=== PATIENT | female | born 1955 | race Caucasian/White ===

== ENCOUNTER 2022-12-23 16:40 | Outpatient (OUT) | payer MEDICARE, OTHER, SELFPAY ==
--- NOTE | 2022-12-23 16:48 | MM_ITS ---
Patient: MITALI CRONIN Exam Date: 12/23/2022 : 1955 Gender:F Ordering : DR ASHLY CHAMORRO M.D. Admission #: [id number] Family : Order #: [id number] CLICK HERE TO VIEW EXAM RADIOLOGY REPORT PROCEDURE: MM TOMOSYNTHESIS SCREENING BI COMPARISON: MG MAMM SCREEN AMOL W CAD, 01/04/2020. MG MAMM SCREEN 3D AMOL CAD, 04/17/2021. INDICATIONS: SCREENING Calculator Name NCI Breast Cancer Risk Assessment Tool 5 Year Breast Cancer Risk 1.50% Lifetime Breast Cancer Risk 4.50% Personal Breast Cancer No Personal Ovarian Cancer No Treatments None Family Cancers None LOCATION: [facility] BREAST COMPOSITION: Heterogeneously dense,which may obscure small masses. FINDINGS: DIAGNOSTIC CATEGORY 2--BENIGN FINDING. NO CHANGE FROM COMPARISON. Scattered benign-appearing nodules are present. Scattered benign-appearing calcifications are present. RIGHT BREAST: No significant suspicious finding. LEFT BREAST: No significant suspicious finding. RECOMMENDATIONS: ROUTINE MAMMOGRAM AND CLINICAL EVALUATION IN 12 MONTHS. PLEASE NOTE: A NORMAL MAMMOGRAM DOES NOT EXCLUDE THE POSSIBILITY OF BREAST CANCER. A CLINICALLY SUSPICIOUS PALPABLE LUMP SHOULD BE BIOPSIED. Dictated by: Daniel Corbett MD on 12/24/2022 at 10:12 Approved by: Daniel Corbett MD on 12/24/2022 at 10:15
== END 2022-12-23 16:41 | disposition home or self-care (01) ==
LOC: MAMMO 16:40
PROVIDERS: PCP Family Medicine; Visit Provider Family Medicine
DX: Z12.31 Encounter for screening mammogram for malignant neoplasm of breast (principal)
CPT/HCPCS: 77063; 77067

== ENCOUNTER 2023-01-23 19:05 | Emergency (ER) | payer MEDICARE, OTHER, SELFPAY ==
[2023-01-23 19:10] VITALS: BP 145/68; PULSE 77; RESP 16; TEMP 36.5; O2SAT 97; BMI 31.9
--- NOTE | 2023-01-23 19:42 | ED.SKABFB1 ---
HPI - Skin/Abscess/Foreign Bdy General Chief complaint: Skin/Abscess/Foreign Body Stated complaint: RASH Time Seen by Provider: 01/23/23 19:42 Related Data Allergies Allergy/AdvReac Type Severity Reaction Status Date / Time hydromorphone [From Dilaudid] Allergy Verified 01/23/23 19:14 morphine Allergy Verified 01/23/23 19:14 sumatriptan [From Imitrex] Allergy Verified 01/23/23 19:14 PFSH PFSH Social History Smoking status: Never smoker Exam Constitutional Vital Signs, click to edit/add: Last Vital Signs Temp 97.7 F 01/23/23 19:10 Pulse 77 01/23/23 19:10 Resp 16 01/23/23 19:10 BP 145/68 H 01/23/23 19:10 Pulse Ox 97 01/23/23 19:10 Course Vital Signs Vital signs: Vital Signs Temperature 97.7 F 01/23/23 19:10 Pulse Rate 77 01/23/23 19:10 Respiratory Rate 16 01/23/23 19:10 Blood Pressure 145/68 H 01/23/23 19:10 Pulse Oximetry 97 01/23/23 19:10 Temperature 97.7 F 01/23/23 19:10 Pulse Rate 77 01/23/23 19:10 Respiratory Rate 16 01/23/23 19:10 Blood Pressure 145/68 H 01/23/23 19:10 Pulse Oximetry 97 01/23/23 19:10 Discharge Plan Discharge Chief Complaint: Skin/Abscess/Foreign Body Referrals: ASHLY CHAMORRO [Primary Care Provider] - 1 week
== END 2023-01-23 20:34 | disposition left against medical advice (07) ==
PROVIDERS: Emergency Provider Emergency Medicine; PCP Family Medicine
DX: Z53.21 Procedure and treatment not carried out due to patient leaving prior to being seen by health care provider (principal)

== ENCOUNTER 2023-01-24 08:24 | Emergency (ER) | payer MEDICARE, OTHER, SELFPAY ==
[2023-01-24 08:29] VITALS: BP 171/84; PULSE 65; RESP 14; TEMP 36.6; O2SAT 96; BMI 31.5
--- NOTE | 2023-01-24 09:03 | ED.GENADUL1 ---
HPI - General Adult General Chief complaint: Allergic Reaction Stated complaint: HIVES Time Seen by Provider: 01/24/23 08:36 Source: patient Mode of arrival: walk-in Limitations: no limitations History of Present Illness HPI narrative: patient developed a blotchy red rash to her torso and extremities yesterday - she thinks it might have been some kind of exposure at the [place]. She took benadryl last night and it improved. She woke this morning and had new areas of rash - she once again took benadryl and it improved. She now presents, asking me what she might have been exposed to and why the rash comes and goes. No throat swelling or difficulty breathing. Related Data Home Medications Medication Instructions Recorded Confirmed hydrochlorothiazide 25 mg tablet mg 01/24/23 levothyroxine 75 mcg tablet 75 mcg PO DAILY 01/24/23 01/24/23 meloxicam 15 mg tablet 15 mg PO DAILY 01/24/23 01/24/23 metoprolol tartrate 50 mg tablet 50 mg PO DAILY 01/24/23 01/24/23 Previous Rx's Medication Instructions Recorded prednisone 20 mg tablet 40 mg PO DAILY #10 tabs 01/24/23 Allergies Allergy/AdvReac Type Severity Reaction Status Date / Time hydromorphone [From Dilaudid] Allergy Verified 01/23/23 19:14 morphine Allergy Verified 01/23/23 19:14 sumatriptan [From Imitrex] Allergy Verified 01/23/23 19:14 [facility] Medical History (Updated 01/24/23 @ 09:07 by Panfilo Guerin) Social History Smoking status: Never smoker Exam Narrative Exam Narrative: Nurses notes and vital signs reviewed and patient is not hypoxic. afebrile General: Well-appearing and in no apparent distress. Skin: Warm, dry, no pallor noted. No rash present now. Head: Normocephalic, atraumatic. Eye: Pupils are equal, round and EOMI. No scleral icterus. Ears, Nose, Mouth, and Throat: no facial rash or swelling Cardiovascular: Regular Rate and Rhythm without murmur, gallop or rub. Respiratory: No accessory muscle use or respiratory distress. Lungs are clear to auscultation, no wheezing, rales or rhonchi Musculoskeletal: normal ROM GI: Abdomen is soft, non-distended. Normal bowel sounds. No tenderness to palpation. No rebound, guarding, or rigidity noted. Neurological: A&O x4. No cranial nerve dysfunction observed. No truncal ataxia. Moves all extremities. Sensation intact. Psychiatric: Cooperative and interactive. Normal mood and affect. Constitutional Vital Signs, click to edit/add: Last Vital Signs Temp 97.9 F 01/24/23 08:29 Pulse 65 01/24/23 08:29 Resp 14 01/24/23 08:29 BP 171/84 H 01/24/23 08:29 Pulse Ox 96 01/24/23 08:29 O2 Del Method Room Air 01/24/23 08:29 Course Vital Signs Vital signs: Vital Signs Temperature 97.9 F 01/24/23 08:29 Pulse Rate 65 01/24/23 08:29 Respiratory Rate 14 01/24/23 08:29 Blood Pressure 171/84 H 01/24/23 08:29 Pulse Oximetry 96 01/24/23 08:29 Oxygen Delivery Method Room Air 01/24/23 08:29 Temperature 97.9 F 01/24/23 08:29 Pulse Rate 65 01/24/23 08:29 Respiratory Rate 14 01/24/23 08:29 Blood Pressure 171/84 H 01/24/23 08:29 Pulse Oximetry 96 01/24/23 08:29 Oxygen Delivery Method Room Air 01/24/23 08:29 Medical Decision Making MDM Narrative Medical decision making narrative: no rash present now - it responded to benadryl. Encouraged the patient to continue to take benadryl as needed. She used some toical steroid as well. I prescribed oral prednisone to be taken ONLY if the rash becomes widespread and does not respond to benadryl. Discharge Plan Discharge Chief Complaint: Allergic Reaction Clinical Impression: Urticaria Patient Disposition: Home, Self-Care Time of Disposition Decision: 09:07 Prescriptions / Home Meds: New prednisone 20 mg tablet 40 mg PO DAILY Qty: 10 0RF No Action hydrochlorothiazide 25 mg tablet levothyroxine 75 mcg tablet 75 mcg PO DAILY metoprolol tartrate 50 mg tablet 50 mg PO DAILY meloxicam 15 mg tablet 15 mg PO DAILY Instructions: Urticaria (ED) Stand Alone Forms: Portal Instructions Referrals: ASHLY CHAMORRO [Primary Care Provider] - 1 week
== END 2023-01-24 09:18 | disposition home or self-care (01) ==
PROVIDERS: Emergency Provider Emergency Medicine; PCP Family Medicine
DX: L50.9 Urticaria, unspecified (principal); Z79.899 Other long term (current) drug therapy; Z79.890 Hormone replacement therapy
CPT/HCPCS: 99283

== ENCOUNTER 2024-01-28 14:58 | Outpatient (OUT) | payer MEDICARE, OTHER, SELFPAY ==
--- NOTE | 2024-01-28 15:06 | MM_ITS ---
Patient Name: MITALI CRONIN MR#: [id number] : 1955 Exam Date: 01/28/2024 Ordering Doctor: DR ASHLY CHAMORRO M.D. RADIOLOGY REPORT PROCEDURE: MM TOMOSYNTHESIS SCREENING BI COMPARISON: MM TOMOSYNTHESIS SCREENING BI, 12/23/2022. MG MAMM SCREEN 3D AMOL CAD, 04/17/2021. MG MAMM SCREEN AMOL W CAD, 01/04/2020. MG MAMM AMOL SCRN W CAD DIG, 02/14/2016. INDICATIONS: Screening Calculator Name NCI Breast Cancer Risk Assessment Tool 5 Year Breast Cancer Risk 1.50% Lifetime Breast Cancer Risk 4.30% Personal Breast Cancer No Personal Ovarian Cancer No Treatments None Family Cancers None LOCATION: [facility] BREAST COMPOSITION: The breasts are heterogeneously dense,which may obscure small masses. FINDINGS: DIAGNOSTIC CATEGORY 2--BENIGN FINDING: RIGHT BREAST: No significant suspicious finding. Scattered benign-appearing calcifications are present. Chronically dilated subareolar ducts. No significant change has occurred. LEFT BREAST: No significant suspicious finding. Scattered benign-appearing nodules are present. Chronically dilated subareolar ducts. No significant change has occurred. RECOMMENDATIONS: ROUTINE MAMMOGRAM AND CLINICAL EVALUATION IN 12 MONTHS. PLEASE NOTE: A NORMAL MAMMOGRAM DOES NOT EXCLUDE THE POSSIBILITY OF BREAST CANCER. A CLINICALLY SUSPICIOUS PALPABLE LUMP SHOULD BE BIOPSIED. Dictated by: Miguel Glover M.D. on 01/28/2024 at 16:19 Approved by: Miguel Glover M.D. on 01/28/2024 at 16:22
== END 2024-01-28 14:59 | disposition home or self-care (01) ==
LOC: MAMMO 15:00
PROVIDERS: PCP Family Medicine; Visit Provider Family Medicine
DX: Z12.31 Encounter for screening mammogram for malignant neoplasm of breast (principal)
CPT/HCPCS: 77063; 77067

== ENCOUNTER 2024-01-31 08:52 | Emergency (ER) | payer MEDICARE, OTHER, SELFPAY ==
[2024-01-31 08:55] VITALS: BP 154/83; PULSE 66; TEMP 36.7; O2SAT 94; BMI 29.5
--- OUTSIDE RECORDS SUMMARY | 2024-01-31 08:59 | XMS_ITS | CCD ---
Author Organization [facility] Informat ion [facility] Care Team Providers Care 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 Name Role Phone Antoine Waggoner Primary Care Provider ANTOINE WAGGONER Primary Care Unavailabl e KURT, GREGORY H. Referring Unavailable KURT, GREGORY H. Attending Unavailable KURT, GREGORY H. Referring Unavailable ANTOINE WAGGONER Primary Care Unavailabl e KURT, GREGORY H. Admitting Unavailable KURT, GREGORY H. Attending Unavailable KURT, GREGORY H. Referring Unavailable ANTOINE WAGGONER [facility] Care Unavailabl e KURT, GREGORY H. Referring Unavailable ANTOINE WAGGONER Primary Care Unavailabl e Antoine Waggoner Primary Care Provider Margarita Pond Unavailable PAY, DR NUGENT Admitting Unavailable ASHTYN, DR LIMON Primary Care Unavailable PAY, DR NUGENT Attending Unavailable PAY, DR NUGENT Consulting Unavailable KEESHA MÉNDEZ Admitting Unavailable ZIEBER, DR KADE Phillips Consulting Unavailable ASHTYN, DR LIMON Primary Care Unavailable KEESHA MÉNDEZ Attending Unavailable KEESHA MÉNDEZ Consulting Unavailable HEMMER, DR EMELIA East Admitting Unavailable HEMMER, DR EMELIA East Attending Unavailable HEMMER, DR EMELIA East Consulting Unavailable ASHTYN, DR LIMON Primary Care Unavailable CRANDALL, DR AMANDA Thayer Consulting Unavailable KARLEY, DR AMANDA Thayer Admitting Unavailable ASHTYN, DR LIMON Primary Care Unavailable CRANDALL, DR AMANDA Thayer Attending Unavailable HAY, DR PARK Consulting Unavailable SARAH HAIDER Consulting Unavailable GLENN Garcia Attending Provider Saima Garcia Unavailable NO FAMILY, PHYSICIAN Primary Care Unavailable Saima Garcia Admitting Unavailable Saima Garcia Attending Unavailable Nadia Durham Unavailable Ciera Chamorro MD Unavailable Ciera Chamorro MD Primary Care Provider JUSTINE TREJO Attending Unavailable YOEL TRIPP Attending Unavailable JUSTINE TREJO Attending Unavailable YOEL TRIPP Attending Unavailable YOEL TRIPP Attending Unavailable YOEL TRIPP Attending Unavailable CIERA CHAMORRO Attending Unavailable YOEL TRIPP Attending Unavailable EMELIA VARGAS Attending Unavailable YOEL TRIPP Attending Unavailable CIERA CHAMORRO Attending Unavailable JESSICA MONTERO Attending Unavailable CIERA CHAMORRO Referring Unavailable MARLEY SIMS Attending Unavailable MARLEY SIMS Referring Unavailable MARLEY SIMS Referring Unavailable Allergies Allergy Classification Reported Allergen(s) Allergy Type Date of Onset Reaction(s) Facility (4 sources) Adhesive Tape Propensity to adverse reactions to drug 11-18-19 Rash [place], [place] (4 sources) HYDROmorphone Drug Allergy 11-18-19 20 Shortness Of Breath [place], [place] (4 sources) Lisinopril Drug Allergy 11-18-19 20 [place], [place] (10 sources) Morphine Drug Allergy 10-17-19 20 Shortness Of Breath [place] (10 sources) SUMAtriptan Drug Allergy 11-18-19 Unknown [place] (4 sources) Plasminogen Propensity to adverse reactions to drug 11-18-19 [place] (4 sources) Adhesive agent; Translations: [Adhesive] Drug allergy rash [facility] (6 sources) HYDROmorphone Drug Allergy 11-10-19 23 cant breathe [facility] (1 source) HYDROmorphone Drug Allergy [facility] (1 source) Morphine Drug Allergy [facility] (1 source) Plasmin Drug Allergy [facility] (3 sources) Lisinopril Propensity to adverse reactions 11-18-19 [facility] Healthcare Work Phone: (3 sources) Plasminogen Propensity to adverse reactions 11-18-19 [facility] Healthcare (3 sources) Wound Dressing Adhesive Drug Intolerance 11-18-19 Rash [facility] Healthcare Medications Current Medications Medication Drug Class(es) Dates Sig (Normalized) Sig (Original) acetaminophen 325 mg / oxyCODONE hydrochloride 5 mg oral tablet (2 sources) Opioid Agonist Start: 11-29-19 End: 12-06-19 take 1 tablet by mouth every six hours as needed for pain, then take 1 tablet by mouth as needed for pain oxyCODONE-acetaminophe n (PERCOCET) 5-325 MG per tablet Indications: Postoperative pain Take 1 tablet by mouth every 6 hours as needed for Pain for up to 7 days. Intended supply: 7 days. Take lowest dose possible to manage pain 28 tablet 0 11/29/2019 12/06/2019 Active amoxicillin 875 mg / clavulanate 125 mg oral tablet (2 sources) Penicillin-class Antibacterial Start: 07-07-19 End: 07-17-19 take 1 tablet by mouth in the morning amoxicillin-clavulanat e (Augmentin) 875-125 MG tablet Indications: Acute non-recurrent maxillary sinusitis Take 1 tablet (875 mg) by mouth in the morning and 1 tablet (875 mg) before bedtime. Do all this for 10 days. 20 tablet 0 07/07/2023 07/17/2023 Active atorvastatin 10 mg oral tablet (4 sources) HMG-CoA Reductase Inhibitor Start: 07-15-19 take 1 tablet by mouth once daily in the evening atorvastatin (LIPITOR) 10 MG tablet Take 10 mg by mouth every evening 0 07/15/2019 Active calcium chloride 0.0014 meq/ml / potassium chloride 0.004 meq/ml / sodium chloride 0.103 meq/ml / sodium lactate 0.028 meq/ml injectable solution (2 sources) Start: 11-29-19 lactated ringers infusion cephalexin 500 mg oral capsule (2 sources) Cephalosporin Antibacterial Start: 11-29-19 End: 12-06-19 take 1 capsule by mouth three times daily cephALEXin (KEFLEX) 500 MG capsule Take 1 capsule by mouth 3 times daily for 7 days 21 capsule 0 11/29/2019 12/06/2019 Active doxycycline hyclate 100 mg oral capsule (1 source) Tetracycline-clas s Drug Start: 07-04-19 take 1 capsule by mouth every twelve hours Doxycycline Hyclate 100 MG 1 capsule Orally Twice a day for 5 days Jun, Active fluconazole 150 mg oral tablet (1 source) Azole Antifungal Start: 07-04-19 Diflucan 150 MG Take 1 tablet on day 1, if still symptomatic on day 4 take 1 tab, if still symptomatic on day 7 take Orally Once a day for 7 days Jun, Active hydroCHLOROthiazide 25 mg oral tablet (10 sources) Thiazide Diuretic Start: 08-10-19 take 1 tablet by mouth once daily hydroCHLOROthiazide (HYDRODIURIL) 25 MG tablet Take 1 tablet by mouth daily 0 08/10/2019 Active levothyroxine sodium 0.075 mg oral tablet (10 sources) l-Thyroxine Start: 08-28-19 take 1 tablet by mouth once daily levothyroxine (Synthroid, Levoxyl) 75 MCG tablet Indications: Hypothyroidism, unspecified (CMS/HCC) TAKE 1 TABLET BY MOUTH ONCE DAILY 100 tablet 4 11/17/2022 Active take 1 tablet by rene th once daily in the morning Synthroid 75 MCG 1 tablet on an empty stomach in the morning Orally Once a day for 30 day(s) Active meloxicam 15 mg oral tablet (3 sources) Nonsteroidal Anti-inflammatory Drug Start: 07-09-2023 take 1 tablet by mouth in the morning meloxicam (Mobic) 15 MG tablet Indications: Primary osteoarthritis involving multiple joints TAKE 1 TABLET BY MOUTH IN THE MORNING 100 tablet 1 07/09/2023 Active take 1 tablet by rene th every twenty-four hours Meloxicam 15 MG 1 tablet Orally Once a day Active methylPREDNISolone (7 sources) Corticosteroid Start: 07-09-2023 End: 07-16-2023 methylPREDNISolone (Medrol Dospak) 4 MG tablets Indications: Acute non-recurrent pansinusitis Follow schedule on package instructions 21 tablet 0 07/09/2023 07/16/2023 Active Start: 05-17-2022 Medrol 4 MG as directed Orally as directed for 6 days May, Not-Taking Start: 09-11-2013 Depo-Medrol 80 mg Sep, 80 mg metoprolol tartrate 50 mg oral tablet (10 sources) beta-Adrenergic Estiven Start: 12-06-2013 End: 11-10-2023 take 1 tablet by mouth in the morning metoprolol tartrate (Lopressor) 50 MG tablet Indications: Essential (primary) hypertension (CMS/HCC) Take 1 tablet (50 mg) by mouth in the morning. 30 tablet 11 11/10/2022 11/10/2023 Active take 1 tablet by rene th every twenty-four hours Metoprolol Tartrate 50 MG 1 tablet Orall y once a day for 30 days Active rosuvastatin calcium 10 mg oral tablet (6 sources) HMG-CoA Reductase Inhibitor Start: 12-11-2022 take 1 tablet by mouth once daily rosuvastatin (Crestor) 10 MG tablet Indications: Pure hypercholesterolemia, unspecified (CMS/HCC) TAKE 1 TABLET BY MOUTH DAILY 100 tablet 3 12/11/2022 Active Crestor Active 3 ml sodium chloride 9 mg/ml injection (2 sources) Start: 11-29-2019 sodium chloride flush 0.9 % injection 10 mL sulfamethoxazole 800 mg / trimethoprim 160 mg oral tablet (1 source) Dihydrofolate Reductase Inhibitor Antibacterial, Sulfonamide Antimicrobial Start: 11-21-2022 take 1 tablet by mouth every twelve hours Sulfamethoxazole-T rimethoprim 800-160 MG 1 tablet Orally Twice a day for 5 days Nov, Active triamcinolone acetonide 5 mg/ml topical cream (7 sources) Corticosteroid Start: 10-10-2019 triamcinolone (ARISTOCORT) 0.5 % cream as needed 0 10/10/2019 Active Start: 12-12-2014 triamcinolone (KENALOG) 0.1 % cream as needed 0 12/12/2014 Active Completed/Discontinued Medications Medication Drug Class(es) Dates Sig (Normalized) Sig (Original) fluticasone propionate 0.05 mg/actuat metered dose nasal spray (2 sources) Corticosteroid Start: 05-17-2022 take 2 spray(s) nasal route once daily Fluticasone Propionate 50 MCG/ACT 2 sprays Nasally Once a day for 14 day(s) May, Not-Taking 10 ml lidocaine hydrochloride 10 mg/ml injection (1 source) Antiarrhythmic, Amide Local Anesthetic Start: 11-29-2019 End: 11-29-2019 lidocaine PF 1 % injection 1 mL Problems Active Problems Problem Classification Problem Date Documented Date Episodic/Chronic Acute and chronic tonsillitis (3 sources) Cyst of tonsil; Translations: [Other chronic diseases of tonsils and adenoids] Onset: 11-23-2022 11-23-2022 Chronic Cardiac dysrhythmias (8 sources) Unspecified atrial fibrillation; Translations: [Atrial fibrillation with rapid ventricular response] Onset: 12-17-2021 Chronic Cataract (3 sources) Cataract; Translations: [Unspecified cataract] Onset: 11-23-2022 11-23-2022 Chronic Disorders of lipid metabolism (11 sources) Hyperlipidemia; Translations: [Pure hypercholesterolemia , unspecified] Onset: 06-13-2019 Resolved: 11-24-2022 11-18-2019 Chronic Essential hypertension (8 sources) Hypertensive disorder; Translations: [Essential (primary) hypertension] Onset: 05-20-2013 11-18-2019 Chronic Genitourinary symptoms and ill-defined conditions (1 source) Dysuria; Translations: [Dysuria] Onset: 11-21-2022 Episodic Nutritional deficiencies (3 sources) Vitamin D deficiency; Translations: [Vitamin D deficiency, unspecified] Onset: 11-23-2022 11-23-2022 Chronic Osteoarthritis (9 sources) Arthritis of finger of left hand; Translations: [Primary osteoarthritis, left hand] Onset: 11-23-2022 11-23-2022 Chronic Other connective tissue disease (1 source) Presence of artificial knee joint, bilateral; Translations: [PRESENCE ARTIFICIAL KNEE JNT BILAT] Onset: 12-17-2021 Chronic Other connective tissue disease (3 sources) History of total knee arthroplasty; Translations: [Presence of left artificial knee joint] Onset: 11-23-2022 11-23-2022 Chronic Other connective tissue disease (1 source) Pain in left foot Episodic Other diseases of bladder and urethra (3 sources) Overactive bladder; Translations: [Overactive bladder] Onset: 11-24-2022 11-24-2022 Chronic Other nervous system disorders (3 sources) Lesion of ulnar nerve; Translations: [Lesion of ulnar nerve, unspecified upper limb] Onset: 11-23-2022 11-23-2022 Chronic Other nervous system disorders (3 sources) Chronic pain; Translations: [Other chronic pain] Onset: 11-23-2022 11-23-2022 Chronic Other nervous system disorders (1 source) Postoperative pain ; Translations: [Postoperative pain] Episodic Other nutritional; endocrine; and metabolic disorders (1 source) Hypomagnesemia; Translations: [HYPOMAGNESEMIA] Onset: 12-16-2021 Chronic Other nutritional; endocrine; and metabolic disorders (1 source) Other disorders of glycoprotein metabolism; 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] Onset: 12-16-2021 Chronic Other nutritional; endocrine; and metabolic disorders (1 source) Hypocalcemia; Translations: [HYPOCALCEMIA] Onset: 12-16-2021 Chronic Other nutritional; endocrine; and metabolic disorders (3 sources) Hypocalcemia; Translations: [Hypocalcemia] Onset: 11-23-2022 11-23-2022 Chronic Other nutritional; endocrine; and metabolic disorders (3 sources) Hypomagnesemia; Translations: [Hypomagnesemia] Onset: 11-23-2022 11-23-2022 Chronic Other nutritional; endocrine; and metabolic disorders (3 sources) Body mass index 30+ - obesity; Translations: [Obesity, unspecified] Onset: 11-23-2022 11-23-2022 Chronic Other upper respiratory infections (3 sources) Chronic sinusitis; Translations: [Chronic sinusitis, unspecified] Onset: 11-23-2022 11-23-2022 Chronic Other upper respiratory infections (4 sources) Acute sinusitis, unspecified; Translations: [Acute pansinusitis] Episodic Residual codes; unclassified (1 source) Pain; Translations: [Pain] Episodic Thyroid disorders (8 sources) Hypothyroidism; Translations: [Hypothyroidism, unspecified] Onset: 05-20-2013 11-18-2019 Chronic Unclassified (5 sources) History of lumbar fusion; Translations: [History of lumbar fusion] Onset: 11-18-2019 11-18-2019 Unclassified (1 source) CONTACT W/AND (SUSP) EXPOS COVID-19; Translations: [CONTACT W/AND (SUSP) EXPOS COVID-19] Onset: 12-16-2021 Past or Other Problems Problem Classification Problem Date Documented Da te Episodic/Chronic Allergic reactions (1 source) Unspecified contact dermatitis, unspecified cause; Translations: [UNS CONTACT DERMATITIS UNS CAUSE] Onset: 12-17-2021 Episodic Deficiency and other anemia (1 source) Anemia, unspecified; Translations: [ANEMIA UNSPECIFIED] Onset: 12-16-2021 Episodic Deficiency and other anemia (3 sources) Anemia; Translations: [Anemia, unspecified] Onset: 11-23-2022 11-23-2022 Episodic Fluid and electrolyte disorders (5 sources) Hypokalemia; Translations: [Dehydration] Onset: 12-16-2021 11-23-2022 Episodic Intestinal infection (1 source) Campylobacter enteritis; Translations: [CAMPYLOBACTER ENTERITIS] Onset: 12-16-2021 Episodic Mood disorders (3 sources) Mood disorders Onset: 11-24-2022 11-24-2022 Other aftercare (1 source) watermaster (current) use of aspirin; Translations: [FDC CURRENT USE OF ASPIRIN] Onset: 12-17-2021 Episodic Other aftercare (1 source) Other halfway (current) drug therapy; Translations: [OTH SKIFF OPERATOR CURRENT DRUG THERAPY] Onset: 12-17-2021 Episodic Other bone disease and musculoskeletal deformities (3 sources) Exostosis; Translations: [Other specified disorders of bone, ankle and foot] Onset: 11-09-2022 11-09-2022 Episodic Other circulatory disease (1 source) Hypotension, unspecified; Translations: [HYPOTENSION UNSPECIFIED] Onset: 12-16-2021 Episodic Other connective tissue disease (3 sources) Bursitis of foot region; Translations: [Other enthesopathy of unspecified foot and ankle] Onset: 11-09-2022 11-09-2022 Episodic Other connective tissue disease (3 sources) Pain of toe of right foot; Translations: [Pain in right toe(s)] Onset: 11-09-2022 11-09-2022 Episodic Other connective tissue disease (3 sources) Plantar fasciitis of right foot; Translations: [Plantar fascial fibromatosis] Onset: 11-09-2022 11-09-2022 Episodic Other connective tissue disease (3 sources) History of lumbar fusion; Translations: [Arthrodesis status] Onset: 11-18-2019 11-23-2022 Episodic Other inflammatory condition of skin (1 source) Pruritus, unspecified; Translations: [PRURITUS UNSPECIFIED] Onset: 12-17-2021 Episodic Other non-traumatic joint disorders (4 sources) Shoulder pain; Translations: [Right shoulder pain] Onset: 11-18-2019 11-18-2019 Episodic Other non-traumatic joint disorders (3 sources) Sesamoiditis; Translations: [Other specified joint disorders, unspecified joint] Onset: 11-09-2022 11-09-2022 Episodic Other non-traumatic joint disorders (3 sources) Pain in right knee; Translations: [Pain in joint, lower leg] Onset: 11-23-2022 11-23-2022 Episodic Other non-traumatic joint disorders (3 sources) Pain in right shoulder; Translations: [Pain in joint, shoulder region] Onset: 11-18-2019 11-23-2022 Episodic Other skin disorders (3 sources) Rash and other nonspecific skin eruption; Translations: [RASH OTH NONSPECIFIC SKIN ERUPTION] Onset: 12-16-2021 Episodic Other skin disorders (3 sources) Callosity; Translations: [Corns and callosities] Onset: 11-09-2022 11-09-2022 Episodic Other skin disorders (3 sources) Ingrowing toenail; Translations: [Ingrowing nail] Onset: 11-09-2022 11-09-2022 Episodic Residual codes; unclassified (1 source) Acquired absence of both cervix and uterus; Translations: [ACQUIRED ABSENCE BOTH CERVIX AND UTERUS] Onset: 12-17-2021 Episodic Residual codes; unclassified (1 source) Acquired absence of ovaries, bilateral; Translations: [ACQUIRED ABSENCE OVARIES BILATERAL] Onset: 12-17-2021 Episodic Residual codes; unclassified (3 sources) History of operative procedure on lumbosacral spinal structure; Translations: [Other specified postprocedural states] Onset: 03-31-2023 03-31-2023 Episodic Septicemia (except in labor) (1 source) Other specified sepsis; Translations: [OTHER SPECIFIED SEPSIS] Onset: 12-16-2021 Episodic Sprains and strains (3 sources) Sprain of spinal ligament; Translations: [Sprain of ligaments of lumbar spine, initial encounter] Onset: 03-31-2023 03-31-2023 Episodic Results Test Name Value Interpretation Reference Range Facility XR LUMBAR SPINE 2-3 VIEWSon 03-31-2023 XR LUMBAR SPINE 2-3 VIEWS EXAM: XR LUMBAR SPINE 2-3 VIEWS [id number] CLINICAL INDICATION: low back pain has history of back surgery COMPARISON: None. FINDINGS: There has been prior L3-S1 posterior lumbar interbody fusion, with disc spacer devices, bilateral pedicle screws at each level, and vertical bars with a cross-link. No radiographic evidence of hardware loosening or infection. There is also an abandoned presumed stimulator lead posterior to L3. No acute fracture, dislocation or subluxation is seen. There is moderate to severe disc narrowing at all visualized levels above the fusion, worst at L1-2 and L2-3. The visualized sacroiliac joints and gregorio are unremarkable in appearance. The bones are demineralized. Aortic atherosclerosis is seen. IMPRESSION: 1. L3-S1 PLIF without radiographic complication. 2. Severe degenerative disc disease at L1-2 and L2-3, and moderate in the visualized lower thoracic spine. ELECTRONICALLY SIGNED BY: Randolph Nair MD Normal Not Available Urine Cultureon 11-21-2022 Bacteria identified Cx Nom (U) <9,000 colonies/ml mixed bacterial skin contaminants 1 Day PERFORMED BY: [place] [id number] PATHOLOGIST AGRONOMY RESEARCH MANAGER DARYL SEVILLA M.D. Normal [facility] Comment on above: Performed By: #### C UU #### [address] CBC AUTO DIFFon 12-09-2021 BASO # 0.0 103/ul Normal 0.0-0.1 [facility] Comment on above: Performed By: #### V ITAD #### [facility] [address] [place] [address] Dr. Jonelle Trujillo Basophils/100 WBC (Bld) 0.5 % Normal 0.2-2.0 [facility] Comment on above: Performed By: #### V ITAD #### [facility] [address] [place] [address] Dr. Jonelle Trujillo EO # 0.1 103/ul Normal 0.0-0.7 [facility] Comment on above: Performed By: #### V ITAD #### [facility] [address] [place] [address] Dr. Jonelle Trujillo Eosinophils/100 WBC (Bld) 2.5 % Normal 0.9-7.0 [facility] Comment on above: Performed By: #### V ITAD #### [facility] [address] [place] [address] Dr. Jonelle Trujillo Erythrocyte distribution width (RBC) [Ratio] 13.4 % Normal 11.0-15.0 [facility] Comment on above: Performed By: #### V ITAD #### [facility] [address] [place] [address] Dr. Jonelle Trujillo Hematocrit (Bld) [Volume fraction] 33.4 % Critically low 36.0-48.0 [facility] Comment on above: Performed By: #### V ITAD #### [facility] [address] [place] [address] Dr. Jonelle Trujillo Hemoglobin (Bld) [Mass/Vol] 10.7 g/dL Critically low 12.0-16.0 [facility] Comment on above: Performed By: #### V ITAD #### [facility] [address] [place] [address] Dr. Jonelle Trujillo IG # 0.01 10e3/ul Normal 0.00-0.03 [facility] Comment on above: Performed By: #### V ITAD #### [facility] [address] [place] [address] Dr. Jonelle Trujillo IG % 0.2 % Normal 0.0-0.5 [facility] Comment on above: Performed By: #### V ITAD #### [facility] [address] [place] [address] Dr. Jonelle Trujillo LYMPH # 1.6 103/ul Normal 1.2-3.8 [facility] Comment on above: Performed By: #### V ITAD #### [facility] [address] [place] [address] Dr. Jonelle Trujillo Lymphocytes/100 WBC (Bld) 37.7 % Normal 20.5-60.0 [facility] Comment on above: Performed By: #### V ITAD #### [facility] [address] [place] [address] Dr. Jonelle Trujillo MANUAL DIFF REQ NO Normal [facility] Comment on above: Performed By: #### V ITAD #### [facility] [address] [place] [address] Dr. Jonelle Trujillo MCH (RBC) [Entitic mass] 28.4 pg Normal 26.7-34.0 [facility] Comment on above: Performed By: #### V ITAD #### [facility] [address] [place] [address] Dr. Jonelle Trujillo MCHC (RBC) [Mass/Vol] 32.0 g/dL Normal 29.9-35.2 [facility] Comment on above: Performed By: #### V ITAD #### [facility] [address] [place] [address] Dr. Jonelle Trujillo MCV (RBC) [Entitic vol] 88.6 fL Normal 81.0-99.0 [facility] Comment on above: Performed By: #### V ITAD #### [facility] [address] [place] [address] Dr. Jonelle Trujillo MONO # 0.5 103/ul Normal 0.3-0.8 [facility] Comment on above: Performed By: #### V ITAD #### [facility] [address] [place] [address] Dr. Jonelle Trujillo Monocytes/100 WBC (Bld) 12.3 % Critically high 1.7-12.0 [facility] Comment on above: Performed By: #### V ITAD #### [facility] [address] [place] [address] Dr. Jonelle Trujillo NEUT # 2.0 103/ul Normal 1.4-6.5 [facility] Comment on above: Performed By: #### V ITAD #### [facility] [address] [place] [address] Dr. Jonelle Trujillo Neutrophils/100 WBC (Bld) 46.8 % Normal 43.0-75.0 [facility] Comment on above: Performed By: #### V ITAD #### [facility] [address] [place] [address] Dr. Jonelle Trujillo Platelet mean volume (Bld) [Entitic vol] 10.5 fL Normal 9.5-13.5 [facility] Comment on above: Performed By: #### V ITAD #### [facility] [address] [place] [address] Dr. Jonelle Trujillo PLT 163 103/ul Normal 150-450 [facility] Comment on above: Performed By: #### V ITAD #### [facility] [address] [address] [address] Jonelle Trujillo RBC 3.77 106/ul Critically low 4.20-5.40 [facility] Comment on above: Performed By: #### V ITAD #### [facility] [address] [address] [address] Jonelle Trujillo WBC 4.3 103/ul Normal 4.0-11.0 [facility] Comment on above: Performed By: #### V ITAD #### [facility] [address] [address] [address] Jonelle Trujillo MAGNESIUMon 12-09-2021 Magnesium [Mass/Vol] 1.7 mg/dL Critically low 1.8-2.4 [facility] Comment on above: Performed By: #### C BC #### [facility] [address] [place] [address] Dr. Jonelle Trujillo PROF CHEM 8 (BAS METB)on Anion gap [Moles/Vol] 12.8 mmol/L Normal [facility] Comment on above: Performed By: #### B MP #### [facility] [address] [place] [address] Dr. Jonelle Trujillo Calcium [Mass/Vol] 8.8 mg/dL Normal 8.5-10.1 [facility] Comment on above: Performed By: #### B MP #### [facility] [address] [place] [address] Dr. Jonelle Trujillo Chloride [Moles/Vol] 107 mmol/L Normal 98-107 [facility] Comment on above: Performed By: #### B MP #### [facility] [address] [place] [address] Dr. Jonelle Trujillo CO2 [Moles/Vol] 24.5 mmol/L Normal 21.0-32.0 [facility] Comment on above: Performed By: #### B MP #### [facility] [address] [place] [address] Dr. Jonelle Trujillo Creatinine [Mass/Vol] 0.56 mg/dL Normal 0.55-1.02 [facility] Comment on above: Performed By: #### B MP #### [facility] [address] [address] [address] Jonelle Trujillo EGFR-AF LITHUANIAN >60 Normal >=60 [facility] Comment on above: Performed By: #### B MP #### [facility] [address] [address] [address] Jonelle Trujillo EGFR-NON AF LITHUANIAN >60 Normal >=60 [facility] Comment on above: Performed By: #### B MP #### [facility] [address] [address] [address] Jonelle Trujillo Glucose [Mass/Vol] 83 mg/dL Normal 74-106 [facility] Comment on above: Performed By: #### B MP #### [facility] [address] [address] [address] Jonelle Trujillo Potassium [Moles/Vol] 4.3 mmol/L Normal 3.5-5.1 [facility] Comment on above: Performed By: #### B MP #### [facility] [address] [address] [address] Jonelle Trujillo Sodium [Moles/Vol] 140 mmol/L Normal 136-145 [facility] Comment on above: Performed By: #### B MP #### [facility] [address] [address] [address] Jonelle Trujillo Urea nitrogen [Mass/Vol] 5.0 mg/dL Critically low 7.0-18.0 [facility] Comment on above: Performed By: #### B MP #### [facility] [address] [address] [address] Jonelle Trujillo Urea nitrogen/Creatinine [Mass ratio] 8.9 mg/mg Normal [facility] Comment on above: Performed By: #### B MP #### [facility] [address] [place] [address] Dr. Jonelle Trujillo CBC AUTO DIFFon 12-08-2021 BASO # 0.0 103/ul Normal 0.0-0.1 [facility] Comment on above: Performed By: #### C BC #### [facility] [address] [place] [address] Dr. Jonelle Trujillo Basophils/100 WBC (Bld) 0.4 % Normal 0.2-2.0 [facility] Comment on above: Performed By: #### C BC #### [facility] [address] [place] [address] Dr. Jonelle Trujillo EO # 0.1 103/ul Normal 0.0-0.7 [facility] Comment on above: Performed By: #### C BC #### [facility] [address] [place] [address] Dr. Jonelle Trujillo Eosinophils/100 WBC (Bld) 1.4 % Normal 0.9-7.0 [facility] Comment on above: Performed By: #### C BC #### [facility] [address] [place] [address] Dr. Jonelle Trujillo Erythrocyte distribution width (RBC) [Ratio] 13.9 % Normal 11.0-15.0 [facility] Comment on above: Performed By: #### C BC #### [facility] [address] [place] [address] Dr. Jonelle Trujillo Hematocrit (Bld) [Volume fraction] 32.4 % Critically low 36.0-48.0 [facility] Comment on above: Performed By: #### C BC #### [facility] [address] [place] [address] Dr. Jonelle Trujillo Hemoglobin (Bld) [Mass/Vol] 10.4 g/dL Critically low 12.0-16.0 [facility] Comment on above: Performed By: #### C BC #### [facility] [address] [place] [address] Dr. Jonelle Trujillo IG # 0.02 10e3/ul Normal 0.00-0.03 [facility] Comment on above: Performed By: #### C BC #### [facility] [address] [place] [address] Dr. Jonelle Trujillo IG % 0.4 % Normal 0.0-0.5 [facility] Comment on above: Performed By: #### C BC #### [facility] [address] [address] [address] Jonelle Trujillo LYMPH # 1.5 103/ul Normal 1.2-3.8 [facility] Comment on above: Performed By: #### C BC #### [facility] [address] [address] [address] Jonelle Trujillo Lymphocytes/100 WBC (Bld) 31.1 % Normal 20.5-60.0 [facility] Comment on above: Performed By: #### C BC #### [facility] [address] [place] [address] Dr. Jonelle Trujillo MANUAL DIFF REQ NO Normal [facility] Comment on above: Performed By: #### C BC #### [facility] [address] [place] [address] Dr. Jonelle Trujillo MCH (RBC) [Entitic mass] 28.6 pg Normal 26.7-34.0 [facility] Comment on above: Performed By: #### C BC #### [facility] [address] [place] [address] Dr. Jonelle Trujillo MCHC (RBC) [Mass/Vol] 32.1 g/dL Normal 29.9-35.2 [facility] Comment on above: Performed By: #### C BC #### [facility] [address] [place] [address] Dr. Jonelle Trujillo MCV (RBC) [Entitic vol] 89.0 fL Normal 81.0-99.0 [facility] Comment on above: Performed By: #### C BC #### [facility] [address] [place] [address] Dr. Jonelle Trujillo MONO # 0.7 103/ul Normal 0.3-0.8 [facility] Comment on above: Performed By: #### C BC #### [facility] [address] [place] [address] Dr. Jonelle Trujillo Monocytes/100 WBC (Bld) 13.3 % Critically high 1.7-12.0 [facility] Comment on above: Performed By: #### C BC #### [facility] [address] [address] [address] Jonelle Trujillo NEUT # 2.6 103/ul Normal 1.4-6.5 [facility] Comment on above: Performed By: #### C BC #### [facility] [address] [place] [address] Dr. Jonelle Trujillo Neutrophils/100 WBC (Bld) 53.4 % Normal 43.0-75.0 [facility] Comment on above: Performed By: #### C BC #### [facility] [address] [place] [address] Dr. Jonelle Trujillo Platelet mean volume (Bld) [Entitic vol] 10.0 fL Normal 9.5-13.5 [facility] Comment on above: Performed By: #### C BC #### [facility] [address] [place] [address] Dr. Jonelle Trujillo PLT 152 103/ul Normal 150-450 [facility] Comment on above: Performed By: #### C BC #### [facility] [address] [place] [address] Dr. Jonelle Trujillo RBC 3.64 106/ul Critically low 4.20-5.40 [facility] Comment on above: Performed By: #### C BC #### [facility] [address] [place] [address] Dr. Jonelle Trujillo WBC 4.9 103/ul Normal 4.0-11.0 [facility] Comment on above: Performed By: #### C BC #### [facility] [address] [place] [address] Dr. Jonelle Trujillo PROF CHEM 8 (BAS METB)on Anion gap [Moles/Vol] 11.8 mmol/L Normal [facility] Comment on above: Performed By: #### C BC #### [facility] [address] [place] [address] Dr. Jonelle Trujillo Calcium [Mass/Vol] 8.4 mg/dL Critically low 8.5-10.1 [facility] Comment on above: Performed By: #### C BC #### [facility] [address] [place] [address] Dr. Jonelle Trujillo Chloride [Moles/Vol] 108 mmol/L Critically high 98-107 [facility] Comment on above: Performed By: #### C BC #### [facility] [address] [address] [address] Jonelle Trujillo CO2 [Moles/Vol] 24.3 mmol/L Normal 21.0-32.0 [facility] Comment on above: Performed By: #### C BC #### [facility] [address] [address] [address] Jonelle Trujillo Creatinine [Mass/Vol] 0.63 mg/dL Normal 0.55-1.02 [facility] Comment on above: Performed By: #### C BC #### [facility] [address] [place] [address] Dr. Jonelle Trujillo EGFR-AF LITHUANIAN >60 Normal >=60 [facility] Comment on above: Performed By: #### C BC #### [facility] [address] [address] [address] Jonelle Trujillo EGFR-NON AF LITHUANIAN >60 Normal >=60 [facility] Comment on above: Performed By: #### C BC #### [facility] [address] [address] [address] Jonelle Trujillo Glucose [Mass/Vol] 88 mg/dL Normal 74-106 [facility] Comment on above: Performed By: #### C BC #### [facility] [address] [address] [address] Jonelle Trujillo Potassium [Moles/Vol] 4.1 mmol/L Normal 3.5-5.1 [facility] Comment on above: Performed By: #### C BC #### [facility] [address] [address] [address] Jonelle Trujillo Sodium [Moles/Vol] 140 mmol/L Normal 136-145 [facility] Comment on above: Performed By: #### C BC #### [facility] [address] [address] [address] Jonelle Trujillo Urea nitrogen [Mass/Vol] 7.0 mg/dL Normal 7.0-18.0 [facility] Comment on above: Performed By: #### C BC #### [facility] [address] [place] [address] Dr. Jonelle Trujillo Urea nitrogen/Creatinine [Mass ratio] 11.1 mg/mg Normal [facility] Comment on above: Performed By: #### C BC #### [facility] [address] [place] [address] Dr. Jonelle Trujillo CBC AUTO DIFFon 12-07-2021 BASO # 0.0 103/ul Normal 0.0-0.1 [facility] Comment on above: Performed By: #### C BC #### [facility] [address] [place] [address] Dr. Jonelle Trujillo Basophils/100 WBC (Bld) 0.4 % Normal 0.2-2.0 [facility] Comment on above: Performed By: #### C BC #### [facility] [address] [place] [address] Dr. Jonelle Trujillo EO # 0.0 103/ul Normal 0.0-0.7 [facility] Comment on above: Performed By: #### C BC #### [facility] [address] [place] [address] Dr. Jonelle Trujillo Eosinophils/100 WBC (Bld) 0.0 % Critically low 0.9-7.0 [facility] Comment on above: Performed By: #### C BC #### [facility] [address] [place] [address] Dr. Jonelle Trujillo Erythrocyte distribution width (RBC) [Ratio] 13.5 % Normal 11.0-15.0 [facility] Comment on above: Performed By: #### C BC #### [facility] [address] [place] [address] Dr. Jonelle Trujillo Hematocrit (Bld) [Volume fraction] 37.4 % Normal 36.0-48.0 [facility] Comment on above: Performed By: #### C BC #### [facility] [address] [place] [address] Dr. Jonelle Trujillo Hemoglobin (Bld) [Mass/Vol] 12.2 g/dL Normal 12.0-16.0 [facility] Comment on above: Performed By: #### C BC #### [facility] [address] [place] [address] Dr. Jonelle Trujillo IG # 0.01 10e3/ul Normal 0.00-0.03 [facility] Comment on above: Performed By: #### C BC #### [facility] [address] [place] [address] Dr. Jonelle Trujillo IG % 0.2 % Normal 0.0-0.5 [facility] Comment on above: Performed By: #### C BC #### [facility] [address] [place] [address] Dr. Jonelle Trujillo LYMPH # 0.9 103/ul Critically low 1.2-3.8 [place] Comment on above: Performed By: #### C BC #### [facility] [address] [place] [address] Dr. Jonelle Trujillo Lymphocytes/100 WBC (Bld) 16.4 % Critically low 20.5-60.0 [facility] Comment on above: Performed By: #### C BC #### [facility] [address] [place] [address] Dr. Jonelle Trujillo MANUAL DIFF REQ NO Normal [facility] Comment on above: Performed By: #### C BC #### [facility] [address] [place] [address] Dr. Jonelle Trujillo MCH (RBC) [Entitic mass] 28.6 pg Normal 26.7-34.0 [facility] Comment on above: Performed By: #### C BC #### [facility] [address] [place] [address] Dr. Jonelle Trujillo MCHC (RBC) [Mass/Vol] 32.6 g/dL Normal 29.9-35.2 [facility] Comment on above: Performed By: #### C BC #### [facility] [address] [place] [address] Dr. Jonelle Trujillo MCV (RBC) [Entitic vol] 87.8 fL Normal 81.0-99.0 [facility] Comment on above: Performed By: #### C BC #### [facility] [address] [address] [address] Jonelle Trujillo MONO # 0.5 103/ul Normal 0.3-0.8 [facility] Comment on above: Performed By: #### C BC #### [facility] [address] [address] [address] Jonelle Trujillo Monocytes/100 WBC (Bld) 9.7 % Normal 1.7-12.0 [facility] Comment on above: Performed By: #### C BC #### [facility] [address] [place] [address] Dr. Jonelle Trujillo NEUT # 4.0 103/ul Normal 1.4-6.5 [facility] Comment on above: Performed By: #### C BC #### [facility] [address] [place] [address] Dr. Jonelle Trujillo Neutrophils/100 WBC (Bld) 73.3 % Normal 43.0-75.0 [facility] Comment on above: Performed By: #### C BC #### [facility] [address] [place] [address] Dr. Jonelle Trujillo Platelet mean volume (Bld) [Entitic vol] 9.8 fL Normal 9.5-13.5 [facility] Comment on above: Performed By: #### C BC #### [facility] [address] [place] [address] Dr. Jonelle Trujillo PLT 144 103/ul Critically low 150-450 [place] Comment on above: Performed By: #### C BC #### [facility] [address] [place] [address] Dr. Jonelle Trujillo RBC 4.26 106/ul Normal 4.20-5.40 [facility] Comment on above: Performed By: #### C BC #### [facility] [address] [place] [address] Dr. Jonelle Trujillo WBC 5.5 103/ul Normal 4.0-11.0 [facility] Comment on above: Performed By: #### C BC #### [facility] [address] [place] [address] Dr. Jonelle Trujillo Covid-19 PCR (CVDTBH)on SARS-CoV-2 (COVID-19) RNA MARCIA+probe Ql (Unsp spec) Not detected Normal NOT DETECTED [facility] Comment on above: Result Comment: When diagnostic testing is negative, the possibility of a false negative should be considered in the context of a patient's recent exposures and the presence of clinical signs and symptoms consistent with SARS-CoV-2. This test is not yet approved or cleared by the [place] FDA. When there are no FDA-approved or cleared tests available, and other criteria are met, FDA can make tests available under an emergency access mechanism called an Emergency Use Authorization (EUA). The EUA for this test is supported by the Collaborative Physician of Health and Human Service's declaration that circumstances exist to justify the emergency use of in vitro diagnostics for the detection and/or diagnosis of the virus that causes COVID-19. This EUA will remain in effect for the duration of the COVID-19 declaration justifying emergency of IVDs, unless it is terminated or revoked by the FDA (after which the test may no longer be used). Performed By: #### C VDTBH #### [facility] [address] [place] [address] Dr. Jonelle Trujillo GI PANEL (PCR)on 12-07-2021 Adenovirus F 40/41 Not detected Normal NOT DETECTED [facility] Comment on above: Performed By: #### C BC #### [facility] [address] [place] [address] Dr. Jonelle Trujillo Astrovirus Not detected Normal NOT DETECTED [facility] Comment on above: Performed By: #### C BC #### [facility] [address] [place] [address] Dr. Jonelle Guevara. Diff toxin A/B Not detected Normal NOT DETECTED [facility] Comment on above: Performed By: #### C BC #### [facility] [address] [place] [address] Dr. Jonelle Trujillo Campylobacter Detected Critically abnormal NOT DETECTED [facility] Comment on above: Performed By: #### C BC #### [facility] [address] [place] [address] Dr. Jonelle Trujillo Cryptosporidium Not detected Normal NOT DETECTED [facility] Comment on above: Performed By: #### C BC #### [facility] [address] [place] [address] Dr. Jonelle Trujillo Cyclos. Cayetanensis Not detected Normal NOT DETECTED [facility] Comment on above: Performed By: #### C BC #### [facility] [address] [place] [address] Dr. Jonelle Trujillo E. Coli O157 Not Applicable Normal Not Applicable [facility] Comment on above: Performed By: #### C BC #### [facility] [address] [place] [address] Dr. Jonelle Trujillo E. histolytica Not detected Normal NOT DETECTED [facility] Comment on above: Performed By: #### C BC #### [facility] [address] [place] [address] Dr. Jonelle Trujillo EAEC Not detected Normal NOT DETECTED [facility] Comment on above: Performed By: #### C BC #### [facility] [address] [place] [address] Dr. Jonelle Trujillo EIEC Not detected Normal NOT DETECTED [facility] Comment on above: Performed By: #### C BC #### [facility] [address] [place] [address] Dr. Jonelle Trujillo EPEC Not detected Normal NOT DETECTED [facility] Comment on above: Performed By: #### C BC #### [facility] [address] [place] [address] Dr. Jonelle Trujillo ETEC Not detected Normal NOT DETECTED [facility] Comment on above: Performed By: #### C BC #### [facility] [address] [place] [address] Dr. Jonelle Trujillo G. Lamblia Not detected Normal NOT DETECTED [facility] Comment on above: Performed By: #### C BC #### [facility] [address] [place] [address] Dr. Jonelle Trujillo GIPANEL CONTROLS PASSED Normal [facility] Comment on above: Performed By: #### C BC #### [facility] [address] [address] [address] Jonelle LIRIANO CORNELIO HEADER GI PANEL BACTERIA Normal [facility] Comment on above: Performed By: #### C BC #### [facility] [address] [address] [address] Jonelle POWELL ECOLI GI PANEL DIARRHEAGENIC E.COLI / SHIGELLA Normal [facility] Comment on above: Performed By: #### C BC #### [facility] [address] [address] [address] Jonelle POWELL INFO SEE BELOW Normal [facility] Comment on above: Result Comment: EAEC - Enteroaggregative E. Coli EPEC- Enteropathogenic E. Coli ETEC- Enterotoxigenic E. Coli lt/st STEC- Shigella-like toxin-producing E. Coli stx1/stx2 EIEC- Shigella/Enteroinvasive E. Coli Performed By: #### C BC #### [facility] [address] [address] [address] Jonelle POWELL PARASITES GI PANEL PARASITES Normal [facility] Comment on above: Performed By: #### C BC #### [facility] [address] [place] [address] Dr. Jonelle POWELL VIRUS GI PANEL VIRUSES Normal [facility] Comment on above: Performed By: #### C BC #### [facility] [address] [address] [address] Jonelle Turjillo Norovirus GI/GII Not detected Normal NOT DETECTED [facility] Comment on above: Performed By: #### C BC #### [facility] [address] [address] [address] Jonelle Trujillo P. Shigelloides Not detected Normal NOT DETECTED [facility] Comment on above: Performed By: #### C BC #### [facility] [address] [address] [address] Jonelle Trujillo Rotavirus A Not detected Normal NOT DETECTED [facility] Comment on above: Performed By: #### C BC #### [facility] [address] [place] [address] Dr. Jonelle Trujillo Salmonella Not detected Normal NOT DETECTED [facility] Comment on above: Performed By: #### C BC #### [facility] [address] [place] [address] Dr. Jonelle Trujillo Sapovirus Not detected Normal NOT DETECTED [facility] Comment on above: Performed By: #### C BC #### [facility] [address] [place] [address] Dr. Jonelle Trujillo STEC Not detected Normal NOT DETECTED [facility] Comment on above: Performed By: #### C BC #### [facility] [address] [place] [address] Dr. Jonelle Trujillo Vibrio Not detected Normal NOT DETECTED [facility] Comment on above: Performed By: #### C BC #### [facility] [address] [place] [address] Dr. Jonelle Trujillo Vibrio Cholera Not detected Normal NOT DETECTED [facility] Comment on above: Performed By: #### C BC #### [facility] [address] [place] [address] Dr. Jonelle Trujillo Y. Enterocolitica Not detected Normal NOT DETECTED [facility] Comment on above: Performed By: #### C BC #### [facility] [address] [place] [address] Dr. Jonelle Trujillo PROF 14(COMP METB)on 022 Albumin [Mass/Vol] 2.7 g/dL Critically low 3.4-5.[address] [facility] Comment on above: Performed By: #### C BC #### [facility] [address] [place] [address] Dr. Jonelle Trujillo Albumin/Globulin [Mass ratio] 0.8 {ratio} Normal [facility] Comment on above: Performed By: #### C BC #### [facility] [address] [place] [address] Dr. Jonelle Trujillo ALP [Catalytic activity/Vol] 57 U/L Normal 46-116 [facility] Comment on above: Performed By: #### C BC #### [facility] [address] [address] [address] Jonelle Trujillo ALT [Catalytic activity/Vol] 30 U/L Normal 14-59 [facility] Comment on above: Performed By: #### C BC #### [facility] [address] [address] [address] Jonelle Trujillo Anion gap [Moles/Vol] 11.5 mmol/L Normal [facility] Comment on above: Performed By: #### C BC #### [facility] [address] [address] [address] Jonelle Trujillo AST [Catalytic activity/Vol] 25 U/L Normal 15-37 [facility] Comment on above: Performed By: #### C BC #### [facility] [address] [place] [address] Dr. Jonelle Trujillo Bilirubin [Mass/Vol] 0.3 mg/dL Normal 0.2-1.0 [facility] Comment on above: Performed By: #### C BC #### [facility] [address] [place] [address] Dr. Jonelle Trujillo Calcium [Mass/Vol] 8.0 mg/dL Critically low 8.5-10.[address] [facility] Comment on above: Performed By: #### C BC #### [facility] [address] [place] [address] Dr. Jonelle Trujillo Chloride [Moles/Vol] 107 mmol/L Normal 98-107 [facility] Comment on above: Performed By: #### C BC #### [facility] [address] [place] [address] Dr. Jonelle Trujillo CO2 [Moles/Vol] 26.2 mmol/L Normal 21.0-32.0 [facility] Comment on above: Performed By: #### C BC #### [facility] [address] [place] [address] Dr. Jonelle Trujillo Creatinine [Mass/Vol] 0.67 mg/dL Normal 0.55-1.02 [facility] Comment on above: Performed By: #### C BC #### [facility] [address] [address] [address] Jonelle Trujillo EGFR-AF LITHUANIAN >60 Normal >=60 [facility] Comment on above: Performed By: #### C BC #### [facility] [address] [address] [address] Jonelle Trujillo EGFR-NON AF LITHUANIAN >60 Normal >=60 [facility] Comment on above: Performed By: #### C BC #### [facility] [address] [address] [address] Jonelle Trujillo Globulin (S) [Mass/Vol] 3.2 g/dL Normal [facility] Comment on above: Performed By: #### C BC #### [facility] [address] [address] [address] Jonelle Trujillo Glucose [Mass/Vol] 90 mg/dL Normal 74-106 [facility] Comment on above: Performed By: #### C BC #### [facility] [address] [place] [address] Dr. Jonelle Trujillo Potassium [Moles/Vol] 3.7 mmol/L Normal 3.5-5.1 [facility] Comment on above: Performed By: #### C BC #### [facility] [address] [place] [address] Dr. Jonelle Trujillo Protein [Mass/Vol] 5.9 g/dL Critically low 6.4-8.[address] [facility] Comment on above: Performed By: #### C BC #### [facility] [address] [address] [address] Jonelle Trujillo Sodium [Moles/Vol] 141 mmol/L Normal 136-145 [facility] Comment on above: Performed By: #### C BC #### [facility] [address] [place] [address] Dr. Jonelle Trujillo Urea nitrogen [Mass/Vol] 8.0 mg/dL Normal 7.0-18.0 [facility] Comment on above: Performed By: #### C BC #### [facility] [address] [address] [address] Jonelle Trujillo Urea nitrogen/Creatinine [Mass ratio] 11.9 mg/mg Normal [facility] Comment on above: Performed By: #### C BC #### [facility] [address] [place] [address] Dr. Jonelle Trujillo VITAMIN D 25 OHon 12-07-2021 VIT D 25-OH 27.8 ng/mL Normal [facility] Comment on above: Performed By: #### V ITAD #### [facility] [address] [place] [address] Dr. Jonelle Trujillo VIT D RANGES SEE BELOW Normal [facility] Comment on above: Result Comment: <20 ng/mL Vit D deficient 20 - <30 ng/mL Vit D insufficient 30 - 100 ng/mL Vit D sufficient >100 ng/mL Potential Toxicity Performed By: #### V ITAD #### [facility] [address] [place] [address] Dr. Jonelle Trujillo BNPon 12-06-2021 Natriuretic peptide B (Bld) [Mass/Vol] 336.0 pg/mL Normal <=900.0 [facility] Comment on above: Performed By: #### C MP, BNP, HSTROPN #### [facility] [address] [place] [address] Dr. Jonelle Trujillo CBC AUTO DIFFon 12-06-2021 BASO # 0.0 103/ul Normal 0.0-0.1 [facility] Comment on above: Performed By: #### V ITAD #### [facility] [address] [place] [address] Dr. Jonelle Trujillo Basophils/100 WBC (Bld) 0.2 % Normal 0.2-2.0 [facility] Comment on above: Performed By: #### V ITAD #### [facility] [address] [place] [address] Dr. Jonelle Trujillo EO # 0.0 103/ul Normal 0.0-0.7 [facility] Comment on above: Performed By: #### V ITAD #### [facility] [address] [place] [address] Dr. Jonelle Trujillo Eosinophils/100 WBC (Bld) 0.0 % Critically low 0.9-7.0 [facility] Comment on above: Performed By: #### V ITAD #### [facility] [address] [place] [address] Dr. Jonelle Trujillo Erythrocyte distribution width (RBC) [Ratio] 13.2 % Normal 11.0-15.0 [facility] Comment on above: Performed By: #### V ITAD #### [facility] [address] [place] [address] Dr. Jonelle Trujillo Hematocrit (Bld) [Volume fraction] 41.2 % Normal 36.0-48.0 [facility] Comment on above: Performed By: #### V ITAD #### [facility] [address] [place] [address] Dr. Jonelle Trujillo Hemoglobin (Bld) [Mass/Vol] 13.7 g/dL Normal 12.0-16.0 [facility] Comment on above: Performed By: #### V ITAD #### [facility] [address] [place] [address] Dr. Jonelle Trujillo IG # 0.02 10e3/ul Normal 0.00-0.03 [facility] Comment on above: Performed By: #### V ITAD #### [facility] [address] [place] [address] Dr. Jonelle Trujillo IG % 0.2 % Normal 0.0-0.5 [facility] Comment on above: Performed By: #### V ITAD #### [facility] [address] [place] [address] Dr. Jonelle Trujillo LYMPH # 0.9 103/ul Critically low 1.2-3.8 [place] Comment on above: Performed By: #### V ITAD #### [facility] [address] [place] [address] Dr. Jonelle Trujillo Lymphocytes/100 WBC (Bld) 9.6 % Critically low 20.5-60.0 [facility] Comment on above: Performed By: #### V ITAD #### [facility] [address] [place] [address] Dr. Jonelle Trujillo MANUAL DIFF REQ NO Normal [facility] Comment on above: Performed By: #### V ITAD #### [facility] [address] [place] [address] Dr. Jonelle Trujillo MCH (RBC) [Entitic mass] 28.5 pg Normal 26.7-34.0 [facility] Comment on above: Performed By: #### V ITAD #### [facility] [address] [place] [address] Dr. Jonelle Trujillo MCHC (RBC) [Mass/Vol] 33.3 g/dL Normal 29.9-35.2 [facility] Comment on above: Performed By: #### V ITAD #### [facility] [address] [place] [address] Dr. Jonelle Trujillo MCV (RBC) [Entitic vol] 85.7 fL Normal 81.0-99.0 [facility] Comment on above: Performed By: #### V ITAD #### [facility] [address] [place] [address] Dr. Jonelle Trujillo MONO # 0.8 103/ul Normal 0.3-0.8 [facility] Comment on above: Performed By: #### V ITAD #### [facility] [address] [place] [address] Dr. Jonelle Trujillo Monocytes/100 WBC (Bld) 9.0 % Normal 1.7-12.0 [facility] Comment on above: Performed By: #### V ITAD #### [facility] [address] [place] [address] Dr. Jonelle Trujillo NEUT # 7.3 103/ul Critically high 1.4-6.5 [facility] Comment on above: Performed By: #### V ITAD #### [facility] [address] [place] [address] Dr. Jonelle Trujillo Neutrophils/100 WBC (Bld) 81.0 % Critically high 43.0-75.0 [facility] Comment on above: Performed By: #### V ITAD #### [facility] [address] [place] [address] Dr. Jonelle Trujillo Platelet mean volume (Bld) [Entitic vol] 10.0 fL Normal 9.5-13.5 [facility] Comment on above: Performed By: #### V ITAD #### [facility] [address] [place] [address] Dr. Jonelle Trujillo PLT 163 103/ul Normal 150-450 [facility] Comment on above: Performed By: #### V ITAD #### [facility] [address] [place] [address] Dr. Jonelle Trujillo RBC 4.81 106/ul Normal 4.20-5.40 [facility] Comment on above: Performed By: #### V ITAD #### [facility] [address] [place] [address] Dr. Jonelle Trujillo WBC 9.0 103/ul Normal 4.0-11.0 [facility] Comment on above: Performed By: #### V ITAD #### [facility] [address] [place] [address] Dr. Jonelle Trujillo CULTURE BLOODon 12-06-2021 Microscopic examination of blood, culture Culture Observations: NO GROWTH AT 5 DAYS. Normal [facility] Comment on above: Performed By: #### C BC #### [facility] [address] [place] [address] Dr. Jonelle Trujillo Microscopic examination of blood, culture Culture Observations: NO GROWTH AT 5 DAYS. Normal [facility] Comment on above: Performed By: #### C BC #### [facility] [address] [place] [address] Dr. Jonelle Trujillo FREE T3on 12-06-2021 FREE T3 1.70 pg/mlL Critically low 2.18-3.98 [facility] Comment on above: Performed By: #### F T3 #### [facility] [address] [place] [address] Dr. Jonelle Trujillo FREE T4on 12-06-2021 Free T4 [Mass/Vol] 1.24 ng/dL Normal 0.76-1.46 [facility] Comment on above: Performed By: #### C BC #### [facility] [address] [place] [address] Dr. Jonelle Trujillo LACTATE/LACTIC ACIDon 2021 Lactate [Moles/Vol] 1.5 mmol/L Normal 0.4-1.9 [facility] Comment on above: Performed By: #### C BC #### [facility] [address] [place] [address] Dr. Jonelle Trujillo MAGNESIUMon 12-06-2021 Magnesium [Mass/Vol] 1.6 mg/dL Critically low 1.8-2.4 [facility] Comment on above: Performed By: #### M G #### [facility] [address] [place] [address] Dr. Jonelle Trujillo PROF 14(COMP METB)on 022 Albumin [Mass/Vol] 3.3 g/dL Critically low 3.4-5.0 [facility] Comment on above: Performed By: #### C MP, BNP, HSTROPN #### [facility] [address] [place] [address] Dr. Jonelle Trujillo Albumin/Globulin [Mass ratio] 0.8 {ratio} Normal [facility] Comment on above: Performed By: #### C MP, BNP, HSTROPN #### [facility] [address] [place] [address] Dr. Jonelle Trujillo ALP [Catalytic activity/Vol] 71 U/L Normal 46-116 [facility] Comment on above: Performed By: #### C MP, BNP, HSTROPN #### [facility] [address] [place] [address] Dr. Jonelle Trujillo ALT [Catalytic activity/Vol] 33 U/L Normal 14-59 [facility] Comment on above: Performed By: #### C MP, BNP, HSTROPN #### [facility] [address] [place] [address] Dr. Jonelle Trujillo Anion gap [Moles/Vol] 15.2 mmol/L Normal [facility] Comment on above: Performed By: #### C MP, BNP, HSTROPN #### [facility] [address] [place] [address] Dr. Jonelle Trujillo AST [Catalytic activity/Vol] 32 U/L Normal 15-37 [facility] Comment on above: Performed By: #### C MP, BNP, HSTROPN #### [facility] [address] [place] [address] Dr. Jonelle Trujillo Bilirubin [Mass/Vol] 0.4 mg/dL Normal 0.2-1.0 [facility] Comment on above: Performed By: #### C MP, BNP, HSTROPN #### [facility] [address] [place] [address] Dr. Jonelle Trujillo Calcium [Mass/Vol] 9.1 mg/dL Normal 8.5-10.1 [facility] Comment on above: Performed By: #### C MP, BNP, HSTROPN #### [facility] [address] [place] [address] Dr. Jonelle Trujillo Chloride [Moles/Vol] 97 mmol/L Critically low 98-107 [facility] Comment on above: Performed By: #### C MP, BNP, HSTROPN #### [facility] [address] [place] [address] Dr. Jonelle Trujillo CO2 [Moles/Vol] 26.5 mmol/L Normal 21.0-32.0 [facility] Comment on above: Performed By: #### C MP, BNP, HSTROPN #### [facility] [address] [place] [address] Dr. Jonelle Trujillo Creatinine [Mass/Vol] 0.85 mg/dL Normal 0.55-1.02 [facility] Comment on above: Performed By: #### C MP, BNP, HSTROPN #### [facility] [address] [place] [address] Dr. Jonelle Trujillo EGFR-AF LITHUANIAN >60 Normal >=60 [facility] Comment on above: Performed By: #### C MP, BNP, HSTROPN #### [facility] [address] [place] [address] Dr. Jonelle Trujillo EGFR-NON AF LITHUANIAN >60 Normal >=60 [facility] Comment on above: Performed By: #### C MP, BNP, HSTROPN #### [facility] [address] [place] [address] Dr. Jonelle Trujillo Globulin (S) [Mass/Vol] 3.9 g/dL Normal [facility] Comment on above: Performed By: #### C MP, BNP, HSTROPN #### [facility] [address] [place] [address] Dr. Jonelle Trujillo Glucose [Mass/Vol] 115 mg/dL Critically high 74-106 [facility] Comment on above: Performed By: #### C MP, BNP, HSTROPN #### [facility] [address] [place] [address] Dr. Jonelle Trujillo Potassium [Moles/Vol] 2.7 mmol/L Critically low 3.5-5.1 [facility] Comment on above: Performed By: #### C MP, BNP, HSTROPN #### [facility] [address] [place] [address] Dr. Jonelle Trujillo Protein [Mass/Vol] 7.2 g/dL Normal 6.4-8.2 [facility] Comment on above: Performed By: #### C MP, BNP, HSTROPN #### [facility] [address] [place] [address] Dr. Jonelle Trujillo Sodium [Moles/Vol] 135 mmol/L Critically low 136-145 [facility] Comment on above: Performed By: #### C MP, BNP, HSTROPN #### [facility] [address] [place] [address] Dr. Jonelle Trujillo Urea nitrogen [Mass/Vol] 10.0 mg/dL Normal 7.0-18.0 [facility] Comment on above: Performed By: #### C MP, BNP, HSTROPN #### [facility] [address] [place] [address] Dr. Jonelle Trujillo Urea nitrogen/Creatinine [Mass ratio] 11.8 mg/mg Normal [facility] Comment on above: Performed By: #### C MP, BNP, HSTROPN #### [facility] [address] [place] [address] Dr. Jonelle Trujillo TROPONIN, HIGH SENSITIVITYon 12-06-2021 HSTROP 13.1 pg/mL Normal 4.0-51.3 [facility] Comment on above: Result Comment: CUT- OFF POINTS HAVE BEEN ESTABLISHED BASED ON THE FOURTH UNIVERSAL DEFINITIONS OF MYOCARDIAL INFARCTION. THE UPPER REFERENCE LIMIT (URL) OF TROPONIN, DEFINED THE 99TH PERCENTILE OF cTnI DISTRIBUTION IN A REFERENCE POPULATION, HAS BEEN CONFIRMED THE DECISION THRESHOLD FOR MO DIAGNOSIS. Performed By: #### C MP, BNP, HSTROPN #### [facility] [address] [address] [address] Jonelle Trujillo TSHon 12-06-2021 TSH 0.788 uIU/mL Normal 0.358-3.740 [facility] Comment on above: Performed By: #### V ITAD #### [facility] [address] [address] [address] Jonelle Trujillo XR CHEST 1 Von 12-06-2021 XR CHEST 1 V EXAMINATION: XR CHES T 1 V HISTORY: Tachycardia COMPARISON: Chest x-rays in 04/04/2021. TECHNIQUE: Portable chest FINDINGS: The lung parenchyma is free of consolidation or infiltrate. No pneumothorax or pleural effusion. The cardiac, mediastinal and hilar contours are normal. The visualized osseous structures exhibit no gross abnormality. IMPRESSION: No acute cardiopulmonary abnormality. Electronically authenticated by: SARAH HAIDER Date: 2021-12-06 21:58 Normal [facility] COVID-19, NAAon 11-26-2019 COVID-19, MARCIA Not Detected Normal Not Detect [facility] Comment on above: Result Comment: This test was developed and its performance characteristics determined by [employer]. This test has not been FDA cleared or approved. This test has been authorized by FDA under an Emergency Use Authorization (EUA). This test is only authorized for the duration of time the declaration that circumstances exist justifying the authorization of the emergency use of in vitro diagnostic tests for detection of SARS-CoV-2 virus and/or diagnosis of COVID-19 infection under section 564(b)(1) of the Act, 21 U.S.C. 360bbb-3(b)(1), unless the authorization is terminated or revoked sooner. When diagnostic testing is negative, the possibility of a false negative result should be considered in the context of a patient's recent exposures and the presence of clinical signs and symptoms consistent with COVID-19. An individual without symptoms of COVID-19 and who is not shedding SARS-CoV-2 virus would expect to have a negative (not detected) result in this assay. Performed at: [facility] [address] [facility], [place] [id number] Cold Working Inspector: Cathryn Patel MD, Phone: [phone] Performed By: #### I RCOV #### [facility] [address] [place] [address] COVID-19, NAAon 11-23-2019 Source Swab OP swab Normal [facility] Comment on above: Performed By: #### I RCOV #### [facility] [address] [place] [address] EKG 12 Leadon 11-21-2019 Atrial Rate 64 BPM [facility] [place] P [place] 25 degrees [facility] [place] P-R Interval 162 ms [facility] [place] Q-T Interval 418 ms [facility] [place] QRS Duration 90 ms [facility] [place] QTc Calculation (Bazett) 431 ms [facility] [place] R [place] 12 degrees [facility] [place] T [place] 6 degrees [facility] [place] Ventricular Rate 64 BPM [facility] [place] Normal sinus rhythm Moderate voltage criteria for LVH, may be normal variant Borderline ECG No previous ECGs available Confirmed by Porfirio Silverman () on 11/21/2019 11:18:56 AM [facility] [place] Carl[place], Chpo Incoming Results From [place] - 11/21/2019 11:19 AM EDT Normal sinus rhythm Moderate voltage criteria for LVH, may be normal variant Borderline ECG No previous ECGs available Confirmed by Porfirio Silverman () on 11/21/2019 11:18:56 AM [facility] [place] Basic Metabolic Panelon 11-06 Anion gap [Moles/Vol] 14 mmol/L Normal 02-20 [facility] Comment on above: Performed By: #### B MP #### [facility] [address] [place] [address] Calcium [Mass/Vol] 9.9 mg/dL Normal 8.5-9.9 [facility] Comment on above: Performed By: #### B MP #### [facility] [address] [place] [address] Chloride [Moles/Vol] 102 mmol/L Normal 95-107 [facility] Comment on above: Performed By: #### B MP #### [facility] [address] [place] [address] CO2 [Moles/Vol] 26 mmol/L Normal 20-31 [facility] Comment on above: Performed By: #### B MP #### [facility] [address] [place] [address] Creatinine [Mass/Vol] 0.58 mg/dL Normal 0.50-0.90 [facility] Comment on above: Performed By: #### B MP #### [facility] [address] [place] [address] GFR/1.73 sq M predicted among blacks MDRD (S/P/Bld) [Vol rate/Area] mL/min/{1.73_m2} Normal >60 [facility] Comment on above: Result Comment: >60 mL/min/1.73m2 EGFR, calc. for ages 18 and older using the MDRD formula (not corrected for weight), is valid for stable renal function. Performed By: #### B MP #### [facility] [address] [place] [address] GFR/1.73 sq M.predicted MDRD (S/P/Bld) [Vol rate/Area] mL/min/{1.73_m2} Normal >60 [facility] Comment on above: Result Comment: >60 mL/min/1.73m2 EGFR, calc. for ages 18 and older using the MDRD formula (not corrected for weight), is valid for stable renal function. Performed By: #### B MP #### [facility] [address] [place] [address] Glucose [Mass/Vol] 75 mg/dL Normal 70-99 [facility] Comment on above: Performed By: #### B MP #### [facility] [address] [place] [address] Potassium [Moles/Vol] 3.8 mmol/L Normal 3.4-4.9 [facility] Comment on above: Performed By: #### B MP #### [facility] [address] [place] [address] Sodium [Moles/Vol] 142 mmol/L Normal 135-144 [facility] Comment on above: Performed By: #### B MP #### [facility] [address] [place] [address] Urea nitrogen [Mass/Vol] 16 mg/dL Normal 8-23 [facility] Comment on above: Performed By: #### B MP #### [facility] [address] [place] [address] Anion gap [Moles/Vol] 14 mmol/L [place] Calcium [Mass/Vol] 9.9 mg/dL 8.5 - 9.9 mg/dL [place] Chloride [Moles/Vol] 102 mmol/L [place] CO2 [Moles/Vol] 26 mmol/L [place] Creatinine [Mass/Vol] 0.58 mg/dL 0.5 - 0.9 mg/dL [place] GFR >60.0 >60 [place] Comment on above: >60 mL/min/1.73m2 EG FR, calc. for ages 18 and older using the MDRD formula (not corrected for weight), is valid for stable renal function. GFR Non- >60.0 >60 [place] Comment on above: >60 mL/min/1.73m2 EG FR, calc. for ages 18 and older using the MDRD formula (not corrected for weight), is valid for stable renal function. Glucose [Mass/Vol] 75 mg/dL 70 - 99 mg/dL [place] Potassium [Moles/Vol] 3.8 mmol/L [place] Sodium [Moles/Vol] 142 mmol/L [place] Urea nitrogen [Mass/Vol] 16 mg/dL 8 - 23 mg/dL [place] CBCon 11-18-2019 Erythrocyte distribution width (RBC) [Ratio] 14.1 % 11.5 - 14.5 % [place] Hematocrit (Bld) [Volume fraction] 41.9 % 37 - 47 % [place] Hemoglobin (Bld) [Mass/Vol] 13.5 g/dL 12 - 16 g/dL [place] Interpretation and review of laboratory results Abnormal [place] MCH (RBC) [Entitic mass] 28.6 pg 27 - 31.3 pg [place] MCHC (RBC) [Mass/Vol] 32.4 % Low 33 - 37 % [place] MCV (RBC) [Entitic vol] 88.3 fL 82 - 100 fL [place] Platelets (Bld) [#/Vol] 226 10*3/uL 130 - 400 K/uL [place] RBC (Bld) [#/Vol] 4.74 10*6/uL [place] WBC (Bld) [#/Vol] 6.6 10*3/uL 4.8 - 10.8 K/uL [place] CBC With Platelet No Differe ntialon 11-18-2019 Erythrocyte distribution width (RBC) [Ratio] 14.1 % Normal 11.5-14.5 [facility] Comment on above: Performed By: #### C BCND #### [facility] [address] [place] [address] Hematocrit (Bld) [Volume fraction] 41.9 % Normal 37.0-47.0 [facility] Comment on above: Performed By: #### C BCND #### [facility] [address] [place] [address] Hemoglobin (Bld) [Mass/Vol] 13.5 g/dL Normal 12.0-16.0 [facility] Comment on above: Performed By: #### C BCND #### [facility] [address] [place] [address] MCH (RBC) [Entitic mass] 28.6 pg Normal 27.0-31.3 [facility] Comment on above: Performed By: #### C BCND #### [facility] [address] [place] [address] MCHC (RBC) [Mass/Vol] 32.4 % Low 33.0-37.0 [facility] Comment on above: Performed By: #### C BCND #### [facility] [address] [place] [address] MCV (RBC) [Entitic vol] 88.3 fL Normal 82.0-100.0 [facility] Comment on above: Performed By: #### C BCND #### [facility] [address] [place] [address] Platelets (Bld) [#/Vol] 226 10*3/uL Normal 130-400 [facility] Comment on above: Performed By: #### C BCND #### [facility] [address] [place] [address] RBC (Bld) [#/Vol] 4.74 10*6/uL Normal 4.20-5.40 [facility] Comment on above: Performed By: #### C BCND #### [facility] [address] [place] [address] WBC (Bld) [#/Vol] 6.6 10*3/uL Normal 4.8-10.8 [facility] Comment on above: Performed By: #### C BCND #### [facility] [address] [place] [address] Vital Signs Date Time Vital Sign Value Performing Clinician Facility 07-09-2023 14:46-0500 Body mass index (BMI) [Ratio] 31.17 kg/m2 Justine Trejo SENIOR MANAGER [employer] Work Phone: [facility] 07-09-2023 14:46-0500 Body temperature 98.29 [degF] Justine Trejo SENIOR MANAGER [employer] Work Phone: [facility] 07-09-2023 14:46-0500 Body weight 78.56 kg Justine Trejo SENIOR MANAGER [employer] Work Phone: [facility] 07-09-2023 14:46-0500 Diastolic blood pressure 75 mm[Hg] Justine Trejo SENIOR MANAGER [employer] Work Phone: [facility] 07-09-2023 14:46-0500 Heart rate 80 /min Justine Trejo SENIOR MANAGER [employer] Work Phone: [facility] 07-09-2023 14:46-0500 Respiratory rate 16 /min Justine Trejo SENIOR MANAGER [employer] Work Phone: [facility] 07-09-2023 14:46-0500 SaO2% (BldA) [Mass fraction] 96 % Justine Trejo SENIOR MANAGER [employer] Work Phone: [facility] 07-09-2023 14:46-0500 Systolic blood pressure 139 mm[Hg] Justine Trejo SENIOR MANAGER [employer] Work Phone: [facility] 07-04-2023 13:25-0500 Body height 160.02 cm Nadia Durham Other [email or web address] Other 07-04-2023 13:25-0500 Body mass index (BMI) [Ratio] 31.05 kg/m2 Nadia Durham Other [email or web address] Other 07-04-2023 13:25-0500 Body temperature 98.1 [degF] Nadia Durham Other [email or web address] Other 07-04-2023 13:25-0500 Body weight 79.52 kg Nadia Durham Other [email or web address] Other 07-04-2023 13:25-0500 Respiratory rate 18 /min Nadia Durham Other [email or web address] Other 07-04-2023 13:25-0500 SaO2% (BldA) [Mass fraction] 97 % Nadia Durham Other [email or web address] Other 05-17-2022 11:45-0500 Body height 160.02 cm Margarita Pond Other [email or web address] Other 05-17-2022 11:45-0500 Body mass index (BMI) [Ratio] 31 kg/m2 Margarita Pond Other [email or web address] Other 05-17-2022 11:45-0500 Body temperature 98.2 [degF] Margarita Pond Other [email or web address] Other 05-17-2022 11:45-0500 Body weight 79.38 kg Margarita Pond Other [email or web address] Other 05-17-2022 11:45-0500 Respiratory rate 18 /min Margarita Pond Other [email or web address] Other 05-17-2022 11:45-0500 SaO2% (BldA) [Mass fraction] 98 % Margarita Girardmond Other [email or web address] Other 11-29-2019 13:20-0400 BP Diastolic 70 mm[Hg] Gregory [facility] [place] , [place] 11-29-2019 13:20-0400 BP Systolic 164 mm[Hg] Gregory [facility] [place] [facility] [place] 11-29-2019 13:20-0400 Pulse (Heart Rate) 64 /min Gregory [facility] [place] 11-29-2019 13:20-0400 Respiratory Rate 18 /min Gregory [facility] [place] 11-29-2019 13:05-0400 Pulse Oximetry 99 % Gregory [facility] [place] , [place] 11-29-2019 10:09-0400 BMI (Body Mass Index) 34.5 kg/m2 [facility] [place] [place] 11-29-2019 10:09-0400 Body Temperature 97.59 [degF] [facility] [place] 11-29-2019 10:09-0400 Body [facility] 82.83 [facility] [place] [facility] [place] 11-29-2019 10:09-0400 Height 154.9 cm [facility] [place] , [place] 11-18-2019 14:01-0400 BMI (Body Mass Index) 34.5 kg/m2 [address] [facility] [place], [place] 11-18-2019 14:01-0400 Body Temperature 97 [degF] [address] [facility] 11-18-2019 14:01-0400 Body weight 82.83 kg [facility] [place] , [place] 11-18-2019 14:01-0400 BP Diastolic 74 mm[Hg] [address] [facility] [place] , [place] 11-18-2019 14:01-0400 BP Systolic 151 mm[Hg] [address] [facility] [place] 11-18-2019 14:01-0400 Height 154.[address]- [place] , [place] 11-18-2019 14:01-0400 Pulse (Heart Rate) 55 /min [address] [facility] [place] 11-18-2019 14:01-0400 Pulse Oximetry 98 % [address] [facility] [place] 11-18-2019 14:01-0400 Respiratory Rate 16 /min [address] [place] Encounters Encounter Date Encounter Type Care Provider Facility Start: 01-13-2024 End: 01-13-2024 ambulatory JESSICA H TIMMIS Not Available Start: 01-12-2024 End: 01-12-2024 ambulatory JUSTINE TREJO Not Available Start: 12-31-2023 End: 12-31-2023 ambulatory CIERA CHAMORRO Not Available Start: 12-09-2023 End: 12-09-2023 ambulatory YOEL TRIPP Not Available Start: 11-17-2023 End: 11-17-2023 ambulatory EMELIA VARGAS Not Available Start: 11-04-2023 End: 11-04-2023 ambulatory YOEL S LIEBENTHAL Not Available Start: 10-13-2023 End: 10-13-2023 ambulatory CIERA CHAMORRO Not Available Start: 09-16-2023 End: 09-16-2023 ambulatory YOEL S LIEBENTHAL Not Available Start: 09-01-2023 End: 09-01-2023 ambulatory YOEL S LIEBENTHAL Not Available Start: 08-24-2023 End: 08-24-2023 ambulatory YOEL S LIEBENTHAL Not Available Start: 07-09-2023 End: 07-09-2023 ambulatory JUSTINE TREJO Not Available Start: 07-09-2023 End: 07-09-2023 Office outpatient visit 25 minutes Justine Trejo SENIOR MANAGER [employer] Work Phone: [facility] Comment on above: Acute non-recurrent pansinusitis (Primary Dx) Start: 07-04-2023 End: 07-04-2023 ambulatory Nadia Durham Other [email or web address] Other Start: 07-04-2023 Office outpatient vi sit 25 minutes Nadia Durham [facility] Start: 06-11-2023 End: 06-11-2023 ambulatory JUSTINE TREJO Not Available Start: 05-20-2023 End: 05-20-2023 ambulatory MARLEY SIMS Not Available Start: 04-22-2023 End: 04-22-2023 ambulatory YOEL S LEANNANTHAL Not Available Start: 01-02-2023 Chart abstracting Yoel Finn nthal DPM Work Phone: [facility] Start: 11-23-2022 End: 11-23-2022 ambulatory Saima Garcia Other [email or web address] Other Start: 11-23-2022 Telephone encounter Saima Garcia [facility] Start: 11-21-2022 End: 11-21-2022 ambulatory PHYSICIAN NO FAMILY Facility:[facility] Start: 11-21-2022 End: 11-21-2022 ambulatory GLENN Garcia Work Phone: [facility] Work Phone: Start: 11-21-2022 End: 11-21-2022 Departed Referred GLENN Garcia Work Phone: [facility] [place] Work Phone: Start: 06-20-2022 End: 06-21-2022 ambulatory KEESHA MÉNDEZ Facility:[facility] Start: 05-17-2022 End: 05-17-2022 ambulatory Margarita Pond Other [email or web address] Other Start: 05-17-2022 Office outpatient vi sit 15 minutes Margarita Pond [facility] Start: 02-14-2022 End: 02-15-[address] EMELIA VARGAS Facility:[facility] Start: 12-16-2021 End: 12-16-[address] JOVANNA SARAVIA Facility:[facility] Start: 12-07-2021 End: 12-09-2021 Evaluation and management of inpatient DR AMANDA CRANDALL Facility:[facility] Start: 11-29-2019 End: 11-29-2019 Patient encounter procedure [facility] Start: 11-29-2019 End: 11-29-2019 Subsequent hospital visit by physician Gregory Rosado Work Phone: [facility] Comment on above: Postoperative pain ( Primary Dx) Start: 11-29-2019 End: 12-02-2019 Patient encounter procedure [facility] Start: 11-29-2019 End: 12-01-2019 Subsequent hospital visit by physician Gregory Rosado Work Phone: [facility] Comment on above: Pain Start: 11-23-2019 End: 11-24-2019 Patient encounter procedure [facility] Start: 11-23-2019 End: 11-23-2019 Subsequent hospital visit by physician Antoine [facility] Start: 11-18-2019 End: 11-23-2019 Patient encounter procedure ANTOINE WAGGONER [facility] Start: 11-18-2019 End: 11-22-2019 Subsequent hospital visit by physician Dinesh Johnson Rm 1 [facility] Pre-Admission Testing Comment on above: History of lumbar fu ronni Procedures Date Procedure Procedure Detail Performing Clinician Start: 11-23-2022 H/O: hysterectomy History of hysterectomy Justine Trejo N P Work Phone: Start: 2022 Mammography Justine Trejo SENIOR MANAGER [employer] Work Phone: Start: 11-29-2019 DISCHARGE PATIENT ANTOINE POPJacuqeline Start: 11-29-2019 FLUORO FOR SURGICAL PROCEDURES ANTOINE MCCLENDONEREJacqueline Start: 11-29-2019 DIET NPO, NOW ANTOINE MCCLENDONERER Start: 11-29-2019 INITIATE OXYGEN THERAPY PROTOCOL ANTOINE HAKANERER Start: 11-29-2019 NOTIFY PHYSICIAN (SPECIFY) ANTOINE HAKANEREJacqueline Start: 11-29-2019 PULSE OXIMETRY SPOT CHECK ANTOINE MCCLENDONERER Start: 11-29-2019 VITAL SIGNS ANTOINE MCCLENDONERER Start: 11-18-2019 Blood count complete automated ANTOINE MCCLENDONSVETA Start: 11-18-2019 Basic metabolic panel calcium total ANTOINE MCCLENDONERER Start: 11-18-2019 Blood count complete automated Lucille Melissa Montesinos Start: 11-18-2019 Ecg routine ecg w/least 12 lds w/i&r ANTOINE POPJacqueline Start: 11-18-2019 Basic metabolic panel calcium total Lucille K Jaguar Start: 11-18-2019 Ecg routine ecg w/least 12 lds w/i&r Lucille Melissa Montesinos Plan of Treatment Date Care Activity Detail Author Start: 05-24-2025 End: 05-24-2025 Patient encounter procedure 05/24/2025 8:00 AM EST Office Visit [facility] [address] [place] [phone] Jr. Tres Archer, DO [address] [facility] [address] [place] [address] [facility] Start: 05-03-2024 Screening for malign ant neoplasm of colon [facility] Start: 03-31-2024 Pneumococcal Vaccine : 65+ Years (1 - PCV) Pneumococcal Vaccine: 65+ Years (1 - PCV) [facility] Comment on above: Postponed from 04/17 (Patient Refused) Start: 12-06-2023 Influenza vaccination Influenza Vacc ine (#1) [facility] Comment on above: Postponed from 02/06 (Patient Refused) Start: 11-25-2023 Medicare Annual Wellness (AWV) Medicare Annual Wellness (AWV) [facility] Start: 07-14-2023 End: 07-14-2023 Patient encounter procedure 07/14/2023 2:30 PM EST Office Visit [facility] [address] [place] [id number] Yoel Tripp, DPM [address] [place] [address] [facility] Start: 2023 Screening for malign ant neoplasm of breast Mammogram [facility] Start: 11-21-2022 Bacteria identified in Urine by Culture Urine Culture [facility] Start: 11-17-2020 Creatinine measurement Creatinine mo nitoring [place], [place] Start: 11-17-2020 Potassium monitoring Potassium monit oring [place], [place] Start: 02-07-2020 Influenza vaccination [place], [place] Start: 12-16-2019 End: 12-16-2019 Office Visit 12/16/2019 Office Visit Neurosurgery Gregory Rosado MD [address] [facility], [address] [place] [id number] [employer] Start: 11-29-2019 End: 11-29-2019 Hospital Encounter [facility] Comment on above: REMOVAL OF INTERNAL BONE GROWTH STIMULATOR, 30 MINS 1 C-ARM, MAC/LOCAL Start: 10-07-2019 Annual Wellness Visi t (AWV) Annual Wellness Visit (AWV) [place], [place] Start: 2018 Pneumococcal 65+ yea rs Vaccine (1 of 1 - PPSV23) Pneumococcal 65+ years Vaccine (1 of 1 - PPSV23) [place], [place] Start: 2008 Screening for osteoporosis DEXA (modify frequency per FRAX score) [place], [place] Start: 2003 Screening for malign ant neoplasm of breast Breast cancer screen [place], [place] Start: 2003 Screening for malign ant neoplasm of colon Colon cancer screen colonoscopy [place], [place] Start: 2003 Shingles Vaccine (1 of 2) Shingles Vaccine (1 of 2) [place], [place] Start: 1972 DTaP/Tdap/Td vaccine (1 - Tdap) DTaP/Tdap/Td vaccine (1 - Tdap) [place], [place] Start: 1963 Lipid panel Lipid screen [place], [place] Start: 1953 Hepatitis C screening Hepatitis C sc reen [place], [place] Start: 1953 Screening for malign ant neoplasm of colon [facility] Start: 1953 TSH Qn TSH testing [place], [place] End: 11-29-2019 Fluoro For Surgical Procedures Fluoro For Surgical Procedures Imaging Routine Pain 1 Occurrences starting 11/29/2019 until 11/29/2019 [place], [place] Comment on above: 1 Occurrences starti ng 11/29/2019 until 11/29/2019 Initiate Oxygen Ther apy Protocol Initiate Oxygen Therapy Protocol Respiratory Care Routine Daily until discontinued starting 11/29/2019 [place], [place] Comment on above: Daily until disconti nued starting 11/29/2019 End: 11-29-2019 Pulse Oximetry Spot Check Pulse Oximetry Spot Check Respiratory Care Routine One Time for 1 Occurrences starting 11/29/2019 until 11/29/2019 [place], [place] Comment on above: One Time for 1 Occur rences starting 11/29/2019 until 11/29/2019 Payers Date Payer Category Payer Self-pay [id number] 2021 Unknown [employer] [id number] 2021-Present [address] [place] [address] [id number] 2019 Medicare MEDICARE MEDICAR E PART A AND B xxxxxxxxxxx 2019-Present [phone] [place] [address] xxxxxxxxxxx [id number] 2018 Medicare MEDICARE MEDICAR E PART B [id number] 2018-[place] [address] Medicare [id number] 2014 Unknown [id number]. [id number] 1959 Medicare [id number] 1959 Unknown [id number] 1959 Unknown [id number] 1959 Unknown [id number] 1953 Unknown [id number] 2.16.840.1.948299.3.579.2.182 1953 Unknown [id number] 2.16.840.1.911852.3.579.2.182 1953 Unknown [id number] 2.16.840.1.942980.3.579.2.182 1953 Unknown [id number] 2.16.840.1.300419.3.579.2.182 1953 Unknown [id number] 2.16.840.1.167676.3.579.2.593 1953 Unknown [id number] 2.16.840.1.016476.3.579.2.593 1953 Unknown [id number] 2.16.840.1.999106.3.579.2.593 1953 Unknown [id number] 2.16.840.1.513120.3.579.2.593 1953 Unknown [id number] 2.16.840.1.282413.3.579.2.1259 1953 Unknown [id number] 2.16.840.1.647057.3.579.2.1258 1953 Unknown [id number] 2.16.840.1.262475.3.579.2.125 1953 Unknown [id number] 2.16.840.1.191958.3.579.2.1258 1953 Unknown [id number] 2.16.840.1.138391.3.579.2.1258 1953 Unknown [id number] 2.16.840.1.313389.3.579.2.1258 1953 Unknown [id number] 2.16.840.1.029989.3.579.2.1258 1953 Unknown [id number] 2.16.840.1.952491.3.579.2.1258 1953 Unknown [id number] 2.16.840.1.742704.3.579.2.1258 1953 Unknown [id number] 2.16.840.1.991587.3.579.2.1258 1953 Unknown [id number] 2.16.840.1.855401.3.579.2.1258 1953 Unknown [id number] 2.16.840.1.672544.3.579.2.1258 1953 Unknown [id number] 2.16.840.1.356239.3.579.2.125 1953 Unknown [id number] 2.16.840.1.600908.3.579.2.1258 1953 Unknown [id number] 2.16.840.1.485324.3.579.2.1258 1953 Unknown [id number] 2.16.840.1.735530.3.579.2.1259 Unknown [id number] 2.16.840.1.737624.3.579.2.531 Social History Date Type Detail Facility Start: 11-18-2019 End: 11-09-2022 Tobacco smoking status NHIS Never smoker [facility] NICOLA BAKER Start: 11-18-2019 End: 12-03-2022 Alcohol intake [facility] (finding) [facility] Start: 1955 [facility] Exposure to SARS-CoV-2 (event) Unable to assess [facility] NICOLA BAKER Start: 11-18-2019 End: 11-09-2022 Tobacco use and exposure [facility]IC[facility] Start: 11-24-2022 End: 07-09-2023 Sex Assigned At [facility] [employer] Other Start: 1955 Sex Assigned At Female [facility] Start: 11-24-2022 End: 07-09-2023 History of Social function [facility] Start: 08-20-2022 Gender identity Identifies as female gender (finding) [facility] History of Present illness Narrative 07-09-2023 Justine Trejo NP - 07/09/2023 2:30 PM EST Note Date & Type Note Facility 07-09-2023 History of Presen t illness Narrative Subjective Patient ID: Renetta Lopez is a 68 y.o. female who presents for possible allergic reaction to medication. Renetta is here today for urgent care follow up. She was diagnosed with a bacterial infection and they rx'd Doxycycline and it upset her stomach and gave her sore throat so she stopped taking it. She has sinus pressure that comes and goes. She is currently on Augmentin and it gave her a yeast infection the last time she was on it but does have left over diflucan if whatever is called in gives her a yeast infection again. Current Outpatient Medications on File Prior to Visit Medication Sig Dispense Refill amoxicillin-clavulanate (Augmentin) 875-125 MG tablet Take 1 tablet (875 mg) by mouth in the morning and 1 tablet (875 mg) before bedtime. Do all this for 10 days. 20 tablet 0 hydroCHLOROthiazide (HYDRODiuril) 25 MG tablet Take 1 tablet by mouth 1 (one) time each day at the same time. levothyroxine (Synthroid, Levoxyl) 75 MCG tablet TAKE 1 TABLET BY MOUTH ONCE DAILY 100 tablet 4 meloxicam (Mobic) 15 MG tablet TAKE 1 TABLET BY MOUTH IN THE MORNING 100 tablet 1 metoprolol tartrate (Lopressor) 50 MG tablet Take 1 tablet (50 mg) by mouth in the morning. 30 tablet 11 rosuvastatin (Crestor) 10 MG tablet TAKE 1 TABLET BY MOUTH DAILY 100 tablet 3 [DISCONTINUED] meloxicam (Mobic) 15 MG tablet Take 1 tablet (15 mg) by mouth in the morning. 100 tablet 1 No current facility-administered medications on file prior to visit. Allergies Allergen Reactions Hydromorphone Other Reaction(s): difficulty breathing Lisinopril cough Morphine Other Reaction(s): difficulty breathing Plasminogen Patient unaware of reaction Sumatriptan Other Reaction(s): Muscle Tightening Wound Dressing Adhesive Rash Social History Tobacco Use Smoking status: Never Smokeless tobacco: Never Substance Use Topics Alcohol use: Not Currently Drug use: Never Family History Problem Relation Name Age of Onset Dementia Mother Mental illness Mother Hypertension Father Stroke Father Past Medical History: Diagnosis Date Anemia Arthritis Combined hyperlipidemia (CMS/HCC) DDD (degenerative disc disease), lumbar Disease of thyroid gland (CMS/HCC) Fall 11/2018 at work, no fractures Hepatitis history of hepatitis as a child History of being hospitalized 12/06/2021 Campylobacter Sepsis, Electrolyte Abnormalities, Dehydration, Hypotension, Afib Hyperlipidemia (CMS/HCC) Hypertension (CMS/HCC) Hypoparathyroidism (CMS/HCC) spontaneous Pleurisy Spinal stenosis Spinal stenosis of lumbar region at multiple levels Tendonitis of shoulder Past Surgical History: Procedure Laterality Date APPENDECTOMY 2006 BUNIONECTOMY 2005 DILATION AND CURETTAGE OF UTERUS HYSTERECTOMY 2006 JOINT REPLACEMENT 05/14/2017 right knee KNEE ARTHROSCOPY W/ DEBRIDEMENT 2006 LUMBAR FUSION 2010 OTHER SURGICAL HISTORY battery removed from bone stim (back) TOTAL KNEE ARTHROPLASTY Left 2013 Dr Archer Visit Vitals Smoking Status Never Review of Systems Constitutional: Positive for fever. HENT: Positive for sinus pressure, sinus pain and sore throat. Respiratory: Negative. Cardiovascular: Negative. Gastrointestinal: Negative. Objective Physical Exam Vitals reviewed. Constitutional: Appearance: Normal appearance. HENT: Head: Normocephalic. Jaw: Tenderness present. Right Ear: Tympanic membrane normal. Left Ear: Tympanic membrane normal. Nose: Nose normal. Mouth/Throat: Mouth: Mucous membranes are moist. Pharynx: Posterior oropharyngeal erythema present. Cardiovascular: Rate and Rhythm: Normal rate and regular rhythm. Heart sounds: Normal heart sounds. Pulmonary: Breath sounds: Normal breath sounds. Skin: General: Skin is warm and dry. Neurological: General: No focal deficit present. Mental Status: She is alert and oriented to person, place, and time. Psychiatric: Mood and Affect: Mood normal. Behavior: Behavior normal. Assessment/Plan Diagnoses and all orders for this visit: Acute non-recurrent pansinusitis - methylPREDNISolone (Medrol Dospak) 4 MG tablets; Follow schedule on package instructions Start the above as directed. Reviewed potential s/e with patient. Encouraged probiotic while on antibiotic. Increase water intake, get plenty of rest. Can take OTC allergy medication for symptomatic relief. Tylenol/Motrin prn. Follow up if no improvement in one week. No follow-ups on file. documented in this encounter [facility] Evaluation note 07-04-2023 Note Date & Type Note Facility 07-04-2023 Evaluation note Encounter Date Diagnosis Assessment Notes Jun, Acute sinusitis (ICD-10 - J01.90) suspected incomplete treatment of her sinus infection. advised pt reinitiate therapy to completion. I will also send diflucan to treat possible yeast infection should it return. also recommended otc flonase. immediate eval if warning s/s of intractable fevers, respir distress or other emergent symptoms. otherwise f/u with PCP INB despite treatment. Jun, Left foot pain (ICD-10 - M79.672) low suspicion for bone injury, h/o on imaging at this time. advised RICE therapy. otc tylenol prn. f/u with podiatry for further eval and possible repeat injection. [email or web address] Other Clinical Note 06-20-2022 Note Date & Type Note Facility 06-20-2022 Note PROCEDURE: XR HAND R T MIN 3V HISTORY: Pain in right hand ; fifth digit pain after falling COMPARISON: XR hand right 07/19/2020 FINDINGS: BONES:No fracture or dislocation. Moderate degenerative changes of the distal interphalangeal joints of the second and third digits. SOFT TISSUES:No visible soft tissue swelling. EFFUSION:None visible. OTHER: Negative. IMPRESSION: 1. No acute bone abnormality. Electronically authenticated by: KADE GLEZ Date: 2022-06-20 12:56 [facility] Evaluation note 05-17-2022 Note Date & Type Note Facility 05-17-2022 Evaluation note Encounter Date Diagnosis Assessment Notes May, Acute sinusitis, recurrence not specified, unspecified location (ICD-10 - J01.90) Sinusitis home care material was printed Continue home medications as prescribed. Take the Medrol Dosepak as prescribed until gone. Use the Flonase nasal inhaler as prescribed until your symptoms improve. Consider running a coolmist humidifier to bedside. Follow-up with your family doctor if no improvement in 3 to 4 days [email or web address] Other Evaluation note Note Date & Type Note Facility Evaluation note No assessment information [facility] Work Phone: Evaluation note Note Date & Type Note Facility Evaluation note No Information [employer] Other Evaluation note Note Date & Type Note Facility Evaluation note Diagnosis Acute non-recurrent pansinusitis- Primary documented in this encounter [facility] History general Narrative - Reported Note Date & Type Note Facility History general Narrative - Reported Type Medical History Hypertension Medical History Hypothyroidism Medical History Spinal stenosis Surgical History bunionectomy Surgical History hysterectomy Surgical History knee arthroscopy left knee Surgical History spine surgery Surgical History knee replacement left knee Hospitalization History Campylobactor 11/2021 [email or web address] Other History of Present Illness * Lucille Montesinos APRN - CNP - 11/18/2019 2:00 PM EDT Covid swab [facility] be done 11/23/2019 & agrees to self quarantine until OR 11/29/2019. documented in this encounter* Ava Jackson RN - 11/29/2019 1:34 PM EDT Pt Awake and alert, no c/o pain eating and drinking miguel well, pts has been called to pick pt up * Kera Hernandez RN - 11/29/2019 12:59 PM EDT Awake and alert. Stable. Color good skin warm and dry. Incision looks good. Comfortable and sittingup without difficulty. * Kera Hernandez RN - 11/29/2019 11:03 AM EDT Kianna in pharmacy will profile Ancef for patient. Did fax order. * Kera Hernandez RN - 11/29/2019 10:25 AM EDT Patient thought it was just a local. She discussed with Dr. Rey and is fine to do MAC and local. * Kera Hernandez RN - 11/29/2019 10:00 AM EDT Patient arrived at 0945, registration was in after that. 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 Therefore on the day of surgery: 1) you should be accompanied by a responsible adult upon discharge and for 24 hours after surgery. Do not drive a motor vehicle, operate machinery, power tools or appliance, drink alcoholic beverages, or make critical decisions for 24 hours 2) Be aware of dizziness, which may cause a fall. Change positions slowly. 3) Eating: you may resume your regular diet but it is better to increase intake slowly with mild foods and working up to your regular diet. 4) Nausea/Vomiting: Nausea and vomiting may occur as you become more active or begin to increase food intake. If this should happen, decrease activity and return to liquids. 5) Pain: Your surgeon may have given you a prescription for pain medication. Take pain medication with food as prescribed. Pain medication may cause constipation, so drink plenty of fluids. You may need to use laxatives. 6) Ice: You may use a cool pack to operative site for 20 min 5-6 times a day as needed for comfort. 8) Dressing: Change dressing as frequently as needed to keep clean and dry. Remove all sticky tape in 5 days. May shower in three days. Do not put soap or soak on the incision until healed. 9) INCREASE ACTIVITY TOLERATED AND INSTRUCTED. GO BY HOW YOU FEEL. 10) See physical therapist when advised by your physician 11) Call your doctor at [phone] for an appointment (or follow up as scheduled). 12) If have an order for X-Rays have done within a week before your follow up appointment. ? Contact OFFICE IF o Increased redness, swelling, excess drainage, and/or pain to surgery site. As well as new onset fevers and or chills. These could signify an infection. o Calf or thigh tenderness to touch as well as increased swelling or redness. This could signify a clot formation. o Numbness or tingling to an area around the incision site or below the incision site (toes). Or ifthe operative extremity becomes cold, blue. o Any rash appears, increased or new onset nausea/vomiting occur. This may indicate a reaction to amedication. o Temp is 38.5 C (101F) 12) If you have any concerns or questions, please call OFFICE. The 24- hour phone is [phone] 13) If you are unable to contact your surgeon, in an emergency situation, go to the nearest hospital emergency room. 14) shower on Thursday 15) Drive whenever she stopped taking narcotics * Attachments The following attachments cannot be sent through Care Everywhere. * Coronavirus Disease (COVID-19): General Info (Peruvian) documented in this encounter Reason for Referral Status Reason Specialty Diagnoses / Procedures Referred By Contact Referred To Contact Authorized Radiology Diagnoses Pain Procedures Fluoro For Surgical Procedures Kurt, Gregory H., MD [address], [address] [place] [address] Summary Purpose Family History No Family History Records FoundNo Family History Records FoundNo Family History Records FoundNo Family History Records Found Additional Source Comments Reason for Visit (unrecogniz ed section and content) Status Reason Specialty Diagnoses / Procedures Referre d By Contact Referred To Contact Diagnoses History of back surgery Shoulder pain HISTORY OF BACK SURGERY, SHOULDER PAIN Procedures DE IMPLANT NEUROSTIM/LEACH RUNNER REMOVAL OF INTERNAL BONE GROWTH STIMULATOR, 30 MINS 1 C-ARM, MAC/LOCAL Gregory Rosado MD [address], [address] [place] [address] [facility] INFORMATION SOURCE (unrecogn ized section and content) DATE CREATED AUTHOR 05/19/2020 [facility] DATE CREATED AUTHOR AUTHOR'S ORGANIZ ATION 06/20/2022 [facility] DATE CREATED AUTHOR AUTHOR'S ORGANIZ ATION 12/23/2022 [facility] DATE CREATED AUTHOR AUTHOR'S ORGANIZ ATION 01/15/2024 [facility] EPIC Care Teams (unrecognized sec tion and content) Team Status: Inactive Member Role Status Dates Saima Garcia APRN Attending Provider Active 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 Relationship Specialty Start Date End Date Ciera Chamorro MD [address] [address] PCP - ACO Reach 10/30/22 Ciera Chamorro MD [address] [facility] [address] [place] [address] PCP - General Family Medicine 11/10/22 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 Relationship Specialty Start Date End Date Ciera Chamorro MD [address] [facility] [address] [place] [address] PCP - ACO Reach 10/30/22 Ciera Chamorro MD [address] [facility] [address] [place] [address] PCP - General Family Medicine 11/10/22 Goals (unrecognized section and content) Goals may be documented in a n alternate section FOR RECORDS PERTAINING TO PATIENTS WHO ARE OR HAVE BEEN ENROLLED IN A CHEMICAL DEPENDENCY/SUBSTANCEABUSE PROGRAM, SOME INFORMATION MAY BE OMITTED. This clinical summary was aggregated from multiple sources. Caution should be exercised in using it in the provision of clinical care. This summary normalizes information from multiple sources, and as a consequence, information in this document may materially change the coding, format and clinical context of patient data. In addition, data may be omitted in some cases. CLINICAL DECISIONS SHOULD BE BASED ON THE PRIMARY CLINICAL RECORDS. [employer] [facility]. provides no warranty or guarantee of the accuracy or completeness of information in this document.
[2024-01-31 09:03] VITALS: BP 145/89; PULSE 88; TEMP 36.7; O2SAT 99; BMI 23.8
[2024-01-31 09:05] VITALS: PULSE 88
--- NOTE | 2024-01-31 09:14 | CT_ITS ---
The [address] [address] Patient Name: MITALI CRONIN MRN: [id number] date: 1955 Sex: F Assigned Patient Location: Current Patient Location: Accession/Order Number: [id number] Exam Date: 01/31/2024 09:45 Report Date: 01/31/2024 10:10 At the request of: FLORES NOLAN Procedure: CT head/brain w con EXAMINATION: CT head/brain w con HISTORY: Symptoms suggesting trigeminal neuralgia COMPARISON: None. TECHNIQUE: CT head without contrast. Dose reduction techniques were achieved by using: automated exposure control and/or adjustment of mA and /or kV according to patient size and/or use of iterative reconstruction technique. FINDINGS: There is mild prominence of the ventricles and sulci. There is no evidence for acute intracranial hemorrhage. There is mild hypoattenuation in the supratentorial white matter, most compatible with chronic microvascular ischemia. There is no mass effect or midline shift. There are no abnormal extraaxial fluid collections. CT/CT head/brain w con IMPRESSION: 1. Negative for acute intracranial hemorrhage or acute intracranial process. 2. Mild chronic microvascular ischemia in the supratentorial white matter. Electronically authenticated by: TERRY KENT Date: 01/31/2024 10:10
--- NOTE | 2024-01-31 09:15 | ED_ITS ---
HPI HPI - General Adult General Chief complaint: Extremity Problem, Nontraumatic Stated complaint: HEAD PAIN Time Seen by Provider: 01/31/24 09:14 Source: patient Mode of arrival: walk-in Limitations: no limitations History of Present Illness HPI narrative: This patient is here with another episode of facial pain she has seen her primary care doctor and ENT physician for the same condition and they do not have a working diagnosis as she described the situation. She says for several months and randomly and occasionally when she touches the left side of her face near the lip near the nasal area she has an extremely sharp lancinating brief discomfort. She has no other associated symptoms such as diplopia dysarthria dysphagia headache sinus pressure dental pain fever toothache pain in her jaw hearing loss tinnitus are completely denied. Again these episodes are very very brief but extremely uncomfortable and sharp in nature. Does not have a history of diabetes. No history of trauma or injury. She has not had any skin lesions or cyst shingles type symptomatology. No difficulty child chewing swallowing or speaking. She has not had any type of imaging. Her overall health she describes as good with no recent weight loss or weight gains. She is not on any new medication. She says the episodes are very very sporadic and episodic with no triggering events that she can identify such as speaking chewing eating or swallowing. Related Data Home Medications ?Medication ?Instructions ?Recorded ?Confirmed hydrochlorothiazide 25 mg tablet mg 01/24/23 levothyroxine 75 mcg tablet 75 mcg PO DAILY 01/24/23 01/24/23 meloxicam 15 mg tablet 15 mg PO DAILY 01/24/23 01/24/23 metoprolol tartrate 50 mg tablet 50 mg PO DAILY 01/24/23 01/24/23 Previous Rx's ?Medication ?Instructions ?Recorded prednisone 20 mg tablet 40 mg (2 x 20 mg) PO DAILY #10 tabs 01/24/23 Allergies Allergy/AdvReac Type Severity Reaction Status Date / Time hydromorphone [From Dilaudid] Allergy Verified 01/23/23 19:14 morphine Allergy Verified 01/23/23 19:14 sumatriptan [From Imitrex] Allergy Verified 01/23/23 19:14 Opioid HPI Opioid Management Most Recent Opioid Data: No Data to Display [facility] Medical History (Updated 01/31/24 @ 10:33 by Desmond Wilkins MD) Arthritis ?M19.90 - Unspecified osteoarthritis, unspecified site (ICD-10) Hypertension ?I10 - Essential (primary) hypertension (ICD-10) Hypothyroidism ?E03.9 - Hypothyroidism, unspecified (ICD-10) Social History Smoking status: Never smoker Exam Narrative Exam Narrative: Patient is awake alert pleasant oriented x 3 normal cognition and mental status. She is asymptomatic at this time. HEENT examination shows no skin lesions or herpetic lesions about the ear nasal area or facial skin. She does not have any hypnesthesia's with palpation of the facial structures at this time. The oral cavity shows good dental repair with no tenderness to the dentition. There is no lesions in the mouth gums gingival area or oral cavity. Nasal inspection with the otoscope shows no lesions up inside the nasal canal or swelling or evidence of soft tissue infection. The ear examination shows normal external anatomical landmarks. The cone of light is normal. There is no pain with pushing on pinna or pulling on the tragus there is no tenderness over the mastoid area no tenderness over the temporal artery area. Cranial nerves II through XII are normal. There is no visual or auditory symptomatology. She has no other arthropathy or neuromuscular symptomatology at this time. Constitutional Vital Signs, click to edit/add: Last Vital Signs Temp 98.1 F 01/31/24 09:03 Pulse 88 01/31/24 09:05 Resp 18 01/31/24 09:03 BP 145/89 H 01/31/24 09:03 Pulse Ox 99 01/31/24 09:03 O2 Del Method Room Air 01/31/24 09:03 Course Vital Signs Vital signs: Vital Signs Temperature 98.1 F 01/31/24 08:55 Pulse Rate 66 01/31/24 08:55 Respiratory Rate 18 01/31/24 08:55 Blood Pressure 154/83 H 01/31/24 08:55 Pulse Oximetry 94 L 01/31/24 08:55 Temperature 98.1 F 01/31/24 09:03 Pulse Rate 88 01/31/24 09:05 Respiratory Rate 18 01/31/24 09:03 Blood Pressure 145/89 H 01/31/24 09:03 Pulse Oximetry 99 01/31/24 09:03 Oxygen Delivery Method Room Air 01/31/24 09:03 Medical Decision Making MDM Narrative Medical decision making narrative: This patient CT scan was done to rule out any obvious lesions in the cerebellar area or the cerebral pontine area. Knowing that an MRI would be a better diagnostic test but would need outpatient approval of this was discussed in detail with the patient. Her symptoms are most consistent with a neurological type pain syndrome. I have advised her to follow-up with our local neurology group here. I do not want to start her on any medications until this diagnosis can be worked up and confirmed by a specialist. She understands and agrees to do that. See no indication of multiple sclerosis at this time although that is in the differential diagnosis. Discharge Plan Discharge Stand Alone Forms: Work/School Release, Portal Instructions Chief Complaint: Extremity Problem, Nontraumatic Clinical Impression: Facial pain, atypical Patient Disposition: Home, Self-Care Time of Disposition Decision: 10:33 Prescriptions / Home Meds: No Action hydrochlorothiazide 25 mg tablet levothyroxine 75 mcg tablet 75 mcg PO DAILY metoprolol tartrate 50 mg tablet 50 mg PO DAILY meloxicam 15 mg tablet 15 mg PO DAILY prednisone 20 mg tablet 40 mg PO DAILY Qty: 10 0RF Print Language: Macedonian Additional Instructions: Follow-up with local neurologist. Keep a copy of the CT scan Referrals: ASHLY CHAMORRO [Primary Care Provider] - 1 week
== END 2024-01-31 10:38 | disposition home or self-care (01) ==
PROVIDERS: Emergency Provider Emergency Medicine Emergency Medical Services; PCP Family Medicine
DX: G50.1 Atypical facial pain (principal)
CPT/HCPCS: 70450; 70460; 99284

== ENCOUNTER 2024-04-11 15:06 | Outpatient (OUT) | payer MEDICARE, OTHER, SELFPAY ==
--- OUTSIDE RECORDS SUMMARY | 2024-04-11 15:21 | XMS_ITS | CCD ---
Author Organization [facility] Informat ion [facility] Care Team Providers Care Rigging Up Man Name Role Phone Antoine Waggoner Primary Care Provider [phone] ANTOINE WAGGONER Primary Care Unavailabl e KURT, PASTOR H. Referring Unavailable KURT, PASTOR H. Attending Unavailable KURT, PASTOR H. Referring Unavailable ANTOINE WAGGONER Primary Care Unavailabl e KURT, PASTOR H. Admitting Unavailable KURT, PASTOR H. Attending Unavailable KURT, PASTOR H. Referring Unavailable ANTOINE WAGGONER [facility] Care Unavailabl e KURT, PASTOR H. Referring Unavailable ANTOINE WAGGONER Primary Care [...] HAIDER Consulting Unavailable GLENN Garcia Attending Provider [phone] Saima Garcia Unavailable NO FAMILY, PHYSICIAN Primary Care Unavailable Saima Garcia Admitting Unavailable Saima Garcia Attending Unavailable Nadia Durham Unavailable Ashly Chamorro MD Unavailable Ashly Chamorro MD Primary Care Provider [phone] Aisha Kemp DO, Charles Lewis Primary Care Provi karla YANICK MELANI SUAZO Attending Unava RANDOLPH Csatañeda JR Primary Care Unavail able DALY GRANT Attending Unavailable LIEBEREYES, YOEL Posada Attending Unavailable DALY GRANT Attending Unavailable LIEBEREYES, YOEL Posada Attending Unavailable LIEBEREYES, YOEL Posada Attending Unavailable QASIM, YOEL Posada Attending Unavailable ASHLY CHAMORRO Attending Unavailable QASIM, YOEL Posada Attending Unavailable EMELIA VARGAS Attending Unavailable QASIM, YOEL Posada Attending Unavailable ASHLY CHAMORRO Attending Unavailable JESSICA MONTERO Attending Unavailable ASHLY CHAMORRO Referring Unavailable CHRISTIANO CONTRERAS Attending Unavailable MARLEY SIMS Attending Unavailable MARLEY SIMS Referring Unavailable MARLEY SIMS Referring Unavailable CHRISTIANO CONTRERAS Referring Unavailable AMANDA VELÁSQUEZ Attending Unavailable MADIHA PATRICK Attending Unavailable MADIHA PATRICK Referring Unavailable Allergies Allergy Classification Reported Allergen(s) Allergy Type Date of Onset Reaction(s) Facility (4 sources) Adhesive Tape Propensity to adverse reactions to drug 11-18-19 Rash [place], [place] (4 sources) HYDROmorphone Drug Allergy 11-18-19 20 Shortness Of Breath [place] (4 sources) Lisinopril Drug Allergy 11-18-19 20 [place] (13 sources) Morphine Drug Allergy 10-17-19 20 Shortness Of Breath [place] (13 sources) SUMAtriptan Drug Allergy 11-18-19 20 Unknown [place] (4 sources) Plasminogen Propensity to adverse reactions to drug 11-18-19 [place] (4 sources) Adhesive agent; Translations: [Adhesive] Drug allergy rash [facility] Repository (9 sources) HYDROmorphone Drug Allergy 11-10-19 23 cant breathe [facility] (1 source) HYDROmorphone Drug Allergy [facility] Rep[facility] (1 source) Morphine Drug Allergy [facility] (1 source) Plasmin Drug Allergy [facility] (6 sources) Lisinopril Propensity to adverse reactions 11-18-19 [facility] Healthcare Work Phone: (6 sources) Plasminogen Propensity to adverse reactions 11-18-19 [facility] (6 sources) Wound Dressing Adhesive Drug Intolerance 11-18-19 Rash [facility] Healthcare Medications Current Medications Medication Drug Class(es) [...] sources) Penicillin-class Antibacterial Start: 07-07-19 End: 07-17-19 24 take 1 tablet by mouth in the morning amoxicillin-clavulanat e (Augmentin) 875-125 MG tablet Indications: Acute non-recurrent maxillary sinusitis Take 1 tablet (875 mg) by mouth in the morning and 1 tablet (875 mg) before bedtime. Do all this for 10 days. 20 tablet 0 07/07/2023 07/17/2023 Active atorvastatin 10 mg oral tablet (7 sources) HMG-CoA Reductase Inhibitor Start: 07-15-19 take 1 tablet by mouth once daily in the evening atorvastatin (LIPITOR) 10 mg tablet Take 10 mg by mouth every evening. 07/15/2019 Active calcium chloride 0.0014 meq/ml / potassium chloride 0.004 meq/ml / sodium chloride 0.103 meq/ml / sodium lactate 0.028 meq/ml injectable solution (2 sources) Start: 11-29-19 lactated ringers infusion carBAMazepine 200 mg oral tablet (5 sources) Mood Stabilizer Start: 03-26-20 End: 03-26-20 take 0.5 tablet by mouth once daily, then take 0.5 tablet by mouth twice daily carBAMazepine (TEGretol) 200 MG tablet Take by mouth. One-half tablet daily for a week; then one-half tablet twice daily for a week; then one-half tablet three times daily for a week; then one tablet twice daily thereafter. 03/26/2024 03/26/2025 Active cephalexin 500 mg oral capsule (2 sources) Cephalosporin Antibacterial Start: 11-29-19 End: 12-06-19 20 take 1 capsule by mouth three times [...] tablet (1 source) Azole Antifungal Start: 07-04-19 24 Diflucan 150 MG Take 1 tablet on day 1, if still symptomatic on day 4 take 1 tab, if still symptomatic on day 7 take Orally Once a day for 7 days Jun, Active hydroCHLOROthiazide 25 mg oral tablet (16 sources) Thiazide Diuretic Start: 08-10-19 take 1 tablet by mouth once daily hydroCHLOROthiazide (HYDRODiuril) 25 MG tablet Indications: Essential (primary) hypertension (CMS/HCC) Take 1 tablet (25 mg) by mouth Daily 100 tablet 3 02/24/2024 Active levoFLOXacin 500 mg oral tablet (3 sources) Quinolone Antimicrobial Start: 01-12-20 24 take 1 tablet by mouth once levoFLOXacin (LEVAQUIN) 500 mg tablet Take 1 tablet by mouth every afternoon. 01/12/2024 Active levothyroxine sodium 0.075 mg oral tablet (16 sources) l-Thyroxine Start: 08-28-19 20 take 1 tablet by mouth once daily levothyroxine (Synthroid, Levoxyl) 75 MCG tablet Indications: Hypothyroidism, unspecified (CMS/HCC) Take 1 tablet (75 mcg) by mouth Daily 100 tablet 4 02/15/2024 Active take 1 tablet by rene th once daily in the morning Synthroid 75 MCG 1 tablet on an empty stomach in the morning Orally Once a day for 30 day(s) Active meloxicam 15 mg oral tablet (9 sources) Nonsteroidal Anti-inflammatory Drug Start: 02-24-2024 take 1 tablet by mouth in the morning meloxicam (Mobic) 15 MG tablet Indications: Primary osteoarthritis involving multiple joints Take 1 tablet (15 mg) by mouth in the morning. 100 tablet 1 02/24/2024 Active Start: 07-09-2023 take 1 tablet by rene th in the morning meloxicam (Mobic) 15 MG [...] mg metoprolol tartrate 50 mg oral tablet (16 sources) beta-Adrenergic Estiven Start: 12-06-2013 End: 11-10-2023 take 1 tablet by mouth in the morning metoprolol tartrate (Lopressor) 50 MG tablet Indications: Essential (primary) hypertension (CMS/HCC) TAKE 1 TABLET BY MOUTH IN THE MORNING 30 tablet 11 11/09/2023 Active take 1 tablet by rene th once daily in the morning metoprolol tartrate, short acting, (LOPRESSOR) 50 mg tablet Take 50 mg by mouth every morning. Active microencapsulated potassium chloride 10 meq extended release oral tablet (6 sources) Start: 01-01-2024 End: 02-04-2025 take 1 tablet by mouth once daily potassium chloride CR (Klor-Con M10) 10 MEQ ER tablet Indications: History of low potassium Take 1 tablet (10 mEq) by mouth Daily Do not crush or chew. 100 tablet 3 01/01/2024 02/04/2025 Active predniSONE 20 mg oral tablet (3 sources) Start: 03-03-2024 predniSONE (Deltasone) 20 MG tablet Indications: Heel spur, right 3 tabs x 2 days, 2 tabs x 2 day, 1 1/2 tabs x 2 days, 1 tab x 2 days, 1/2 tab x 2 days then stop 16 tablet 03/03/2024 Active rosuvastatin calcium 10 mg oral tablet (12 sources) HMG-CoA Reductase Inhibitor Start: 03-03-2024 take 1 tablet by mouth once daily rosuvastatin (Crestor) 10 MG tablet Indications: Pure hypercholesterolem ia, unspecified (CMS/HCC) Take 1 tablet (10 mg) by mouth Daily 100 tablet 3 03/03/2024 Active Start: 12-11-2022 take 1 tablet by rene th once daily rosuvastatin (Crestor) 10 MG tablet [...] Active Problems Problem Classification Problem Date Documented Da te Episodic/Chronic Acute and chronic tonsillitis (6 sources) Cyst of tonsil; Translations: [Other chronic diseases of tonsils and adenoids] Onset: 11-23-2022 11-23-2022 Chronic Cardiac dysrhythmias (11 sources) Unspecified atrial fibrillation; Translations: [Atrial fibrillation with rapid ventricular response] Onset: 12-17-2021 Chronic Cataract (6 sources) Cataract; Translations: [Unspecified cataract] Onset: 11-23-2022 11-23-2022 Chronic Disorders of lipid metabolism (17 sources) Hyperlipidemia; Translations: [Pure hypercholesterolemia , unspecified] Onset: 06-13-2019 Resolved: 11-24-2022 11-18-2019 Chronic Essential hypertension (11 sources) Hypertensive disorder; Translations: [Essential (primary) hypertension] Onset: 05-20-2013 11-18-2019 Chronic Genitourinary symptoms and ill-defined conditions (1 source) Dysuria; Translations: [Dysuria] Onset: 11-21-2022 Episodic Nutritional deficiencies (6 sources) Vitamin D deficiency; Translations: [Vitamin D deficiency, unspecified] Onset: 11-23-2022 11-23-2022 Chronic Osteoarthritis (20 sources) Arthritis of finger of left hand; Translations: [Primary osteoarthritis, left hand] Onset: 11-23-2022 11-23-2022 Chronic Other bone disease and musculoskeletal deformities (2 sources) Exostosis of right foot; Translations: [Other specified disorders of bone, ankle and foot] 04-07-2024 Episodic Other connective tissue disease (1 source) Presence of artificial knee joint, bilateral; Translations: [PRESENCE ARTIFICIAL KNEE JNT BILAT] Onset: 12-17-2021 Chronic Other connective tissue disease (6 sources) History of total knee arthroplasty; Translations: [Presence of left artificial knee joint] Onset: 11-23-2022 11-23-2022 Chronic Other connective tissue disease (1 source) Pain in left foot Episodic Other connective tissue disease (2 sources) Bursitis of right foot; Translations: [Other enthesopathy of right foot and ankle] 04-07-2024 Episodic Other diseases of bladder and urethra (6 sources) Overactive bladder; Translations: [Overactive bladder] Onset: 11-24-2022 11-24-2022 Chronic Other nervous system disorders (6 sources) Lesion of ulnar nerve; Translations: [Lesion of ulnar nerve, unspecified upper limb] Onset: 11-23-2022 11-23-2022 Chronic Other nervous system disorders (6 sources) Chronic pain; Translations: [Other chronic pain] Onset: 11-23-2022 11-23-2022 Chronic Other nervous system disorders (1 source) Postoperative pain ; Translations: [Postoperative pain] Episodic Other nervous system disorders (1 source) Left trigeminal neuralgia; Translations: [Trigeminal neuralgia] 03-26-2024 Episodic Other non-traumatic joint disorders (2 sources) Pain of joint of right foot; Translations: [Pain in right ankle and joints of right foot] 04-07-2024 Episodic Other nutritional; endocrine; and metabolic disorders (1 source) Hypomagnesemia; Translations: [HYPOMAGNESEMIA] Onset: 12-16-2021 Chronic Other nutritional; endocrine; and metabolic disorders (1 source) Other disorders of glycoprotein metabolism; 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] Onset: 12-16-2021 Chronic Other nutritional; endocrine; and metabolic disorders (1 source) Hypocalcemia; Translations: [HYPOCALCEMIA] Onset: 12-16-2021 Chronic Other nutritional; endocrine; and metabolic disorders (6 sources) Hypocalcemia; Translations: [Hypocalcemia] Onset: 11-23-2022 11-23-2022 Chronic Other nutritional; endocrine; and metabolic disorders (6 sources) Hypomagnesemia; Translations: [Hypomagnesemia] Onset: 11-23-2022 11-23-2022 Chronic Other nutritional; endocrine; and metabolic disorders (6 sources) Body mass index 30+ - obesity; Translations: [Obesity, unspecified] Onset: 11-23-2022 11-23-2022 Chronic Other upper respiratory infections (6 sources) Chronic sinusitis; Translations: [Chronic sinusitis, unspecified] Onset: 11-23-2022 11-23-2022 Chronic Other upper respiratory infections (4 sources) Acute sinusitis, unspecified; Translations: [Acute pansinusitis] Episodic Residual codes; unclassified (1 source) Pain; Translations: [Pain] Episodic Thyroid disorders (11 sources) Hypothyroidism; Translations: [Hypothyroidism, unspecified] Onset: 05-20-2013 [...] Onset: 12-16-2021 Episodic Deficiency and other anemia (6 sources) Anemia; Translations: [Anemia, unspecified] Onset: 11-23-2022 11-23-2022 Episodic Fluid and electrolyte disorders (8 sources) Hypokalemia; Translations: [Dehydration] Onset: 12-16-2021 11-23-2022 Episodic Intestinal infection (1 source) Campylobacter enteritis; Translations: [CAMPYLOBACTER ENTERITIS] Onset: 12-16-2021 Episodic Joint disorders and dislocations; trauma-related (4 sources) Tear of medial meniscus of knee; Translations: [Tear of medial cartilage or meniscus of knee, current] Onset: 01-31-2004 12-17-2023 Episodic Mood disorders (6 sources) Mood disorders Onset: 11-24-2022 11-24-2022 Other aftercare (1 source) [facility] (current) use of aspirin; Translations: [NURSING HOME CURRENT USE OF ASPIRIN] Onset: 12-17-2021 Episodic Other aftercare (1 source) Other fci (current) drug therapy; Translations: [OTH NURSING HOME CURRENT DRUG THERAPY] Onset: 12-17-2021 Episodic Other bone disease and musculoskeletal deformities (3 sources) Exostosis; Translations: [Other specified disorders of bone, ankle and foot] Onset: 11-09-2022 11-09-2022 Episodic Other bone disease and musculoskeletal deformities (3 sources) Other specified disorders of bone, ankle and foot; Translations: [Exostosis of unspecified site] Onset: 11-09-2022 11-09-2022 Episodic Other circulatory disease (1 source) Hypotension, unspecified; Translations: [HYPOTENSION UNSPECIFIED] Onset: 12-16-2021 Episodic Other connective tissue disease (6 sources) Bursitis of foot region; Translations: [Other enthesopathy of unspecified foot and ankle] Onset: 11-09-2022 11-09-2022 Episodic Other connective tissue disease (6 sources) Pain of toe of right foot; Translations: [Pain in right toe(s)] Onset: 11-09-2022 11-09-2022 Episodic Other connective tissue disease (6 sources) Plantar fasciitis of right foot; Translations: [Plantar fascial fibromatosis] Onset: 11-09-2022 11-09-2022 Episodic Other connective tissue disease (6 sources) History of lumbar fusion; Translations: [Arthrodesis status] Onset: 11-18-2019 11-23-2022 Episodic Other inflammatory condition of skin (1 source) Pruritus, unspecified; Translations: [PRURITUS UNSPECIFIED] Onset: 12-17-2021 Episodic Other non-traumatic joint disorders (4 sources) Shoulder pain; Translations: [Right shoulder pain] Onset: 11-18-2019 11-18-2019 Episodic Other non-traumatic joint disorders (6 sources) Sesamoiditis; Translations: [Other specified joint disorders, unspecified joint] Onset: 11-09-2022 11-09-2022 Episodic Other non-traumatic joint disorders (6 sources) Pain in right knee; Translations: [Pain in joint, lower leg] Onset: 11-23-2022 11-23-2022 Episodic Other non-traumatic joint disorders (6 sources) Pain in right shoulder; Translations: [Pain in joint, shoulder region] Onset: 11-18-2019 11-23-2022 Episodic Other skin disorders (3 sources) Rash and other nonspecific skin eruption; Translations: [RASH OTH NONSPECIFIC SKIN ERUPTION] Onset: 12-16-2021 Episodic Other skin disorders (6 sources) Callosity; Translations: [Corns and callosities] Onset: 11-09-2022 11-09-2022 Episodic Other skin disorders (6 sources) Ingrowing toenail; Translations: [Ingrowing nail] Onset: 11-09-2022 11-09-2022 Episodic Residual codes; unclassified (1 source) Acquired absence of both cervix and uterus; Translations: [ACQUIRED ABSENCE BOTH CERVIX AND UTERUS] Onset: 12-17-2021 Episodic Residual codes; unclassified (1 source) Acquired absence of ovaries, bilateral; Translations: [ACQUIRED ABSENCE OVARIES BILATERAL] Onset: 12-17-2021 Episodic Residual codes; unclassified (6 sources) History of operative procedure on lumbosacral spinal structure; Translations: [Other specified postprocedural states] Onset: 03-31-2023 03-31-2023 Episodic Septicemia (except in labor) (1 source) Other specified sepsis; Translations: [OTHER SPECIFIED SEPSIS] Onset: 12-16-2021 Episodic Skin and subcutaneous tissue infections (3 sources) Paronychia of toe; Translations: [Cellulitis of unspecified toe] Onset: 10-13-2023 10-13-2023 Episodic Sprains and strains (6 sources) Sprain of spinal ligament; Translations: [Sprain of ligaments of lumbar spine, initial encounter] Onset: 03-31-2023 03-31-2023 Episodic Results Test Name Value Interpretation Reference Range Facility XR Foot - right 3 [facility] Result: 3 views foot: AP, MO, and lateral of the right foot were taken and show significant degenerative changes noted at the 2nd 3rd tarsometatarsal joint, and to a lesser extent at the 4th and 5th tarsometatarsal joints. The middle and lateral cuneiforms are hypotrophic, th e middle cuneiform is difficult to visualize. The navicular bone is hypotrophic, evidence of significant degenerative joint disease at the navicular cuneiform joint and tn joint. Cystic changes noted throughout the base of the 3rd metatarsal, 4th metatarsal, lateral aspect of the navicular, and cuboid. It does appear there was an old fracture through the tuberosity of the navicular. There is significant dorsal spurring noted at the tn and navicular cuneiform joint. Lesion marker overlies the 3rd TMT J as the area of most pain. Mild hypertrophy of the dorsomedial 1st metatarsal head. Lateral view shows pes planus foot type. Decrease in calcaneal pitch, increase in talar declination angle. Break in Meary's line. Midfoot fault at the navicular cuneiform joint. [facility] Radiology Study observation (narrative) [facility] 03-30-2024 [facility] Telephone (NEURST) RAUL LOPEZLINE ([id number]) 1955 F Date Time Provider Department 03/30/24 MELANI MATUTE During your visit today, we recorded the following information about you: Harika Rondon MA 03/30/2024 9:45 AM Signed Received outside blood work sent to scanning. Harika Rondon MA Allergies As of Date: 03/30/2024 (No Known Allergies) Date Reviewed: 03/26/2024 Reviewed by: Julián Perez MA - Fully Assessed Prescriptions as of 03/30/2024 - meloxicam (MOBIC) 15 mg tablet Take 15 mg by mouth. - levoFLOXacin (LEVAQUIN) 500 mg tablet Take 1 tablet by mouth every afternoon. - atorvastatin (LIPITOR) 10 mg tablet Take 10 mg by mouth every evening. - metoprolol tartrate, short acting, (LOPRESSOR) 50 mg tablet Take 50 mg by mouth every morning. - rosuvastatin (CRESTOR) 10 mg tablet Take 1 tablet by mouth once daily. - hydroCHLOROthiazide 25 mg tablet Take 25 mg by mouth. - potassium chloride ER (KLOR-CON M10) 10 mEq tablet Take 10 mEq by mouth. - levothyroxine (SYNTHROID) 75 mcg tablet Take 75 mcg by mouth. - carBAMazepine (TEGRETOL) 200 mg tablet Take by mouth. One-half tablet daily for a week; then one-half tablet twice daily for a week; then one-half tablet three times daily for a week; then one tablet twice daily thereafter. Problem List As Of Date 03/30/2024 Noted Resolved TEAR MED MENISC KNEE-CURRENT [[id number]] 01/31/2004 Encounter Status:Closed by HARIKA RONDON on 03/30/24 [facility] 03-28-2024 [facility] Telephone (ANAIS) RENETTA LOPEZ ([id number]) 1955 F Date Time Provider Department 03/28/24 MELANI MATUTE During your visit today, we recorded the following information about you: Harika Rondon MA 03/28/2024 8:53 AM Signed Sent to scanning [facility] from [facility]. Harika Rondon MA Allergies As of Date: 03/28/2024 (No Known Allergies) Date Reviewed: 03/26/2024 Reviewed by: Julián Perez MA - Fully Assessed Prescriptions as of 03/28/2024 - meloxicam (MOBIC) 15 mg tablet Take 15 mg by mouth. - levoFLOXacin (LEVAQUIN) 500 mg tablet Take 1 tablet by mouth every afternoon. - atorvastatin (LIPITOR) 10 mg tablet Take 10 mg by mouth every evening. - metoprolol tartrate, short acting, (LOPRESSOR) 50 mg tablet Take 50 mg by mouth every morning. - rosuvastatin (CRESTOR) 10 mg tablet Take 1 tablet by mouth once daily. - hydroCHLOROthiazide 25 mg tablet Take 25 mg by mouth. - potassium chloride ER (KLOR-CON M10) 10 mEq tablet Take 10 mEq by mouth. - levothyroxine (SYNTHROID) 75 mcg tablet Take 75 mcg by mouth. - carBAMazepine (TEGRETOL) 200 mg tablet Take by mouth. One-half tablet daily for a week; then one-half tablet twice daily for a week; then one-half tablet three times daily for a week; then one tablet twice daily thereafter. Problem List As Of Date 03/28/2024 Noted Resolved TEAR MED MENISC KNEE-CURRENT [[id number]] 01/31/2004 Encounter Status:Closed by HARIKA RONDON on 03/28/24 [facility] 03-26-2024 CNCO Letter Text Normal [facility]OVon 03-26-2024 CNOV Office Visit (ANAIS ) RENETTA LOPEZ ([id number]) 1955 F Date Time Provider Department 03/26/24 10:30 AM MELANI MATUTE During your visit today, we recorded the following information about you: Pulse Blood pressure Weight Height 65/minute 112/74 77.3 kg 1.588 m Melani Matute MD 03/26/2024 12:08 PM Addendum 11:16 - 12:01 Chart Review Parenthetic [comments] and tinted emphasis mine. Consultation is requested for an opinion regarding the evaluation and treatment of Renetta Lopez. My final impression and recommendations will be communicated back to the referring physician by way of the shared medical record or letter via US mail. Renetta Lopez may be self-referred for pain and multiple symptoms per the schedule. ====== Problem List reviewed. Medication List is unpopulated. ====== The patient brought the report of an recent (01/31/24) CT brain w from [facility] which showed only age related changes. With that preamble, Chief Complaint: Renetta Lopez is a 68 year old right handed female who presents with electrical left facial pain. History of Present Illness About July of this year, she experienced the pain in left V1 precipitated by wiping her left forehead. It was brief. It was enough to startle her. She was seen in urgent care and was given a medication which she did not tolerate due to nausea [I speculate it was carbamazepine or oxcarbazepine]. It subsequently moved down to left V2, particularly around her nasolabial fold - it no longer bothered her in left V1. Washing her face, or touching it there, or brushing her teeth, can trigger it. So can chewing. There is no numbness. There is no facial weakness, drooling, or slurring of speech. There is neither loss of hearing on her left, left tinnitus, nor vertigo. Swallowing is normal. It does not trigger her pain. She had new upper left crown made in January. There was decay under it, but it was not hurting. There was no shingles rash. (She has had shingles twice - both on the trunk). No past medical history on file. Current Outpatient Medications Medication Sig meloxicam (MOBIC) 15 mg tablet Take 15 mg by mouth. levoFLOXacin (LEVAQUIN) 500 mg tablet Take 1 tablet by mouth every afternoon. atorvastatin (LIPITOR) 10 mg tablet Take 10 mg by mouth every evening. metoprolol tartrate, short acting, (LOPRESSOR) 50 mg tablet Take 50 mg by mouth every morning. rosuvastatin (CRESTOR) 10 mg tablet Take 1 tablet by mouth once daily. hydroCHLOROthiazide 25 mg tablet Take 25 mg by mouth. potassium chloride ER (KLOR-CON M10) 10 mEq tablet Take 10 mEq by mouth. levothyroxine (SYNTHROID) 75 mcg tablet Take 75 mcg by mouth. No current facility-administered medications for this visit. ALLERGIES No Known Allergies Social History Tobacco Use Smoking status: Never Substance Use Topics Alcohol use: Yes Comment: occasionally No family history on file. Review of Systems: As above. PHYSICAL EXAM General: Alert, conversant, appropriate, elderly, FEMALE, in no apparent distress. Vital Signs: BP 112/74 Pulse 65 Ht 158.8 cm (5' 2.5 ) Wt 77.3 kg (170 lb 6.7 oz) SpO2 98% BMI 30.67 kg/m? - reviewed. Head: Left TM normal. Cardiovascular: Carotids 2 and symmetric without bruits. Neurologic: Cranial Nerves: Monocular visual robert intact to finger counting. Funduscopic reveals flat discs. Pupils s/p iol's bilaterally; equal, round and reactive to light. Pursuit eye movements normal. Facial sensation normal to pin. Facies symmetric. Hearing normal to 1024 Hz tuning fork. Palatal movement, phonation, and resonation normal. Trapezius and SCM 5/5 and symmetric. Tongue movement symmetric. Sensory: Pin exam is subject to mild artifact of examination at the toes. Otherwise normal. Normal on testing vibration and joint position sense. Motor: Strength was 5/5 and symmetric on testing finger abduction, finger extension, elbow flexion, elbow extension, shoulder abduction, toe dorsiflexion, ankle dorsiflexion, ankle plantar flexion, knee flexion, knee extension, and hip flexion. Tone was normal. Posture was normal. There were no involuntary movements. Coordination: Vtcpge-lfoj-llwhkh was normal. Finger and toe wiggling rapid alternating movements were normal. Standing in Romberg's position with eyes open and closed was normal. Gait: Limps due to a right foot condition. Deep Tendon Reflexes: Plantars were mute bilaterally. Biceps 2 and symmetric. Triceps 2 and symmetric. Patellar 2 and symmetric. Achilles 2 right, 2- left. Mental Status: Alert, conversant, and appropriate. IMPRESSION AND PLAN: Left V2 trigeminal neuralgia; it started in left V1 and migrated over time. I speculate that a loop of blood vessel caused it, and further evolution (more content not included)... Normal [facility] HISTORY PHYSICALon HISTORY PHYSICAL HNO ID: [id number] Author: MELANI MATUTE MD Service: ? Author Type: Physician Type: H&P Filed: 03/25/2024 21:48 Note Text: Chart Review Parenthetic [comments] and tinted emphasis mine. Consultation is requested for an opinion regarding the evaluation and treatment of Renetta Lopez. My final impression and recommendations will be communicated back to the referring physician by way of the shared medical record or letter via [place] mail. Renetta Lopez may be self-referred for pain and multiple symptoms per the schedule. ====== Problem List reviewed. Medication List is unpopulated. ====== Melani Matute MD [facility] HISTORY PHYSICAL HNO ID: [id number] Author: MELANI MATUTE MD Service: ? Author Type: Physician Type: H&P Filed: 03/26/2024 12:08 Note Text: 11:16 - 12:01 Chart Review Parenthetic [comments] and tinted emphasis mine. Consultation is requested for an opinion regarding the evaluation and treatment of Renetta Lopez. My final impression and recommendations will be communicated back to the referring physician by way of the shared medical record or letter via [place] mail. Renetta Lopez may be self-referred for pain and multiple symptoms per the schedule. ====== Problem List reviewed. Medication List is unpopulated. ====== The patient brought the report of an recent (01/31/24) CT brain w from [facility] which showed only age related changes. With that preamble, Chief Complaint: Renetta Lopez is a 68 year old right handed female who presents with electrical left facial pain. History of Present Illness About July of this year, she experienced the pain in left V1 precipitated by wiping her left forehead. It was brief. It was enough to startle her. She was seen in urgent care and was given a medication which she did not tolerate due to nausea [I speculate it was carbamazepine or oxcarbazepine]. It subsequently moved down to left V2, particularly around her nasolabial fold - it no longer bothered her in left V1. Washing her face, or touching it there, or brushing her teeth, can trigger it. So can chewing. There is no numbness. There is no facial weakness, drooling, or slurring of speech. There is neither loss of hearing on her left, left tinnitus, nor vertigo. Swallowing is normal. It does not trigger her pain. She had new upper left crown made in January. There was decay under it, but it was not hurting. There was no shingles rash. (She has had shingles twice - both on the trunk). No past medical history on file. Current Outpatient Medications Medication Sig meloxicam (MOBIC) 15 mg tablet Take 15 mg by mouth. levoFLOXacin (LEVAQUIN) 500 mg tablet Take 1 tablet by mouth every afternoon. atorvastatin (LIPITOR) 10 mg tablet Take 10 mg by mouth every evening. metoprolol tartrate, short acting, (LOPRESSOR) 50 mg tablet Take 50 mg by mouth every morning. rosuvastatin (CRESTOR) 10 mg tablet Take 1 tablet by mouth once daily. hydroCHLOROthiazide 25 mg tablet Take 25 mg by mouth. potassium chloride ER (KLOR-CON M10) 10 mEq tablet Take 10 mEq by mouth. levothyroxine (SYNTHROID) 75 mcg tablet Take 75 mcg by mouth. No current facility-administered medications for this visit. ALLERGIES No Known Allergies Social History Tobacco Use Smoking status: Never Substance Use Topics Alcohol use: Yes Comment: occasionally No family history on file. Review of Systems: As above. PHYSICAL EXAM General: Alert, conversant, appropriate, elderly, FEMALE, in no apparent distress. Vital Signs: BP 112/74 Pulse 65 Ht 158.8 cm (5' 2.5 ) Wt 77.3 kg (170 lb 6.7 oz) SpO2 98% BMI 30.67 kg/m? - reviewed. Head: Left TM normal. Cardiovascular: Carotids 2 and symmetric without bruits. Neurologic: Cranial Nerves: Monocular visual robert intact to finger counting. Funduscopic reveals flat discs. Pupils s/p iol's bilaterally; equal, round and reactive to light. Pursuit eye movements normal. Facial sensation normal to pin. Facies symmetric. Hearing normal to 1024 Hz tuning fork. Palatal movement, phonation, and resonation normal. Trapezius and SCM 5/5 and symmetric. Tongue movement symmetric. Sensory: Pin exam is subject to mild artifact of examination at the toes. Otherwise normal. Normal on testing vibration and joint position sense. Motor: Strength was 5/5 and symmetric on testing finger abduction, finger extension, elbow flexion, elbow extension, shoulder abduction, toe dorsiflexion, ankle dorsiflexion, ankle plantar flexion, knee flexion, knee extension, and hip flexion. Tone was normal. Posture was normal. There were no involuntary movements. Coordination: Xlznfo-chnh-ficpmn was normal. Finger and toe wiggling rapid alternating movements were normal. Standing in Romberg's position with eyes open and closed was normal. Gait: Limps due to a right foot condition. Deep Tendon Reflexes: Plantars were mute bilaterally. Biceps 2 and symmetric. Triceps 2 and symmetric. Patellar 2 and symmetric. Achilles 2 right, 2- left. Mental Status: Alert, conversant, and appropriate. IMPRESSION AND PLAN: Left V2 trigeminal neuralgia; it started in left V1 and migrated over time. 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 Even so, she will need an MRI brain to make sure that there is not a nerve tumor or anything other than a loop of blood vessel pressing on it. She has had recent dental work in the sensory territory of left V2; but it could not have been the cause (more content not included)... [facility] Urine Cultureon 11-21-2022 Bacteria identified Cx Nom (U) <9,000 colonies/ml mixed bacterial skin contaminants 1 Day PERFORMED BY: [id number] [place] [address] PATHOLOGIST INSPECTOR TECHNICIAN DARYL SEVILLA M.D. Normal [facility] Comment on above: Performed By: #### C UU #### [facility] [address] CBC AUTO DIFFon 12-09-2021 BASO # 0.0 103/ul Normal 0.0-0.1 [facility] Comment on above: Performed By: #### V ITAD #### [facility] [address] [address] [address] Jonelle Trujillo Basophils/100 WBC (Bld) 0.5 % Normal 0.2-2.0 [facility] Comment on above: Performed By: #### V ITAD #### [facility] [address] [place] [address] Dr. Jonelle Trujillo EO # 0.1 103/ul Normal 0.0-0.7 [facility] Comment on above: Performed By: #### V ITAD #### [facility] [address] [place] [address] Dr. Jonelle Trujillo Eosinophils/100 WBC (Bld) 2.5 % Normal 0.9-7.0 [facility] Comment on above: Performed By: #### V ITAD #### [facility] [address] [place] [address] Dr. Jonelle Trujillo Erythrocyte distribution width (RBC) [Ratio] 13.4 % Normal 11.0-15.0 [facility] Comment on above: Performed By: #### V ITAD #### [facility] [address] [place] [address] Dr. Jonelle Trujillo Hematocrit (Bld) [Volume fraction] 33.4 % Critically low 36.0-48.0 [facility] Comment on above: Performed By: #### V ITAD #### [facility] [address] [place] [address] Dr. Jonelle Trujillo Hemoglobin (Bld) [Mass/Vol] 10.7 g/dL Critically low 12.0-16.0 [facility] Comment on above: Performed By: #### V ITAD #### [facility] [address] [place] [address] Dr. Jonelle Trujillo IG # 0.01 10e3/ul Normal 0.00-0.03 [facility] Comment on above: Performed By: #### V ITAD #### [facility] [address] [place] [address] Dr. Jonelle Trujillo IG % 0.2 % Normal 0.0-0.5 [facility] Comment on above: Performed By: #### V ITAD #### [facility] [address] [place] [address] Dr. Jonelle Trujillo LYMPH # 1.6 103/ul Normal 1.2-3.8 [facility] Comment on above: Performed By: #### V ITAD #### [facility] [address] [place] [address] Dr. Jonelle Trujillo Lymphocytes/100 WBC (Bld) 37.7 % Normal 20.5-60.0 [facility] Comment on above: Performed By: #### V ITAD #### [facility] [address] [place] [address] Dr. Jonelle Trujillo MANUAL DIFF REQ NO Normal [facility] Comment on above: Performed By: #### V ITAD #### [facility] [address] [place] [address] Dr. Jonelle Trujillo MCH (RBC) [Entitic mass] 28.4 pg Normal 26.7-34.0 [facility] Comment on above: Performed By: #### V ITAD #### [facility] [address] [place] [address] Dr. Jonelle Trujillo MCHC (RBC) [Mass/Vol] 32.0 g/dL Normal 29.9-35.2 [facility] Comment on above: Performed By: #### V ITAD #### [facility] [address] [place] [address] Dr. Jonelle Trujillo MCV (RBC) [Entitic vol] 88.6 fL Normal 81.0-99.0 [facility] Comment on above: Performed By: #### V ITAD #### [facility] [address] [place] [address] Dr. Jonelle Trujillo MONO # 0.5 103/ul Normal 0.3-0.8 [facility] Comment on above: Performed By: #### V ITAD #### [facility] [address] [place] [address] Dr. Jonelle Trujillo Monocytes/100 WBC (Bld) 12.3 % Critically high 1.7-12.0 [facility] Comment on above: Performed By: #### V ITAD #### [facility] [address] [place] [address] Dr. Jonelle Trujillo NEUT # 2.0 103/ul Normal 1.4-6.5 [facility] Comment on above: Performed By: #### V ITAD #### [facility] [address] [place] [address] Dr. Jonelle Trujillo Neutrophils/100 WBC (Bld) 46.8 % Normal 43.0-75.0 [facility] Comment on above: Performed By: #### V ITAD #### [facility] [address] [place] [address] Dr. Jonelle Trujillo Platelet mean volume (Bld) [Entitic vol] 10.5 fL Normal 9.5-13.5 [facility] Comment on above: Performed By: #### V ITAD #### [facility] [address] [place] [address] Dr. Jonelle Trujillo PLT 163 103/ul Normal 150-450 [facility] Comment on above: Performed By: #### V ITAD #### [facility] [address] [place] [address] Dr. Jonelle Trujillo RBC 3.77 106/ul Critically low 4.20-5.40 [facility] Comment on above: Performed By: #### V ITAD #### [facility] [address] [place] [address] Dr. Jonelle Trujillo WBC 4.3 103/ul Normal 4.0-11.0 [facility] Comment on above: Performed By: #### V ITAD #### [facility] [address] [place] [address] Dr. Jonelle Trujillo MAGNESIUMon 12-09-2021 Magnesium [Mass/Vol] 1.7 mg/dL Critically low 1.8-2.4 [facility] Comment on above: Performed By: #### C BC #### [facility] [address] [address] [address] Jonelle Trujillo PROF CHEM 8 (BAS METB)on Anion gap [Moles/Vol] 12.8 mmol/L Normal [facility] Comment on above: Performed By: #### B MP #### [facility] [address] [place] [address] Dr. Jonelle Trujillo Calcium [Mass/Vol] 8.8 mg/dL Normal 8.5-10.1 [facility] Comment on above: Performed By: #### B MP #### [facility] [address] [place] [address] Dr. Jonelle Trujillo Chloride [Moles/Vol] 107 mmol/L Normal 98-107 [facility] Comment on above: Performed By: #### B MP #### [facility] [address] [place] [address] Dr. Jonelle Trujillo CO2 [Moles/Vol] 24.5 mmol/L Normal 21.0-32.0 [facility] Comment on above: Performed By: #### B MP #### [facility] [address] [place] [address] Dr. Jonelle Trujillo Creatinine [Mass/Vol] 0.56 mg/dL Normal 0.55-1.02 [facility] Comment on above: Performed By: #### B MP #### [facility] [address] [place] [address] Dr. Jonelle Trujillo EGFR-AF ITALIAN >60 Normal >=60 [facility] Comment on above: Performed By: #### B MP #### [facility] [address] [place] [address] Dr. Jonelle Trujillo EGFR-NON AF ITALIAN >60 Normal >=60 [facility] Comment on above: Performed By: #### B MP #### [facility] [address] [place] [address] Dr. Jonelle Trujillo Glucose [Mass/Vol] 83 mg/dL Normal 74-106 [facility] Comment on above: Performed By: #### B MP #### [facility] [address] [address] [address] Jonelle Trujillo Potassium [Moles/Vol] 4.3 mmol/L Normal 3.5-5.1 [facility] Comment on above: Performed By: #### B MP #### [facility] [address] [place] [address] Dr. Jonelle Trujillo Sodium [Moles/Vol] 140 mmol/L Normal 136-145 [facility] Comment on above: Performed By: #### B MP #### [facility] [address] [place] [address] Dr. Jonelle Trujillo Urea nitrogen [Mass/Vol] 5.0 mg/dL Critically low 7.0-18.0 [facility] Comment on above: Performed By: #### B MP #### [facility] [address] [place] [address] Dr. Jonelle Trujillo Urea nitrogen/Creatinine [Mass ratio] 8.9 mg/mg Normal [facility] Comment on above: Performed By: #### B MP #### [facility] [address] [place] [address] Dr. Jonelle Trujillo CBC AUTO DIFFon 12-08-2021 BASO # 0.0 103/ul Normal 0.0-0.1 [facility] Comment on above: Performed By: #### C BC #### [facility] [address] [place] [address] Dr. Jonelle Trujillo Basophils/100 WBC (Bld) 0.4 % Normal 0.2-2.0 [facility] Comment on above: Performed By: #### C BC #### [facility] [address] [place] [address] Dr. Jonelle Trujillo EO # 0.1 103/ul Normal 0.0-0.7 [facility] Comment on above: Performed By: #### C BC #### [facility] [address] [place] [address] Dr. Jonelle Trujillo Eosinophils/100 WBC (Bld) 1.4 % Normal 0.9-7.0 [facility] Comment on above: Performed By: #### C BC #### [facility] [address] [place] [address] Dr. Jonelle Trujillo Erythrocyte distribution width (RBC) [Ratio] 13.9 % Normal 11.0-15.0 [facility] Comment on above: Performed By: #### C BC #### [facility] [address] [place] [address] Dr. Jonelle Trujillo Hematocrit (Bld) [Volume fraction] 32.4 % Critically low 36.0-48.0 [facility] Comment on above: Performed By: #### C BC #### [facility] [address] [place] [address] Dr. Jonelle Trujillo Hemoglobin (Bld) [Mass/Vol] 10.4 g/dL Critically low 12.0-16.0 [facility] Comment on above: Performed By: #### C BC #### [facility] [address] [place] [address] Dr. Jonelle Trujillo IG # 0.02 10e3/ul Normal 0.00-0.03 [facility] Comment on above: Performed By: #### C BC #### [facility] [address] [place] [address] Dr. Jonelle Trujillo IG % 0.4 % Normal 0.0-0.5 [facility] Comment on above: Performed By: #### C BC #### [facility] [address] [place] [address] Dr. Jonelle Trujillo LYMPH # 1.5 103/ul Normal 1.2-3.8 [facility] Comment on above: Performed By: #### C BC #### [facility] [address] [place] [address] Dr. Jonelle Trujillo Lymphocytes/100 WBC (Bld) 31.1 % Normal 20.5-60.0 [facility] Comment on above: Performed By: #### C BC #### [facility] [address] [place] [address] Dr. Jonelle Trujillo MANUAL DIFF REQ NO Normal [facility] Comment on above: Performed By: #### C BC #### [facility] [address] [place] [address] Dr. Jonelle Trujillo MCH (RBC) [Entitic mass] 28.6 pg Normal 26.7-34.0 [facility] Comment on above: Performed By: #### C BC #### [facility] [address] [place] [address] Dr. Jonelle Trujillo MCHC (RBC) [Mass/Vol] 32.1 g/dL Normal 29.9-35.2 [facility] Comment on above: Performed By: #### C BC #### [facility] [address] [place] [address] Dr. Jonelle Trujillo MCV (RBC) [Entitic vol] 89.0 fL Normal 81.0-99.0 [facility] Comment on above: Performed By: #### C BC #### [facility] [address] [place] [address] Dr. Jonelle Trujillo MONO # 0.7 103/ul Normal 0.3-0.8 [facility] Comment on above: Performed By: #### C BC #### [facility] [address] [place] [address] Dr. Jonelle Trujillo Monocytes/100 WBC (Bld) 13.3 % Critically high 1.7-12.0 [facility] Comment on above: Performed By: #### C BC #### [facility] [address] [place] [address] Dr. Jonelle Trujillo NEUT # 2.6 103/ul Normal 1.4-6.5 [facility] Comment on above: Performed By: #### C BC #### [facility] [address] [place] [address] Dr. Jonelle Trujillo Neutrophils/100 WBC (Bld) 53.4 % Normal 43.0-75.0 [facility] Comment on above: Performed By: #### C BC #### [facility] [address] [place] [address] Dr. Jonelle Trujillo Platelet mean volume (Bld) [Entitic vol] 10.0 fL Normal 9.5-13.5 [facility] Comment on above: Performed By: #### C BC #### [facility] [address] [address] [address] Jonelle Trujillo PLT 152 103/ul Normal 150-450 [facility] Comment on above: Performed By: #### C BC #### [facility] [address] [address] [address] Jonelle Trujillo RBC 3.64 106/ul Critically low 4.20-5.40 [facility] Comment on above: Performed By: #### C BC #### [facility] [address] [place] [address] Dr. Jonelle Trujillo WBC 4.9 103/ul Normal 4.0-11.0 [facility] Comment on above: Performed By: #### C BC #### [facility] [address] [place] [address] Dr. Jonelle Trujillo PROF CHEM 8 (BAS METB)on Anion gap [Moles/Vol] 11.8 mmol/L Normal [facility] Comment on above: Performed By: #### C BC #### [facility] [address] [place] [address] Dr. Jonelle Trujillo Calcium [Mass/Vol] 8.4 mg/dL Critically low 8.5-10.1 [facility] Comment on above: Performed By: #### C BC #### [facility] [address] [place] [address] Dr. Jonelle Trujillo Chloride [Moles/Vol] 108 mmol/L Critically high 98-107 [facility] Comment on above: Performed By: #### C BC #### [facility] [address] [place] [address] Dr. Jonelle Trujillo CO2 [Moles/Vol] 24.3 mmol/L Normal 21.0-32.0 [facility] Comment on above: Performed By: #### C BC #### [facility] [address] [place] [address] Dr. Jonelle Trujillo Creatinine [Mass/Vol] 0.63 mg/dL Normal 0.55-1.02 [facility] Comment on above: Performed By: #### C BC #### [facility] [address] [place] [address] Dr. Jonelle Trujillo EGFR-AF ITALIAN >60 Normal >=60 [facility] Comment on above: Performed By: #### C BC #### [facility] [address] [place] [address] Dr. Jonelle Trujillo EGFR-NON AF ITALIAN >60 Normal >=60 [facility] Comment on above: Performed By: #### C BC #### [facility] [address] [address] [address] Jonelle Trujillo Glucose [Mass/Vol] 88 mg/dL Normal 74-106 [facility] Comment on above: Performed By: #### C BC #### [facility] [address] [place] [address] Dr. Jonelle Trujillo Potassium [Moles/Vol] 4.1 mmol/L Normal 3.5-5.1 [facility] Comment on above: Performed By: #### C BC #### [facility] [address] [place] [address] Dr. Jonelle Trujillo Sodium [Moles/Vol] 140 mmol/L Normal 136-145 [facility] Comment on above: Performed By: #### C BC #### [facility] [address] [place] [address] Dr. Jonelle Trujillo Urea nitrogen [Mass/Vol] 7.0 mg/dL Normal 7.0-18.0 [facility] Comment on above: Performed By: #### C BC #### [facility] [address] [place] [address] Dr. Jonelle Trujillo Urea nitrogen/Creatinine [Mass ratio] 11.1 mg/mg Normal [facility] Comment on above: Performed By: #### C BC #### [facility] [address] [place] [address] Dr. Jonelle Trujillo CBC AUTO DIFFon 12-07-2021 BASO # 0.0 103/ul Normal 0.0-0.1 [facility] Comment on above: Performed By: #### C BC #### [facility] [address] [place] [address] Dr. Jonelle Trujillo Basophils/100 WBC (Bld) 0.4 % Normal 0.2-2.0 [facility] Comment on above: Performed By: #### C BC #### [facility] [address] [place] [address] Dr. Jonelle Trujillo EO # 0.0 103/ul Normal 0.0-0.7 [facility] Comment on above: Performed By: #### C BC #### [facility] [address] [place] [address] Dr. Jonelle Trujillo Eosinophils/100 WBC (Bld) 0.0 % Critically low 0.9-7.0 [facility] Comment on above: Performed By: #### C BC #### [facility] [address] [place] [address] Dr. Jonelle Trujillo Erythrocyte distribution width (RBC) [Ratio] 13.5 % Normal 11.0-15.0 [facility] Comment on above: Performed By: #### C BC #### [facility] [address] [place] [address] Dr. Jonelle Trujillo Hematocrit (Bld) [Volume fraction] 37.4 % Normal 36.0-48.0 [facility] Comment on above: Performed By: #### C BC #### [facility] [address] [place] [address] Dr. Jonelle Trujillo Hemoglobin (Bld) [Mass/Vol] 12.2 g/dL Normal 12.0-16.0 [facility] Comment on above: Performed By: #### C BC #### [facility] [address] [place] [address] Dr. Jonelle Trujillo IG # 0.01 10e3/ul Normal 0.00-0.03 [facility] Comment on above: Performed By: #### C BC #### [facility] [address] [place] [address] Dr. Jonelle Trujillo IG % 0.2 % Normal 0.0-0.5 [facility] Comment on above: Performed By: #### C BC #### [facility] [address] [place] [address] Dr. Jonelle Trujillo LYMPH # 0.9 103/ul Critically low 1.2-3.8 [facility] Comment on above: Performed By: #### C BC #### [facility] [address] [place] [address] Dr. Jonelle Trujillo Lymphocytes/100 WBC (Bld) 16.4 % Critically low 20.5-60.0 [facility] Comment on above: Performed By: #### C BC #### [facility] [address] [place] [address] Dr. Jonelle Trujillo MANUAL DIFF REQ NO Normal [facility] Comment on above: Performed By: #### C BC #### [facility] [address] [place] [address] Dr. Jonelle Trujillo MCH (RBC) [Entitic mass] 28.6 pg Normal 26.7-34.0 [facility] Comment on above: Performed By: #### C BC #### [facility] [address] [place] [address] Dr. Jonelle Trujillo MCHC (RBC) [Mass/Vol] 32.6 g/dL Normal 29.9-35.2 [facility] Comment on above: Performed By: #### C BC #### [facility] [address] [place] [address] Dr. Jonelle Trujillo MCV (RBC) [Entitic vol] 87.8 fL Normal 81.0-99.0 [facility] Comment on above: Performed By: #### C BC #### [facility] [address] [place] [address] Dr. Jonelle Trujillo MONO # 0.5 103/ul Normal 0.3-0.8 [facility] Comment on above: Performed By: #### C BC #### [facility] [address] [place] [address] Dr. Jonelle Trujillo Monocytes/100 WBC (Bld) 9.7 % Normal 1.7-12.0 [facility] Comment on above: Performed By: #### C BC #### [facility] [address] [place] [address] Dr. Jonelle Trujillo NEUT # 4.0 103/ul Normal 1.4-6.5 [facility] Comment on above: Performed By: #### C BC #### [facility] [address] [place] [address] Dr. Jonelle Trujillo Neutrophils/100 WBC (Bld) 73.3 % Normal 43.0-75.0 [facility] Comment on above: Performed By: #### C BC #### [facility] [address] [place] [address] Dr. Jonelle Trujillo Platelet mean volume (Bld) [Entitic vol] 9.8 fL Normal 9.5-13.5 [facility] Comment on above: Performed By: #### C BC #### [facility] [address] [place] [address] Dr. Jonelle Trujillo PLT 144 103/ul Critically low 150-450 [facility] Comment on above: Performed By: #### C BC #### [facility] [address] [place] [address] Dr. Jonelle Trujillo RBC 4.26 106/ul Normal 4.20-5.40 [facility] Comment on above: Performed By: #### C BC #### [facility] [address] [place] [address] Dr. Jonelle Trujillo WBC 5.5 103/ul Normal 4.0-11.0 [facility] Comment on above: Performed By: #### C BC #### [facility] [address] [place] [address] Dr. Jonelle Trujillo Covid-19 PCR ([facility])on SARS-CoV-2 (COVID-19) RNA MARCIA+probe Ql (Unsp spec) Not detected Normal NOT DETECTED [facility] Comment on above: Result Comment: When [...] for this test is supported by the Customer Service Technician of Health and Human Service's declaration that [...] longer be used). Performed By: #### C VDTB #### [facility] [address] [place] [address] Dr. Jonelle Trujillo GI PANEL (PCR)on 12-07-2021 Adenovirus F 40/41 Not detected Normal NOT DETECTED [facility] Comment on above: Performed By: #### C BC #### [facility] [address] [place] [address] Dr. Jonelle Trujillo Astrovirus Not detected Normal NOT DETECTED [facility] Comment on above: Performed By: #### C BC #### [facility] [address] [place] [address] Dr. Jonelle Trujillo C. Diff toxin A/B Not detected Normal NOT DETECTED [facility] Comment on above: Performed By: #### C BC #### [facility] [address] [place] [address] Dr. Jonelle Trujillo Campylobacter Detected Critically abnormal NOT DETECTED [facility] Comment on above: Performed By: #### C BC #### [facility] [address] [place] [address] Dr. Jonelle Trujillo Cryptosporidium Not detected Normal NOT DETECTED [facility] Comment on above: Performed By: #### C BC #### [facility] [address] [place] [address] Dr. Jonelle Trujillo Cyclos. Cayetanensis Not detected Normal NOT DETECTED [facility] Comment on above: Performed By: #### C BC #### [facility] [address] [place] [address] Dr. Jonelle Trujillo E. Coli O157 Not Applicable Normal Not Applicable [facility] Comment on above: Performed By: #### C BC #### [facility] [address] [place] [address] Dr. Jonelle Trujillo E. histolytica Not detected Normal NOT DETECTED [facility] Comment on above: Performed By: #### C BC #### [facility] [address] [place] [address] Dr. Jonelle Trujillo EAEC Not detected Normal NOT DETECTED [facility] Comment on above: Performed By: #### C BC #### [facility] [address] [place] [address] Dr. Jonelle Trujillo EIEC Not detected Normal NOT DETECTED [facility] Comment on above: Performed By: #### C BC #### [facility] [address] [place] [address] Dr. Jonelle Trujillo EPEC Not detected Normal NOT DETECTED [facility] Comment on above: Performed By: #### C BC #### [facility] [address] [place] [address] Dr. Jonelle Trujillo ETEC Not detected Normal NOT DETECTED [facility] Comment on above: Performed By: #### C BC #### [facility] [address] [place] [address] Dr. Jonelle Trujillo G. Lamblia Not detected Normal NOT DETECTED [facility] Comment on above: Performed By: #### C BC #### [facility] [address] [place] [address] Dr. Jonelle MULLIGAN CONTROLS PASSED Normal [facility] Comment on above: Performed By: #### C BC #### [facility] [address] [place] [address] Dr. Jonelle LIRIANO CORNELIO HEADER GI PANEL BACTERIA Normal [facility] Comment on above: Performed By: #### C BC #### [facility] [address] [place] [address] Dr. Jonelle POWELL ECOLI GI PANEL DIARRHEAGEN IC E.COLI / SHIGELLA Normal [facility] Comment on above: Performed By: #### C BC #### [facility] [address] [place] [address] Dr. Jonelle POWELL INFO SEE BELOW Normal [facility] Comment on above: Result Comment: EAEC - Enteroaggregative E. Coli EPEC- Enteropathogenic E. Coli ETEC- Enterotoxigenic E. Coli lt/st STEC- Shigella-like toxin-producing E. Coli stx1/stx2 EIEC- Shigella/Enteroinvasive E. Coli Performed By: #### C BC #### [facility] [address] [place] [address] Dr. Jonelle POWELL PARASITES GI PANEL PARASITES Normal [facility] Comment on above: Performed By: #### C BC #### [facility] [address] [address] [address] Jonelle POWELL VIRUS GI PANEL VIRUSES Normal [facility] Comment on above: Performed By: #### C BC #### [facility] [address] [place] [address] Dr. Jonelle Trujillo Norovirus GI/GII Not detected Normal NOT DETECTED [facility] Comment on above: Performed By: #### C BC #### [facility] [address] [address] [address] Jonelle Trujillo P. Shigelloides Not detected Normal NOT DETECTED [facility] Comment on above: Performed By: #### C BC #### [facility] [address] [place] [address] Dr. Jonelle Trujillo Rotavirus A Not detected Normal NOT DETECTED [facility] Comment on above: Performed By: #### C BC #### [facility] [address] [place] [address] Dr. Jonelle Trujillo Salmonella Not detected Normal NOT DETECTED [facility] Comment on above: Performed By: #### C BC #### [facility] [address] [place] [address] Dr. Jonelle Trujillo Sapovirus Not detected Normal NOT DETECTED [facility] Comment on above: Performed By: #### C BC #### [facility] [address] [place] [address] Dr. Jonelle Trujillo STEC Not detected Normal NOT DETECTED [facility] Comment on above: Performed By: #### C BC #### [facility] [address] [place] [address] Dr. Jonelle Trujillo Vibrio Not detected Normal NOT DETECTED [facility] Comment on above: Performed By: #### C BC #### [facility] [address] [place] [address] Dr. Jonelle Trujillo Vibrio Cholera Not detected Normal NOT DETECTED [facility] Comment on above: Performed By: #### C BC #### [facility] [address] [place] [address] Dr. Jonelle Trujillo Y. Enterocolitica Not detected Normal NOT DETECTED [facility] Comment on above: Performed By: #### C BC #### [facility] [address] [place] [address] Dr. Jonelle Trujillo PROF 14(COMP METB)on 022 Albumin [Mass/Vol] 2.7 g/dL Critically low 3.4-5.0 [facility] Comment on above: Performed By: #### C BC #### [facility] [address] [place] [address] Dr. Jonelle Trujillo Albumin/Globulin [Mass ratio] 0.8 {ratio} Normal [facility] Comment on above: Performed By: #### C BC #### [facility] [address] [place] [address] Dr. Jonelle Trujillo ALP [Catalytic activity/Vol] 57 U/L Normal 46-116 [facility] Comment on above: Performed By: #### C BC #### [facility] [address] [place] [address] Dr. Jonelle Trujilol ALT [Catalytic activity/Vol] 30 U/L Normal 14-59 [facility] Comment on above: Performed By: #### C BC #### [facility] [address] [place] [address] Dr. Jonelle Trujillo Anion gap [Moles/Vol] 11.5 mmol/L Normal [facility] Comment on above: Performed By: #### C BC #### [facility] [address] [place] [address] Dr. Jonelle Trujillo AST [Catalytic activity/Vol] 25 U/L Normal 15-37 [facility] Comment on above: Performed By: #### C BC #### [facility] [address] [address] [address] Jonelle Trujillo Bilirubin [Mass/Vol] 0.3 mg/dL Normal 0.2-1.0 [facility] Comment on above: Performed By: #### C BC #### [facility] [address] [address] [address] Jonelle Trujillo Calcium [Mass/Vol] 8.0 mg/dL Critically low 8.5-10.1 [facility] Comment on above: Performed By: #### C BC #### [facility] [address] [address] [address] Jonelle Trujillo Chloride [Moles/Vol] 107 mmol/L Normal 98-107 [facility] Comment on above: Performed By: #### C BC #### [facility] [address] [place] [address] Dr. Jonelle Trujillo CO2 [Moles/Vol] 26.2 mmol/L Normal 21.0-32.0 [facility] Comment on above: Performed By: #### C BC #### [facility] [address] [place] [address] Dr. Jonelle Trujillo Creatinine [Mass/Vol] 0.67 mg/dL Normal 0.55-1.02 [facility] Comment on above: Performed By: #### C BC #### [facility] [address] [place] [address] Dr. Jonelle Trujillo EGFR-AF ITALIAN >60 Normal >=60 [facility] Comment on above: Performed By: #### C BC #### [facility] [address] [place] [address] Dr. Jonelle Trujillo EGFR-NON AF ITALIAN >60 Normal >=60 [facility] Comment on above: Performed By: #### C BC #### [facility] [address] [place] [address] Dr. Jonelle Trujillo Globulin (S) [Mass/Vol] 3.2 g/dL Normal [facility] Comment on above: Performed By: #### C BC #### [facility] [address] [address] [address] Jonelle Trujillo Glucose [Mass/Vol] 90 mg/dL Normal 74-106 [facility] Comment on above: Performed By: #### C BC #### [facility] [address] [address] [address] Jonelle Trujillo Potassium [Moles/Vol] 3.7 mmol/L Normal 3.5-5.1 [facility] Comment on above: Performed By: #### C BC #### [facility] [address] [address] [address] Jonelle Trujillo Protein [Mass/Vol] 5.9 g/dL Critically low 6.4-8.2 [facility] Comment on above: Performed By: #### C BC #### [facility] [address] [place] [address] Dr. Jonelle Trujillo Sodium [Moles/Vol] 141 mmol/L Normal 136-145 [facility] Comment on above: Performed By: #### C BC #### [facility] [address] [place] [address] Dr. Jonelle Trujillo Urea nitrogen [Mass/Vol] 8.0 mg/dL Normal 7.0-18.0 [facility] Comment on above: Performed By: #### C BC #### [facility] [address] [place] [address] Dr. Jonelle Trujillo Urea nitrogen/Creatinine [Mass ratio] 11.9 mg/mg Normal [facility] Comment on above: Performed By: #### C BC #### [facility] [address] [place] [address] Dr. Jonelle Trujillo VITAMIN D 25 OHon 12-07-2021 VIT D 25-OH 27.8 ng/mL Normal [facility] Comment on above: Performed By: #### V ITAD #### [facility] [address] [place] [address] Dr. Jonelle Trujillo VIT D RANGES SEE BELOW Normal [facility] Comment on above: Result Comment: <20 ng/mL Vit D deficient 20 - <30 ng/mL Vit D insufficient 30 - 100 ng/mL Vit D sufficient >100 ng/mL Potential Toxicity Performed By: #### V ITAD #### [facility] [address] [place] [address] Dr. Jonelle Trujillo BNPon 12-06-2021 Natriuretic peptide B (Bld) [Mass/Vol] 336.0 pg/mL Normal <=900.0 [facility] Comment on above: Performed By: #### C MP, BNP, HSTROPN #### [facility] [address] [place] [address] Dr. Jonelle Trujillo CBC AUTO DIFFon 12-06-2021 BASO # 0.0 103/ul Normal 0.0-0.1 [facility] Comment on above: Performed By: #### V ITAD #### [facility] [address] [place] [address] Dr. Jonelle Trujillo Basophils/100 WBC (Bld) 0.2 % Normal 0.2-2.0 [facility] Comment on above: Performed By: #### V ITAD #### [facility] [address] [place] [address] Dr. Jonelle Trujillo EO # 0.0 103/ul Normal 0.0-0.7 [facility] Comment on above: Performed By: #### V ITAD #### [facility] [address] [place] [address] Dr. Jonelle Trujillo Eosinophils/100 WBC (Bld) 0.0 % Critically low 0.9-7.0 [facility] Comment on above: Performed By: #### V ITAD #### [facility] [address] [place] [address] Dr. Jonelle Trujillo Erythrocyte distribution width (RBC) [Ratio] 13.2 % Normal 11.0-15.0 [facility] Comment on above: Performed By: #### V ITAD #### [facility] [address] [place] [address] Dr. Jonelle Trujillo Hematocrit (Bld) [Volume fraction] 41.2 % Normal 36.0-48.0 [facility] Comment on above: Performed By: #### V ITAD #### [facility] [address] [place] [address] Dr. Jonelle Trujillo Hemoglobin (Bld) [Mass/Vol] 13.7 g/dL Normal 12.0-16.0 [facility] Comment on above: Performed By: #### V ITAD #### [facility] [address] [place] [address] Dr. Jonelle Trujillo IG # 0.02 10e3/ul Normal 0.00-0.03 [facility] Comment on above: Performed By: #### V ITAD #### [facility] [address] [place] [address] Dr. Jonelle Trujillo IG % 0.2 % Normal 0.0-0.5 [facility] Comment on above: Performed By: #### V ITAD #### [facility] [address] [place] [address] Dr. Jonelle Trujillo LYMPH # 0.9 103/ul Critically low 1.2-3.8 [facility] Comment on above: Performed By: #### V ITAD #### [facility] [address] [place] [address] Dr. Jonelle Trujillo Lymphocytes/100 WBC (Bld) 9.6 % Critically low 20.5-60.0 [facility] Comment on above: Performed By: #### V ITAD #### [facility] [address] [place] [address] Dr. Jonelle Trujillo MANUAL DIFF REQ NO Normal [facility] Comment on above: Performed By: #### V ITAD #### [facility] [address] [place] [address] Dr. Jonelle Trujillo MCH (RBC) [Entitic mass] 28.5 pg Normal 26.7-34.0 [facility] Comment on above: Performed By: #### V ITAD #### [facility] [address] [place] [address] Dr. Jonelle Trujillo MCHC (RBC) [Mass/Vol] 33.3 g/dL Normal 29.9-35.2 [facility] Comment on above: Performed By: #### V ITAD #### [facility] [address] [place] [address] Dr. Jonelle Trujillo MCV (RBC) [Entitic vol] 85.7 fL Normal 81.0-99.0 [facility] Comment on above: Performed By: #### V ITAD #### [facility] [address] [place] [address] Dr. Jonelle Trujillo MONO # 0.8 103/ul Normal 0.3-0.8 [facility] Comment on above: Performed By: #### V ITAD #### [facility] [address] [place] [address] Dr. Jonelle Trujillo Monocytes/100 WBC (Bld) 9.0 % Normal 1.7-12.0 [facility] Comment on above: Performed By: #### V ITAD #### [facility] [address] [place] [address] Dr. Jonelle Trujillo NEUT # 7.3 103/ul Critically high 1.4-6.5 [facility] Comment on above: Performed By: #### V ITAD #### [facility] [address] [place] [address] Dr. Jonelle Trujillo Neutrophils/100 WBC (Bld) 81.0 % Critically high 43.0-75.0 [facility] Comment on above: Performed By: #### V ITAD #### [facility] [address] [place] [address] Dr. Jonelle Trujillo Platelet mean volume (Bld) [Entitic vol] 10.0 fL Normal 9.5-13.5 [facility] Comment on above: Performed By: #### V ITAD #### [facility] [facility] [address] [place] [address] Dr. Jonelle Trujillo PLT 163 103/ul Normal 150-450 [facility] Comment on above: Performed By: #### V ITAD #### [facility] [address] [place] [address] Dr. Jonelle Trujillo RBC 4.81 106/ul Normal 4.20-5.40 [facility] Comment on above: Performed By: #### V ITAD #### [facility] [address] [place] [address] Dr. Jonelle Trujillo WBC 9.0 103/ul Normal 4.0-11.0 [facility] Comment on above: Performed By: #### V ITAD #### [facility] [address] [place] [address] Dr. Jonelle Turjillo CULTURE BLOODon 12-06-2021 Microscopic examination of blood, culture Culture Observations: NO GROWTH AT 5 DAYS. Normal [facility] Comment on above: Performed By: #### C BC #### [facility] [address] [place] [address] Dr. Jonelle Trujillo Microscopic examination of blood, culture Culture Observations: NO GROWTH AT 5 DAYS. Normal [facility] Comment on above: Performed By: #### C BC #### [facility] [address] [place] [address] Dr. Jonelle Trujillo FREE T3on 12-06-2021 FREE T3 1.70 pg/mlL Critically low 2.18-3.98 [facility] Comment on above: Performed By: #### F T3 #### [facility] [address] [place] [address] Dr. Jonelle Trujillo FREE T4on 12-06-2021 Free T4 [Mass/Vol] 1.24 ng/dL Normal 0.76-1.46 [facility] Comment on above: Performed By: #### C BC #### [facility] [address] [place] [address] Dr. Jonelle Trujillo LACTATE/LACTIC ACIDon 2021 Lactate [Moles/Vol] 1.5 mmol/L Normal 0.4-1.9 [facility] Comment on above: Performed By: #### C BC #### [facility] [address] [place] [address] Dr. Jonelle Trujillo MAGNESIUMon 12-06-2021 Magnesium [Mass/Vol] 1.6 mg/dL Critically low 1.8-2.4 [facility] Comment on above: Performed By: #### M G #### [facility] [address] [place] [address] Dr. Jonelle Trujillo PROF 14(COMP METB)on 022 Albumin [Mass/Vol] 3.3 g/dL Critically low 3.4-5.0 Th e [facility] Comment on above: Performed By: #### C MP, BNP, HSTROPN #### [facility] [address] [place] [address] Dr. Jonelle Trujillo Albumin/Globulin [Mass ratio] 0.8 {ratio} Normal [facility] Comment on above: Performed By: #### C MP, BNP, HSTROPN #### [facility] [address] [place] [address] Dr. Jonelle Trujillo ALP [Catalytic activity/Vol] 71 U/L Normal 46-116 [facility] Comment on above: Performed By: #### C MP, BNP, HSTROPN #### [facility] [address] [place] [address] Dr. Jonelle Trujillo ALT [Catalytic activity/Vol] 33 U/L Normal 14-59 [facility] Comment on above: Performed By: #### C MP, BNP, HSTROPN #### [facility] [address] [place] [address] Dr. Jonelle Trujillo Anion gap [Moles/Vol] 15.2 mmol/L Normal [facility] Comment on above: Performed By: #### C MP, BNP, HSTROPN #### [facility] [address] [place] [address] Dr. Jonelle Trujillo AST [Catalytic activity/Vol] 32 U/L Normal 15-37 [facility] Comment on above: Performed By: #### C MP, BNP, HSTROPN #### [facility] [address] [place] [address] Dr. Jonelle Trujillo Bilirubin [Mass/Vol] 0.4 mg/dL Normal 0.2-1.0 [facility] Comment on above: Performed By: #### C MP, BNP, HSTROPN #### [facility] [address] [place] [address] Dr. Jonelle Trujillo Calcium [Mass/Vol] 9.1 mg/dL Normal 8.5-10.1 [facility] Comment on above: Performed By: #### C MP, BNP, HSTROPN #### [facility] [address] [address] [address] Jonelle Trujillo Chloride [Moles/Vol] 97 mmol/L Critically low 98-107 [facility] Comment on above: Performed By: #### C MP, BNP, HSTROPN #### [facility] [address] [address] [address] Jonelle Trujillo CO2 [Moles/Vol] 26.5 mmol/L Normal 21.0-32.0 [facility] Comment on above: Performed By: #### C MP, BNP, HSTROPN #### [facility] [address] [address] [address] Jonelle Trujillo Creatinine [Mass/Vol] 0.85 mg/dL Normal 0.55-1.02 [facility] Comment on above: Performed By: #### C MP, BNP, HSTROPN #### [facility] [address] [address] [address] Jonelle Trujillo EGFR-AF ITALIAN >60 Normal >=60 [facility] Comment on above: Performed By: #### C MP, BNP, HSTROPN #### [facility] [address] [address] [address] Jonelle Trujillo EGFR-NON AF ITALIAN >60 Normal >=60 [facility] Comment on above: Performed By: #### C MP, BNP, HSTROPN #### [facility] [address] [address] [address] Jonelle Trujillo Globulin (S) [Mass/Vol] 3.9 g/dL Normal [facility] Comment on above: Performed By: #### C MP, BNP, HSTROPN #### [facility] [address] [address] [address] Jonelle Trujillo Glucose [Mass/Vol] 115 mg/dL Critically high 74-106 T [facility] Comment on above: Performed By: #### C MP, BNP, HSTROPN #### [facility] [address] [address] [address] Jonelle Trujillo Potassium [Moles/Vol] 2.7 mmol/L Critically low 3.5-5.1 [facility] Comment on above: Performed By: #### C MP, BNP, HSTROPN #### [facility] [address] [place] [address] Dr. Jonelle Trujillo Protein [Mass/Vol] 7.2 g/dL Normal 6.4-8.2 [facility] Comment on above: Performed By: #### C MP, BNP, HSTROPN #### [facility] [address] [place] [address] Dr. Jonelle Trujillo Sodium [Moles/Vol] 135 mmol/L Critically low 136-145 Th [facility] Comment on above: Performed By: #### C MP, BNP, HSTROPN #### [facility] [address] [place] [address] Dr. Jonelle Trujillo Urea nitrogen [Mass/Vol] 10.0 mg/dL Normal 7.0-18.0 [facility] Comment on above: Performed By: #### C MP, BNP, HSTROPN #### [facility] [address] [place] [address] Dr. Jonelle Trujillo Urea nitrogen/Creatinine [Mass ratio] 11.8 mg/mg Normal [facility] Comment on above: Performed By: #### C MP, BNP, HSTROPN #### [facility] [address] [place] [address] Dr. Jonelle Trujillo TROPONIN, HIGH SENSITIVITYon 12-06-2021 HSTROP 13.1 pg/mL Normal 4.0-51.3 [facility] Comment on above: Result Comment: CUT- OFF POINTS HAVE BEEN ESTABLISHED BASED ON THE FOURTH UNIVERSAL DEFINITIONS OF MYOCARDIAL INFARCTION. THE UPPER REFERENCE LIMIT (URL) OF TROPONIN, DEFINED THE 99TH PERCENTILE OF cTnI DISTRIBUTION IN A REFERENCE POPULATION, HAS BEEN CONFIRMED THE DECISION THRESHOLD FOR VA DIAGNOSIS. Performed By: #### C MP, BNP, HSTROPN #### [facility] [address] [place] [address] Dr. Jonelle Trujillo TSHon 12-06-2021 TSH 0.788 uIU/mL Normal 0.358-3.740 [facility] Comment on above: Performed By: #### V ITAD #### [facility] [address] [address] [address] Jonelle Trujillo XR CHEST 1 Von [...] SARAH HAIDER Date: 2021-12-06 21:58 Normal [facility] COVID-19, NAAon 11-26-2019 COVID-19, MARCIA Not Detected Normal Not Detect [facility] Comment on above: Result Comment: This test was developed and its performance characteristics determined by [employer]. This test has not been FDA cleared [...] detected) result in this assay. Performed at: [facility] [address] [facility], [place], [place] [id number] Data Processing Clerk: Cathryn Patel MD, Phone: [phone] Performed By: #### I RCOV #### [facility] [address] [place] [address] COVID-19, NAAon 11-23-2019 Source Swab OP swab Normal [facility] Comment on above: Performed By: #### I RCOV #### [facility] [address] [place] [address] EKG 12 Leadon 11-21-2019 Atrial Rate 64 BPM [facility] [place] P [place] 25 degrees [facility] [place] P-R Interval 162 ms [facility] [place] Q-T Interval 418 ms [facility] [place] QRS Duration 90 ms [facility] [place] QTc Calculation (Bazett) 431 ms [facility] [place] R [place] 12 degrees [facility] T [place] 6 degrees [facility] [place] Ventricular Rate 64 BPM [facility] [place] Normal sinus rhythm Moderate voltage criteria for LVH, may be normal variant Borderline ECG No previous ECGs available Confirmed by Porfirio Silverman () on 11/21/2019 11:18:56 AM [facility] [place], [place], Chpo Incoming Results From [place] - 11/21/2019 11:19 AM EDT Normal sinus rhythm Moderate voltage criteria for LVH, may be normal variant Borderline ECG No previous ECGs available Confirmed by Porfirio Silverman () on 11/21/2019 11:18:56 AM [facility] [place], [place] Basic Metabolic Panelon 11-06 Anion gap [Moles/Vol] 14 mmol/L Normal -15 [facility] Comment on above: Performed By: #### B MP #### [facility] [address] [place] [address] Calcium [Mass/Vol] 9.9 mg/dL Normal 8.5-9.9 [facility] Comment on above: Performed By: #### B MP #### [facility] [address] [place] [address] Chloride [Moles/Vol] 102 mmol/L Normal 95-107 [facility] Comment on above: Performed By: #### B MP #### [facility] [address] [place] [address] CO2 [Moles/Vol] 26 mmol/L Normal 20-31 [facility] Comment on above: Performed By: #### B MP #### [facility] [address] [place] [address] Creatinine [Mass/Vol] 0.58 mg/dL Normal 0.50-0.90 [facility] Comment on above: Performed By: #### B MP #### [facility] [address] [place] [address] GFR/1.73 sq M predicted among blacks MDRD (S/P/Bld) [Vol rate/Area] mL/min/{1.73_m2} Normal >60 [facility] Comment on above: Result Comment: >60 mL/min/1.73m2 EGFR, calc. for ages 18 and older using the MDRD formula (not corrected for weight), is valid for stable renal function. Performed By: #### B MP #### [facility] [address] [place] [address] GFR/1.73 sq M.predicted MDRD (S/P/Bld) [Vol rate/Area] mL/min/{1.73_m2} Normal >60 [facility] Comment on above: Result Comment: >60 mL/min/1.73m2 EGFR, calc. for ages 18 and older using the MDRD formula (not corrected for weight), is valid for stable renal function. Performed By: #### B MP #### [facility] [address] [place] [address] Glucose [Mass/Vol] 75 mg/dL Normal 70-99 [facility] Comment on above: Performed By: #### B MP #### [facility] [address] [place] [address] Potassium [Moles/Vol] 3.8 mmol/L Normal 3.4-4.9 [facility] Comment on above: Performed By: #### B MP #### [facility] [address] [place] [address] Sodium [Moles/Vol] 142 mmol/L Normal 135-144 [facility] Comment on above: Performed By: #### B MP #### [facility] [address] [place] [address] Urea nitrogen [Mass/Vol] 16 mg/dL Normal 8-23 [facility] Comment on above: Performed By: #### B #### [facility] [address] [place] [address] Anion gap [Moles/Vol] 14 mmol/L [place] Calcium [Mass/Vol] 9.9 mg/dL 8.5 - 9.9 mg/dL [place] Chloride [Moles/Vol] 102 mmol/L [place] CO2 [Moles/Vol] 26 mmol/L [place] Creatinine [Mass/Vol] 0.58 mg/dL 0.5 - 0.9 mg/dL [place] GFR >60.0 >60 [place] Comment on above: >60 mL/min/1.73m2 EG FR, calc. for ages 18 and older using the MDRD formula (not corrected for weight), is valid for stable renal function. GFR Non- >60.0 >60 [place] Comment on above: >60 mL/min/1.73m2 EG FR, calc. for ages 18 and older using the MDRD formula (not corrected for weight), is valid for stable renal function. Glucose [Mass/Vol] 75 mg/dL 70 - 99 mg/dL [place] Potassium [Moles/Vol] 3.8 mmol/L [place] Sodium [Moles/Vol] 142 mmol/L [place] Urea nitrogen [Mass/Vol] 16 mg/dL 8 - 23 mg/dL [place] CBCon 11-18-2019 Erythrocyte distribution width (RBC) [Ratio] 14.1 % 11.5 - 14.5 % [place] Hematocrit (Bld) [Volume fraction] 41.9 % 37 - 47 % [place] Hemoglobin (Bld) [Mass/Vol] 13.5 g/dL 12 - 16 g/dL [place] Interpretation and review of laboratory results Abnormal [place] MCH (RBC) [Entitic mass] 28.6 pg 27 - 31.3 pg [place] MCHC (RBC) [Mass/Vol] 32.4 % Low 33 - 37 % [place] MCV (RBC) [Entitic vol] 88.3 fL 82 - 100 fL [place] Platelets (Bld) [#/Vol] 226 10*3/uL 130 - 400 K/uL [place] RBC (Bld) [#/Vol] 4.74 10*6/uL [place] WBC (Bld) [#/Vol] 6.6 10*3/uL 4.8 - 10.8 K/uL [place] CBC With Platelet No Differe ntialon 11-18-2019 Erythrocyte distribution width (RBC) [Ratio] 14.1 % Normal 11.5-14.5 [facility] Comment on above: Performed By: #### C BCND #### [facility] [address] [place] [address] Hematocrit (Bld) [Volume fraction] 41.9 % Normal 37.0-47.0 [facility] Comment on above: Performed By: #### C BCND #### [facility] [address] [place] [address] Hemoglobin (Bld) [Mass/Vol] 13.5 g/dL Normal 12.0-16.0 [facility] Comment on above: Performed By: #### C BCND #### [facility] [address] [place] [address] MCH (RBC) [Entitic mass] 28.6 pg Normal 27.0-31.3 [facility] Comment on above: Performed By: #### C BCND #### [facility] [address] [place] [address] MCHC (RBC) [Mass/Vol] 32.4 % Low 33.0-37.0 [facility] Comment on above: Performed By: #### C BCND #### [facility] [address] [place] [address] MCV (RBC) [Entitic vol] 88.3 fL Normal 82.0-100.0 [facility] Comment on above: Performed By: #### C BCND #### [facility] [address] [place] [address] Platelets (Bld) [#/Vol] 226 10*3/uL Normal 130-400 [facility] Comment on above: Performed By: #### C BCND #### [facility] [address] [place] [address] RBC (Bld) [#/Vol] 4.74 10*6/uL Normal 4.20-5.40 [facility] Comment on above: Performed By: #### C BCND #### [facility] [address] [place] [address] WBC (Bld) [#/Vol] 6.6 10*3/uL Normal 4.8-10.8 [facility] Comment on above: Performed By: #### C BCND #### [facility] [address] [place] [address] Vital Signs Date Time Vital Sign Value Performing Clinician Facility 04-07-2024 13:06-0400 Body height 157.5 cm Madiha Patrick DPM Work Phone: [facility] 04-07-2024 13:06-0400 Body mass index (BMI) [Ratio] 31.28 kg/m2 Madiha RAMIREZM Work Phone: [facility] 04-07-2024 13:06-0400 Body weight 77.56 kg Madiha Patrick DPM Work Phone: [facility] 03-26-2024 10:33-0400 Body height 158.8 cm Melani Matute MD Work Phone: [facility] 03-26-2024 10:33-0400 Body mass index (BMI) [Ratio] 30.67 kg/m2 Melani Matute MD Work Phone: [facility] 03-26-2024 10:33-0400 Body weight 77.3 kg Melani Matute MD Work Phone: [facility] 03-26-2024 10:33-0400 Diastolic blood pressure 74 mm[Hg] Melani Matute MD Work Phone: [facility] 03-26-2024 10:33-0400 Heart rate 65 /min Melani Matute MD Work Phone: [facility] 03-26-2024 10:33-0400 SaO2% (BldA) [Mass fraction] 98 % Melani Matute MD Work Phone: [facility] 03-26-2024 10:33-0400 Systolic blood pressure 112 mm[Hg] Melani Matute MD Work Phone: [facility] 07-09-2023 14:46-0500 Body mass index (BMI) [Ratio] 31.17 kg/m2 Daly Grant [employer] Work Phone: [facility] 07-09-2023 14:46-0500 Body temperature 98.29 [degF] Daly Grant [employer] Work Phone: [facility] 07-09-2023 14:46-0500 Body weight 78.56 kg Daly Grant [employer] Work Phone: [facility] 07-09-2023 14:46-0500 Diastolic blood pressure 75 mm[Hg] Daly Grant [employer] Work Phone: [facility] 07-09-2023 14:46-0500 Heart rate 80 /min Daly Grant [employer] Work Phone: [facility] 07-09-2023 14:46-0500 Respiratory rate 16 /min Daly Grant [employer] PR[employer] OPER[employer] Work Phone: [facility] 07-09-2023 14:46-0500 SaO2% (BldA) [Mass fraction] 96 % Daly Grant [employer] Work Phone: [facility] 07-09-2023 14:46-0500 Systolic blood pressure 139 mm[Hg] Daly Grant [employer] Work Phone: [facility] 07-04-2023 13:25-0500 Body height 160.02 cm Nadia Durham Other [employer] Other 07-04-2023 13:25-0500 Body mass index (BMI) [Ratio] 31.05 kg/m2 Nadia Durham Other [employer] Other 07-04-2023 13:25-0500 Body temperature 98.1 [degF] Nadia Durham Other [employer] Other 07-04-2023 13:25-0500 Body weight 79.52 kg Nadia Durham Other [employer] Other 07-04-2023 13:25-0500 Respiratory rate 18 /min Nadia Durham Other [employer] Other 07-04-2023 13:25-0500 SaO2% (BldA) [Mass fraction] 97 % Nadia Durham Other [employer] Other 05-17-2022 11:45-0500 Body height 160.02 cm Margarita Dejah Other [employer] Other 05-17-2022 11:45-0500 Body mass index (BMI) [Ratio] 31 kg/m2 Margarita Dejah Other [employer] Other 05-17-2022 11:45-0500 Body temperature 98.2 [degF] Margarita Dejah Other [employer] Other 05-17-2022 11:45-0500 Body weight 79.38 kg Margarita Dejah Other [employer] Other 05-17-2022 11:45-0500 Respiratory rate 18 /min Margarita Pond Other [employer] Other 05-17-2022 11:45-0500 SaO2% (BldA) [Mass fraction] 98 % Margarita Pond Other [employer] Other 11-29-2019 13:20-0400 BP Diastolic 70 mm[Hg] [facility] [place] [facility] [place] 11-29-2019 13:20-0400 BP Systolic 164 mm[Hg] [facility] [place] [facility] [place] 11-29-2019 13:20-0400 Pulse (Heart Rate) 64 /min [facility] [place] 11-29-2019 13:20-0400 Respiratory Rate 18 /min [facility] [place] [place] 11-29-2019 13:05-0400 Pulse Oximetry 99 % [facility] [place] [facility] [place] 11-29-2019 10:09-0400 BMI (Body Mass Index) 34.5 kg/m2 [facility] [place] 11-29-2019 10:09-0400 Body Temperature 97.59 [degF] [facility] [place] [place] 11-29-2019 10:09-0400 Body weight 82.83 kg [facility] [place] [facility] [place] 11-29-2019 10:09-0400 Height 154.9 cm [facility] [place] [facility] [place] 11-18-2019 14:01-0400 BMI (Body Mass Index) 34.5 kg/m2 [facility] [place] 11-18-2019 14:01-0400 Body Temperature 97 [degF] [facility] [place] 11-18-2019 14:01-0400 Body weight 82.83 kg [facility] [place] 11-18-2019 14:01-0400 BP Diastolic 74 mm[Hg] [facility] 1 [facility] [place] 11-18-2019 14:01-0400 BP Systolic 151 mm[Hg] [facility] [place] 11-18-2019 14:01-0400 Height 154.9 cm [facility] 1 [facility] [place] 11-18-2019 14:01-0400 Pulse (Heart Rate) 55 /min [facility] 1 [facility] [place] 11-18-2019 14:01-0400 Pulse Oximetry 98 % [facility]z 1 [facility] [place] , [place] 11-18-2019 14:01-0400 Respiratory Rate 16 /min [place] 1 [facility] [place] Encounters Encounter Date Encounter Type Care Provider Facility Start: 04-07-2024 End: 04-07-2024 ambulatory MADIHA PATRICK Not Available Start: 04-07-2024 End: 04-07-2024 Bamboo flowsheet Madiha Patrick DPM Work Phone: [facility] Start: 04-07-2024 End: 04-07-2024 Bamboo flowsheet Madiha Patrick DPM Work Phone: [facility] Start: 04-07-2024 End: 04-07-2024 Office outpatient visit 25 minutes Madiha Patrick DPM Work Phone: [facility] Comment on above: Arthritis of right m idfoot (Primary Dx); Bursitis of right foot; Exostosis of right foot; Pain in joint of right foot Start: 04-07-2024 End: 04-07-2024 ambulatory MADIHA PATRICK Not Available Start: 03-30-2024 End: 03-30-2024 Telephone encounter Melani Matute MD Work Phone: Neurology Start: 03-28-2024 End: 03-28-2024 Telephone encounter Melani Matute MD Work Phone: Neurology Start: 03-26-2024 End: 03-26-2024 ambulatory MELANI MATUTE Facility:[facility] Start: 03-26-2024 End: 03-26-2024 Patient encounter procedure Melani Matute MD Work Phone: Neurology Comment on above: Trigeminal neuralgia of left side of face (Primary Dx) Start: 03-25-2024 End: 03-25-2024 Chart abstracting Melani Matute MD Work Phone: Neurology Start: 03-02-2024 End: 03-02-2024 ambulatory AMANDA VELÁSQUEZ Not Available Start: 02-04-2024 End: 02-04-2024 ambulatory CHRISTIANO CONTRERAS Not Available Start: 01-13-2024 End: 01-13-2024 ambulatory JESSICA MONTERO Not Available Start: 01-12-2024 End: 01-12-2024 ambulatory DALY GRANT Not Available Start: 12-31-2023 End: 12-31-2023 ambulatory ASHLY M ASHTYN Not Available Start: 12-31-2023 Patient encounter procedure Madiha Patrick DP Work Phone: [facility] Start: 12-09-2023 End: 12-09-2023 ambulatory YOEL S LIEBENTHAL Not Available Start: 11-17-2023 End: 11-17-2023 ambulatory EMELIA VARGAS Not Available Start: 11-04-2023 End: 11-04-2023 ambulatory YOEL S LIEBENTHAL Not Available Start: 10-13-2023 End: 10-13-2023 ambulatory ASHLY M ASHTYN Not Available Start: 09-16-2023 End: 09-16-2023 ambulatory YOEL S LIEBENTHAL Not Available Start: 09-01-2023 End: 09-01-2023 ambulatory YOEL S LIEBENTHAL Not Available Start: 08-24-2023 End: 08-24-2023 ambulatory YOEL S LIEBENTHAL Not Available Start: 07-09-2023 End: 07-09-2023 ambulatory DALY GRANT Not Available Start: 07-09-2023 End: 07-09-2023 Office outpatient visit 25 minutes Daly Grant [employer] Work Phone: [facility] Comment on above: Acute non-recurrent pansinusitis (Primary Dx) Start: 07-04-2023 End: 07-04-2023 ambulatory Nadia Durham Other [employer] Other Start: 07-04-2023 Office outpatient vi sit 25 minutes Nadia Durham [facility] Start: 06-11-2023 End: 06-11-2023 ambulatory DALY GRANT Not Available Start: 05-20-2023 End: 05-20-2023 ambulatory MARLEY SIMS Not Available Start: 04-22-2023 End: 04-22-2023 ambulatory YOEL MENDOZA Not Available Start: 01-02-2023 Chart abstracting Yoel stevens DPM Work Phone: [facility] Start: 11-23-2022 End: 11-23-2022 ambulatory Saima Garcia Other [employer] Other Start: 11-23-2022 Telephone encounter Saima Garcia [facility] Start: 11-21-2022 End: 11-21-2022 ambulatory PHYSICIAN NO FAMILY Facility:[facility] Start: 11-21-2022 End: 11-21-2022 ambulatory GLENN Garcia Work Phone: [facility] Work Phone: Start: 11-21-2022 End: 11-21-2022 Departed Referred GLENN Garcia Work Phone: [facility] [place] Work Phone: Start: 06-20-2022 End: 06-21-2022 ambulatory KEESHA MÉNDEZ Facility:[facility] Start: 05-17-2022 End: 05-17-2022 ambulatory Margarita Pond Other [employer] Other Start: 05-17-2022 Office outpatient vi sit 15 minutes Margarita Pond [facility] Start: 02-14-2022 End: 02-15-[address] EMELIA VARGAS Facility:[facility] Start: 12-16-2021 End: 12-16-[address] JOVANNA SARAVIA Facility:[facility] Start: 12-07-2021 End: 12-09-2021 Evaluation and management of inpatient DR AMANDA CRANDALL Facility:[facility] Start: 11-29-2019 End: 11-29-2019 Patient encounter procedure [facility] Start: 11-29-2019 End: 11-29-2019 Subsequent hospital visit by physician Pastor Rosado Work Phone: [facility] Comment on above: Postoperative pain ( Primary Dx) Start: 11-29-2019 End: 12-02-2019 Patient encounter procedure [facility] Start: 11-29-2019 End: 12-01-2019 Subsequent hospital visit by physician Pastor Rosado Work Phone: [facility] Comment on above: Pain Start: 11-23-2019 End: 11-24-2019 Patient encounter procedure [facility] Start: 11-23-2019 End: 11-23-2019 Subsequent hospital visit by physician Antoine [facility] Start: 11-18-2019 End: 11-23-2019 [facility] Start: 11-18-2019 End: 11-22-2019 Subsequent hospital visit by physician Dinesh Pat [facility] Comment on above: History of lumbar fu ronni Procedures Date Procedure Procedure Detail Performing Clinician Start: 04-07-2024 Radex foot complete minimum 3 views Madiha Patrick DPM Work Phone: Start: 01-28-2024 Mammography Madiha Patrick DPM Work Phone: Start: 11-23-2022 H/O: hysterectomy History of hysterectomy Daly Grant N P Work Phone: Start: 2022 Mammography Daly Grant [employer] Work Phone: Start: 11-29-2019 DISCHARGE PATIENT ANTOINE WAGGONER Start: 11-29-2019 FLUORO FOR SURGICAL PROCEDURES ANTOINE WAGGONER Start: 11-29-2019 DIET NPO, NOW ANTOINE WAGGONER Start: 11-29-2019 INITIATE OXYGEN THERAPY PROTOCOL ANTOINE WAGGONER Start: 11-29-2019 NOTIFY PHYSICIAN (SPECIFY) ANTOINE WAGGONER Start: 11-29-2019 PULSE OXIMETRY SPOT CHECK ANTOINE WAGGONER Start: 11-29-2019 VITAL SIGNS ANTOINE WAGGONER Start: 11-18-2019 Blood count complete automated ANTOINE WAGGONER Start: 11-18-2019 Basic metabolic panel calcium total ANTOINE WAGGONER Start: 11-18-2019 Blood count complete automated Lucille Montesinos Start: 11-18-2019 Ecg routine ecg w/least 12 lds w/i&r ANTOINE WAGGONER Start: 11-18-2019 Basic metabolic panel calcium total Lucille Montesinos Start: 11-18-2019 Ecg routine ecg w/least 12 lds w/i&r Lucille K Jaguar Plan of Treatment Date Care Activity Detail Author Start: 2028 RSV Vaccine (1 - 1-d ose 75+ series) RSV Vaccine (1 - 1-dose 75+ series) [facility] Start: 05-24-2025 End: 05-24-2025 Patient encounter procedure 05/24/2025 8:00 AM EST Office Visit [facility] [address] [place] [phone] Jr. Tres Archer, DO [address] [place] [address] [facility] Start: 03-31-2025 End: 03-31-2025 Patient encounter procedure 03/31/2025 11:30 AM EDT Office Visit Neurology [address] [place] [address] [place] [address] [place] [address] Return in about 1 year (around 03/26/2025). Neurology Comment on above: Return in about 1 ye ar (around 03/26/2025). Start: 01-27-2025 Screening for malign ant neoplasm of breast Mammogram [facility] Start: 12-30-2024 Medicare Annual Wellness (AWV) Medicare Annual Wellness (AWV) [facility] Start: 05-19-2024 End: 05-19-2024 Patient encounter procedure 05/19/2024 3:15 PM EST Office Visit [facility] [address] [place] [phone] Madiha Patrick, DPM [address] [place], [place] [id number] [facility] Start: 05-03-2024 Screening for malign ant neoplasm of colon [facility] Start: 04-07-2024 End: 04-07-2024 Patient encounter procedure 04/07/2024 1:15 PM EDT Office Visit [facility] [address] [place] [address] Madiha Patrick, DPM [address] [place] [address] Arrived [facility] Comment on above: Arrived Start: 03-31-2024 Pneumococcal Vaccine : 65+ Years (1 - PCV) Pneumococcal Vaccine: 65+ Years (1 - PCV) [facility] Comment on above: Postponed from 04/17 (Patient Refused) Start: 03-26-2024 End: 03-26-2024 Patient encounter procedure 03/26/2024 10:30 AM EDT Office Visit Neurology [address] [place] [address] [place] [address] [place] [id number] MULTIPL SYMPTOMS Neurology Comment on above: MULTIPL SYMPTOMS Start: 02-07-2024 Covid-19 Vaccine ( season) Covid-19 Vaccine ( season) [facility] Start: 02-07-2024 Influenza vaccination Influenza Vacc ine (#1) [facility] Start: 12-06-2023 Influenza vaccination Influenza Vacc ine (#1) [facility] Comment on above: Postponed from 02/06 (Patient Refused) Start: 11-25-2023 Medicare Annual Wellness (AWV) Medicare Annual Wellness (AWV) [facility] Start: 07-14-2023 End: 07-14-2023 Patient encounter procedure 07/14/2023 2:30 PM EST Office Visit [facility] [address] [place] [phone] Yoel Mendoza, DPCruzito [address] [place] [address] [facility] Start: 06-08-2023 Advance Directive Discussion Advance Directive Discussion [facility] Start: 2023 Screening for malign ant neoplasm of breast [facility] Start: 11-21-2022 Bacteria identified in Urine by Culture Urine Culture [facility] Start: 11-17-2022 Diabetes Screening Diabetes Screenin g [facility] Start: 11-17-2020 Creatinine measurement Creatinine mo nitoring [place], [place] Start: 11-17-2020 Potassium monitoring Potassium monit oring [place] Start: 02-07-2020 Influenza vaccination [place], [place] Start: 12-16-2019 End: 12-16-2019 Office Visit 12/16/2019 Office Visit Neurosurgery Pastor Rosado MD [address] [facility] [address] [place] [id number] [facility] Start: 11-29-2019 End: 11-29-2019 Hospital Encounter [facility] Comment on above: REMOVAL OF INTERNAL BONE GROWTH STIMULATOR, 30 MINS 1 C-ARM, MAC/LOCAL Start: 10-07-2019 Annual Wellness Visi t (AWV) Annual Wellness Visit (AWV) [place], [place] Start: 2018 Pneumococcal 65+ yea rs Vaccine (1 of 1 - PPSV23) Pneumococcal 65+ years Vaccine (1 of 1 - PPSV23) [place] Start: 2018 Pneumococcal Vaccine : 65+ (1 of 1 - PCV) Pneumococcal Vaccine: 65+ (1 of 1 - PCV) [facility] Start: 2018 Pneumococcal Vaccine : 65+ Years (1 of 1 - PCV) Pneumococcal Vaccine: 65+ Years (1 of 1 - PCV) [facility] Start: 2018 Screening for osteoporosis Bone Density Screening [facility] Start: 2008 Screening for osteoporosis DEXA (modify frequency per FRAX score) [place], [place] Start: 2003 Screening for malign ant neoplasm of breast Breast cancer screen [place], [place] Start: 2003 Screening for malign ant neoplasm of colon Colon cancer screen colonoscopy [place], [place] Start: 2003 Shingles Vaccine (1 of 2) Shingles Vaccine (1 of 2) [place] Start: 2003 Shingrix Vaccine (1 of 2) Shingrix Vaccine (1 of 2) [facility] Start: 1998 Diabetes Screening Diabetes Screenin g [facility] Start: 1998 Lipid panel Lipid Screening [facility] Start: 1998 Screening for malign ant neoplasm of colon [facility] Start: 1993 Screening for malign ant neoplasm of breast Mammogram Screening [facility] Start: 1972 DTaP/Tdap/Td vaccine (1 - Tdap) DTaP/Tdap/Td vaccine (1 - Tdap) [place] Start: 1972 Urine microalbumin profile DTaP,Tdap,Td Vaccine (1 - Tdap) [facility] Start: 1971 Anxiety Screening Anxiety Screening [facility] Start: 1971 Depression Screening Depression Scre [facility] Start: 1971 Hepatitis C screening Hepatitis C [facility] Start: 1963 Lipid panel Lipid screen [place], [place] Start: 1953 Hepatitis C screening Hepatitis C [place], [place] Start: 1953 Screening for malign ant neoplasm of colon [facility] Start: 1953 TSH Qn TSH testing [place], [place] End: 11-29-2019 Fluoro For Surgical Procedures Fluoro For Surgical Procedures Imaging Routine Pain 1 Occurrences starting 11/29/2019 until 11/29/2019 [place], [place] Comment on above: 1 Occurrences starti ng 11/29/2019 until 11/29/2019 Initiate Oxygen Ther apy Protocol Initiate Oxygen Therapy Protocol Respiratory Care Routine Daily until discontinued starting 11/29/2019 [place] Comment on above: Daily until disconti nued starting 11/29/2019 End: 04-25-2025 MR Brain WO contrast MRI BRAIN WO IVCON Radiology Routine Trigeminal neuralgia of left side of face 1 Occurrences starting 03/26/2024 until 04/25/2025 [facility] Work Phone: Comment on above: 1 Occurrences starti ng 03/26/2024 until 04/25/2025 End: 11-29-2019 Pulse Oximetry Spot Check Pulse Oximetry Spot Check Respiratory Care Routine One Time for 1 Occurrences starting 11/29/2019 until 11/29/2019 [facility] Comment on above: One Time for 1 Occur rences starting 11/29/2019 until 11/29/2019 Payers Date Payer Category Payer Self-pay [id number] 2021 Private Health Insurance [employer] [id number] 2021 Unknown [id number] [id number]. [id number] 2019 Medicare MEDICARE MEDICAR E PART A AND B xxxxxxxxxxx 2019-Present [phone] [place] [address] xxxxxxxxxxx [id number]. [id number] 2018 Medicare [id number]. 1.13.693.2. [id number] 2014 Unknown xxxxxxxxxxxx [id number]. [id number] 1959 Medicare [id number] 1959 Unknown [id number] 1959 Unknown [id number] 1959 Unknown [id number] 1953 Unknown [id number] 2.16.840.1.887254.3.579.2. 182 1953 Unknown [id number] 2.16.840.1.072189.3.579.2. 182 1953 Unknown [id number] 2.16.840.1.980052.3.579.2. 182 1953 Unknown [id number] 2.16.840.1.417995.3.579.2. 182 1953 Unknown [id number] 2.16.840.1.061452.3.579.2. 593 1953 Unknown [id number] 2.16.840.1.090771.3.579.2. 593 1953 Unknown [id number] 2.16.840.1.201528.3.579.2. 593 1953 Unknown [id number] 2.16.840.1.424171.3.579.2. 593 1953 Unknown [id number] 2.16.840.1.199652.3.579.2. 1259 1953 Unknown [id number] 2.16.840.1.848644.3.579.2. 1259 1953 Unknown [id number] 2.16.840.1.767431.3.579.2. 1259 1953 Unknown [id number] 2.16.840.1.407227.3.579.2. 1259 1953 Unknown [id number] 2.16.840.1.218183.3.579.2. 1259 1953 Unknown [id number] 2.16.840.1.998443.3.579.2. 1259 1953 Unknown [id number] 2.16.840.1.764165.3.579.2. 1258 1953 Unknown [id number] 2.16.840.1.685173.3.579.2. 125 1953 Unknown [id number] 2.16.840.1.070174.3.579.2. 125 1953 Unknown [id number] 2.16.840.1.709876.3.579.2. 125 1953 Unknown [id number] 2.16.840.1.768176.3.579.2. 1258 1953 Unknown [id number] 2.16.840.1.272636.3.579.2. 1258 1953 Unknown [id number] 2.16.840.1.371935.3.579.2. 1258 1953 Unknown [id number] 2.16.840.1.581816.3.579.2. 1258 1953 Unknown [id number] 2.16.840.1.926459.3.579.2. 1258 1953 Unknown [id number] 2.16.840.1.471824.3.579.2. 1258 1953 Unknown [id number] 2.16.840.1.163503.3.579.2. 125 1953 Unknown [id number] 2.16.840.1.224440.3.579.2. 125 1953 Unknown [id number] 2.16.840.1.225004.3.579.2. 125 1953 Unknown [id number] 2.16.840.1.407220.3.579.2. 125 1953 Unknown [id number] 2.16.840.1.529324.3.579.2. 1259 Unknown [id number] 2.16.840.1.390276.3.579.2. 531 Social History Date Type Detail Facility Start: 11-18-2019 End: 11-09-2022 Tobacco smoking status NHIS Never smoker [facility] Start: 11-18-2019 End: 04-07-2024 Alcohol intake Ex-drinker (finding) [facility] Start: 1955 Sex Assigned At Not on file M stephenie Arledia [facility] Exposure to SARS-CoV -2 (event) Unable to assess [facility] Start: 11-18-2019 End: 11-09-2022 Tobacco use and exposure Never used [facility] Start: 07-09-2023 End: 12-31-2023 Sex Assigned At [facility] [employer] Other Start: 1955 Sex Assigned At Female F [facility] Start: 07-09-2023 End: 12-31-2023 History of Social function [facility] Start: 08-20-2022 Gender identity Identifies as female gender (finding) [facility] Start: 01-31-2004 End: 03-26-2024 Alcoholic beverage intake Current drinker of alcohol (finding) [facility] National Score (1-100), lower number is lower risk 94 [facility] Clinical Notes 05-17-2022 to 04-07-2024 Madiha Patrick, DPM - 04/07/2024 1:15 PM EDTTelephone Encounter - Harika Rondon MA - 03/30/2024 9:44 AM EDTTelephone Encounter - Harika Rondon MA - 03/30/2024 9:44 AM EDT Note Date & Type Note Facility 04-07-2024 History of Present illness Narrative Images from the original note were not included. Subjective Patient ID: Renetta Lopez is a 68 y.o. female who presents for Foot Pain (68 yo [employer] presents today with spur on top of right foot, was going to Dr. Nielsen, pt states she received injections from him, states he would inject the area. Pt states it can be hard to walk at times. Also relates swelling in foot and ankle. Soaks in epsom salts, voltaren, aspercreme. This flare up ongoing for about a month. ). HPI Patient presents complaining of right midfoot pain. The pain starts in the mid foot but can also radiate to the medial and lateral ankle. She states she has had this pain for over 5 years. She has seen different facilities project manager in the past who administered multiple steroid injections in this area. The last injection was done in December of 2023. She states she got about 1 month of relief in the right foot, then the pain returned. She is interested in another injection today. She has also tried soaking her feet, using Voltaren gel, using Aspercreme. She takes meloxicam daily. She states she works 5.5 hours a day. She does stand and walk during most this time and is in a significant amount of discomfort by the end of the day. Review of Systems Medications Current Outpatient Medications: carBAMazepine (TEGretol) 200 MG tablet, Take by mouth. One-half tablet daily for a week; then one-half tablet twice daily for a week; then one-half tablet three times daily for a week; then one tablet twice daily thereafter., Disp: , Rfl: hydroCHLOROthiazide (HYDRODiuril) 25 MG tablet, Take 1 tablet (25 mg) by mouth Daily, Disp: 100 tablet, Rfl: 3 levothyroxine (Synthroid, Levoxyl) 75 MCG tablet, Take 1 tablet (75 mcg) by mouth Daily, Disp: 100 tablet, Rfl: 4 meloxicam (Mobic) 15 MG tablet, Take 1 tablet (15 mg) by mouth in the morning., Disp: 100 tablet, Rfl: 1 metoprolol tartrate (Lopressor) 50 MG tablet, TAKE 1 TABLET BY MOUTH IN THE MORNING, Disp: 30 tablet, Rfl: 11 potassium chloride CR (Klor-Con M10) 10 MEQ ER tablet, Take 1 tablet (10 mEq) by mouth Daily Do not crush or chew., Disp: 100 tablet, Rfl: 3 rosuvastatin (Crestor) 10 MG tablet, Take 1 tablet (10 mg) by mouth Daily, Disp: 100 tablet, Rfl: 3 predniSONE (Deltasone) 20 MG tablet, 3 tabs x 2 days, 2 tabs x 2 day, 1 1/2 tabs x 2 days, 1 tab x 2 days, 1/2 tab x 2 days then stop (Patient not taking: Reported on 04/07/2024), Disp: 16 tablet, Rfl: 0 Allergies Hydromorphone, Lisinopril, Morphine, Plasminogen, Sumatriptan, and Wound dressing adhesive Past Surgical History Past Surgical History: Procedure Laterality Date APPENDECTOMY 2006 BUNIONECTOMY 2005 DILATION AND CURETTAGE OF UTERUS HYSTERECTOMY 2006 JOINT REPLACEMENT 05/14/2017 right knee KNEE ARTHROSCOPY W/ DEBRIDEMENT 2006 LUMBAR FUSION 2009 OTHER SURGICAL HISTORY battery removed from bone stim (back) TOTAL KNEE ARTHROPLASTY Left 2012 Dr Archer Family History Family History Problem Relation Name Age of Onset Dementia Mother Mental illness Mother Hypertension Father Stroke Father Objective Physical Exam Constitutional: Appearance: Normal appearance. HENT: Head: Normocephalic and atraumatic. Cardiovascular: Comments: Pedal pulses: DP 2/4 R, PT 2/4 R Skin temp is warm to warm. Varicosities: absent Hair growth: sparse Pulmonary: Effort: Pulmonary effort is normal. Musculoskeletal: Right lower leg: No edema. Left lower leg: No edema. Comments: ROM: Ankle joint dorsiflexion is limited with knee extended and improves with knee flexed MUSCLE STRENGTH: Dorsiflexion, plantarflexion, inversion, eversion are 5/5 b/l. PAIN: There is pain with palpation right foot dorsal 2nd and 3rd TMTJ with overlying bursal type inflammation. There is tenderness with palpation to the dorsal navicular cuneiform joint and tn joint right foot. There is no pain with ankle joint range motion. DEFORMITY: pes planus, dorsal midfoot osteophyte palpable Skin: General: Skin is warm and dry. Capillary Refill: Capillary refill takes 2 to 3 seconds. Findings: No bruising or erythema. Comments: SKIN FINDINGS: There is some mild atrophy with thinning of skin and discoloration noted dorsal TMTJ 2 and 3 R foot. Webspaces are clean and dry. Skin texture and turgor normal HYPERKERATOTIC LESION: none NAIL PATHOLOGY: none Neurological: Mental Status: She is alert and oriented to person, place, and time. Comments: Light touch sensation intact Assessment/Plan ICD-10-CM 1. Arthritis of right midfoot M19.071 2. Bursitis of right foot M77.51 3. Exostosis of right foot M89.8X7 4. Pain in joint of right foot M25.571 Patient was examined and evaluated. Previous notes from different facilities project manager were available for my review today. Radiographs were unavailable for my review, therefore new radiographs were taken. Radiographs reviewed with the patient. Explained diagnosis of severe osteo arthritis of her midfoot and the localized pain at the 2nd and 3rd TMTJ with overlying bursitis. In the past she has tried soaking, topical Voltaren gel, Aspercreme, wearing supportive shoe gear, multiple local steroid injections. She has tried ASO ankle brace in the past as well for the medial ankle pain she has had. She reports that she would typically get 3-4 weeks of relief from the steroid injections, sometimes longer. She is requesting additional steroid injection today. However, I reviewed with her that she has had a lot of steroid injections in the past 3 years, all of which included 1mL of Kenalog. She has started to show signs of atrophy of the dorsal skin. Therefore, I would recommend no further injections at this time. I did explain that this puts her in a difficult position as it limits her treatment options. I reviewed relacing her shoes, topical vs oral CBD oil and surgical intervention. She states she is other health issues going on at this time and does not want to have foot surgery at this time. I recommended she try oral versus topical CBD oil. Information was dispensed about this to her. Discussed treatment goals of keeping inflammation controlled and avoiding pressure on the area of dorsal prominence. Discussed choice of shoe gear with the pt. Showed her how to relace shoes to avoid painful area. Recommended ice nightly. Continue oral and topical NSAIDs as needed. We will see if any relief is obtained from relacing shoes and CBD oil. If not, we may discuss more rigid bracing at her next appointment if ASO ankle brace was helpful for her previously. This note was created with the assistance of a speech recognition program. While intending to generate a timely document that accurately reflects the content of the visit, no guarantee can be provided that every grammatical or spelling mistake has been or will be identified or corrected. Thank you for your understanding. Madiha Patrick DPM documented in this encounter [facility] 03-30-2024 Telephone encounter Note Received outside blood work sent to scanning. Harika Rondon MA [facility] 03-30-2024 Miscellaneous Notes Received outside blood work sent to scanning. Harika Rondon MA documented in this encounter [facility] 03-28-2024 Telephone encounter Note Sent to scanning [facility] from [facility]. Harika Rondon MA [facility] 03-28-2024 Miscellaneous Notes Sent to scanning CT from [facility]. Harika Rondon MA documented in this encounter [facility] 03-26-2024 Note Addended by: MELANI MATUTE on: 03/26/2024 12:08 PM Modules accepted: Orders [facility] 03-26-2024 Miscellaneous Notes Addended by: MELANI MATUTE on: 03/26/2024 12:08 PM Modules accepted: Orders documented in this encounter [facility] 03-26-2024 Note HNO ID: [id number] Author: JULIÁN PEREZ MA Service: ? Author Type: Utility Clerk Type: Progress Notes Filed: 03/26/2024 12:03 Note Text: [facility] 03-26-2024 History of Present illness Narrative documented in this encounter [facility] 03-25-2024 History and physical note Chart Review Parenthetic [comments] and tinted emphasis mine. Consultation is requested for an opinion regarding the evaluation and treatment of Renetta Lopez. My final impression and recommendations will be communicated back to the referring physician by way of the shared medical record or letter via [place] mail. Renetta Lopez may be self-referred for pain and multiple symptoms per the schedule. ====== Problem List reviewed. Medication List is unpopulated. ====== Melani Matute MD [facility] 03-25-2024 History and physical note Chart Review Parenthetic [comments] and tinted emphasis mine. Consultation is requested for an opinion regarding the evaluation and treatment of Renetta Lopez. My final impression and recommendations will be communicated back to the referring physician by way of the shared medical record or letter via [place] mail. Renetta Lopez may be self-referred for pain and multiple symptoms per the schedule. ====== Problem List reviewed. Medication List is unpopulated. ====== Melani Matute MD documented in this encounter [facility] 03-25-2024 History and physical note 11:16 - 12:01 Chart Review Parenthetic [comments] and tinted emphasis mine. Consultation is requested for an opinion regarding the evaluation and treatment of Renetta Lopez. My final impression and recommendations will be communicated back to the referring physician by way of the shared medical record or letter via [place] mail. Renetta Lopez may be self-referred for pain and multiple symptoms per the schedule. ====== Problem List reviewed. Medication List is unpopulated. ====== The patient brought the report of an recent (01/31/24) CT brain w from [facility] which showed only age related changes. With that preamble, Chief Complaint: Renetta Lopez is a 68 year old right handed female who presents with electrical left facial pain. History of Present Illness About July of this year, she experienced the pain in left V1 precipitated by wiping her left forehead. It was brief. It was enough to startle her. She was seen in urgent care and was given a medication which she did not tolerate due to nausea [I speculate it was carbamazepine or oxcarbazepine]. It subsequently moved down to left V2, particularly around her nasolabial fold - it no longer bothered her in left V1. Washing her face, or touching it there, or brushing her teeth, can trigger it. So can chewing. There is no numbness. There is no facial weakness, drooling, or slurring of speech. There is neither loss of hearing on her left, left tinnitus, nor vertigo. Swallowing is normal. It does not trigger her pain. She had new upper left crown made in January. There was decay under it, but it was not hurting. There was no shingles rash. (She has had shingles twice - both on the trunk). No past medical history on file. Current Outpatient Medications Medication Sig meloxicam (MOBIC) 15 mg tablet Take 15 mg by mouth. levoFLOXacin (LEVAQUIN) 500 mg tablet Take 1 tablet by mouth every afternoon. atorvastatin (LIPITOR) 10 mg tablet Take 10 mg by mouth every evening. metoprolol tartrate, short acting, (LOPRESSOR) 50 mg tablet Take 50 mg by mouth every morning. rosuvastatin (CRESTOR) 10 mg tablet Take 1 tablet by mouth once daily. hydroCHLOROthiazide 25 mg tablet Take 25 mg by mouth. potassium chloride ER (KLOR-CON M10) 10 mEq tablet Take 10 mEq by mouth. levothyroxine (SYNTHROID) 75 mcg tablet Take 75 mcg by mouth. No current facility-administered medications for this visit. ALLERGIES No Known Allergies Social History Tobacco Use Smoking status: Never Substance Use Topics Alcohol use: Yes Comment: occasionally No family history on file. Review of Systems: As above. PHYSICAL EXAM General: Alert, conversant, appropriate, elderly, FEMALE, in no apparent distress. Vital Signs: BP 112/74 Pulse 65 Ht 158.8 cm (5' 2.5 ) Wt 77.3 kg (170 lb 6.7 oz) SpO2 98% BMI 30.67 kg/m - reviewed. Head: Left TM normal. Cardiovascular: Carotids 2 and symmetric without bruits. Neurologic: Cranial Nerves: Monocular visual robert intact to finger counting. Funduscopic reveals flat discs. Pupils s/p iol's bilaterally; equal, round and reactive to light. Pursuit eye movements normal. Facial sensation normal to pin. Facies symmetric. Hearing normal to 1024 Hz tuning fork. Palatal movement, phonation, and resonation normal. Trapezius and SCM 5/5 and symmetric. Tongue movement symmetric. Sensory: Pin exam is subject to mild artifact of examination at the toes. Otherwise normal. Normal on testing vibration and joint position sense. Motor: Strength was 5/5 and symmetric on testing finger abduction, finger extension, elbow flexion, elbow extension, shoulder abduction, toe dorsiflexion, ankle dorsiflexion, ankle plantar flexion, knee flexion, knee extension, and hip flexion. Tone was normal. Posture was normal. There were no involuntary movements. Coordination: Oxtajs-uucg-cpdmvw was normal. Finger and toe wiggling rapid alternating movements were normal. Standing in Romberg's position with eyes open and closed was normal. Gait: Limps due to a right foot condition. Deep Tendon Reflexes: Plantars were mute bilaterally. Biceps 2 and symmetric. Triceps 2 and symmetric. Patellar 2 and symmetric. Achilles 2 right, 2- left. Mental Status: Alert, conversant, and appropriate. IMPRESSION AND PLAN: Left V2 trigeminal neuralgia; it started in left V1 and migrated over time. 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 Even so, she will need an MRI brain to make sure that there is not a nerve tumor or anything other than a loop of blood vessel pressing on it. She has had recent dental work in the sensory territory of left V2; but it could not have been the cause of the initial V1 involvement, nor of resolution of the earlier V1 involvement. Carbamazepine or oxcarbazepine are the medications of choice for this condition. (I generally prefer the former). They must be started gradually to minimize nausea, dizziness, drowsiness, and clumsiness. I suggest 100 mg daily for a week; then 100 mg twice daily for a week; then 100 mg three times a day for a week; then 200 mg twice daily for a week. She will have her recent blood work faxed to me. We discussed that carbamazepine may cause nausea, drowsiness, dizziness and clumsiness early in therapy; and in a dose-dependent manner during ongoing therapy. It may cause a gradual fall in sodium concentration. More serious, but less frequent, adverse effects include aplastic anemia (inability of the bone marrow to make blood cells), which occurs in about 1/40,000 patients and which can be fatal; and allergic skin rash, which is life-threatening in about 1/40,000 patients. It is necessary to seek medical attention if a skin rash occurs while taking carbamazepine. She is poorly tolerant of MyChart, and will call me regarding her response - for good or ill - to carbamazepine. Sincerely, Melani Matute MD Staff, General Neurology I spent 45 minutes in this visit face to face with the patient, with more than 50% of the time devoted to patient counseling with regard to the impression, patient education, interpretation of the studies, the diagnosis, treatment options, theneed for further diagnostic testing, and coordination of care. T [facility] 03-25-2024 History and physical note 11:16 - 12:01 Chart Review Parenthetic [comments] and tinted emphasis mine. Consultation is requested for an opinion regarding the evaluation and treatment of Renetta Lopez. My final impression and recommendations will be communicated back to the referring physician by way of the shared medical record or letter via US mail. Renetta Lopez may be self-referred for pain and multiple symptoms per the schedule. ====== Problem List reviewed. Medication List is unpopulated. ====== The patient brought the report of an recent (01/31/24) CT brain w from [facility] which showed only age related changes. With that preamble, Chief Complaint: Renetta Lopez is a 68 year old right handed female who presents with electrical left facial pain. History of Present Illness About July of this year, she experienced the pain in left V1 precipitated by wiping her left forehead. It was brief. It was enough to startle her. She was seen in urgent care and was given a medication which she did not tolerate due to nausea [I speculate it was carbamazepine or oxcarbazepine]. It subsequently moved down to left V2, particularly around her nasolabial fold - it no longer bothered her in left V1. Washing her face, or touching it there, or brushing her teeth, can trigger it. So can chewing. There is no numbness. There is no facial weakness, drooling, or slurring of speech. There is neither loss of hearing on her left, left tinnitus, nor vertigo. Swallowing is normal. It does not trigger her pain. She had new upper left crown made in January. There was decay under it, but it was not hurting. There was no shingles rash. (She has had shingles twice - both on the trunk). No past medical history on file. Current Outpatient Medications Medication Sig meloxicam (MOBIC) 15 mg tablet Take 15 mg by mouth. levoFLOXacin (LEVAQUIN) 500 mg tablet Take 1 tablet by mouth every afternoon. atorvastatin (LIPITOR) 10 mg tablet Take 10 mg by mouth every evening. metoprolol tartrate, short acting, (LOPRESSOR) 50 mg tablet Take 50 mg by mouth every morning. rosuvastatin (CRESTOR) 10 mg tablet Take 1 tablet by mouth once daily. hydroCHLOROthiazide 25 mg tablet Take 25 mg by mouth. potassium chloride ER (KLOR-CON M10) 10 mEq tablet Take 10 mEq by mouth. levothyroxine (SYNTHROID) 75 mcg tablet Take 75 mcg by mouth. No current facility-administered medications for this visit. ALLERGIES No Known Allergies Social History Tobacco Use Smoking status: Never Substance Use Topics Alcohol use: Yes Comment: occasionally No family history on file. Review of Systems: As above. PHYSICAL EXAM General: Alert, conversant, appropriate, elderly, FEMALE, in no apparent distress. Vital Signs: BP 112/74 Pulse 65 Ht 158.8 cm (5' 2.5 ) Wt 77.3 kg (170 lb 6.7 oz) SpO2 98% BMI 30.67 kg/m - reviewed. Head: Left TM normal. Cardiovascular: Carotids 2 and symmetric without bruits. Neurologic: Cranial Nerves: Monocular visual robert intact to finger counting. Funduscopic reveals flat discs. Pupils s/p iol's bilaterally; equal, round and reactive to light. Pursuit eye movements normal. Facial sensation normal to pin. Facies symmetric. Hearing normal to 1024 Hz tuning fork. Palatal movement, phonation, and resonation normal. Trapezius and SCM 5/5 and symmetric. Tongue movement symmetric. Sensory: Pin exam is subject to mild artifact of examination at the toes. Otherwise normal. Normal on testing vibration and joint position sense. Motor: Strength was 5/5 and symmetric on testing finger abduction, finger extension, elbow flexion, elbow extension, shoulder abduction, toe dorsiflexion, ankle dorsiflexion, ankle plantar flexion, knee flexion, knee extension, and hip flexion. Tone was normal. Posture was normal. There were no involuntary movements. Coordination: Dwpzse-warw-vdxcuw was normal. Finger and toe wiggling rapid alternating movements were normal. Standing in Romberg's position with eyes open and closed was normal. Gait: Limps due to a right foot condition. Deep Tendon Reflexes: Plantars were mute bilaterally. Biceps 2 and symmetric. Triceps 2 and symmetric. Patellar 2 and symmetric. Achilles 2 right, 2- left. Mental Status: Alert, conversant, and appropriate. IMPRESSION AND PLAN: Left V2 trigeminal neuralgia; it started in left V1 and migrated over time. 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 Even so, she will need an MRI brain to make sure that there is not a nerve tumor or anything other than a loop of blood vessel pressing on it. She has had recent dental work in the sensory territory of left V2; but it could not have been the cause of the initial V1 involvement, nor of resolution of the earlier V1 involvement. Carbamazepine or oxcarbazepine are the medications of choice for this condition. (I generally prefer the former). They must be started gradually to minimize nausea, dizziness, drowsiness, and clumsiness. I suggest 100 mg daily for a week; then 100 mg twice daily for a week; then 100 mg three times a day for a week; then 200 mg twice daily for a week. She will have her recent blood work faxed to me. We discussed that carbamazepine may cause nausea, drowsiness, dizziness and clumsiness early in therapy; and in a dose-dependent manner during ongoing therapy. It may cause a gradual fall in sodium concentration. More serious, but less frequent, adverse effects include aplastic anemia (inability of the bone marrow to make blood cells), which occurs in about 1/40,000 patients and which can be fatal; and allergic skin rash, which is life-threatening in about 1/40,000 patients. It is necessary to seek medical attention if a skin rash occurs while taking carbamazepine. She is poorly tolerant of MyChart, and will call me regarding her response - for good or ill - to carbamazepine. Sincerely, Melani Matute MD Staff, General Neurology I spent 45 minutes in this visit face to face with the patient, with more than 50% of the time devoted to patient counseling with regard to the impression, patient education, interpretation of the studies, the diagnosis, treatment options, theneed for further diagnostic testing, and coordination of care. documented in this encounter [facility] 07-09-2023 History of Present illness Narrative Subjective Patient ID: Renetta Lopez [...] bone stim (back) TOTAL KNEE ARTHROPLASTY Left 2012 Dr Archer Visit Vitals Smoking Status Never [...] follow-ups on file. documented in this encounter [facility] 07-04-2023 Evaluation note Encounter Date Diagnosis Assessment [...] for further eval and possible repeat injection. [employer] Other 01-13-2023 NotePROCEDURE: XR HAND RT MIN 3V HISTORY: Pain in right hand ; fifth digit pain after falling COMPARISON: XR hand right 07/19/2020 FINDINGS: BONES:No fracture or dislocation. Moderate degenerative changes of the distal interphalangeal joints of the second and third digits. SOFT TISSUES:No visible soft tissue swelling. EFFUSION:None visible. OTHER: Negative. IMPRESSION: 1. No acute bone abnormality. Electronically authenticated by: KADE GLEZ Date: 2022-06-20 12:56[facility]12-10-2022 Evaluation note* Encounter Date Diagnosis Assessment Notes Treatment Notes Treatment Clinical Notes May, Acute sinusitis, recurrence not specified, unspecified location (ICD-10 - J01.90) Sinusitis home care material was printed Continue home medications as prescribed. Take the Medrol Dosepak as prescribed until gone. Use the Flonase nasal inhaler as prescribed until your symptoms improve. Consider running a coolmist humidifier to bedside. Follow-up with your family doctor if no improvement in 3 to 4 days [employer] Other Evaluation noteNo assessment information available [facility] Work Phone: Evaluation noteNo [employer] Other Evaluation note* Diagnosis Acute non-recurrent pansinusitis- Primary documented in this encounter [facility] HealthcareEvaluation note* Diagnosis Trigeminal neuralgia of left side of face- Primary [facility] this [facility] Diagnosis Sprain of low back, initial encounter- Primary H/O lumbosacral spine surgery Paronychia of great toe- Primary Routine general medical examination at health care facility- Primary Routine general medical examination at a health care facility Abnormal glucose tolerance test Impaired glucose tolerance test Benign essential hypertension (CMS/HCC) Essential hypertension, benign Medicare annual wellness visit, subsequent Vitamin D deficiency Hypocalcemia Hypomagnesemia Disorders of magnesium metabolism Mixed hyperlipidemia (CMS/HCC) Mixed hyperlipidemia Encounter for screening mammogram for malignant neoplasm of breast Other thrombophilia (CMS/HCC) Unspecified atrial fibrillation (CMS/HCC) Atherosclerosis of aorta (CMS/HCC) Atherosclerosis of aorta Atrial fibrillation with rapid ventricular response (CMS/HCC) Arthritis of right midfoot- Primary Bursitis of right foot Exostosis of right foot Pain in joint of right foot documented in this encounter [facility] HealthcareHistory general Narrative - Reported* Type Description Date Medical History Hypertension Medical History Hypothyroidism Medical History Spinal stenosis Surgical History bunionectomy Surgical History hysterectomy Surgical History knee arthroscopy left knee Surgical History spine surgery Surgical History knee replacement left knee Hospitalization History Campyl[facility] 11/2021 [employer] Other History of Present Illness * Lucille [...] FoundDocuments on File Type Date Recorded 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 Advance Directives and Living Will Power of Machinery Dismantler Documents on File Type Date Recorded 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 The 24- hour phone is [phone] 13) If you are unable to contact your surgeon, in an emergency situation, go to the nearest hospital emergency room. 14) shower on Thursday 15) Drive whenever she stopped taking narcotics * Attachments The following attachments cannot be sent through Care Everywhere. * Coronavirus Disease (COVID-19): General Info (Hungarian) documented in this encounter Reason for Referral Status Reason Specialty Diagnoses / Procedures Referred By Contact Referred To Contact Authorized Radiology Diagnoses Pain Procedures Fluoro For Surgical Procedures Pastor Rosado MD [address], [address] [place] [address] Specialty Diagnoses / Procedures Referred By Contac t Referred To Contact MR IMAGING Diagnoses Trigeminal neuralgia of left side of face Procedures MRI BRAIN WO IVCON MRI BRAIN BRAIN STEM W/[place] [address] [place] [address] [place] [address] Referral ID Status Reason Start Date Expiration Date Visits Requested Visits Authorized [id number] New Request Auto-Generat ed Referral 4 04/25/2025 1 1 Summary Purpose Family History No Family History Records FoundNo Family History Records FoundNo Family History Records FoundNo Family History Records FoundNo Family History Records Found Additional Source Comments Reason for Visit (unrecogniz ed section and content) Status Reason Specialty Diagnoses / Procedures Referre d By Contact Referred To Contact Diagnoses History of back surgery Shoulder pain HISTORY OF BACK SURGERY, SHOULDER PAIN Procedures MA 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 Nielsen, pt states she received injections from him, states he would inject the area. Pt states it can be hard to walk at times. Also relates swelling in foot and ankle. Soaks in epsom salts, voltaren, aspercreme. This flare up ongoing for about a month. INFORMATION SOURCE (unrecogn ized section and content) DATE CREATED AUTHOR 05/19/2020 [facility] DATE CREATED AUTHOR AUTHOR'S ORGANIZ ATION 06/20/2022 [facility] DATE CREATED AUTHOR AUTHOR'S ORGANIZ ATION 12/23/2022 [facility] DATE CREATED AUTHOR AUTHOR'S ORGANIZ ATION 03/31/2024 [facility] DATE CREATED AUTHOR AUTHOR'S ORGANIZ ATION 04/09/2024 [facility] Care Teams (unrecognized sec tion and content) Team Status: Inactive Member Role Status Dates Saima Garcia APRN Attending Provider Active Rigging Up Man Relationship Specialty Start Date End Date Ashly Chamorro MD [address] [place] [address] PCP - ACO Reach 10/30/22 Ashly Chamorro MD [address] [place] [address] PCP - General Family Medicine 11/10/22 Rigging Up Man Relationship Specialty Start Date End Date Ashly Chamorro MD [address] [facility] [address] [place] [address] PCP - ACO Reach 10/30/22 Ashly Chamorro MD [address] [facility] [address] [place] [address] PCP - General Family Medicine 11/10/22 Rigging Up Man Relationship Specialty Start Date End Date Randolph Leonard Jr., DO [address] [place] [address] PCP - General 12/21/03 Rigging Up Man Relationship Specialty Start Date End Date Randolph Leonard Jr., DO [address] [place] [address] PCP - General 12/21/03 Rigging Up Man Relationship Specialty Start Date End Date Randolph Leonard Jr., DO [address] [place] [address] PCP - General 12/21/03 Rigging Up Man Relationship Specialty Start Date End Date Ashly Chamorro MD [address] [place] [address] PCP - ACO Reach 10/30/22 Ashly Chamorro MD [address] [place] [address] PCP - General Family Medicine 11/10/22 Rigging Up Man Relationship Specialty Start Date End Date Ashly Chamorro MD [address] [place] [address] PCP - ACO Reach 10/30/22 Ashly Chamorro MD [address] [place] [address] PCP - General Family Medicine 11/10/22 Goals (unrecognized section and content) Goals may be documented in a n alternate section Source Comments (unrecognize d section and content) In the event this informatio n is protected by the Federal Confidentiality of Alcohol and Drug Abuse Patient Records regulations: The Federal rules restrict any use of the information to criminally investigate or prosecute any alcohol or drug abuse patient.[facility] the event this information is protected by the Federal Confidentiality of Alcohol and Drug Abuse Patient Records regulations: The Federal rules restrict any use of the information to criminally investigate or prosecute any alcohol or drug abuse patient.[facility] the event this information is protected by the Federal Confidentiality of Alcohol and Drug Abuse Patient Records regulations: The Federal rules restrict any use of the information to criminally investigate or prosecute any alcohol or drug abuse patient.[facility] the event this information is protected by the Federal Confidentiality of Alcohol and Drug Abuse Patient Records regulations: The Federal rules restrict any use of the information to criminally investigate or prosecute any alcohol or drug abuse patient.[facility] FOR RECORDS PERTAINING TO PATIENTS WHO ARE [...] BE BASED ON THE PRIMARY CLINICAL RECORDS. [facility] [employer] [facility]. provides no warranty or guarantee of the accuracy or completeness of information in this document.
--- NOTE | 2024-04-11 15:27 | XR_ITS ---
The [address] [address] Patient Name: MITALI CRONIN MRN: [id number] date: 1955 Sex: F Assigned Patient Location: MRI Current Patient Location: Accession/Order Number: [id number] Exam Date: 04/11/2024 15:32 Report Date: 04/13/2024 07:00 At the request of: NON-STAFF PHYSICIAN Procedure: XR lumbar spine 2-3V EXAMINATION: XR lumbar spine 2-3V HISTORY: Foreign Body Clearance MRI, Bone Stimulator COMPARISON: No relevant comparison available. FINDINGS: BONES: Normal alignment with no acute fracture or spondylolisthesis. Posterior decompression and bilateral transpedicular fusion L2-S1 with no mechanical failure. Severe degenerative spondylosis and facet osteoarthropathy. No mechanical failure. DISC SPACES: Diffuse disc collapse with endplate sclerosis. Interbody spacers L3-S1 PARASPINOUS: Negative. No paraspinous abnormality is seen. OTHER: Wire fragments are identified posterior to the L3 vertebral body do not extend into the central canal. Vascular calcifications XR/XR lumbar spine 2-3V IMPRESSION: Severe degenerative changes with lumbosacral fusion Electronically authenticated by: SARAH PAULINO Date: 04/13/2024 07:00
== END 2024-04-11 15:07 | disposition home or self-care (01) ==
LOC: MRI 15:06
PROVIDERS: PCP Family Medicine
DX: Z98.890 Other specified postprocedural states (principal); Z98.1 Arthrodesis status
CPT/HCPCS: 72100

== ENCOUNTER 2025-01-25 09:49 | Emergency (ER) | payer MEDICARE, OTHER, SELFPAY ==
[2025-01-25 10:13] VITALS: BP 167/70; PULSE 67; TEMP 36.8; O2SAT 96; BMI 30.4
[2025-01-25 10:20] VITALS: PULSE 67
--- NOTE | 2025-01-25 10:36 | XR_ITS ---
The [address] [address] Patient Name: MITALI CRONIN MRN: [id number] date: 1955 Sex: F Assigned Patient Location: ER Current Patient Location: Accession/Order Number: [id number] Exam Date: 01/25/2025 12:11 Report Date: 01/25/2025 12:15 At the request of: CHATA GONZALEZ MD Procedure: XR foot RT min 3V RIGHT FOOT - 3 views CLINICAL HISTORY: pain severe COMPARISON: None FINDINGS: No evidence acute fracture or dislocation. Moderate severe degenerative changes involving the midfoot. Erosive changes involving the midfoot likely long-standing. Questionable fracture lucency extending through the navicular bone probably chronic. Scattered vascular calcifications. No definite soft tissue swelling. No radiopaque foreign body. XR/XR foot RT min 3V IMPRESSION: Severe midfoot degenerative changes identified. Lucency involving the navicular, favored be chronic . No evidence acute displaced fracture malalignment. Impression dictated by: Ousmane Masterson M.D. 01/25/2025 12:15 PM Dictation Location: [place] [address] Electronically authenticated by: [id number] Y Date: 01/25/2025 12:15
[2025-01-25] MEDS: KETOROLAC TROMETHAMINE 30 MG/ML VIAL 15 MG IM (10:44)
[2025-01-25 11:45] VITALS: BP 137/97; PULSE 65; O2SAT 98
--- NOTE | 2025-01-25 12:53 | ED.EXTPRO1 ---
HPI - Extremity Problem General Chief complaint: Extremity Problem, Nontraumatic Stated complaint: LOWER EXTREMITY PAIN Time Seen by Provider: 01/25/25 10:25 Source: patient Mode of arrival: ambulance Limitations: physical limitation Limitations comment: right foot pain History of Present Illness HPI Narrative: The patient is a 69-year-old female who have history of plantar fasciitis she had multiple injection in her right foot by podiatry for that, patient mentioned that last night she could not sleep because of the severe pain in her right foot, patient mentioned that she is able to walk barely in her right foot, patient denies any fall or trauma but she mentioned that the pain is different than the last time she had fasciitis No other complaints and she take meloxicam for pain Related Data Home Medications ?Medication ?Instructions ?Recorded ?Confirmed hydrochlorothiazide 25 mg tablet 25 mg DAILY 01/24/23 levothyroxine 75 mcg tablet 75 mcg PO DAILY 01/24/23 01/25/25 meloxicam 15 mg tablet 15 mg PO DAILY 01/24/23 01/25/25 Held on 01/25/25. Instructions: Resume on 02/01/25. hold while using the Voltaren metoprolol tartrate 50 mg tablet 50 mg PO DAILY 01/24/23 01/25/25 carbamazepine 200 mg tablet mg 01/25/25 Previous Rx's ?Medication ?Instructions ?Recorded diclofenac sodium 50 mg 50 mg PO Q12H PRN pain #20 tabs 01/25/25 tablet,delayed release Allergies Allergy/AdvReac Type Severity Reaction Status Date / Time hydromorphone (From Dilaudid) Allergy Severe Anaphylaxis Verified 01/25/25 10:11 morphine Allergy Severe Anaphylaxis Verified 01/25/25 10:11 sumatriptan (From Imitrex) Allergy Intermediate Muscle Pain Verified 01/25/25 10:11 Review of Systems ROS Status of ROS 10 or more systems reviewed and unremarkable except as noted in history and below [facility] Medical History (Updated 01/25/25 @ 12:44 by Debbie Hollins MD) Arthritis ?M19.90 - Unspecified osteoarthritis, unspecified site (ICD-10) Hypertension ?I10 - Essential (primary) hypertension (ICD-10) Hypothyroidism ?E03.9 - Hypothyroidism, unspecified (ICD-10) Social History Smoking status: Never smoker Little interest or pleasure in doing things: not at all Feeling down, depressed, or hopeless: not at all Exam Narrative Exam Narrative: Nurses notes and vital signs reviewed and patient is not hypoxic. General: Well-appearing and in no apparent distress. Skin: Warm, dry, no pallor noted. No rash. Right lower extremity exam: There is tenderness upon palpation of the heel of the foot and no significant swelling there is tenderness upon palpation of the calcaneus as well No vascular injury detected Constitutional Vital Signs, click to edit/add: Last Vital Signs Temp 98.2 F 01/25/25 10:13 Pulse 65 01/25/25 11:45 Resp 16 01/25/25 11:45 BP 137/97 H 01/25/25 11:45 Pulse Ox 98 01/25/25 11:45 O2 Del Method Room Air 01/25/25 11:45 Course Vital Signs Vital signs: Vital Signs Temperature 98.2 F 01/25/25 10:13 Pulse Rate 67 01/25/25 10:13 Respiratory Rate 16 01/25/25 10:13 Blood Pressure 167/70 H 01/25/25 10:13 Pulse Oximetry 96 01/25/25 10:13 Oxygen Delivery Method Room Air 01/25/25 10:13 Temperature 98.2 F 01/25/25 10:13 Pulse Rate 65 01/25/25 11:45 Respiratory Rate 16 01/25/25 11:45 Blood Pressure 137/97 H 01/25/25 11:45 Pulse Oximetry 98 01/25/25 11:45 Oxygen Delivery Method Room Air 01/25/25 11:45 MDM - Extremity (Nontraumatic) MDM Narrative Medical decision making narrative: X-ray of the right foot showed no acute pathology Provided with Toradol after which she was feeling much better and she was discharged home to stop her meloxicam and start taking Voltaren daily with her instruction to continue physical therapy and exercises for her foot And the patient also to follow-up with the podiatry tomorrow The patient is to follow up with primary care physician in next 2-3 days or to return to the emergency department should any of the signs or symptoms worsen or new symptoms develop. The patient agrees with the following Diagnosis and Treatment plan and the patient will be discharged home. Discharge Plan Discharge Chief Complaint: Extremity Problem, Nontraumatic Clinical Impression: Plantar fasciitis Patient Disposition: Home, Self-Care Time of Disposition Decision: 12:44 Condition: Good Prescriptions / Home Meds: New diclofenac sodium 50 mg tablet,delayed release (DR/EC) 50 mg PO Q12H PRN (Reason: pain) Qty: 20 0RF Held meloxicam 15 mg tablet 15 mg PO DAILY Hold Instructions: Resume on 02/01/25. hold while using the Voltaren No Action hydrochlorothiazide 25 mg tablet 25 mg DAILY levothyroxine 75 mcg tablet 75 mcg PO DAILY metoprolol tartrate 50 mg tablet 50 mg PO DAILY carbamazepine 200 mg tablet Print Language: [place] Instructions: Plantar Fasciitis (ED), Plantar Fasciitis Exercises (ED) Referrals: JUSTINE GRANT [Primary Care Provider, Unknown] - 1 week
== END 2025-01-25 12:56 | disposition home or self-care (01) ==
PROVIDERS: Emergency Provider Emergency Medicine; PCP Nurse Practitioner Family
DX: M72.2 Plantar fascial fibromatosis (principal)
CPT/HCPCS: 73630; 96372; 99284; J1885

== ENCOUNTER 2025-02-17 14:34 | Outpatient (OUT) | payer MEDICARE, OTHER, SELFPAY ==
--- OUTSIDE RECORDS SUMMARY | 2025-02-17 14:36 | XMS_ITS | Encounter Summary ---
Author Organization [facility] Address [address] [place], [place] [id number] Care Team Providers Care Taxi Driver Supervisor Name Role Phone Aisha Randolph Nirav Primary Care Provi karla Source Comments In the event this information is protected by the Federal Confidentiality of Alcohol and Drug AbusePatient Records regulations: The Federal rules restrict any use of the information to criminally investigate or prosecute any alcohol or drug abuse patient.[facility] Encounter Details Date Type Department Care Team (Latest Contact Info) Description 01/29/2004 Prob Sum Review Provider, Cc Social History Tobacco Use Types Packs/Day Years Used Date Smoking Tobacco: Never Assessed Comments No Sex and Gender Information Value Date Recorded Sex Assigned at Not on file Legal Sex Female 10:04 AM EST Gender Identity Not on file Sexual Orientation Not on file documented as of this encounter Plan of Treatment Upcoming Encounters Date Type Department Care Team (Late st Contact Info) Description 03/31/2025 11:30 AM EDT Office Visit Neurology [facility] [address] [place] [address] [place] [address] [place] [address] Return in about 1 year (around 03/26/2025). // called and spoke with patient - patient aware of new location documented as of this encounter Visit Diagnoses Not on filedocumented in this encounter Care Teams Taxi Driver Supervisor Relationship Specialty Start Date End Date Randolph Leonard Jr., [address] [place] [phone] PCP - General 12/21/03 documented as of this encounter
--- NOTE | 2025-02-17 14:37 | MM_ITS ---
Patient Name: MITALI CRONIN MR#: [id number] : 1955 Exam Date: 02/17/2025 Ordering Doctor: DR EMELIA GUSMAN RADIOLOGY REPORT PROCEDURE: MM TOMOSYNTHESIS SCREENING BI COMPARISON: MM TOMOSYNTHESIS SCREENING BI, 01/28/2024. MM TOMOSYNTHESIS SCREENING BI, 12/23/2022. MG MAMM SCREEN 3D AMOL CAD, 04/17/2021. MG MAMM AMOL SCRN W CAD DIG, 02/14/2016. INDICATIONS: screening Calculator Name NCI Breast Cancer Risk Assessment Tool 5 Year Breast Cancer Risk 1.50% Lifetime Breast Cancer Risk 4.10% Personal Breast Cancer No Personal Ovarian Cancer No Treatments None Family Cancers None LOCATION: [facility] BREAST COMPOSITION: The breasts are heterogeneously dense, which may obscure small masses. FINDINGS: RIGHT BREAST: No significant suspicious finding. Vascular calcifications LEFT BREAST: No significant suspicious finding. Vascular calcifications DIAGNOSTIC CATEGORY 1--NEGATIVE. RECOMMENDATIONS: ROUTINE MAMMOGRAM AND CLINICAL EVALUATION IN 12 MONTHS. Dictated by: Cody Fernandez DO on 02/17/2025 at 15:39 Approved by: Cody Fernandez DO on 02/17/2025 at 15:57
--- OUTSIDE RECORDS SUMMARY | 2025-02-17 14:37 | XMS_ITS | Clinical Summary ---
Author Organization [employer] Address [facility] [id number] [place] [address] Care Team Providers Care Vest Busheler Name Role Phone Unavailable Primary Care Provider Unavailabl e Social History Tobacco Use Types Packs/Day Years Used Date Smoking Tobacco: Never Assessed Childcare Answer Date Recorded Childcare Unknown 11/17/2018 Employment Answer Date Recorded Employment Unknown 11/17/2018 Comments Unknown Sex and Gender Information Value Date Recorded Sex Assigned at Not on file Legal Sex Female 11:49 AM EDT Gender Identity Not on file Sexual Orientation Not on file Plan of Treatment Health Maintenance Due Date Last Done Comments Depression Screening 1965 Tobacco Screening 1965 Adult BMI Screening 1971 DTaP,Tdap and Td Vaccines (1 - Tdap) 1972 Zoster (Shingles) Vaccine (1 of 2) 2003 Fall Risk Screening 2018 Influenza Vaccine 02/06/2025 Medical Devices Not on file Insurance [employer]
--- OUTSIDE RECORDS SUMMARY | 2025-02-17 14:37 | XMS_ITS | Clinical Summary ---
Author Organization [facility] Address [address], [address] [place] [address] Care Team Providers Care Fairing Worker Name Role Phone Antoine Dill MD Primary Care Provider + Allergies Active Allergy Reactions Criticality Noted Date Comments Adhesive Tape Rash Low 11/18/2019 Hydromorphone Hcl Shortness Of Breath High 0 Sumatriptan 11/18/2019 Muscle tightness Lisinopril 11/18/2019 cough Morphine Shortness Of Breath High 10/17/2019 Plasminogen 11/18/2019 Patient unaware of reaction Medications atorvastatin (LIPITOR) 10 MG tablet Take 10 mg by mouth every evening 07/15/2019 Active hydroCHLOROthia zide (HYDRODIURIL) 25 MG tablet Take 1 tablet by mouth daily 08/10/2019 Active levothyroxine (SYNTHROID) 75 MCG tablet TAKE 1 TABLET BY MOUTH DAILY 08/28/2019 Active metoprolol tartrate (LOPRESSOR) 50 MG tablet Take 50 mg by mouth 2 times daily 12/06/2013 Active triamcinolone (ARISTOCORT) 0.5 % cream as needed 10/10/2019 Active triamcinolone (KENALOG) 0.1 % cream as needed 12/12/2014 Active Active Problems Problem Noted Date Diagnosed Date History of lumbar fusion 11/18/2019 Overview (11/18/2019): 2010-- presence of bone stimulator Right shoulder pain 11/18/2019 Hyperlipidemia, unspecified 06/13/2019 Hypertension 05/20/2013 Hypothyroidism 05/20/2013 Family History Medical History Relation Name Comments High Blood Pressure Brother 1 x 2 half COPD Brother 2 x 1 half No Known Problems Daughter x 3 High Blood Pressure Father Hypertension Father Stroke Father COPD Mother No Known Problems Sister x 3 half No Known Problems Son x 1 Relation Name Status Comments Brother 1 x 2 half Alive Brother 2 x 1 half Daughter x 3 Alive Father Mother Sister x 3 half Alive Son x 1 Alive Social History Tobacco Use Types Packs/Day Years Used Date Smoking Tobacco: Never Smokeless Tobacco: Never Alcohol Use Standard Drinks/Week Comments Not Currently 0 (1 standard drink = 0.6 oz pur e alcohol) Comments No Sex and Gender Information Value Date Recorded Sex Assigned at Not on file Legal Sex Female 11:08 AM EST Gender Identity Not on file Sexual Orientation Not on file Last Filed Vital Signs Vital Sign Reading Time Taken Comments Blood Pressure 164/70 11/29/2019 1:20 PM EDT Pulse 64 11/29/2019 1:20 PM EDT Temperature 36.4 C (97.6 F) 11/29/2019 10:09 AM EDT Respiratory Rate 18 11/29/2019 1:20 PM EDT Oxygen Saturation 99% 11/29/2019 1:05 PM EDT Inhaled Oxygen Concentration - - Weight 82.8 kg (182 lb 9.6 oz) 11/29/2019 10:09 AM EDT Height 154.9 cm (5' 1 ) 11/29/2019 10:09 AM EDT Body Mass Index 34.5 11/29/2019 10:09 AM EDT Plan of Treatment Not on file Insurance [employer] Member Subscriber Plan / Payer (Ef fective 2019-Present) Name:Renetta Lopez Relation to Subscriber:Self Name:Renetta Lopez Payer ID:Not on file Type:Not on file Address: [address] [place] [phone] MEDICARE Member Subscriber Plan / Payer (Ef fective 2019-Present) Name:Renetta Lopez Relation to Subscriber:Self Name:Renetta Lopez Payer ID:Not on file Group ID:Not on file Type:Not on file Address: [address] Member Subscriber Plan / Payer (Ef fective 2019-Present) Name:Renetta Lopez Relation to Subscriber:Self Name:Renetta Lopez Payer ID:Not on file Type:Not on file Address: [address] [place] [phone] Care Teams Fairing Worker Relationship Specialty Start Date End Date Antoine Dill MD [address] [place] [phone] PCP - General Family Medicine 08/03/19
--- OUTSIDE RECORDS SUMMARY | 2025-02-17 14:37 | XMS_ITS | Clinical Summary ---
Author Organization [facility] Address [address] [place], [place] [id number] Care Team Providers Care Pizza Chef Name Role Phone Aisha Kemp DO, Charles Lewis Primary Care Provi karla Allergies No known active allergies Medications meloxicam (MOBIC) 15 mg tablet Take 15 mg by mouth. 02/24/2024 Active levoFLOXacin (LEVAQUIN) 500 mg tablet Take 1 tablet by mouth every afternoon. 01/12/2024 Active atorvastatin (LIPITOR) 10 mg tablet Take 10 mg by mouth every evening. 07/15/2019 Active metoprolol tartrate, short acting, (LOPRESSOR) 50 mg tablet Take 50 mg by mouth every morning. Active rosuvastatin (CRESTOR) 10 mg tablet Take 1 tablet by mouth once daily. 03/03/2024 Active hydroCHLOROthia zide 25 mg tablet Take 25 mg by mouth. 08/10/2019 Active levothyroxine (SYNTHROID) 75 mcg tablet Take 75 mcg by mouth. 08/28/2019 Active carBAMazepine (TEGRETOL) 200 mg tablet Take by mouth. One-half tablet daily for a week; then one-half tablet twice daily for a week; then one-half tablet three times daily for a week; then one tablet twice daily thereafter. 60 tablet 11 03/26/2024 5 Active potassium chloride ER (KLOR-CON M10) 10 mEq tablet Take 10 mEq by mouth. 01/01/2024 5 Active Problems Problem Noted Date Diagnosed Date Tear of medial cartilage or meniscus of knee, cu rrent 01/31/2004 Social History Tobacco Use Types Packs/Day Years Used Date Smoking Tobacco: Never Tobacco Cessation:Counseling Given: No Alcohol Use Standard Drinks/Week Comments Yes 0 (1 standard drink = 0.6 oz pur e alcohol) occasionally Area Deprivation Index Answer Date Zach rded National Score (1-100), lower number is lower ri sk 94 03/26/2024 State Score (1-10), lower number is lower risk 9 03/26/2024 Data from: https://www.neighborhoodatlas.medicine.[facility]/. Last address used for calculation [address] 03/26/2024 Comments No Sex and Gender Information Value Date Recorded Sex Assigned at Not on file Legal Sex Female 10:04 AM EST Gender Identity Not on file Sexual Orientation Not on file Last Filed Vital Signs Vital Sign Reading Time Taken Comments Blood Pressure 112/74 03/26/2024 10:33 AM EDT Pulse 65 03/26/2024 10:33 AM EDT Temperature - - Respiratory Rate - - Oxygen Saturation 98% 03/26/2024 10:33 AM EDT Inhaled Oxygen Concentration - - Weight 77.3 kg (170 lb 6.7 oz) 03/26/2024 10:33 AM EDT Height 158.8 cm (5' 2.5 ) 03/26/2024 10:33 AM ED T Body Mass Index 30.67 03/26/2024 10:33 AM EDT Plan of Treatment Upcoming Encounters Date Type Department Care Team (Late st Contact Info) Description 03/31/2025 11:30 AM EDT Office Visit Neurology [facility] [address] [place] [address] [place] [address] [place] [address] Return in about 1 year (around 03/26/2025). // called and spoke with patient - patient aware of new location Health Maintenance Due Date Last Done Comments Anxiety Screening 1971 Depression Screening 1971 Hepatitis C Screening 1971 DTaP,Tdap,Td Vaccine (1 - Tdap) 1972 CT Colonography 1998 Colonoscopy 1998 Fecal Occult Blood 1998 Lipid Screening 1998 Sigmoidoscopy 1998 Pneumococcal Vaccine: 50+ (1 of 1 - PCV) 2003 Shingrix Vaccine (1 of 2) 2003 Medicare Annual Wellness Visit 04/08/2018 Diabetes Screening 11/17/2022 11/18/2019 Mammogram Screening 2023 2022, 1 Advance Directive Discussion 06/08/2024 Influenza Vaccine (#1) 2025 Cologuard (FIT-DNA) 06/10/2027 06/10/2024, 1 Colorectal Cancer Screening 06/10/2027 RSV Vaccine (1 - 1-dose 75+ series) 2028 Bone Density Screening Completed 11/19/2021 Insurance MEDICARE [facility] Care Teams Pizza Chef Relationship Specialty Start Date End Date Randolph Leonard Jr., [address] [place] [phone] PCP - General 12/21/03
--- OUTSIDE RECORDS SUMMARY | 2025-02-17 15:11 | XMS_ITS | CCD ---
Author Organization [facility] Care Team Providers Care International Accounting Manager Name Role Phone Antoine Waggoner Primary Care Provider [phone] ANTOINE WAGGONER Primary Care Unavailabl e KURT, PASTOR H. Referring Unavailable KURT, PASTOR H. Attending Unavailable KURT, PASTOR H. Referring Unavailable ANTOINE WAGGONER [facility] Care Unavailabl e KURT, PASTOR H. Admitting Unavailable KURT, PASTOR H. Attending Unavailable KURT, PASTOR H. Referring Unavailable ANTOINE WAGGONER [facility] Care Unavailabl e KURT, PASTOR H. Referring Un[facility] Unavailabl e Antoine Waggoner Primary Care Provider [phone] Margarita Pond Unavailable PAY, DR NUGENT Admitting Unavailable ASHTYN, DR LIMON Primary Care Unavailable PAY, DR NUGENT Attending Unavailable PAY, DR NUGENT Consulting Unavailable KEESHA MÉNDEZ Admitting Unavailable ZIEBER, DR KADE Phillips Consulting Unavailable ASHTYN, DR LIMON Primary Care Unavailable KEESHA MÉNDEZ Attending Unavailable KEESHA MÉNDEZ Consulting Unavailable HEMMER, DR GRISELDA East Admitting Unavailable HEMMER, DR GRISELDA East Attending Unavailable HEMMER, DR GRISELDA East Consulting Unavailable ASHTYN, DR LIMON Primary Care Unavailable CRANDALL, DR AMANDA Thayer Consulting Unavailable KARLEY, DR AMANDA Thayer Admitting Unavailable ASHTYN, DR LIMON Primary Care Unavailable CRANDALL, DR AMANDA Thayer Attending Unavailable JULIANN, DR PARK Consulting Unavailable SARAH HAIDER Consulting Unavailable GLENN Garcia Attending Provider Saima Garcia Unavailable NO FAMILY, PHYSICIAN Primary Care Unavailable Saima Garcia Admitting Unavailable Saima Garcia Attending Unavailable Nadia Durham Unavailable Ashly Chamorro MD Unavailable Ashly Chamorro MD Primary Care Provider Aisha Kemp DO, Charles Lewis Primary Care Provi karla RONNOAMRAGELIAMELANI Attending Unava RANDOLPH Castañeda JR Primary Care Unavail able DALY GRANT Attending Unavailable ASHLY CHAMORRO Attending Unavailable DALY GRANT Attending Unavailable ZEB FERNANDEZ Attending Unavailable AMANDA ECHOLS Attending Unavailable PATRICK MADIHA W Attending Unavailable PATRICK MADIHA W Attending Unavailable PATRICK MADIHA W Attending Unavailable PATRICK MADIHA W Attending Unavailable DALY GRANT Attending Unavailable PATRICK, MADIHA W Attending Unavailable GRISELDA VARGAS Attending Unavailable PATRICKJAQUELINMADIHA W Attending Unavailable PATRICK MADIHA W Referring Unavailable GRISELDA VARGAS Attending Unavailable PATRICK MADIHA W Attending Unavailable PATRICK MADIHA W Attending Unavailable Allergies Allergy Classification Reported Allergen(s) Allergy Type Date of Onset Reaction(s) Facility (4 sources) Adhesive Tape Propensity to adverse reactions to drug 11-18-19 20 Rash [place], [place] (4 sources) HYDROmorphone Drug Allergy 11-18-19 20 Shortness Of Breath [place] (4 sources) Lisinopril Drug Allergy 11-18-19 20 [place] (20 sources) Morphine Drug Allergy 10-17-19 20 Shortness Of Breath [place] (20 sources) SUMAtriptan Drug Allergy 11-18-19 20 Unknown [place] (4 sources) Plasminogen Propensity to adverse reactions to drug 11-18-19 20 [place] (4 sources) Adhesive agent; Translations: [Adhesive] Drug allergy rash [facility] (20 sources) HYDROmorphone Drug Allergy 11-10-[address] [facility] (1 source) HYDROmorphone Drug Allergy [facility] (1 source) Morphine Drug Allergy [facility] (1 source) Plasmin Drug Allergy [facility] (20 sources) Lisinopril Propensity to adverse reactions 11-18-19 [facility] Work Phone: (20 sources) Plasminogen Propensity to adverse reactions 11-18-[address] [facility] (20 sources) Wound Dressing Adhesive Drug Intolerance 11-18-[address] [facility] Medications Current Medications Medication Drug Class(es) Dates Sig (Normalized) Sig (Original) acetaminophen 325 mg / oxyCODONE hydrochloride 5 mg oral tablet (2 sources) Opioid Agonist Start: 11-29-2019 End: 12-06-2019 take 1 tablet by mouth every six hours as needed for pain, then take 1 tablet by mouth as needed for pain oxyCODONE-acetamin ophen (PERCOCET) 5-325 MG per tablet Indications: Postoperative pain Take 1 tablet by mouth every 6 hours as needed for Pain for up to 7 days. Intended supply: 7 days. Take lowest dose possible to manage pain 28 tablet 0 11/29/2019 12/06/2019 Active amoxicillin 875 mg / clavulanate 125 mg oral tablet (2 sources) Penicillin-class Antibacterial Start: 07-07-2023 End: 07-17-2023 take 1 tablet by mouth in the morning amoxicillin-clavul anate (Augmentin) 875-125 MG tablet Indications: Acute non-recurrent maxillary sinusitis Take 1 tablet (875 mg) by mouth in the morning and 1 tablet (875 mg) before bedtime. Do all this for 10 days. 20 tablet 0 07/07/2023 07/17/2023 Active atorvastatin 10 mg oral tablet (10 sources) HMG-CoA Reductase Inhibitor Start: 07-15-2019 take 1 tablet by mouth once daily in the evening atorvastatin (LIPITOR) 10 mg tablet Take 10 mg by mouth every evening. 07/15/2019 Active calcium chloride 0.0014 meq/ml / potassium chloride 0.004 meq/ml / sodium chloride 0.103 meq/ml / sodium lactate 0.028 meq/ml injectable solution (2 sources) Start: 11-29-2019 lactated ringers infusion cephalexin 500 mg oral capsule (7 sources) Cephalosporin Antibacterial Start: 11-29-2024 End: 12-06-2024 take 1 capsule by mouth in the morning, then take 1 capsule by mouth in the evening, then take 1 capsule by mouth at bedtime cephalexin (Keflex) 500 MG capsule Indications: Paronychia of great toe of right foot Take 1 capsule (500 mg) by mouth in the morning and 1 capsule (500 mg) in the evening and 1 capsule (500 mg) before bedtime. Do all this for 7 days. 21 capsule 11/29/2024 12/06/2024 Active Start: 07-01-2024 End: 07-08-2024 take 1 capsule by mouth in the morning cephalexin (Keflex) 500 MG capsule Indications: Acute cystitis with hematuria Take 1 capsule (500 mg) by mouth in the morning and 1 capsule (500 mg) before bedtime. Do all this for 7 days. 14 capsule 07/01/2024 07/05/2024 Discontinued (Therapy completed) Start: 11-29-2019 End: 12-06-2019 take 1 capsule by mouth three times daily cephALEXin (KEFLEX) 500 MG capsule Take 1 capsule by mouth 3 times daily for 7 days 21 capsule 0 11/29/2019 12/06/2019 Active ciprofloxacin 250 mg oral tablet (2 sources) Quinolone Antimicrobial Start: 10-11-2024 End: 10-14-2024 take 1 tablet by mouth in the morning ciprofloxacin (Cipro) 250 MG tablet Indications: Acute cystitis with hematuria Take 1 tablet (250 mg) by mouth in the morning and 1 tablet (250 mg) before bedtime. Do all this for 3 days. 6 tablet 10/11/2024 10/14/2024 Active doxycycline hyclate 100 mg oral capsule (1 source) Tetracycline-clas s Drug Start: 07-04-2023 take 1 capsule by mouth every twelve hours Doxycycline Hyclate 100 MG 1 capsule Orally Twice a day for 5 days Jun, Active fluconazole 150 mg oral tablet (1 source) Azole Antifungal Start: 07-04-2023 Diflucan 150 MG Take 1 tablet on day 1, if still symptomatic on day 4 take 1 tab, if still symptomatic on day 7 take Orally Once a day for 7 days Jun, Active hydroCHLOROthiazide 25 mg oral tablet (20 sources) Thiazide Diuretic Start: 08-10-2019 take 1 tablet by mouth once daily hydroCHLOROthiazide (HYDRODiuril) 25 MG tablet Indications: Essential (primary) hypertension Take 1 tablet (25 mg) by mouth Daily 100 tablet 3 02/24/2024 Active levoFLOXacin 500 mg oral tablet (6 sources) Quinolone Antimicrobial Start: 01-12-2024 take 1 tablet by mouth once levoFLOXacin (LEVAQUIN) 500 mg tablet Take 1 tablet by mouth every afternoon. 01/12/2024 Active levothyroxine sodium 0.075 mg oral tablet (20 sources) l-Thyroxine Start: 05-09-2024 take 1 tablet by mouth once daily levothyroxine (Synthroid, Levoxyl) 75 MCG tablet Indications: Hypothyroidism, unspecified Take 1 tablet (75 mcg) by mouth Daily 100 tablet 4 05/09/2024 Active Start: 08-28-2019 End: 03-02-2024 take 1 tablet by mouth once daily levothyroxine (Synthroid, Levoxyl) 75 MCG tablet Indications: Hypothyroidism, unspecified Take 1 tablet (75 mcg) by mouth Daily 100 tablet 4 05/09/2024 Active take 1 tablet by rene th once daily in the morning Synthroid 75 MCG 1 tablet on an empty stomach in the morning Orally Once a day for 30 day(s) Active meloxicam 15 mg oral tablet (20 sources) Nonsteroidal Anti-inflammatory Drug Start: 02-24-2024 take 1 tablet by mouth in the morning meloxicam (Mobic) 15 MG tablet Indications: Primary osteoarthritis involving multiple joints Take 1 tablet (15 mg) by mouth in the morning. 100 tablet 1 09/12/2024 Active Start: 08-03-2023 take 1 tablet by rene th in the morning meloxicam (Mobic) 15 MG tablet Indications: Primary osteoarthritis involving multiple joints Take 1 tablet (15 mg) by mouth in the morning. 100 tablet 1 08/03/2023 Active Start: 07-09-2023 take 1 tablet by [...] mg metoprolol tartrate 50 mg oral tablet (20 sources) beta-Adrenergic Estiven Start: 04-07-2024 take 1 tablet by mouth in the morning metoprolol tartrate (Lopressor) 50 MG tablet Indications: Essential (primary) hypertension Take 1 tablet (50 mg) by mouth in the morning. 100 tablet 3 04/07/2024 Active Start: 12-06-2013 End: 11-10-2023 take 1 tablet by mouth in the morning metoprolol tartrate (Lopressor) 50 MG tablet Indications: Essential (primary) hypertension (CMS/HCC) TAKE 1 TABLET BY MOUTH IN THE MORNING 30 tablet 11 11/09/2023 Active take 1 tablet by rene th once daily in the morning metoprolol tartrate, short acting, (LOPRESSOR) 50 mg tablet Take 50 mg by mouth every morning. Active nystatin [id number] unt/ml topical cream (6 sources) Polyene Antifungal Start: 07-05-2024 End: 07-19-2024 nystatin (Mycostatin) cream Indications: Yeast dermatitis Apply topically 2 (two) times a day for 14 days 30 g 1 07/05/2024 07/19/2024 Active microencapsulated potassium chloride 10 meq extended release oral tablet (20 sources) Start: 01-01-2024 End: 02-04-2025 potassium chloride ER (KLOR-CON M10) 10 mEq tablet Take 10 mEq by mouth. 01/01/2024 02/04/2025 Active rosuvastatin calcium 10 mg oral tablet (20 sources) HMG-CoA Reductase Inhibitor Start: 12-11-2022 End: 03-02-2024 take 1 tablet by mouth once daily rosuvastatin (Crestor) 10 MG tablet Indications: Pure hypercholesterolem ia, unspecified Take 1 tablet (10 mg) by mouth Daily 100 tablet 3 03/03/2024 Active Crestor Active 3 ml sodium chloride [...] Drug Class(es) Dates Sig (Normalized) Sig (Original) carBAMazepine 200 mg oral tablet (20 sources) Mood Stabilizer Start: 03-26-2024 End: 03-26-2025 carBAMazepine (TEGretol) 200 MG tablet 03/26/2024 02/07/2025 Discontinued Start: 03-26-2024 End: 03-26-2025 take 0.5 tablet by mouth once daily, then take 0.5 tablet by mouth twice daily carBAMazepine (TEGretol) 200 MG tablet Take by mouth. One-half tablet daily for a week; then one-half tablet twice daily for a week; then one-half tablet three times daily for a week; then one tablet twice daily thereafter. 03/26/2024 03/26/2025 Active fluticasone propionate 0.05 mg/actuat metered dose nasal spray (2 sources) Corticosteroid Start: 05-17-2022 take 2 spray(s) nasal route once daily Fluticasone Propionate 50 MCG/ACT 2 sprays Nasally Once a day for 14 day(s) May, Not-Taking 10 ml lidocaine hydrochloride 10 mg/ml injection (1 source) Antiarrhythmic, Amide Local Anesthetic Start: 11-29-2019 End: 11-29-2019 lidocaine PF 1 % injection 1 mL predniSONE 20 mg oral tablet (8 sources) Start: 03-03-2024 End: 04-28-2024 predniSONE (Deltasone) 20 MG tablet Indications: Heel spur, right 3 tabs x 2 days, 2 tabs x 2 day, 1 1/2 tabs x 2 days, 1 tab x 2 days, 1/2 tab x 2 days then stop 16 tablet 03/03/2024 04/28/2024 Discontinued (Therapy completed) Problems Active Problems Problem Classification Problem Date Documented Date Episodic/Chronic Acute and chronic tonsillitis (20 sources) Cyst of tonsil; Translations: [Other chronic diseases of tonsils and adenoids] Onset: 11-23-2022 11-23-2022 Chronic Cardiac dysrhythmias (20 sources) Unspecified atrial fibrillation; Translations: [Atrial fibrillation with rapid ventricular response] Onset: 12-17-2021 Chronic Cataract (20 sources) Cataract; Translations: [Unspecified cataract] Onset: 11-23-2022 11-23-2022 Chronic Disorders of lipid metabolism (20 sources) Hyperlipidemia; Translations: [Pure hypercholesterolemia , unspecified] Onset: 06-13-2019 Resolved: 11-24-2022 11-18-2019 Chronic Essential hypertension (20 sources) Hypertensive disorder; Translations: [Essential (primary) hypertension] Onset: 05-20-2013 11-18-2019 Chronic Genitourinary symptoms and ill-defined conditions (3 sources) Dysuria; Translations: [Dysuria] Onset: 11-21-2022 07-01-2024 Episodic Mood disorders (2 sources) Moderate major depression, single episode; Translations: [Major depressive disorder, single episode, moderate] 01-10-2025 Chronic Mycoses (6 sources) Candidiasis of skin; Translations: [Candidiasis of skin and nail] 07-05-2024 Episodic Nutritional deficiencies (20 sources) Vitamin D deficiency; Translations: [Vitamin D deficiency, unspecified] Onset: 11-23-2022 11-23-2022 Chronic Osteoarthritis (20 sources) Arthritis of finger of left hand; Translations: [Primary osteoarthritis, left hand] Onset: 11-23-2022 11-23-2022 Chronic Other connective tissue disease (1 source) Presence of artificial knee joint, bilateral; Translations: [PRESENCE ARTIFICIAL KNEE JNT BILAT] Onset: 12-17-2021 Chronic Other connective tissue disease (20 sources) History of total knee arthroplasty; Translations: [Presence of left artificial knee joint] Onset: 11-23-2022 11-23-2022 Chronic Other connective tissue disease (1 source) Pain in left foot Episodic Other connective tissue disease (6 sources) Bursitis of right foot; Translations: [Other enthesopathy of right foot and ankle] 04-07-2024 Episodic Other connective tissue disease (4 sources) Deformity of lower limb; Translations: [Contracture of muscle, right lower leg] 05-19-2024 Episodic Other connective tissue disease (2 sources) Calcaneal spur of right foot; Translations: [Calcaneal spur, right foot] 03-03-2024 Episodic Other connective tissue disease (2 sources) Pain in right heel; Translations: [Pain in right foot] 03-03-2024 Episodic Other connective tissue disease (2 sources) Pain of toe of left foot; Translations: [Pain in left toe(s)] 11-15-2024 Episodic Other diseases of bladder and urethra (20 sources) Overactive bladder; Translations: [Overactive bladder] Onset: 11-24-2022 11-24-2022 Chronic Other nervous system disorders (20 sources) Lesion of ulnar nerve; Translations: [Lesion of ulnar nerve, unspecified upper limb] Onset: 11-23-2022 11-23-2022 Chronic Other nervous system disorders (20 sources) Chronic pain; Translations: [Other chronic pain] Onset: 11-23-2022 11-23-2022 Chronic Other nervous system disorders (20 sources) Bilateral carpal tunnel syndrome; Translations: [Carpal tunnel syndrome, bilateral upper limbs] Onset: 07-18-2024 07-18-2024 Chronic Other nervous system disorders (1 source) Postoperative pain ; Translations: [Postoperative pain] Episodic Other non-traumatic joint disorders (2 sources) Pain of joint of right foot; Translations: [Pain in right ankle and joints of right foot] 04-07-2024 Episodic Other non-traumatic joint disorders (2 sources) Swollen ankle region; Translations: [Effusion, right ankle] 02-07-2025 Episodic Other nutritional; endocrine; and metabolic disorders (1 source) Hypomagnesemia; Translations: [HYPOMAGNESEMIA] Onset: 12-16-2021 Chronic Other nutritional; endocrine; and metabolic disorders (1 source) Other disorders of glycoprotein metabolism; 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] Onset: 12-16-2021 Chronic Other nutritional; endocrine; and metabolic disorders (1 source) Hypocalcemia; Translations: [HYPOCALCEMIA] Onset: 12-16-2021 Chronic Other nutritional; endocrine; and metabolic disorders (20 sources) Hypocalcemia; Translations: [Hypocalcemia] Onset: 11-23-2022 11-23-2022 Chronic Other nutritional; endocrine; and metabolic disorders (20 sources) Hypomagnesemia; Translations: [Hypomagnesemia] Onset: 11-23-2022 11-23-2022 Chronic Other nutritional; endocrine; and metabolic disorders (20 sources) Body mass index 30+ - obesity; Translations: [Obesity, unspecified] Onset: 11-23-2022 11-23-2022 Chronic Other screening for suspected conditions (not mental disorders or infectious disease) (2 sources) Patient encounter status; Translations: [Encounter for screening mammogram for malignant neoplasm of breast] 02-07-2025 Episodic Other skin disorders (8 sources) Ingrowing nail; Translations: [Ingrowing nail] 11-15-2024 Episodic Other skin disorders (8 sources) Dystrophia unguium; Translations: [Nail dystrophy] 11-15-2024 Episodic Other upper respiratory infections (20 sources) Chronic sinusitis; Translations: [Chronic sinusitis, unspecified] Onset: 11-23-2022 11-23-2022 Chronic Other upper respiratory infections (4 sources) Acute sinusitis, unspecified; Translations: [Acute pansinusitis] Episodic Residual codes; unclassified (1 source) Pain; Translations: [Pain] Episodic Thyroid disorders (20 sources) Hypothyroidism; Translations: [Hypothyroidism, unspecified] Onset: 05-20-2013 [...] Onset: 12-16-2021 Episodic Deficiency and other anemia (20 sources) Anemia; Translations: [Anemia, unspecified] Onset: 11-23-2022 11-23-2022 Episodic Fluid and electrolyte disorders (20 sources) Hypokalemia; Translations: [Dehydration] Onset: 12-16-2021 11-23-2022 Episodic Intestinal infection (1 source) Campylobacter enteritis; Translations: [CAMPYLOBACTER ENTERITIS] Onset: 12-16-2021 Episodic Joint disorders and dislocations; trauma-related (7 sources) Tear of medial meniscus of knee; Translations: [Tear of medial cartilage or meniscus of knee, current] Onset: 01-31-2004 12-17-2023 Episodic Mood disorders (20 sources) Mood disorders Onset: 11-24-2022 11-24-2022 Other aftercare (1 source) intermission coordinator (current) use of aspirin; Translations: [[facility] CURRENT USE OF ASPIRIN] Onset: 12-17-2021 Episodic Other aftercare (1 source) Other penitentiary (current) drug therapy; Translations: [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] Onset: 12-17-2021 Episodic Other bone disease and musculoskeletal deformities (7 sources) Exostosis; Translations: [Other specified disorders of bone, ankle and foot] Onset: 11-09-2022 11-09-2022 Episodic Other bone disease and musculoskeletal deformities (8 sources) Other specified disorders of bone, ankle and foot; Translations: [Exostosis of unspecified site] Onset: 11-09-2022 11-09-2022 Episodic Other bone disease and musculoskeletal deformities (20 sources) Exostosis of right foot; Translations: [Other specified disorders of bone, ankle and foot] Onset: 11-09-2022 04-07-2024 Episodic Other circulatory disease (1 source) Hypotension, unspecified; Translations: [HYPOTENSION UNSPECIFIED] Onset: 12-16-2021 Episodic Other connective tissue disease (20 sources) Bursitis of foot region; Translations: [Other enthesopathy of unspecified foot and ankle] Onset: 11-09-2022 11-09-2022 Episodic Other connective tissue disease (20 sources) Pain of toe of right foot; Translations: [Pain in right toe(s)] Onset: 11-09-2022 11-09-2022 Episodic Other connective tissue disease (20 sources) Plantar fasciitis of right foot; Translations: [Plantar fascial fibromatosis] Onset: 11-09-2022 11-09-2022 Episodic Other connective tissue disease (20 sources) History of lumbar fusion; Translations: [Arthrodesis status] Onset: 11-18-2019 11-23-2022 Episodic Other connective tissue disease (20 sources) Swelling of hand; Translations: [Other specified soft tissue disorders] Onset: 04-28-2024 04-28-2024 Episodic Other inflammatory condition of skin (1 source) Pruritus, unspecified; Translations: [PRURITUS UNSPECIFIED] Onset: 12-17-2021 Episodic Other nervous system disorders (20 sources) Left trigeminal neuralgia; Translations: [Trigeminal neuralgia] Onset: 04-29-2024 03-26-2024 Episodic Other nervous system disorders (20 sources) Paresthesia of skin; Translations: [Disturbance of skin sensation] Onset: 04-28-2024 04-28-2024 Episodic Other non-traumatic joint disorders (4 sources) Shoulder pain; Translations: [Right shoulder pain] Onset: 11-18-2019 11-18-2019 Episodic Other non-traumatic joint disorders (20 sources) Sesamoiditis; Translations: [Other specified joint disorders, unspecified joint] Onset: 11-09-2022 11-09-2022 Episodic Other non-traumatic joint disorders (20 sources) Pain in right knee; Translations: [Pain in joint, lower leg] Onset: 11-23-2022 11-23-2022 Episodic Other non-traumatic joint disorders (20 sources) Pain in right shoulder; Translations: [Pain in joint, shoulder region] Onset: 11-18-2019 11-23-2022 Episodic Other skin disorders (3 sources) Rash and other nonspecific skin eruption; Translations: [RASH OTH NONSPECIFIC SKIN ERUPTION] Onset: 12-16-2021 Episodic Other skin disorders (20 sources) Callosity; Translations: [Corns and callosities] Onset: 11-09-2022 11-09-2022 Episodic Other skin disorders (20 sources) Ingrowing toenail; Translations: [Ingrowing nail] Onset: 11-09-2022 11-09-2022 Episodic Residual codes; unclassified (1 source) Acquired absence of both cervix and uterus; Translations: [ACQUIRED ABSENCE BOTH CERVIX AND UTERUS] Onset: 12-17-2021 Episodic Residual codes; unclassified (1 source) Acquired absence of ovaries, bilateral; Translations: [ACQUIRED ABSENCE OVARIES BILATERAL] Onset: 12-17-2021 Episodic Residual codes; unclassified (20 sources) History of operative procedure on lumbosacral spinal structure; Translations: [Other specified postprocedural states] Onset: 03-31-2023 03-31-2023 Episodic Septicemia (except in labor) (1 source) Other specified sepsis; Translations: [OTHER SPECIFIED SEPSIS] Onset: 12-16-2021 Episodic Skin and subcutaneous tissue infections (20 sources) Paronychia of toe; Translations: [Cellulitis of unspecified toe] Onset: 10-13-2023 10-13-2023 Episodic Sprains and strains (20 sources) Sprain of spinal ligament; Translations: [Sprain of ligaments of lumbar spine, initial encounter] Onset: 03-31-2023 03-31-2023 Episodic Results Test Name Value Interpretation Reference Range Facility No Panel Informationon 10-12 STAPHYLOCOCCUS EPIDERMIDIS, HAEMOLYTICUS, LUGDUNENSIS, SAPROPHYTICUS (URINA 0 [facility] STAPHYLOCOCCUS EPIDERMIDIS, HAEMOLYTICUS, LUGDUNENSIS, SAPROPHYTICUS (URINA Not detected [facility] URINARY TRACT INFECTION (HTR X)on 10-12-[address] [facility] ACINETOBACTER BAUMANII Not detected [facility] TEMI ALBICANS, PARAPSILOSIS, TROPICALIS 0 [facility] TEMI ALBICANS, PARAPSILOSIS, TROPICALIS Not detected [facility] TEMI GLABRATA 0 [facility] TEMI GLABRATA Not detected [facility] TEMI KRUSEI 0 [facility] TEMI KRUSEI Not detected [facility] CITROBACTER FREUNDII 0 [facility] CITROBACTER FREUNDII Not detected [facility] ENTEROBACTER AEROGENES, CLOACAE 0 [facility] ENTEROBACTER AEROGENES, CLOACAE Not detected [facility] ENTEROCOCCUS FAECALIS, FAECIUM 0 [facility] ENTEROCOCCUS FAECALIS, FAECIUM Not detected [facility] ESCHERICHIA COLI 24.[address] [facility] ESCHERICHIA COLI Detected Abnormal [facility] Interpretation and review of laboratory results Abnormal [facility] KLEBSIELLA PNEUMONIAE, OXYTOCA 0 [facility] KLEBSIELLA PNEUMONIAE, OXYTOCA Not detected [facility] MORGANELLA MORGANII 0 [facility] MORGANELLA MORGANII Not detected [facility] PROTEUS MIRABILIS, VULGARIS 0 [facility] PROTEUS MIRABILIS, VULGARIS Not detected [facility] [facility] PSEUDOMONAS AERUGINOSA 0 [facility] PSEUDOMONAS AERUGINOSA Not detected [facility] SERRATIA MARCESCENS 0 NOMS [facility] SERRATIA MARCESCENS Not detected NOM [facility] STAPHYLOCOCCUS AUREUS 0 [facility] STAPHYLOCOCCUS AUREUS Not detected [facility] STREPTOCOCCUS AGALACTIAE (GROUP B STREP) 0 [facility] STREPTOCOCCUS AGALACTIAE (GROUP B STREP) Not detected [facility] STREPTOCOCCUS PYOGENES (GROUP A STREP) 0 [facility] STREPTOCOCCUS PYOGENES (GROUP A STREP) Not detected [facility] Urinalysis macro (dipstick) panel (U)on 10-11-2024 Bilirubin, UA Negative Negative - 4(70) +++ mg/dL [facility] Blood, UA Positive Negative - 50 Heriberto/mcL [facility] Clarity, UA Cloudy [facility] Color, UA Kira [facility] Glucose, UA Negative Negative - 1999(110) ++++ mg/dL [facility] Interpretation and review of laboratory results Abnormal [facility] Ketones, UA Negative Negative - 160(16) ++++ mg/dL [facility] Leukocytes, UA Positive Negative - 500+++ Chloe/mcL [facility] Nitrite, UA Negative Negative - Positive [facility] pH, UA 7 5 - 9 [facility] Protein, UA Negative Negative - 1999(20) ++++ mg/dL [facility] Spec Grav, UA 1.005 1 - 1.03 [facility] Urobilinogen, UA 0.2 0.2 - 12 mg/dL [facility] Urinalysis macro (dipstick) panel (U)on 07-01-2024 Bilirubin, UA Negative Negative - 4(70) +++ mg/dL [facility] Blood, UA Positive Negative - 50 Heriberto/mcL [facility] Glucose, UA Negative Negative - 1999(110) ++++ mg/dL [facility] Interpretation and review of laboratory results Abnormal [facility] Ketones, UA Negative Negative - 160(16) ++++ mg/dL [facility] Leukocytes, UA Many Negative - 500+++ Chloe/mcL [facility] Nitrite, UA Negative Negative - Positive [facility] pH, UA 6 5 - 9 [facility] Protein, UA Negative Negative - 1999(20) ++++ mg/dL [facility] Spec Grav, UA 1.01 1 - 1.03 [facility] Urobilinogen, UA 1.0 0.2 - 12 mg/dL [facility] CNPNon 05-22-2024 CNPN Telephone [facility]) RENETTA LOPEZ ([id number]) 1955 F Date Time Provider Department 05/22/24 MELANI MATUTE During your visit today, we recorded the following information about you: Melani Matute MD 05/22/2024 5:32 PM Signed I spoke to Ms. Lopez. She had bone stimulator leads implanted when she was at [facility] for lumbar spine surgery c. 2010-04. Dr. Rosado, who placed them, is no longer in [place]. It is not clear whether the leads are MRI compatible or not. She had a CT brain at [facility] about a month prior to my consultation, which she tells, me, proved negative. An MRI would really be much better to disclose any posterior fossa pathology causing trigeminal neuralgia. I have referred her to Neurosurgery to see whether the leads can be removed or not. She will call to schedule. Melani Matute MD Allergies As of Date: 05/22/2024 (No Known Allergies) Date Reviewed: 03/26/2024 Reviewed by: Julián Perez MA - Fully Assessed Prescriptions as of 05/22/2024 - meloxicam (MOBIC) 15 mg tablet Take [...] daily thereafter. 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 She is said to have the device cards. I asked her to call me back on my [facility] mobile phone; our radiology department may be able to do her scan, depending upon what they may know of her devices. I asked that she let me know the device card info to this end. Melani Matute MD Allergies As of Date: 04/16/2024 (No Known Allergies) Date Reviewed: 03/26/2024 Reviewed by: Julián Perez MA - Fully Assessed Prescriptions as of 04/16/2024 - meloxicam (MOBIC) 15 mg tablet Take [...] daily thereafter. Problem List As Of Date 04/16/2024 Noted Resolved TEAR MED MENISC KNEE-CURRENT [[id number]] 01/31/2004 Encounter Status:Closed by MELANI MATUTE on 04/16/24 [facility] 04-11-2024 CNPN Telephone (NEURST) RENETTA LOPEZ ([id number]) 1955 F Date Time Provider Department 04/11/24 MELANI MATUTE NEUR During your visit today, we recorded the following information about you: Herman Feldman 04/11/2024 4:31 PM Signed Patient still has lead wires in her back. The hospital called the company that manufactured these lead wires (patient still had the information), and the company was unable to confirm that the wires were safe to scan. Patient did not have the MRI and she is asking what's next. Please call to advise. Lita Avila 04/12/2024 8:32 AM Signed They need a back xray order out of precaution they already performed it and need an order please send over! 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 Allergies As of Date: 04/11/2024 (No Known Allergies) Date Reviewed: 03/26/2024 Reviewed by: Julián Perez MA - Fully Assessed Reason for Visit: Unable to have MRI [Other] Prescriptions as of 10/14/2024 - meloxicam (MOBIC) 15 mg tablet Take [...] daily thereafter. Problem List As Of Date 04/11/2024 Noted Resolved TEAR MED MENISC KNEE-CURRENT [[id number]] 01/31/2004 Encounter Status:Closed by HERMAN FELDMAN on 10/14/24 [facility] RENET[facility]OPE[facility] ([id number]) 1955 F Date Time Provider Department 04/11/24 MELANI MATUTE During your visit today, we recorded the following information about you: Grazyna Coffey 04/11/2024 11:44 AM Signed [facility] calling to request orders for xray for PT's back. Pt unsure if she has metal in her back for MRI appt scheduled for today at 4pm. Please fax orders to [phone] if agreeable. [phone] Harika Rondon MA 04/11/2024 12:43 PM Signed Faxed order to [facility] and received fax confirmation. Harika Rondon MA Lita Avila 04/11/2024 1:58 PM Signed The mri was resent it was supposed to be back Xray. Harika Rondon MA 04/11/2024 2:14 PM Signed Sent message to provider for review and to advise. Harika Rondon MA Allergies As of Date: 04/11/2024 (No Known Allergies) Date Reviewed: 03/26/2024 Reviewed by: Julián Perez MA - Fully Assessed Reason for Visit: Orders [681] Cmt: See note Prescriptions as of 04/11/2024 - meloxicam (MOBIC) 15 mg tablet Take [...] daily thereafter. 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 [facility] Radiology Study observation (narrative) [facility] 03-30-2024 [facility] Telephone (NEURST) RENETTA LOPEZ ([id number]) 1955 F Date Time Provider Department 03/30/24 [...] 03/30/2024 Noted Resolved TEAR MED MENISC KNEE-CURRENT [[id number]] 01/31/2004 Encounter Status:Closed by HARIKA RONDON on 03/30/24 [facility] 03-28-2024 CNPN Telephone (NEURST) RENETTA LOPEZ ([id number]) 1955 F Date Time Provider Department 03/28/24 MELANI MATUTE NEUR During your visit today, we recorded the following information about you: Harika Rondon MA 03/28/2024 8:53 AM Signed Sent to scanning CT from [facility]. Harika Rondon MA Allergies As of [...] 03/28/2024 Noted Resolved TEAR MED MENISC KNEE-CURRENT [[id number]] 01/31/2004 Encounter Status:Closed by HARIKA RONDON on 03/28/24 [facility] CNCOon 03-26-2024 CNCO Letter Text [facility] CNOVon 03-26-2024 CNOV Office Visit (NEURST ) ELIDA LOPEZRENETTA ([id number]) 1955 F Date Time Provider Department 03/26/24 [...] recent (01/31/24) CT brain w from [facility] which showed only age related changes. With [...] normal. There were no involuntary movements. Coordination: Zauqux-vqyf-pdoils was normal. Finger and toe wiggling rapid [...] further evolution (more content not included)... Normal [facility] HISTORY PHYSICALon HISTORY PHYSICAL HNO ID: [id number] Author: MELANI MATUTE MD Service: ? Author [...] List is unpopulated. ====== Melani Matute MD [facility] HISTORY PHYSICAL HNO ID: [id number] Author: MELANI MATUTE MD Service: ? Author [...] recent (01/31/24) CT brain w from [facility] which showed only age related changes. With [...] normal. There were no involuntary movements. Coordination: Mamnhr-lhez-gngnhe was normal. Finger and toe wiggling rapid [...] the cause (more content not included)... Normal [facility] Urine Cultureon 11-21-2022 Bacteria identified Cx Nom (U) <9,000 colonies/ml mixed bacterial skin contaminants 1 Day PERFORMED BY: [place] [id number] PATHOLOGIST LABORATORY IMMUNOLOGIST DARYL SEVILLA M.D. Normal [facility] Comment on above: Performed By: #### C UU #### [address] CBC AUTO DIFFon 12-09-2021 BASO # 0.0 103/ul Normal 0.0-0.1 [facility] Comment on above: Performed By: #### V ITAD #### [facility] [address] [place] [address] Dr. Jonelle Trujillo Basophils/100 WBC (Bld) 0.5 % Normal 0.2-2.0 [facility] Comment on above: Performed By: #### V ITAD #### [facility] [address] [address] [address] Jonelle Trujillo EO # 0.1 103/ul Normal 0.0-0.7 [facility] Comment on above: Performed By: #### V ITAD #### [facility] [address] [place] [address] Dr. Jonelle Trujillo Eosinophils/100 WBC (Bld) 2.5 % Normal 0.9-7.0 [facility] Comment on above: Performed By: #### V ITAD #### [facility] [address] [place] [address] Dr. Jonelle Trujillo Erythrocyte distribution width (RBC) [Ratio] 13.4 % Normal 11.0-15.0 [facility] Comment on above: Performed By: #### V ITAD #### [facility] [address] [place] [address] Dr. Jonelle Trujillo Hematocrit (Bld) [Volume fraction] 33.4 % Critically low 36.0-48.0 [facility] Comment on above: Performed By: #### V ITAD #### [facility] [address] [place] [address] Dr. Jonelle Trujillo Hemoglobin (Bld) [Mass/Vol] 10.7 g/dL Critically low 12.0-16.0 [facility] Comment on above: Performed By: #### V ITAD #### [facility] [address] [place] [address] Dr. Jonelle Trujillo IG # 0.01 10e3/ul Normal 0.00-0.03 [facility] Comment on above: Performed By: #### V ITAD #### [facility] [address] [place] [address] Dr. Jonelle Trujillo IG % 0.2 % Normal 0.0-0.5 [facility] Comment on above: Performed By: #### V ITAD #### [facility] [address] [place] [address] Dr. Jonelle Trujillo LYMPH # 1.6 103/ul Normal 1.2-3.8 [facility] Comment on above: Performed By: #### V ITAD #### [facility] [address] [place] [address] Dr. Jonelle Trujillo Lymphocytes/100 WBC (Bld) 37.7 % Normal 20.5-60.0 [facility] Comment on above: Performed By: #### V ITAD #### [facility] [address] [place] [address] Dr. Jonelle Trujillo MANUAL DIFF REQ NO Normal [facility] Comment on above: Performed By: #### V ITAD #### [facility] [address] [place] [address] Dr. Jonelle Trujillo MCH (RBC) [Entitic mass] 28.4 pg Normal 26.7-34.0 [facility] Comment on above: Performed By: #### V ITAD #### [facility] [address] [place] [address] Dr. Jonelle Trujillo MCHC (RBC) [Mass/Vol] 32.0 g/dL Normal 29.9-35.2 [facility] Comment on above: Performed By: #### V ITAD #### [facility] [address] [place] [address] Dr. Jonelle Trujillo MCV (RBC) [Entitic vol] 88.6 fL Normal 81.0-99.0 [facility] Comment on above: Performed By: #### V ITAD #### [facility] [address] [place] [address] Dr. Jonelle Trujillo MONO # 0.5 103/ul Normal 0.3-0.8 [facility] Comment on above: Performed By: #### V ITAD #### [facility] [address] [place] [address] Dr. Jonelle Trujillo Monocytes/100 WBC (Bld) 12.3 % Critically high 1.7-12.0 [facility] Comment on above: Performed By: #### V ITAD #### [facility] [address] [place] [address] Dr. Jonelle Trujillo NEUT # 2.0 103/ul Normal 1.4-6.5 [facility] Comment on above: Performed By: #### V ITAD #### [facility] [address] [place] [address] Dr. Jonelle Trujillo Neutrophils/100 WBC (Bld) 46.8 % Normal 43.0-75.0 [facility] Comment on above: Performed By: #### V ITAD #### [facility] [address] [place] [address] Dr. Jonelle Trujillo Platelet mean volume (Bld) [Entitic vol] 10.5 fL Normal 9.5-13.5 [facility] Comment on above: Performed By: #### V ITAD #### [facility] [address] [address] [address] Jonelle Trujillo PLT 163 103/ul Normal 150-450 [facility] Comment on above: Performed By: #### V ITAD #### [facility] [address] [address] [address] Jonelle Trujillo RBC 3.77 106/ul Critically low 4.20-5.40 [facility] Comment on above: Performed By: #### V ITAD #### [facility] [address] [address] [address] Jonelle Trujillo WBC 4.3 103/ul Normal 4.0-11.0 [facility] Comment on above: Performed By: #### V ITAD #### [facility] [address] [place] [address] Dr. Jonelle Trujillo MAGNESIUMon 12-09-2021 Magnesium [Mass/Vol] 1.7 mg/dL Critically low 1.8-2.4 [facility] Comment on above: Performed By: #### C BC #### [facility] [address] [place] [address] Dr. Jonelle Trujillo PROF CHEM 8 (BAS METB)on Anion gap [Moles/Vol] 12.8 mmol/L Normal [facility] Comment on above: Performed By: #### B MP #### [facility] [address] [place] [address] Dr. Jonelle Trujillo Calcium [Mass/Vol] 8.8 mg/dL Normal 8.5-10.1 [facility] Comment on above: Performed By: #### B MP #### [facility] [address] [place] [address] Dr. Jonelle Trujillo Chloride [Moles/Vol] 107 mmol/L Normal 98-107 [facility] Comment on above: Performed By: #### B MP #### [facility] [address] [place] [address] Dr. Jonelle Trujillo CO2 [Moles/Vol] 24.5 mmol/L Normal 21.0-32.0 [facility] Comment on above: Performed By: #### B MP #### [facility] [address] [address] [address] Jonelle Trujillo Creatinine [Mass/Vol] 0.56 mg/dL Normal 0.55-1.02 [facility] Comment on above: Performed By: #### B MP #### [facility] [address] [address] [address] Jonelle Trujillo EGFR-AF NIGERIAN >60 Normal >=60 [facility] Comment on above: Performed By: #### B MP #### [facility] [address] [address] [address] Jonelle Trujillo EGFR-NON AF NIGERIAN >60 Normal >=60 [facility] Comment on above: Performed By: #### B MP #### [facility] [address] [address] [address] Jonelle Trujillo Glucose [Mass/Vol] 83 mg/dL Normal 74-106 [facility] Comment on above: Performed By: #### B MP #### [facility] [address] [address] [address] Jonelle Trujillo Potassium [Moles/Vol] 4.3 mmol/L Normal 3.5-5.1 [facility] Comment on above: Performed By: #### B MP #### [facility] [address] [address] [address] Jonelle Trujillo Sodium [Moles/Vol] 140 mmol/L Normal 136-145 [facility] Comment on above: Performed By: #### B MP #### [facility] [address] [address] [address] Jonelle Trujillo Urea nitrogen [Mass/Vol] 5.0 mg/dL Critically low 7.0-18.0 [facility] Comment on above: Performed By: #### B MP #### [facility] [address] [place] [address] Dr. Jonelle Trujillo Urea nitrogen/Creatinine [Mass ratio] 8.9 mg/mg Normal [facility] Comment on above: Performed By: #### B MP #### [facility] [address] [address] [address] Jonelle Trujillo CBC AUTO DIFFon 12-08-2021 BASO # 0.0 103/ul Normal 0.0-0.1 [facility] Comment on above: Performed By: #### C BC #### [facility] [address] [address] [address] Jonelle Trujillo Basophils/100 WBC (Bld) 0.4 % Normal 0.2-2.0 [facility] Comment on above: Performed By: #### C BC #### [facility] [address] [place] [address] Dr. Jonelle Trujillo EO # 0.1 103/ul Normal 0.0-0.7 [facility] Comment on above: Performed By: #### C BC #### [facility] [address] [place] [address] Dr. Jonelle Trujillo Eosinophils/100 WBC (Bld) 1.4 % Normal 0.9-7.0 [facility] Comment on above: Performed By: #### C BC #### [facility] [address] [place] [address] Dr. Jonelle Trujillo Erythrocyte distribution width (RBC) [Ratio] 13.9 % Normal 11.0-15.0 [facility] Comment on above: Performed By: #### C BC #### [facility] [address] [place] [address] Dr. Jonelle Trujillo Hematocrit (Bld) [Volume fraction] 32.4 % Critically low 36.0-48.0 [facility] Comment on above: Performed By: #### C BC #### [facility] [address] [place] [address] Dr. Jonelle Trujillo Hemoglobin (Bld) [Mass/Vol] 10.4 g/dL Critically low 12.0-16.0 [facility] Comment on above: Performed By: #### C BC #### [facility] [address] [place] [address] Dr. Jonelle Trujillo IG # 0.02 10e3/ul Normal 0.00-0.03 [facility] Comment on above: Performed By: #### C BC #### [facility] [address] [place] [address] Dr. Jonelle Trujillo IG % 0.4 % Normal 0.0-0.5 [facility] Comment on above: Performed By: #### C BC #### [facility] [address] [place] [address] Dr. Jonelle Trujillo LYMPH # 1.5 103/ul Normal 1.2-3.8 [facility] Comment on above: Performed By: #### C BC #### [facility] [address] [place] [address] Dr. Jonelle Trujillo Lymphocytes/100 WBC (Bld) 31.1 % Normal 20.5-60.0 [facility] Comment on above: Performed By: #### C BC #### [facility] [address] [place] [address] Dr. Jonelle Trujillo MANUAL DIFF REQ NO Normal [facility] Comment on above: Performed By: #### C BC #### [facility] [address] [place] [address] Dr. Jonelle Trujillo MCH (RBC) [Entitic mass] 28.6 pg Normal 26.7-34.0 [facility] Comment on above: Performed By: #### C BC #### [facility] [address] [place] [address] Dr. Jonelle Trujillo MCHC (RBC) [Mass/Vol] 32.1 g/dL Normal 29.9-35.2 [facility] Comment on above: Performed By: #### C BC #### [facility] [address] [place] [address] Dr. Jonelle Trujillo MCV (RBC) [Entitic vol] 89.0 fL Normal 81.0-99.0 [facility] Comment on above: Performed By: #### C BC #### [facility] [address] [place] [address] Dr. Jonelle Trujillo MONO # 0.7 103/ul Normal 0.3-0.8 [facility] Comment on above: Performed By: #### C BC #### [facility] [address] [place] [address] Dr. Jonelle Trujillo Monocytes/100 WBC (Bld) 13.3 % Critically high 1.7-12.0 [facility] Comment on above: Performed By: #### C BC #### [facility] [address] [place] [address] Dr. Jonelle Trujillo NEUT # 2.6 103/ul Normal 1.4-6.5 [facility] Comment on above: Performed By: #### C BC #### [facility] [address] [place] [address] Dr. Jonelle Trujillo Neutrophils/100 WBC (Bld) 53.4 % Normal 43.0-75.0 [facility] Comment on above: Performed By: #### C BC #### [facility] [address] [place] [address] Dr. Jonelle Trujillo Platelet mean volume (Bld) [Entitic vol] 10.0 fL Normal 9.5-13.5 [facility] Comment on above: Performed By: #### C BC #### [facility] [address] [place] [address] Dr. Jonelle Trujillo PLT 152 103/ul Normal 150-450 [facility] Comment on above: Performed By: #### C BC #### [facility] [address] [place] [address] Dr. Jonelle Trujillo RBC 3.64 106/ul Critically low 4.20-5.[address] [facility] Comment on above: Performed By: #### C BC #### [facility] [address] [place] [address] Dr. Jonelle Trujillo WBC 4.9 103/ul Normal 4.0-11.0 [facility] Comment on above: Performed By: #### C BC #### [facility] [address] [place] [address] Dr. Jonelle Trujillo PROF CHEM 8 (BAS METB)on Anion gap [Moles/Vol] 11.8 mmol/L Normal [facility] Comment on above: Performed By: #### C BC #### [facility] [address] [place] [address] Dr. Jonelle Trujillo Calcium [Mass/Vol] 8.4 mg/dL Critically low 8.5-10.1 [facility] Comment on above: Performed By: #### C BC #### [facility] [address] [address] [address] Jonelle Trujillo Chloride [Moles/Vol] 108 mmol/L Critically high 98-107 [facility] Comment on above: Performed By: #### C BC #### [facility] [address] [address] [address] Jonelle Trujillo CO2 [Moles/Vol] 24.3 mmol/L Normal 21.0-32.0 [facility] Comment on above: Performed By: #### C BC #### [facility] [address] [place] [address] Dr. Jonelle Trujillo Creatinine [Mass/Vol] 0.63 mg/dL Normal 0.55-1.02 [facility] Comment on above: Performed By: #### C BC #### [facility] [address] [place] [address] Dr. Jonelle Trujillo EGFR-AF NIGERIAN >60 Normal >=60 [facility] Comment on above: Performed By: #### C BC #### [facility] [address] [place] [address] Dr. Jonelle Trujillo EGFR-NON AF NIGERIAN >60 Normal >=60 [facility] Comment on above: Performed By: #### C BC #### [facility] [address] [place] [address] Dr. Jonelle Trujillo Glucose [Mass/Vol] 88 mg/dL Normal 74-106 [facility] Comment on above: Performed By: #### C BC #### [facility] [address] [place] [address] Dr. Jonelle Trujillo Potassium [Moles/Vol] 4.1 mmol/L Normal 3.5-5.1 [facility] Comment on above: Performed By: #### C BC #### [facility] [address] [place] [address] Dr. Jonelle Trujillo Sodium [Moles/Vol] 140 mmol/L Normal 136-145 [facility] Comment on above: Performed By: #### C BC #### [facility] [address] [address] [address] Jonelle Trujillo Urea nitrogen [Mass/Vol] 7.0 mg/dL Normal 7.0-18.0 [facility] Comment on above: Performed By: #### C BC #### [facility] [address] [address] [address] Jonelle Trujillo Urea nitrogen/Creatinine [Mass ratio] 11.1 mg/mg Normal [facility] Comment on above: Performed By: #### C BC #### [facility] [address] [place] [address] Dr. Jonelle Trujillo CBC AUTO DIFFon 12-07-2021 BASO # 0.0 103/ul Normal 0.0-0.1 [facility] Comment on above: Performed By: #### C BC #### [facility] [address] [place] [address] Dr. Jonelle Trujillo Basophils/100 WBC (Bld) 0.4 % Normal 0.2-2.0 [facility] Comment on above: Performed By: #### C BC #### [facility] [address] [place] [address] Dr. Jonelle Trujillo EO # 0.0 103/ul Normal 0.0-0.7 [facility] Comment on above: Performed By: #### C BC #### [facility] [address] [place] [address] Dr. Jonelle Trujillo Eosinophils/100 WBC (Bld) 0.0 % Critically low 0.9-7.0 [facility] Comment on above: Performed By: #### C BC #### [facility] [address] [place] [address] Dr. Jonelle Trujillo Erythrocyte distribution width (RBC) [Ratio] 13.5 % Normal 11.0-15.0 [facility] Comment on above: Performed By: #### C BC #### [facility] [address] [place] [address] Dr. Jonelle Trujillo Hematocrit (Bld) [Volume fraction] 37.4 % Normal 36.0-48.0 [facility] Comment on above: Performed By: #### C BC #### [facility] [address] [address] [address] Jonelle Trujillo Hemoglobin (Bld) [Mass/Vol] 12.2 g/dL Normal 12.0-16.0 [facility] Comment on above: Performed By: #### C BC #### [facility] [address] [place] [address] Dr. Jonelle Trujillo IG # 0.01 10e3/ul Normal 0.00-0.03 [facility] Comment on above: Performed By: #### C BC #### [facility] [address] [place] [address] Dr. Jonelle Trujillo IG % 0.2 % Normal 0.0-0.5 [facility] Comment on above: Performed By: #### C BC #### [facility] [address] [place] [address] Dr. Jonelle Trujillo LYMPH # 0.9 103/ul Critically low 1.2-3.8 [facility] Comment on above: Performed By: #### C BC #### [facility] [address] [place] [address] Dr. Jonelle Trujillo Lymphocytes/100 WBC (Bld) 16.4 % Critically low 20.5-60.0 [facility] Comment on above: Performed By: #### C BC #### [facility] [address] [place] [address] Dr. Jonelle Trujillo MANUAL DIFF REQ NO Normal [facility] Comment on above: Performed By: #### C BC #### [facility] [address] [place] [address] Dr. Jonelle Trujillo MCH (RBC) [Entitic mass] 28.6 pg Normal 26.7-34.0 [facility] Comment on above: Performed By: #### C BC #### [facility] [address] [place] [address] Dr. Jonelle Trujillo MCHC (RBC) [Mass/Vol] 32.6 g/dL Normal 29.9-35.2 [facility] Comment on above: Performed By: #### C BC #### [facility] [address] [address] [address] Jonelle Trujillo MCV (RBC) [Entitic vol] 87.8 fL Normal 81.0-99.0 [facility] Comment on above: Performed By: #### C BC #### [facility] [address] [address] [address] Jonelle Trujillo MONO # 0.5 103/ul Normal 0.3-0.8 [facility] Comment on above: Performed By: #### C BC #### [facility] [address] [address] [address] Jonelle Trujillo Monocytes/100 WBC (Bld) 9.7 % Normal 1.7-12.0 [facility] Comment on above: Performed By: #### C BC #### [facility] [address] [address] [address] Jonelle Trujillo NEUT # 4.0 103/ul Normal 1.4-6.5 [facility] Comment on above: Performed By: #### C BC #### [facility] [address] [address] [address] Jonelle Trujillo Neutrophils/100 WBC (Bld) 73.3 % Normal 43.0-75.0 [facility] Comment on above: Performed By: #### C BC #### [facility] [address] [address] [address] Jonelle Trujillo Platelet mean volume (Bld) [Entitic vol] 9.8 fL Normal 9.5-13.5 [facility] Comment on above: Performed By: #### C BC #### [facility] [address] [address] [address] Jonelle Trujillo PLT 144 103/ul Critically low 150-450 [facility] Comment on above: Performed By: #### C BC #### [facility] [address] [address] [address] Jonelle Trujillo RBC 4.26 106/ul Normal 4.20-5.40 [facility] Comment on above: Performed By: #### C BC #### [facility] [address] [place] [address] Dr. Jonelle Trujillo WBC 5.5 103/ul Normal 4.0-11.0 [facility] Comment on above: Performed By: #### C BC #### [facility] [address] [place] [address] Dr. Jonelle Trujillo Covid-19 PCR (CVDTB)on SARS-CoV-2 (COVID-19) RNA MARCIA+probe Ql (Unsp spec) Not detected Normal NOT DETECTED [facility] Comment on above: Result Comment: When [...] for this test is supported by the [place] of Health and Human Service's declaration that [...] used). Performed By: #### C VDTBH #### [facility] [address] [place] [address] Dr. Jonelle Trujillo GI PANEL (PCR)on 12-07-2021 Adenovirus F 40/41 Not detected Normal NOT DETECTED [facility] Comment on above: Performed By: #### C BC #### [facility] [address] [place] [address] Dr. Jonelle Trujillo Astrovirus Not detected Normal NOT DETECTED [facility] Comment on above: Performed By: #### C BC #### [facility] [address] [place] [address] Dr. Jonelle Trujillo C. Diff toxin A/B Not detected Normal NOT DETECTED [facility] Comment on above: Performed By: #### C BC #### [facility] [address] [address] [address] Jonelle Trujillo Campylobacter Detected Critically abnormal NOT DETECTED [facility] Comment on above: Performed By: #### C BC #### [facility] [address] [address] [address] Jonelle Trujillo Cryptosporidium Not detected Normal NOT DETECTED [facility] Comment on above: Performed By: #### C BC #### [facility] [address] [address] [address] Jonelle Trujillo Cyclos. Cayetanensis Not detected Normal NOT DETECTED [facility] Comment on above: Performed By: #### C BC #### [facility] [address] [place] [address] Dr. Jonelle Trujillo E. Coli O157 Not Applicable Normal Not Applicable [facility] Comment on above: Performed By: #### C BC #### [facility] [address] [place] [address] Dr. Jonelle Trujillo E. histolytica Not detected Normal NOT DETECTED [facility] Comment on above: Performed By: #### C BC #### [facility] [address] [place] [address] Dr. Jonelle Trujillo EAEC Not detected Normal NOT DETECTED [facility] Comment on above: Performed By: #### C BC #### [facility] [address] [place] [address] Dr. Jonelle Trujillo EIEC Not detected Normal NOT DETECTED [facility] Comment on above: Performed By: #### C BC #### [facility] [address] [place] [address] Dr. Jonelle Trujillo EPEC Not detected Normal NOT DETECTED [facility] Comment on above: Performed By: #### C BC #### [facility] [address] [place] [address] Dr. Jonelle Trujillo ETEC Not detected Normal NOT DETECTED [facility] Comment on above: Performed By: #### C BC #### [facility] [address] [place] [address] Dr. Jonelle Trujillo G. Lamblia Not detected Normal NOT DETECTED [facility] Comment on above: Performed By: #### C BC #### [facility] [address] [address] [address] Jonelle MULLIGAN CONTROLS PASSED Normal [facility] Comment on above: Performed By: #### C BC #### [facility] [address] [address] [address] Jonelle [facility] GI PANEL BACTERIA Normal [facility] Comment on above: Performed By: #### C BC #### [facility] [address] [address] [address] Jonelle POWELL ECOLI GI PANEL DIARRHEAGEN IC E.COLI / SHIGELLA Normal [facility] Comment on above: Performed By: #### C BC #### [facility] [address] [place] [address] Dr. Jonelle POWELL INFO SEE BELOW Normal [facility] Comment on above: Result Comment: EAEC - Enteroaggregative E. Coli EPEC- Enteropathogenic E. Coli ETEC- Enterotoxigenic E. Coli lt/st STEC- Shigella-like toxin-producing E. Coli stx1/stx2 EIEC- Shigella/Enteroinvasive E. Coli Performed By: #### C BC #### [facility] [address] [place] [address] Dr. Jonelle POWELL PARASITES GI PANEL PARASITES Normal [facility] Comment on above: Performed By: #### C BC #### [facility] [address] [address] [address] Jonelle POWELL VIRUS GI PANEL VIRUSES Normal [facility] Comment on above: Performed By: #### C BC #### [facility] [address] [address] [address] Jonelle Trujillo Norovirus GI/GII Not detected Normal NOT DETECTED [facility] Comment on above: Performed By: #### C BC #### [facility] [address] [address] [address] Jonelle Trujillo P. Shigelloides Not detected Normal NOT DETECTED [facility] Comment on above: Performed By: #### C BC #### [facility] [address] [place] [address] Dr. Jonelle Trujillo Rotavirus A Not detected Normal NOT DETECTED [facility] Comment on above: Performed By: #### C BC #### [facility] [address] [place] [address] Dr. Jonelle Trujillo Salmonella Not detected Normal NOT DETECTED [facility] Comment on above: Performed By: #### C BC #### [facility] [address] [place] [address] Dr. Jonelle Trujillo Sapovirus Not detected Normal NOT DETECTED [facility] Comment on above: Performed By: #### C BC #### [facility] [address] [place] [address] Dr. Jonelle Trujillo STEC Not detected Normal NOT DETECTED [facility] Comment on above: Performed By: #### C BC #### [facility] [address] [place] [address] Dr. Jonelle Trujillo Vibrio Not detected Normal NOT DETECTED [facility] Comment on above: Performed By: #### C BC #### [facility] [address] [place] [address] Dr. Jonelle Trujillo Vibrio Cholera Not detected Normal NOT DETECTED [facility] Comment on above: Performed By: #### C BC #### [facility] [address] [place] [address] Dr. Jonelle Trujillo Y. Enterocolitica Not detected Normal NOT DETECTED [facility] Comment on above: Performed By: #### C BC #### [facility] [address] [place] [address] Dr. Jonelle Trujillo PROF 14(COMP METB)on 022 Albumin [Mass/Vol] 2.7 g/dL Critically low 3.4-5.0 [facility] Comment on above: Performed By: #### C BC #### [facility] [address] [place] [address] Dr. Jonelle Trujillo Albumin/Globulin [Mass ratio] 0.8 {ratio} Normal [facility] Comment on above: Performed By: #### C BC #### [facility] [address] [place] [address] Dr. Jonelle Trujillo ALP [Catalytic activity/Vol] 57 U/L Normal 46-116 [facility] Comment on above: Performed By: #### C BC #### [facility] [address] [address] [address] Jonelle Trujillo ALT [Catalytic activity/Vol] 30 U/L Normal 14-59 [facility] Comment on above: Performed By: #### C BC #### [facility] [address] [place] [address] Dr. Jonelle Trujillo Anion gap [Moles/Vol] 11.5 mmol/L Normal [facility] Comment on above: Performed By: #### C BC #### [facility] [address] [place] [address] Dr. Jonelle Trujillo AST [Catalytic activity/Vol] 25 U/L Normal 15-37 [facility] Comment on above: Performed By: #### C BC #### [facility] [address] [place] [address] Dr. Jonelle Trujillo Bilirubin [Mass/Vol] 0.3 mg/dL Normal 0.2-1.0 [facility] Comment on above: Performed By: #### C BC #### [facility] [address] [place] [address] Dr. Jonelle Trujillo Calcium [Mass/Vol] 8.0 mg/dL Critically low 8.5-10.1 [facility] Comment on above: Performed By: #### C BC #### [facility] [address] [place] [address] Dr. Jonelle Trujillo Chloride [Moles/Vol] 107 mmol/L Normal 98-107 [facility] Comment on above: Performed By: #### C BC #### [facility] [address] [place] [address] Dr. Jonelle Trujillo CO2 [Moles/Vol] 26.2 mmol/L Normal 21.0-32.0 [facility] Comment on above: Performed By: #### C BC #### [facility] [address] [place] [address] Dr. Jonelle Trujillo Creatinine [Mass/Vol] 0.67 mg/dL Normal 0.55-1.02 [facility] Comment on above: Performed By: #### C BC #### [facility] [address] [place] [address] Dr. Jonelle Trujillo EGFR-AF NIGERIAN >60 Normal >=60 [facility] Comment on above: Performed By: #### C BC #### [facility] [address] [address] [address] Jonelle Trujillo EGFR-NON AF NIGERIAN >60 Normal >=60 [facility] Comment on above: Performed By: #### C BC #### [facility] [address] [place] [address] Dr. Jonelle Trujillo Globulin (S) [Mass/Vol] 3.2 g/dL Normal [facility] Comment on above: Performed By: #### C BC #### [facility] [address] [place] [address] Dr. Jonelle Trujillo Glucose [Mass/Vol] 90 mg/dL Normal 74-106 [facility] Comment on above: Performed By: #### C BC #### [facility] [address] [place] [address] Dr. Jonelle Trujillo Potassium [Moles/Vol] 3.7 mmol/L Normal 3.5-5.1 [facility] Comment on above: Performed By: #### C BC #### [facility] [address] [place] [address] Dr. Jonelle Trujillo Protein [Mass/Vol] 5.9 g/dL Critically low 6.4-8.2 [facility] Comment on above: Performed By: #### C BC #### [facility] [address] [place] [address] Dr. Jonelle Trujillo Sodium [Moles/Vol] 141 mmol/L Normal 136-145 [facility] Comment on above: Performed By: #### C BC #### [facility] [address] [place] [address] Dr. Jonelle Trujillo Urea nitrogen [Mass/Vol] 8.0 mg/dL Normal 7.0-18.0 [facility] Comment on above: Performed By: #### C BC #### [facility] [address] [place] [address] Dr. Jonelle Trujillo Urea nitrogen/Creatinine [Mass ratio] 11.9 mg/mg Normal [facility] Comment on above: Performed By: #### C BC #### [facility] [address] [place] [address] Dr. Jonelle Trujillo VITAMIN D 25 OHon 12-07-2021 VIT D 25-OH 27.8 ng/mL Normal [facility] Comment on above: Performed By: #### V ITAD #### [facility] [address] [place] [address] Dr. Jonelle Trujillo VIT D RANGES SEE BELOW Normal [facility] Comment on above: Result Comment: <20 ng/mL Vit D deficient 20 - <30 ng/mL Vit D insufficient 30 - 100 ng/mL Vit D sufficient >100 ng/mL Potential Toxicity Performed By: #### V ITAD #### [facility] [address] [place] [address] Dr. Jonelle Trujillo BNPon 12-06-2021 Natriuretic peptide B (Bld) [Mass/Vol] 336.0 pg/mL Normal <=900.0 [facility] Comment on above: Performed By: #### C MP, BNP, HSTROPN #### [facility] [address] [place] [address] Dr. Jonelle Trujillo CBC AUTO DIFFon 12-06-2021 BASO # 0.0 103/ul Normal 0.0-0.1 [facility] Comment on above: Performed By: #### V ITAD #### [facility] [address] [place] [address] Dr. Jonelle Trujillo Basophils/100 WBC (Bld) 0.2 % Normal 0.2-2.0 [facility] Comment on above: Performed By: #### V ITAD #### [facility] [address] [place] [address] Dr. Jonelle Trujillo EO # 0.0 103/ul Normal 0.0-0.7 [facility] Comment on above: Performed By: #### V ITAD #### [facility] [address] [place] [address] Dr. Jonelle Trujillo Eosinophils/100 WBC (Bld) 0.0 % Critically low 0.9-7.0 [facility] Comment on above: Performed By: #### V ITAD #### [facility] [address] [place] [address] Dr. Jonelle Trujillo Erythrocyte distribution width (RBC) [Ratio] 13.2 % Normal 11.0-15.0 [facility] Comment on above: Performed By: #### V ITAD #### [facility] [address] [place] [address] Dr. Jonelle Trujillo Hematocrit (Bld) [Volume fraction] 41.2 % Normal 36.0-48.0 [facility] Comment on above: Performed By: #### V ITAD #### [facility] [address] [place] [address] Dr. Jonelle Trujillo Hemoglobin (Bld) [Mass/Vol] 13.7 g/dL Normal 12.0-16.0 [facility] Comment on above: Performed By: #### V ITAD #### [facility] [address] [place] [address] Dr. Jonelle Trujillo IG # 0.02 10e3/ul Normal 0.00-0.03 [facility] Comment on above: Performed By: #### V ITAD #### [facility] [address] [place] [address] Dr. Jonelle Trujillo IG % 0.2 % Normal 0.0-0.5 [facility] Comment on above: Performed By: #### V ITAD #### [facility] [address] [place] [address] Dr. Jonelle Trujillo LYMPH # 0.9 103/ul Critically low 1.2-3.8 [facility] Comment on above: Performed By: #### V ITAD #### [facility] [address] [place] [address] Dr. Jonelle Trujillo Lymphocytes/100 WBC (Bld) 9.6 % Critically low 20.5-60.0 [facility] Comment on above: Performed By: #### V ITAD #### [facility] [address] [place] [address] Dr. Jonelle Trujillo MANUAL DIFF REQ NO Normal [facility] Comment on above: Performed By: #### V ITAD #### [facility] [address] [place] [address] Dr. Jonelle Trujillo MCH (RBC) [Entitic mass] 28.5 pg Normal 26.7-34.0 [facility] Comment on above: Performed By: #### V ITAD #### [facility] [address] [place] [address] Dr. Jonelle Trujillo MCHC (RBC) [Mass/Vol] 33.3 g/dL Normal 29.9-35.2 [facility] Comment on above: Performed By: #### V ITAD #### [facility] [address] [place] [address] Dr. Jonelle Trujillo MCV (RBC) [Entitic vol] 85.7 fL Normal 81.0-99.0 [facility] Comment on above: Performed By: #### V ITAD #### [facility] [address] [place] [address] Dr. Jonelle Trujillo MONO # 0.8 103/ul Normal 0.3-0.8 [facility] Comment on above: Performed By: #### V ITAD #### [facility] [address] [place] [address] Dr. Jonelle Trujillo Monocytes/100 WBC (Bld) 9.0 % Normal 1.7-12.0 [facility] Comment on above: Performed By: #### V ITAD #### [facility] [address] [place] [address] Dr. Jonelle Trujillo NEUT # 7.3 103/ul Critically high 1.4-6.5 [facility] Comment on above: Performed By: #### V ITAD #### [facility] [address] [place] [address] Dr. Jonelle Trujillo Neutrophils/100 WBC (Bld) 81.0 % Critically high 43.0-75.0 [facility] Comment on above: Performed By: #### V ITAD #### [facility] [address] [place] [address] Dr. Jonelle Trujillo Platelet mean volume (Bld) [Entitic vol] 10.0 fL Normal 9.5-13.5 [facility] Comment on above: Performed By: #### V ITAD #### [facility] [address] [place] [address] Dr. Jonelle Trujillo PLT 163 103/ul Normal 150-450 [facility] Comment on above: Performed By: #### V ITAD #### [facility] [address] [place] [address] Dr. Jonelle Trujillo RBC 4.81 106/ul Normal 4.20-5.40 [facility] Comment on above: Performed By: #### V ITAD #### [facility] [address] [place] [address] Dr. Jonelle Trujillo WBC 9.0 103/ul Normal 4.0-11.0 [facility] Comment on above: Performed By: #### V ITAD #### [facility] [address] [place] [address] Dr. Jonelle Trujillo CULTURE BLOODon 12-06-2021 Microscopic examination of blood, culture Culture Observations: NO GROWTH AT 5 DAYS. Normal [facility] Comment on above: Performed By: #### C BC #### [facility] [address] [place] [address] Dr. Jonelle Trujillo Microscopic examination of blood, culture Culture Observations: NO GROWTH AT 5 DAYS. Normal [facility] Comment on above: Performed By: #### C BC #### [facility] [address] [place] [address] Dr. Jonelle Trujillo FREE T3on 12-06-2021 FREE T3 1.70 pg/mlL Critically low 2.18-3.98 [facility] Comment on above: Performed By: #### F T3 #### [facility] [address] [place] [address] Dr. Jonelle Trujillo FREE T4on 12-06-2021 Free T4 [Mass/Vol] 1.24 ng/dL Normal 0.76-1.46 [facility] Comment on above: Performed By: #### C BC #### [facility] [address] [place] [address] Dr. Jonelle Trujillo LACTATE/LACTIC ACIDon 2021 Lactate [Moles/Vol] 1.5 mmol/L Normal 0.4-1.9 [facility] Comment on above: Performed By: #### C BC #### [facility] [address] [place] [address] Dr. Jonelle Trujillo MAGNESIUMon 12-06-2021 Magnesium [Mass/Vol] 1.6 mg/dL Critically low 1.8-2.4 [facility] Comment on above: Performed By: #### M G #### [facility] [address] [place] [address] Dr. Jonelle Trujillo PROF 14(COMP METB)on 022 Albumin [Mass/Vol] 3.3 g/dL Critically low 3.4-5.0 [facility] Comment on above: Performed By: #### C MP, BNP, HSTROPN #### [facility] [address] [place] [address] Dr. Jonelle Trujillo Albumin/Globulin [Mass ratio] 0.8 {ratio} Normal [facility] Comment on above: Performed By: #### C MP, BNP, HSTROPN #### [facility] [address] [place] [address] Dr. Jonelle Trujillo ALP [Catalytic activity/Vol] 71 U/L Normal 46-116 [facility] Comment on above: Performed By: #### C MP, BNP, HSTROPN #### [facility] [address] [place] [address] Dr. Jonelle Trujillo ALT [Catalytic activity/Vol] 33 U/L Normal 14-59 [facility] Comment on above: Performed By: #### C MP, BNP, HSTROPN #### [facility] [address] [place] [address] Dr. Jonelle Trujillo Anion gap [Moles/Vol] 15.2 mmol/L Normal [facility] Comment on above: Performed By: #### C MP, BNP, HSTROPN #### [facility] [address] [place] [address] Dr. Jonelle Trujillo AST [Catalytic activity/Vol] 32 U/L Normal 15-37 [facility] Comment on above: Performed By: #### C MP, BNP, HSTROPN #### [facility] [address] [place] [address] Dr. Jonelle Trujillo Bilirubin [Mass/Vol] 0.4 mg/dL Normal 0.2-1.0 [facility] Comment on above: Performed By: #### C MP, BNP, HSTROPN #### [facility] [address] [place] [address] Dr. Jonelle Trujillo Calcium [Mass/Vol] 9.1 mg/dL Normal 8.5-10.1 [facility] Comment on above: Performed By: #### C MP, BNP, HSTROPN #### [facility] [address] [place] [address] Dr. Jonelle Trujillo Chloride [Moles/Vol] 97 mmol/L Critically low 98-107 [facility] Comment on above: Performed By: #### C MP, BNP, HSTROPN #### [facility] [address] [place] [address] Dr. Jonelle Trujillo CO2 [Moles/Vol] 26.5 mmol/L Normal 21.0-32.0 [facility] Comment on above: Performed By: #### C MP, BNP, HSTROPN #### [facility] [address] [place] [address] Dr. Jonelle Trujillo Creatinine [Mass/Vol] 0.85 mg/dL Normal 0.55-1.02 [facility] Comment on above: Performed By: #### C MP, BNP, HSTROPN #### [facility] [address] [place] [address] Dr. Jonelle Trujillo EGFR-AF NIGERIAN >60 Normal >=60 [facility] Comment on above: Performed By: #### C MP, BNP, HSTROPN #### [facility] [address] [place] [address] Dr. Jonelle Trujillo EGFR-NON AF NIGERIAN >60 Normal >=60 [facility] Comment on above: Performed By: #### C MP, BNP, HSTROPN #### [facility] [address] [address] [address] Jonelle Trujillo Globulin (S) [Mass/Vol] 3.9 g/dL Normal [facility] Comment on above: Performed By: #### C MP, BNP, HSTROPN #### [facility] [address] [address] [address] Jonelle Trujillo Glucose [Mass/Vol] 115 mg/dL Critically high 74-106 [facility] Comment on above: Performed By: #### C MP, BNP, HSTROPN #### [facility] [address] [place] [address] Dr. Jonelle Trujillo Potassium [Moles/Vol] 2.7 mmol/L Critically low 3.5-5.1 [facility] Comment on above: Performed By: #### C MP, BNP, HSTROPN #### [facility] [address] [place] [address] Dr. Jonelle Trujillo Protein [Mass/Vol] 7.2 g/dL Normal 6.4-8.2 [facility] Comment on above: Performed By: #### C MP, BNP, HSTROPN #### [facility] [address] [place] [address] Dr. Jonelle Trujillo Sodium [Moles/Vol] 135 mmol/L Critically low 136-145 [facility] Comment on above: Performed By: #### C MP, BNP, HSTROPN #### [facility] [address] [place] [address] Dr. Jonelle Trujillo Urea nitrogen [Mass/Vol] 10.0 mg/dL Normal 7.0-18.0 [facility] Comment on above: Performed By: #### C MP, BNP, HSTROPN #### [facility] [address] [place] [address] Dr. Jonelle Trujillo Urea nitrogen/Creatinine [Mass ratio] 11.8 mg/mg Normal [facility] Comment on above: Performed By: #### C MP, BNP, HSTROPN #### [facility] [address] [address] [address] Jonelle Trujillo TROPONIN, HIGH SENSITIVITYon 12-06-2021 HSTROP 13.1 pg/mL Normal 4.0-51.3 [facility] Comment on above: Result Comment: CUT- OFF POINTS HAVE BEEN ESTABLISHED BASED ON THE FOURTH UNIVERSAL DEFINITIONS OF MYOCARDIAL INFARCTION. THE UPPER REFERENCE LIMIT (URL) OF TROPONIN, DEFINED THE 99TH PERCENTILE OF cTnI DISTRIBUTION IN A REFERENCE POPULATION, HAS BEEN CONFIRMED THE DECISION THRESHOLD FOR CT DIAGNOSIS. Performed By: #### C MP, BNP, HSTROPN #### [facility] [address] [place] [address] Dr. Jonelle Trujillo TSHon 12-06-2021 TSH 0.788 uIU/mL Normal 0.358-3.740 [facility] Comment on above: Performed By: #### V ITAD #### [facility] [address] [address] [address] Jonelle Trujillo XR CHEST 1 Von [...] by: SARAH HAIDER Date: 2021-12-06 21:58 Normal [facility] COVID-19, NAAon 11-26-2019 COVID-19, MARCIA Not Detected Normal Not Detect [facility] Comment on above: Result Comment: This test was developed and its performance characteristics determined by [employer]. This test has not been FDA cleared [...] detected) result in this assay. Performed at: [employer] [facility] [address] [facility], [place], [place] [id number] [employer] Bench: Cathryn Patel MD, Phone: [phone] Performed By: #### I RCOV #### [facility] [address] [place] [address] COVID-19, NAAon 11-23-2019 Source Swab OP swab Normal [facility] Comment on above: Performed By: #### I RCOV #### [facility] [address] [place] [address] EKG 12 Leadon 11-21-2019 Atrial Rate 64 BPM [facility] [place] P [place] 25 degrees [facility] [place] P-R Interval 162 ms [facility] [place] Q-T Interval 418 ms [facility] [place] QRS Duration 90 ms [facility] [place] QTc Calculation (Bazett) 431 ms [facility] [place] R [place] 12 degrees [facility] [place] T [place] 6 degrees [facility] [place] Ventricular Rate 64 BPM [facility] [place] Normal sinus rhythm Moderate voltage criteria for LVH, may be normal variant Borderline ECG No previous ECGs available Confirmed by Porfirio Silverman () on 11/21/2019 11:18:56 AM [facility] [place] Carlito, Chpo Incoming Results From [facility] - 11/21/2019 11:19 AM EDT Normal sinus rhythm Moderate voltage criteria for LVH, may be normal variant Borderline ECG No previous ECGs available Confirmed by Porfirio Silverman () on 11/21/2019 11:18:56 AM [place], [place] Basic Metabolic Panelon 06- Anion gap [Moles/Vol] 14 mmol/L Normal 9-15 [facility] Comment on above: Performed By: #### B MP #### [facility] [address] [place] [address] Calcium [Mass/Vol] 9.9 mg/dL Normal 8.5-9.9 [facility] Comment on above: Performed By: #### B MP #### [facility] [address] [place] [address] Chloride [Moles/Vol] 102 mmol/L Normal 95-107 [facility] Comment on above: Performed By: #### B MP #### [facility] [address] [place] [address] CO2 [Moles/Vol] 26 mmol/L Normal 20-31 [facility] Comment on above: Performed By: #### B MP #### [facility] [address] [place] [address] Creatinine [Mass/Vol] 0.58 mg/dL Normal 0.50-0.90 [facility] Comment on above: Performed By: #### B MP #### [facility] [address] [place] [address] GFR/1.73 sq M predicted among blacks MDRD (S/P/Bld) [Vol rate/Area] mL/min/{1.73_m2} Normal >60 [facility] Comment on above: Result Comment: >60 mL/min/1.73m2 EGFR, calc. for ages 18 and older using the MDRD formula (not corrected for weight), is valid for stable renal function. Performed By: #### B MP #### [facility] [address] [place] [address] GFR/1.73 sq M.predicted MDRD (S/P/Bld) [Vol rate/Area] mL/min/{1.73_m2} Normal >60 [facility] Comment on above: Result Comment: >60 mL/min/1.73m2 EGFR, calc. for ages 18 and older using the MDRD formula (not corrected for weight), is valid for stable renal function. Performed By: #### B MP #### [facility] [address] [place] [address] Glucose [Mass/Vol] 75 mg/dL Normal 70-99 [facility] Comment on above: Performed By: #### B MP #### [facility] [address] [place] [address] Potassium [Moles/Vol] 3.8 mmol/L Normal 3.4-4.9 [facility] Comment on above: Performed By: #### B MP #### [facility] [address] [place] [address] Sodium [Moles/Vol] 142 mmol/L Normal 135-144 [facility] Comment on above: Performed By: #### B MP #### [facility] [address] [place] [address] Urea nitrogen [Mass/Vol] 16 mg/dL Normal 8-23 [facility] Comment on above: Performed By: #### B MP #### [facility] [address] [place] [address] Anion gap [Moles/Vol] 14 mmol/L [facility], [place] Calcium [Mass/Vol] 9.9 mg/dL 8.5 - 9.9 mg/dL [facility] Chloride [Moles/Vol] 102 mmol/L [facility] CO2 [Moles/Vol] 26 mmol/L [facility] Creatinine [Mass/Vol] 0.58 mg/dL 0.5 - 0.9 mg/dL [facility] GFR >60.0 >60 [place], [place] Comment on above: >60 mL/min/1.73m2 EG FR, calc. for ages 18 and older using the MDRD formula (not corrected for weight), is valid for stable renal function. GFR Non- >60.0 >60 [facility] [place] Comment on above: >60 mL/min/1.73m2 EG FR, calc. for ages 18 and older using the MDRD formula (not corrected for weight), is valid for stable renal function. Glucose [Mass/Vol] 75 mg/dL 70 - 99 mg/dL [place], [place] Potassium [Moles/Vol] 3.8 mmol/L [place] Sodium [Moles/Vol] 142 mmol/L [place] Urea nitrogen [Mass/Vol] 16 mg/dL 8 - 23 mg/dL [place] CBCon 11-18-2019 Erythrocyte distribution width (RBC) [Ratio] 14.1 % 11.5 - 14.5 % [place] Hematocrit (Bld) [Volume fraction] 41.9 % 37 - 47 % [place] Hemoglobin (Bld) [Mass/Vol] 13.5 g/dL 12 - 16 g/dL [place] Interpretation and review of laboratory results Abnormal [place] MCH (RBC) [Entitic mass] 28.6 pg 27 - 31.3 pg [place] MCHC (RBC) [Mass/Vol] 32.4 % Low 33 - 37 % [place] MCV (RBC) [Entitic vol] 88.3 fL 82 - 100 fL [place] Platelets (Bld) [#/Vol] 226 10*3/uL 130 - 400 K/uL [place] RBC (Bld) [#/Vol] 4.74 10*6/uL [place] WBC (Bld) [#/Vol] 6.6 10*3/uL 4.8 - 10.8 K/uL [place] CBC With Platelet No Differe ntialon 11-18-2019 Erythrocyte distribution width (RBC) [Ratio] 14.1 % Normal 11.5-14.5 [facility] Comment on above: Performed By: #### C BCND #### [facility] [address] [place] [address] Hematocrit (Bld) [Volume fraction] 41.9 % Normal 37.0-47.0 [facility] Comment on above: Performed By: #### C BCND #### [facility] [address] [place] [address] Hemoglobin (Bld) [Mass/Vol] 13.5 g/dL Normal 12.0-16.0 [facility] Comment on above: Performed By: #### C BCND #### [facility] [address] [place] [address] MCH (RBC) [Entitic mass] 28.6 pg Normal 27.0-31.3 [facility] Comment on above: Performed By: #### C BCND #### [facility] [address] [place] [address] MCHC (RBC) [Mass/Vol] 32.4 % Low 33.0-37.0 [facility] Comment on above: Performed By: #### C BCND #### [facility] [address] [place] [address] MCV (RBC) [Entitic vol] 88.3 fL Normal 82.0-100.0 [facility] Comment on above: Performed By: #### C BCND #### [facility] [address] [place] [address] Platelets (Bld) [#/Vol] 226 10*3/uL Normal 130-400 [facility] Comment on above: Performed By: #### C BCND #### [facility] [address] [place] [address] RBC (Bld) [#/Vol] 4.74 10*6/uL Normal 4.20-5.40 [facility] Comment on above: Performed By: #### C BCND #### [facility] [address] [place] [address] WBC (Bld) [#/Vol] 6.6 10*3/uL Normal 4.8-10.8 [facility] Comment on above: Performed By: #### C BCND #### [facility] [address] [place] [address] Vital Signs Date Time Vital Sign Value Performing Clinician Facility 02-07-2025 14:12-0400 Body height 157.5 cm Griselda Hemmer PA Work Phone: [facility] 02-07-2025 14:12-0400 Body mass index (BMI) [Ratio] 32.08 kg/m2 Griselda Hemmer PA Work Phone: [facility] 02-07-2025 14:12-0400 Body weight 79.56 kg Griselda Hemmer PA Work Phone: [facility] 02-07-2025 14:12-0400 Diastolic blood pressure 72 mm[Hg] Griselda Hemmer PA Work Phone: [facility] 02-07-2025 14:12-0400 Heart rate 61 /min Griselda Hemmer PA Work Phone: [facility] 02-07-2025 14:12-0400 Respiratory rate 16 /min Griselda Hemmer PA Work Phone: [facility] 02-07-2025 14:12-0400 SaO2% (BldA) [Mass fraction] 95 % Griselda Hemmer PA Work Phone: [facility] 02-07-2025 14:12-0400 Systolic blood pressure 128 mm[Hg] Griselda Hemmer PA Work Phone: [facility] 01-26-2025 08:50-0400 Body height 158.8 cm Madiha Patrick DPM Work Phone: [facility] 01-26-2025 08:50-0400 Body mass index (BMI) [Ratio] 30.42 kg/m2 Madiha Patrick DPM Work Phone: [facility] 01-26-2025 08:50-0400 Body weight 76.66 kg Madiha Patrick DPM Work Phone: [facility] 01-10-2025 11:34-0400 Body height 157.5 cm Daly Grant NP Work Phone: [facility] 01-10-2025 11:34-0400 Body mass index (BMI) [Ratio] 30.91 kg/m2 Daly Grant [employer] Work Phone: [facility] 01-10-2025 11:34-0400 Body weight 76.66 kg Daly Grant [employer] Work Phone: [facility] 01-10-2025 11:34-0400 Diastolic blood pressure 64 mm[Hg] Daly Grant [employer] Work Phone: [facility] 01-10-2025 11:34-0400 Heart rate 66 /min Daly Grant [employer] Work Phone: [facility] 01-10-2025 11:34-0400 Respiratory rate 17 /min Daly Grant [employer] Work Phone: [facility] 01-10-2025 11:34-0400 SaO2% (BldA) [Mass fraction] 92 % Daly Grant [employer] Work Phone: [facility] 01-10-2025 11:34-0400 Systolic blood pressure 118 mm[Hg] Daly Grant [employer] Work Phone: [facility] 12-13-2024 13:50-0400 Body height 157.5 cm Madiha Patrick DPM Work Phone: [facility] 12-13-2024 13:50-0400 Body mass index (BMI) [Ratio] 31.83 kg/m2 Madiha Patrick DPM Work Phone: [facility] 12-13-2024 13:50-0400 Body weight 78.93 kg Madiha Patrick DPM Work Phone: [facility] 11-29-2024 11:13-0400 Body height 158.8 cm Madiha Patrick DPM Work Phone: [facility] 11-29-2024 11:13-0400 Body mass index (BMI) [Ratio] 31.32 kg/m2 Madiha Patrick DPM Work Phone: [facility] 11-29-2024 11:13-0400 Body weight 78.93 kg Madiha Patrick DPM Work Phone: [facility] 11-22-2024 14:11-0400 Body height 158.8 cm Madiha Patrick DPM Work Phone: [facility] 11-22-2024 14:11-0400 Body mass index (BMI) [Ratio] 31.32 kg/m2 Madiha Stringere DPM Work Phone: [facility] 11-22-2024 14:11-0400 Body weight 78.93 kg Madiha Patrick DPM Work Phone: [facility] 11-15-2024 15:16-0400 Body height 158.8 cm Madiha Stringere DPM Work Phone: [facility] 11-15-2024 15:16-0400 Body mass index (BMI) [Ratio] 31.32 kg/m2 Madiha Patrick DPM Work Phone: [facility] 11-15-2024 15:16-0400 Body weight 78.93 kg Madiha Patrick DPM Work Phone: [facility] 09-07-2024 15:55-0400 Body height 158.8 cm Zeb Fernandez DPM Work Phone: [facility] 09-07-2024 15:55-0400 Body mass index (BMI) [Ratio] 31.32 kg/m2 Zeb Rusher DPM Work Phone: [facility] 09-07-2024 15:55-0400 Body weight 78.93 kg Zeb Rusher DPM Work Phone: [facility] 07-21-2024 14:56-0500 Body height 157.5 cm Daly Grant [employer] Work Phone: [facility] 07-21-2024 14:56-0500 Body mass index (BMI) [Ratio] 31.97 kg/m2 Daly Grant [employer] Work Phone: [facility] 07-21-2024 14:56-0500 Body weight 79.29 kg Daly Grant [employer] Work Phone: [facility] 07-21-2024 14:56-0500 Diastolic blood pressure 64 mm[Hg] Daly Grant [employer] Work Phone: [facility] 07-21-2024 14:56-0500 Heart rate 77 /min Daly Grant [employer] Work Phone: [facility] 07-21-2024 14:56-0500 Respiratory rate 16 /min Daly Grant [employer] Work Phone: [facility] 07-21-2024 14:56-0500 SaO2% (BldA) [Mass fraction] 98 % Daly Grant [employer] Work Phone: [facility] 07-21-2024 14:56-0500 Systolic blood pressure 138 mm[Hg] Daly Grant [employer] Work Phone: [facility] 07-18-2024 13:40-0500 Body height 157.5 cm Ashly Chamorro MD Work Phone: [facility] 07-18-2024 13:40-0500 Body mass index (BMI) [Ratio] 31.64 kg/m2 Ashly Chamorro MD Work Phone: [facility] 07-18-2024 13:40-0500 Body weight 78.47 kg Ashly Chamorro MD Work Phone: [facility] 07-18-2024 13:40-0500 Diastolic blood pressure 72 mm[Hg] Ashly Chamorro MD Work Phone: [facility] 07-18-2024 13:40-0500 Heart rate 69 /min Ashly Chamorro MD Work Phone: [facility] 07-18-2024 13:40-0500 SaO2% (BldA) [Mass fraction] 97 % Ashly Chamorro MD Work Phone: [facility] 07-18-2024 13:40-0500 Systolic blood pressure 128 mm[Hg] Ashly Chamorro MD Work Phone: [facility] 07-05-2024 09:00-0500 Body height 157.5 cm Daly Grant [employer] Work Phone: [facility] 07-05-2024 09:00-0500 Body mass index (BMI) [Ratio] 31.46 kg/m2 Daly Grant [employer] Work Phone: [facility] 07-05-2024 09:00-0500 Body weight 78.02 kg Daly Grant [employer] Work Phone: [facility] 07-05-2024 09:00-0500 Diastolic blood pressure 72 mm[Hg] Daly Grant [employer] Work Phone: [facility] 07-05-2024 09:00-0500 Heart rate 74 /min Daly Grant [employer] Work Phone: [facility] 07-05-2024 09:00-0500 SaO2% (BldA) [Mass fraction] 99 % Daly Grant [employer] Work Phone: [facility] 07-05-2024 09:00-0500 Systolic blood pressure 128 mm[Hg] Daly Grant [employer] Work Phone: [facility] 05-19-2024 15:32-0500 Body height 157.5 cm Madiha Rickie DPM Work Phone: [facility] 05-19-2024 15:32-0500 Body mass index (BMI) [Ratio] 32.01 kg/m2 Madiha Patrick DPM Work Phone: [facility] 05-19-2024 15:32-0500 Body weight 79.38 kg Madiha Patrick DPM Work Phone: [facility] 04-28-2024 13:43-0500 Body height 157.5 cm Griselda Hemmer PA Work Phone: [facility] 04-28-2024 13:43-0500 Body mass index (BMI) [Ratio] 32.01 kg/m2 Griselda Hemmer PA Work Phone: [facility] 04-28-2024 13:43-0500 Body weight 79.38 kg Griselda Hemmer PA Work Phone: [facility] 04-28-2024 13:43-0500 Diastolic blood pressure 78 mm[Hg] Griselda Hemmer PA Work Phone: [facility] 04-28-2024 13:43-0500 Heart rate 78 /min Griselda Hemmer PA Work Phone: [facility] 04-28-2024 13:43-0500 Respiratory rate 16 /min Griselda Hemmer PA Work Phone: [facility] 04-28-2024 13:43-0500 SaO2% (BldA) [Mass fraction] 98 % Griselda Hemmer PA Work Phone: [facility] 04-28-2024 13:43-0500 Systolic blood pressure 118 mm[Hg] Griselda Hemmer PA Work Phone: [facility] 04-07-2024 13:06-0400 Body height 157.5 cm Madiha Patrick DPM Work Phone: [facility] 04-07-2024 13:06-0400 Body mass index (BMI) [Ratio] 31.28 kg/m2 Madiha Rickie DPM Work Phone: [facility] 04-07-2024 13:06-0400 Body weight 77.56 kg Madiha Patrick DPM Work Phone: [facility] 03-26-2024 10:33-0400 Body height 158.8 cm Melani Matute MD Work Phone: [facility] 03-26-2024 10:33-0400 Body mass index (BMI) [Ratio] 30.67 kg/m2 Melani Matute MD Work Phone: [facility] 03-26-2024 10:33-0400 Body weight 77.3 kg Melani Matute MD Work Phone: [facility] 03-26-2024 10:33-0400 Diastolic blood pressure 74 mm[Hg] Melani Matute MD Work Phone: [facility] 03-26-2024 10:33-0400 Heart rate 65 /min Melani Matute MD Work Phone: [facility] 03-26-2024 10:33-0400 SaO2% (BldA) [Mass fraction] 98 % Melani Matute MD Work Phone: [facility] 03-26-2024 10:33-0400 Systolic blood pressure 112 mm[Hg] Melani Matute MD Work Phone: [facility] 03-02-2024 13:30-0400 Body height 157.5 cm Amanda Echols [employer] Work Phone: [facility] 03-02-2024 13:30-0400 Body mass index (BMI) [Ratio] 31.28 kg/m2 Amanda Echols [employer] Work Phone: [facility] 03-02-2024 13:30-0400 Body weight 77.56 kg Amanda Echols [employer] Work Phone: [facility] 03-02-2024 13:30-0400 Diastolic blood pressure 72 mm[Hg] Amanda Echols [employer] Work Phone: [facility] 03-02-2024 13:30-0400 Heart rate 76 /min Amanda Echols [employer] Work Phone: [facility] 03-02-2024 13:30-0400 SaO2% (BldA) [Mass fraction] 97 % Amanda Onesimo [employer] Work Phone: [facility] 03-02-2024 13:30-0400 Systolic blood pressure 128 mm[Hg] Amanda Echols [employer] Work Phone: [facility] 02-04-2024 14:40-0400 Body height 157.5 cm Ayo Mckeon DPM Work Phone: [facility] 02-04-2024 14:40-0400 Body mass index (BMI) [Ratio] 31.46 kg/m2 Ayo Mckeon DPM Work Phone: [facility] 02-04-2024 14:40-0400 Body weight 78.02 kg Ayo Mckeon DPM Work Phone: [facility] 02-04-2024 14:40-0400 Diastolic blood pressure 79 mm[Hg] Ayo Mckeon DPM Work Phone: [facility] 02-04-2024 14:40-0400 Heart rate 82 /min Ayo Mckeon DPM Work Phone: [facility] 02-04-2024 14:40-0400 Systolic blood pressure 128 mm[Hg] Ayo Mckeon DPM Work Phone: [facility] 07-09-2023 14:46-0500 Body mass index (BMI) [Ratio] 31.17 kg/m2 Daly Grant [employer] Work Phone: [facility] 07-09-2023 14:46-0500 Body temperature 98.29 [degF] Daly Grant [employer] Work Phone: [facility] 07-09-2023 14:46-0500 Body weight 78.56 kg Daly Grant [employer] Work Phone: [facility] 07-09-2023 14:46-0500 Diastolic blood pressure 75 mm[Hg] Daly Grant [employer] Work Phone: [facility] 07-09-2023 14:46-0500 Heart rate 80 /min Daly Grant [employer] Work Phone: [facility] 07-09-2023 14:46-0500 Respiratory rate 16 /min Daly Grant [employer] Work Phone: [facility] 07-09-2023 14:46-0500 SaO2% (BldA) [Mass fraction] 96 % Daly Grant [employer] Work Phone: [facility] 07-09-2023 14:46-0500 Systolic blood pressure 139 mm[Hg] Daly Grant [employer] Work Phone: [facility] 07-04-2023 13:25-0500 Body height 160.02 cm Nadia Durham Other [employer] Other 07-04-2023 13:25-0500 Body mass index (BMI) [Ratio] 31.05 kg/m2 Nadia Durham Other [employer] Other 07-04-2023 13:25-0500 Body temperature 98.1 [degF] Nadia Duhram Other [employer] Other 07-04-2023 13:25-0500 Body weight 79.52 kg Nadia Durham Other [employer] Other 07-04-2023 13:25-0500 Respiratory rate 18 /min Nadia Durham Other [employer] Other 07-04-2023 13:25-0500 SaO2% (BldA) [Mass fraction] 97 % Nadia Durham Other [employer] Other 05-17-2022 11:45-0500 Body height 160.02 cm Margarita Girardmond Other [employer] Other 05-17-2022 11:45-0500 Body mass index (BMI) [Ratio] 31 kg/m2 Margarita Dejah Other [employer] Other 05-17-2022 11:45-0500 Body temperature 98.2 [degF] Margarita Dejah Other [employer] Other 05-17-2022 11:45-0500 Body weight 79.38 kg Margarita Dejah Other [employer] Other 05-17-2022 11:45-0500 Respiratory rate 18 /min Margarita Dejah Other [employer] Other 05-17-2022 11:45-0500 SaO2% (BldA) [Mass fraction] 98 % Margarita Pond Other [employer] Other 11-29-2019 13:20-0400 BP Diastolic 70 mm[Hg] Pastor Kurt [facility] [place] [facility] [place] 11-29-2019 13:20-0400 BP Systolic 164 mm[Hg] Pastor Kurt [facility] [place] [facility] [place] 11-29-2019 13:20-0400 Pulse (Heart Rate) 64 /min Pastor Kurt [facility] [place] 11-29-2019 13:20-0400 Respiratory Rate 18 /min Pastor Kurt [facility] [place] 11-29-2019 13:05-0400 Pulse Oximetry 99 % Pastor Kurt [facility] [place] [facility] [place] 11-29-2019 10:09-0400 BMI (Body Mass Index) 34.5 kg/m2 Pastor Kurt [facility] [place] 11-29-2019 10:09-0400 Body Temperature 97.59 [degF] Pastor Kurt [facility] [place] 11-29-2019 10:09-0400 Body weight 82.83 kg Pastor Kurt [facility] [place] 11-29-2019 10:09-0400 Height 154.9 cm Pastor Kurt [facility] [place] 11-18-2019 14:01-0400 BMI (Body Mass Index) 34.5 kg/m2 oz 1 [facility] [place] 11-18-2019 14:01-0400 Body Temperature 97 [degF] [facility] [place] 1 [facility] [place] 11-18-2019 14:01-0400 Body weight 82.83 kg oz 1 [facility] [place] 11-18-2019 14:01-0400 BP Diastolic 74 mm[Hg] [facility] 1 [facility] [place] [facility] [place] 11-18-2019 14:01-0400 BP Systolic 151 mm[Hg] [facility] 1 [facility] [place] 11-18-2019 14:01-0400 Height 154.9 cm oz 1 [facility] [place] 11-18-2019 14:01-0400 Pulse (Heart Rate) 55 /min [facility] [place] 1 [facility] [place] 11-18-2019 14:01-0400 Pulse Oximetry 98 % [facility] 1 [facility] [place] , [place] 11-18-2019 14:010400 Respiratory Rate 16 /min [facility] 1 [facility] [place] Encounters Encounter Date Encounter Type Care Provider Facility Start: 02-07-2025 End: 02-07-2025 ambulatory GRISELDA VARGAS Not Available Start: 02-07-2025 End: 02-07-2025 Bamboo flowsheet Griselda Vargas PA Work Phone: [facility] Start: 02-07-2025 End: 02-07-2025 Bamboo flowsheet Griselda Vargas PA Work Phone: [facility] Start: 02-07-2025 End: 02-07-2025 Office outpatient visit 15 minutes Griselda Vargas PA Work Phone: [facility] Comment on above: Swelling of both ank les (Primary Dx); Encounter for screening mammogram for malignant neoplasm of breast Start: 01-26-2025 End: 01-26-2025 Bamboo flowsheet Madiha Patrick DPM Work Phone: [facility] Start: 01-26-2025 End: 01-26-2025 Bamboo flowsheet Madiha Patrick DPM Work Phone: [facility] Start: 01-26-2025 End: 01-26-2025 Office outpatient visit 15 minutes Madiha Patrick DPM Work Phone: [facility] [facility] Comment on above: Plantar fasciitis, r ight (Primary Dx); Gastrocnemius equinus of right lower extremity Start: 01-26-2025 End: 01-26-2025 ambulatory MADIHA PATRICK Not Available Start: 01-10-2025 End: 01-10-2025 Bamboo flowsheet Daly Grant [employer] Work Phone: [facility] Start: 01-10-2025 End: 01-10-2025 Bamboo flowsheet Daly Grant [employer] Work Phone: [facility] Start: 01-10-2025 End: 01-10-2025 Office outpatient visit 15 minutes Daly Grant [employer] Work Phone: [facility] Comment on above: Current moderate epi sode of major depressive disorder without prior episode (HCC) (Primary Dx) Start: 01-10-2025 End: 01-10-2025 ambulatory DALY GRANT Not Available Start: 12-13-2024 End: 12-13-2024 Bamboo flowsheet Madiha Patrick DPM Work Phone: [facility] Start: 12-13-2024 End: 12-13-2024 Bamboo flowsheet Madiha Patrick DPM Work Phone: [facility] Start: 12-13-2024 End: 12-13-2024 ambulatory MADIHA PATRICK Not Available Start: 12-13-2024 End: 12-13-2024 Office outpatient visit 15 minutes Madiha Patrick DPM Work Phone: [facility] Comment on above: Ingrown nail (Primar y Dx); Nail dystrophy; Toe pain, right Start: 11-29-2024 End: 11-29-2024 Postop follow up visit related to original px Madiha Patrick DPM Work Phone: [facility] Comment on above: Ingrown nail (Primar y Dx); Nail dystrophy; Toe pain, right; Paronychia of great toe of right foot Start: 11-29-2024 End: 11-29-2024 ambulatory MADIHA PATRIKC Not Available Start: 11-22-2024 End: 11-22-2024 ambulatory MADIHA PATRICK Not Available Start: 11-22-2024 End: 11-22-2024 Bamboo flowsheet Madiha Patrick DPM Work Phone: [facility] Start: 11-22-2024 End: 11-22-2024 Bamboo flowsheet Madiha Patrick DPM Work Phone: [facility] Start: 11-22-2024 End: 11-22-2024 Patient encounter procedure Madiha Patrick DPM Work Phone: [facility] Comment on above: Ingrown nail (Primar y Dx); Nail dystrophy; Toe pain, right; Paronychia of great toe of right foot Start: 11-15-2024 End: 11-15-2024 Office outpatient visit 15 minutes Madiha Patrick DPM Work Phone: [facility] Comment on above: Ingrown nail (Primar y Dx); Nail dystrophy; Pain of toe of left foot Start: 11-15-2024 End: 11-15-2024 ambulatory MADIHA PATRICK Not Available Start: 11-15-2024 End: 11-15-2024 Bamboo flowsheet Madiha Patrick DPM Work Phone: [facility] Start: 11-15-2024 End: 11-15-2024 Bamboo flowsheet Madiha Patrick DPM Work Phone: [facility] Start: 10-11-2024 End: 10-12-2024 External Result Encounter Griselda GUSMAN Work Phone: [facility] External Department Unsolicited Start: 10-11-2024 End: 10-12-2024 External Result Encounter Griselda GUSMAN Work Phone: [facility] External Department Unsolicited Start: 10-11-2024 End: 10-11-2024 Clinical Support Griselda GUSMAN Work Phone: [facility] Comment on above: Dysuria Start: 09-07-2024 End: 09-07-2024 Office outpatient visit 15 minutes Zeb Fernandez DPM Work Phone: [facility] Comment on above: Ingrown toenail (Danielle indra Dx); Toe pain, right Start: 09-07-2024 End: 09-07-2024 ambulatory ZEB FERNANDEZ Not Available Start: 09-07-2024 End: 09-07-2024 Bamboo flowsheet Zeb Fernandez DPM Work Phone: [facility] Start: 09-07-2024 End: 09-07-2024 Bamboo flowsheet Zeb Fernandez DPM Work Phone: [facility] Start: 07-21-2024 End: 07-21-2024 ambulatory DALY GRANT Not Available Start: 07-21-2024 End: 07-21-2024 Office outpatient visit 15 minutes Daly Grant [employer] Work Phone: [facility] Comment on above: Yeast dermatitis (Pr imary Dx); Unspecified atrial fibrillation (CMS/HCC); Longstanding persistent atrial fibrillation (CMS/HCC) Start: 07-19-2024 End: 07-19-2024 Telephone encounter Gallo Sarabia MD Work Phone: [facility] Start: 07-18-2024 End: 07-18-2024 Bamboo flowsheet Ashly Chamorro MD Work Phone: [facility] Start: 07-18-2024 End: 07-18-2024 Bamboo flowsheet Ashly Chamorro MD Work Phone: [facility] Start: 07-18-2024 End: 07-18-2024 ambulatory ASHLY CHAMORRO Not Available Start: 07-18-2024 End: 07-18-2024 Office outpatient visit 25 minutes Ashly Chamorro MD Work Phone: [facility] Comment on above: Bilateral carpal viki dominic syndrome (Primary Dx) Start: 07-05-2024 End: 07-05-2024 Bamboo flowsheet Daly Grant [employer] Work Phone: [facility] Start: 07-05-2024 End: 07-05-2024 Bamboo flowsheet Daly Grant [employer] Work Phone: [facility] Start: 07-05-2024 End: 07-05-2024 Office outpatient visit 25 minutes Daly Grant [employer] Work Phone: [facility] Comment on above: Yeast dermatitis (Pr imary Dx) Start: 07-05-2024 End: 07-05-2024 ambulatory DALY GRANT Not Available Start: 07-01-2024 End: 07-01-2024 Patient encounter procedure [facility] Comment on above: Dysuria Start: 07-01-2024 End: 07-01-2024 ambulatory DALY GRANT Not Available Start: 06-16-2024 End: 06-16-2024 Bamboo flowsheet Madiha W Patrick DPM Work Phone: [facility] Start: 06-16-2024 End: 06-16-2024 Bamboo flowsheet Madiha W Patrick DPM Work Phone: [facility] Start: 06-16-2024 End: 06-16-2024 ambulatory MADIHA W PATRICK Not Available Start: 05-19-2024 End: 05-19-2024 ambulatory MADIHA W PATRICK Not Available Start: 05-19-2024 End: 05-19-2024 Office outpatient visit 15 minutes Madiha Albert Patrick DPM Work Phone: [facility] Comment on above: Arthritis of right m idfoot (Primary Dx); Bursitis of right foot; Plantar fasciitis, right; Gastrocnemius equinus of right lower extremity Start: 05-19-2024 End: 05-19-2024 Bamboo flowsheet Madiha W Patrick DPM Work Phone: [facility] Start: 05-19-2024 End: 05-19-2024 Bamboo flowsheet Madiha W Patrick DPM Work Phone: [facility] Start: 04-28-2024 End: 04-28-2024 Bamboo flowsheet Griselda GUSMAN Work Phone: [facility] Start: 04-28-2024 End: 04-28-2024 Bamboo flowsheet Griselda Vargas PA Work Phone: [facility] Start: 04-28-2024 End: 04-28-2024 ambulatory GRISELDA VARGAS Not Available Start: 04-28-2024 End: 04-28-2024 Office outpatient visit 25 minutes Griselda Vargas PA Work Phone: [facility] Comment on above: Arthritis of both hernández nds (Primary Dx); Paresthesia of hand, bilateral; Bilateral hand swelling; Trigeminal neuralgia of left side of face (CMS/HCC); Arthritis of right midfoot; Bursitis of right foot; Exostosis of right foot Start: 04-16-2024 End: 04-16-2024 Telephone encounter Melani Matute MD Work Phone: Neurology Start: 04-11-2024 End: 10-14-2024 Telephone encounter Melani Matute MD Work Phone: Neurology Comment on above: Orders (See note) Unable to have MRI Start: 04-07-2024 End: 04-07-2024 ambulatory MADIHA PATRICK Not Available Start: 04-07-2024 End: 04-07-2024 Bamboo flowsheet Madiha Stringere DPM Work Phone: [facility] Start: 04-07-2024 End: 04-07-2024 Bamboo flowsheet Madiha Stringere DPM Work Phone: [facility] Start: 04-07-2024 End: 04-07-2024 Office outpatient visit 25 minutes Madiha Patrick DPM Work Phone: [facility] Comment on above: Arthritis of right m idfoot (Primary Dx); Bursitis of right foot; Exostosis of right foot; Pain in joint of right foot Start: 04-07-2024 End: 04-07-2024 ambulatory MADIHA STRINGERE Not Available Start: 03-30-2024 End: 03-30-2024 Telephone encounter Melani Matute MD Work Phone: Neurology Start: 03-28-2024 End: 03-28-2024 Telephone encounter Melani Matute MD Work Phone: Neurology Start: 03-26-2024 End: 03-26-2024 ambulatory MELANI MATUTE Facility:[facility] Start: 03-26-2024 End: 03-26-2024 Patient encounter procedure Melani Matute MD Work Phone: Neurology Comment on above: Trigeminal neuralgia of left side of face (Primary Dx) Start: 03-25-2024 End: 03-25-2024 Chart abstracting Melani Matute MD Work Phone: Neurology Start: 03-03-2024 End: 03-03-2024 Telephone encounter Amanda Echols [employer] Work Phone: [facility] Start: 03-02-2024 End: 03-02-2024 Bamboo flowsheet Amanda Echols [employer] Work Phone: [facility] Start: 03-02-2024 End: 03-02-2024 Bamboo flowsheet Amanda Echols [employer] Work Phone: [facility] Start: 03-02-2024 End: 03-02-2024 ambulatory AMANDA ECHOLS Not Available Start: 03-02-2024 End: 03-02-2024 Office outpatient visit 15 minutes Amanda Echols [employer] Work Phone: [facility] Comment on above: Heel spur, right (Pr imary Dx); Pain of right heel; Pure hypercholesterolemia, unspecified (CMS/HCC) Start: 02-09-2024 End: 02-11-2024 Telephone encounter Alfonzo Diaz [employer] Work Phone: [facility] Comment on above: handicap placard Start: 02-04-2024 End: 02-04-2024 Office outpatient visit 15 minutes Ayo Mckeon DPM Work Phone: [facility] Comment on above: DJD (degenerative biju int disease), ankle and foot, right (Primary Dx) Start: 02-04-2024 End: 02-04-2024 Bamboo flowsheet Ayo Mckeon DPM Work Phone: [facility] Start: 02-04-2024 End: 02-04-2024 Bamboo flowsheet Ayo Mckeon DPM Work Phone: [facility] Start: 12-31-2023 End: 04-28-2024 Patient encounter procedure Ayo Mckeon DPM Work Phone: [facility] Start: 07-09-2023 End: 07-09-2023 Office outpatient visit 25 minutes Daly Grant [employer] Work Phone: [facility] Comment on above: Acute non-recurrent pansinusitis (Primary Dx) Start: 07-04-2023 End: 07-04-2023 ambulatory Nadia Durham Other [employer] Other Start: 07-04-2023 Office outpatient vi sit 25 minutes Nadia Durham [facility] Start: 01-02-2023 Chart abstracting Jesus stevens DPM Work Phone: [facility] Start: 11-23-2022 End: 11-23-2022 ambulatory Saima Garcia Other [employer] Other Start: 11-23-2022 Telephone encounter Saima Garcia [facility] Start: 11-21-2022 End: 11-21-2022 ambulatory PHYSICIAN NO FAMILY Facility:[facility] Start: 11-21-2022 End: 11-21-2022 ambulatory GLENN Garcia Work Phone: [facility] Work Phone: Start: 11-21-2022 End: 11-21-2022 Departed Referred GLENN Garcia Work Phone: [facility] [place] Work Phone: Start: 06-20-2022 End: 06-21-2022 ambulatory KEESHA MÉNDEZ Facility:[facility] Start: 05-17-2022 End: 05-17-2022 ambulatory Margarita Pond Other [employer] Other Start: 05-17-2022 Office outpatient vi sit 15 minutes Margarita Pond [facility] Start: 02-14-2022 End: 02-15-[address] GRISELDA VARGAS Facility:[facility] Start: 12-16-2021 End: 12-16-[address] JOVANNA SARAVIA Facility:[facility] Start: 12-07-2021 End: 12-09-2021 Evaluation and management of inpatient DR AMANDA CRANDALL Facility:[facility] Start: 11-29-2019 End: 11-29-2019 Patient encounter procedure [facility] Start: 11-29-2019 End: 11-29-2019 Subsequent hospital visit by physician Pastor Rosado Work Phone: [facility] Comment on above: Postoperative pain ( Primary Dx) Start: 11-29-2019 End: 12-02-2019 Patient encounter procedure [facility] Start: 11-29-2019 End: 12-01-2019 Subsequent hospital visit by physician Pastor Rosado Work Phone: [facility] Comment on above: Pain Start: 11-23-2019 End: 11-24-2019 Patient encounter procedure [facility] Start: 11-23-2019 End: 11-23-2019 Subsequent hospital visit by physician Antoine [facility] Start: 11-18-2019 End: 11-23-2019 Patient encounter procedure ANTOINE WAGGONER [facility] Start: 11-18-2019 End: 11-22-2019 Subsequent hospital visit by physician Dinesh [address] Pre-Admission Testing Comment on above: History of lumbar fu ronni Procedures Date Procedure Procedure Detail Performing Clinician Start: 10-11-2024 Urnls dip stick/tablet rgnt non-auto w/o micrscp Griselda Vargas PA Work Phone: Start: 10-11-2024 URINARY TRACT INFECTION (HTRX) Griselda GUSMAN Work Phone: Start: 07-01-2024 Urnls dip stick/tablet rgnt non-auto w/o micrscp Ashly Chamorro MD Work Phone: Start: 04-07-2024 Radex foot complete minimum 3 views Madiha Albert Patrick DPM Work Phone: Start: 01-28-2024 Mammography Ayo Mckeon DPM Work Phone: Start: 11-23-2022 H/O: hysterectomy History of hysterectomy Daly Grant N P Work Phone: Start: 2022 Mammography Daly Grant [employer] Work Phone: Start: 11-29-2019 DISCHARGE PATIENT ANTOINE [...] routine ecg w/least 12 lds w/i&r Lucille Montesinos Plan of Treatment Date Care Activity Detail Author Start: 2028 RSV Vaccine (1 - 1-dose 75+ series) RSV Vaccine (1 - 1-dose 75+ series) [facility] Start: 06-10-2027 Screening for malignant neoplasm of colon [facility] Start: 05-24-2025 End: 05-24-2025 Patient encounter procedure [facility] Start: 04-28-2025 Pneumococcal Vaccine : 65+ Years (1 of 1 - PCV) Pneumococcal Vaccine: 65+ Years (1 of 1 - PCV) [facility] Comment on above: Postponed from 04/17 (Patient Refused) Postponed from 04/17 (Patient Refused) Start: 03-31-2025 End: 03-31-2025 Patient encounter procedure Neurology Comment on above: Return in about 1 ye ar (around 03/26/2025). Return in about 1 ye ar (around 03/26/2025). // called and spoke with patient - patient aware of new location Start: 02-24-2025 End: 02-24-2025 Patient encounter procedure 02/24/2025 8:30 AM EDT [facility] [address] [facility] [address] [place] [phone] Griselda Vargas PA [address] [facility] [address] [place] [address] [facility] Start: 02-23-2025 End: 02-23-2025 Patient encounter procedure 02/23/2025 9:30 AM EDT Office Visit [facility] [address] [phone] Madiha Patrick, DPM [address] [place] [address] [facility] Start: 02-07-2025 End: 04-09-2026 DBT Breast - bilateral screening Bilateral screening mammogram with tomosynthesis Imaging Routine Encounter for screening mammogram for malignant neoplasm of breast Expected: 02/07/2025, Expires: 04/09/2026 [facility] Work Phone: Comment on above: Expected: 02/07/2025 , Expires: 04/09/2026 Start: 02-06-2025 Influenza vaccination [facility] Start: 01-27-2025 Screening for malignant neoplasm of breast Mammogram [facility] Start: 01-26-2025 End: 01-26-2025 Patient encounter procedure 01/26/2025 8:45 AM EDT Office Visit [facility] [address] [place] [address] Madiha Patrick DPM [address] [place] [address] [facility] Comment on above: Arrived Start: 01-10-2025 End: 01-10-2025 Patient encounter procedure 01/10/2025 11:30 AM EDT Office Visit LAURA Reynoso [facility] [address] [facility] [address] [place] [address] Daly Grant NP [address] [facility] [address] [place] [address] [facility] Comment on above: Arrived Start: 12-30-2024 Medicare Annual Wellness (AWV) Medicare Annual Wellness (AWV) [facility] Start: 12-13-2024 End: 12-13-2024 Patient encounter procedure 12/13/2024 1:45 PM EDT Office Visit [facility] [address] [place] [address] Madiha Patrick DPM [address] [place] [address] [facility] Start: 11-29-2024 End: 11-29-2024 Patient encounter procedure 11/29/2024 11:15 AM EDT Office Visit [facility] [address] [place] [address] Madiha Patrick, DPM [address] [place] [address] [facility] Start: 11-15-2024 End: 11-15-2024 Patient encounter procedure [facility] Comment on above: Arrived Start: 10-11-2024 End: 10-11-2025 URINARY TRACT INFECTION (HTRX) URINARY TRACT INFECTION (HTRX) Lab Routine Dysuria Expected: 10/11/2024 (Approximate), Expires: 10/11/2025 [facility] Work Phone: Comment on above: Expected: 10/11/2024 (Approximate), Expires: 10/11/2025 Start: 09-07-2024 End: 09-07-2024 Patient encounter procedure 09/07/2024 4:00 PM EDT Office Visit [facility] [address] [place] [phone] Zeb Fernandez, ROGE [address] [place], [place] [id number] Arrived [facility] Comment on above: Arrived Start: 07-18-2024 End: 07-18-2025 EMG AND NERVE CONDUCTION STUDY EMG AND NERVE CONDUCTION STUDY Neurology Routine Bilateral carpal tunnel syndrome Expected: 07/18/2024 (Approximate), Expires: 07/18/2025 [facility] Work Phone: Comment on above: Expected: 07/18/2024 (Approximate), Expires: 07/18/2025 Start: 07-01-2024 End: 07-01-2025 URINARY TRACT INFECTION (HTRX) URINARY TRACT INFECTION (HTRX) Lab Routine Dysuria Expected: 07/01/2024 (Approximate), Expires: 07/01/2025 [facility] Work Phone: Comment on above: Expected: 07/01/2024 (Approximate), Expires: 07/01/2025 Start: 06-23-2024 Influenza vaccination Influenza Vacc ine (#1) [facility] Comment on above: Postponed from 02/06 (Patient Refused) Start: 06-16-2024 End: 06-16-2024 Patient encounter procedure 06/16/2024 4:15 PM EST Office Visit [facility] [address] [place] [phone] Madiha Patrick, DPM [address] [place], [place] [phone] [facility] Start: 06-16-2024 End: 06-16-2024 Patient encounter procedure 06/16/2024 1:45 PM EST Office Visit [facility] [address] [place] [address] Madiha Patrick, DPM [address] [place] [address] Arrived [facility] Comment on above: Arrived Start: 06-08-2024 Advance Directive Discussion Advance Directive Discussion [facility] Start: 05-19-2024 End: 05-19-2024 Patient encounter procedure 05/19/2024 3:15 PM EST Office Visit [facility] [address] [place] [address] Madiha Patrick, DPM [address] [place] [address] [facility] Start: 05-03-2024 Screening for malignant neoplasm of colon [facility] Start: 04-07-2024 End: 04-07-2024 Patient encounter procedure 04/07/2024 1:15 PM EDT Office Visit [facility] [address] [place] [phone] Madiha Patrick, DPM [address] [place] [address] Arrived [facility] Comment on above: Arrived Start: 03-31-2024 Pneumococcal Vaccine : 65+ Years (1 - PCV) Pneumococcal Vaccine: 65+ Years (1 - PCV) [facility] Comment on above: Postponed from 04/17 (Patient Refused) Start: 03-31-2024 Pneumococcal Vaccine : 65+ Years (1 of 1 - PCV) Pneumococcal Vaccine: 65+ Years (1 of 1 - PCV) [facility] Comment on above: Postponed from 04/17 (Patient Refused) Start: 03-26-2024 End: 03-26-2024 Patient encounter procedure 03/26/2024 10:30 AM EDT Office Visit Neurology [id number] [phone] [place] [address] [place] [address] MULTIPL SYMPTOMS Neurology Comment on above: MULTIPL SYMPTOMS Start: 02-07-2024 Covid-19 Vaccine ( season) Covid-19 Vaccine ( season) [facility] Start: 02-07-2024 Influenza vaccination Influenza Vacc ine (#1) [facility] Start: 02-04-2024 End: 02-04-2024 Professional / ancillary services management 02/04/2024 3:35 PM EDT Ancillary Procedure [facility] [address] [facility] [address] [place] [address] Arrived [facility] Comment on above: Arrived Start: 02-04-2024 End: 02-04-2024 Patient encounter procedure 02/04/2024 2:40 PM EDT Office Visit [facility] [address] [facility] [address] [place] [address] Ayo Mckeon DPM [address] [facility] [address] [place] [address] Arrived [facility] Comment on above: Arrived Start: 12-06-2023 Influenza vaccination Influenza Vacc ine (#1) [facility] Comment on above: Postponed from 02/06 (Patient Refused) Start: 11-25-2023 Medicare Annual Wellness (AWV) Medicare Annual Wellness (AWV) [facility] Start: 07-14-2023 End: 07-14-2023 Patient encounter procedure 07/14/2023 2:30 PM EST Office Visit [facility] [address] [place] [address] [place] [id number] Jesus Mendoza DPM [address] [facility] [email or web address] [place] [address] [facility] Start: 06-08-2023 Advance Directive Discussion Advance Directive Discussion [facility] Start: 2023 Screening for malignant neoplasm of breast [facility] Start: 11-21-2022 Bacteria identified in Urine by Culture Urine Culture [facility] Start: 11-17-2022 Diabetes Screening Diabetes Screenin g [facility] Start: 11-17-2020 Creatinine measurement Creatinine mo nitoring [place], [place] Start: 11-17-2020 Potassium monitoring Potassium monit oring [place] Start: 02-07-2020 Influenza vaccination M [place], [place] Start: 12-16-2019 End: 12-16-2019 Office Visit 12/16/2019 Office Visit Neurosurgery Pastor Rosado MD [address], [address] [place] [id number] [employer] [facility] [employer] Start: 11-29-2019 End: 11-29-2019 Hospital Encounter [facility] Comment on above: REMOVAL OF INTERNAL BONE GROWTH STIMULATOR, 30 MINS 1 C-ARM, MAC/LOCAL Start: 10-07-2019 Annual Wellness Visi t (AWV) Annual Wellness Visit (AWV) [place] Start: 2018 Pneumococcal 65+ yea rs Vaccine (1 of 1 - PPSV23) Pneumococcal 65+ years Vaccine (1 of 1 - PPSV23) [place] Start: 2018 Pneumococcal Vaccine : 65+ (1 of 1 - PCV) Pneumococcal Vaccine: 65+ (1 of 1 - PCV) [facility] Start: 2018 Pneumococcal Vaccine : 65+ Years (1 of 1 - PCV) Pneumococcal Vaccine: 65+ Years (1 of 1 - PCV) [facility] Start: 2018 Screening for osteoporosis Bone Density Screening [facility] Start: 2008 Screening for osteoporosis DEXA (modify frequency per FRAX score) [place] Start: 2003 Pneumococcal Vaccine : 50+ (1 of 1 - PCV) Pneumococcal Vaccine: 50+ (1 of 1 - PCV) [facility] Start: 2003 Screening for malignant neoplasm of breast Breast cancer screen [place], [place] Start: 2003 Screening for malignant neoplasm of colon Colon cancer screen colonoscopy [place] Start: 2003 Shingles Vaccine (1 of 2) Shingles Vaccine (1 of 2) [place] Start: 2003 Shingrix Vaccine (1 of 2) Shingrix Vaccine (1 of 2) [facility] Start: 1998 Diabetes Screening Diabetes Screenin g [facility] Start: 1998 Lipid panel Lipid Screening [facility] Start: 1998 Screening for malignant neoplasm of colon [facility] Start: 1993 Screening for malignant neoplasm of breast Mammogram Screening [facility] Start: 1972 DTaP/Tdap/Td vaccine (1 - Tdap) DTaP/Tdap/Td vaccine (1 - Tdap) [place] Start: 1972 Urine microalbumin profile DTaP,Tdap,Td Vaccine (1 - Tdap) [facility] Start: 1971 Anxiety Screening Anxiety Screening [facility] Start: 1971 Depression Screening Depression Scre [facility] Start: 1971 Hepatitis C screening Hepatitis C [facility] Start: 1963 Lipid panel Lipid screen [place], [place] Start: 1953 Hepatitis C screening Hepatitis C [place], [place] Start: 1953 Screening for malignant neoplasm of colon [facility] Start: 1953 TSH Qn TSH testing [place], [place] End: 11-29-2019 Fluoro For Surgical Procedures Fluoro For Surgical Procedures Imaging Routine Pain 1 Occurrences starting 11/29/2019 until 11/29/2019 [place] Comment on above: 1 Occurrences starti ng 11/29/2019 until 11/29/2019 Initiate Oxygen Therapy Protocol Initiate Oxygen Therapy Protocol Respiratory Care Routine Daily until discontinued starting 11/29/2019 [place] Comment on above: Daily until disconti nued starting 11/29/2019 End: 04-25-2025 MR Brain WO contrast MRI BRAIN WO IVCON Radiology Routine Trigeminal neuralgia of left side of face 1 Occurrences starting 03/26/2024 until 04/25/2025 [facility] Work Phone: Comment on above: 1 Occurrences starti ng 03/26/2024 until 04/25/2025 End: 11-29-2019 Pulse Oximetry Spot Check Pulse Oximetry Spot Check Respiratory Care Routine One Time for 1 Occurrences starting 11/29/2019 until 11/29/2019 [facility], [place] Comment on above: One Time for 1 Occur rences starting 11/29/2019 until 11/29/2019 XR Foot - right 3 Views XR foot 3+ views right Imaging Routine DJD (degenerative joint disease), ankle and foot, right 02/04/2024 3:33 PM EDT [facility] Work Phone: Payers Date Payer Category Payer Self-pay [id number] 2021 Private Health Insurance [id number] 2021 Unknown [id number] [id number]. [id number] 2019 Medicare MEDICARE MEDICAR E PART A AND B xxxxxxxxxxx 2019-Present [phone] [address] [address] [place] [address] xxxxxxxxxxx [id number]. [id number] 2018 Medicare [id number]. 1.13.693.2. [id number] 2014 Unknown xxxxxxxxxxxx 1.2.840.076397.1.13.239.2. [id number] 1959 Medicare [id number] 1959 Unknown [id number] 1959 Unknown [id number] 1959 Unknown [id number] 1953 Unknown [id number] 2.16.840.1.954527.3.579.2. 182 1953 Unknown [id number] 2.16.840.1.031617.3.579.2. 182 1953 Unknown [id number] 2.16.840.1.368757.3.579.2. 182 1953 Unknown [id number] 2.16.840.1.456577.3.579.2. 182 1953 Unknown [id number] 2.16.840.1.850609.3.579.2. 593 1953 Unknown [id number] 2.16.840.1.526219.3.579.2. 593 1953 Unknown [id number] 2.16.840.1.707609.3.579.2. 593 1953 Unknown [id number] 2.16.840.1.317966.3.579.2. 593 1953 Unknown [id number] 2.16.840.1.929242.3.579.2. 1259 1953 Unknown [id number] 2.16.840.1.924502.3.579.2. 1259 1953 Unknown [id number] 2.16.840.1.632544.3.579.2. 1259 1953 Unknown [id number] 2.16.840.1.962192.3.579.2. 1259 1953 Unknown [id number] 2.16.840.1.363227.3.579.2. 1259 1953 Unknown [id number] 2.16.840.1.887930.3.579.2. 1259 1953 Unknown [id number] 2.16.840.1.237552.3.579.2. 1259 1953 Unknown [id number] 2.16.840.1.545344.3.579.2. 1259 1953 Unknown [id number] 2.16.840.1.196349.3.579.2. 1259 1953 Unknown [id number] 2.16.840.1.158571.3.579.2. 9 1953 Unknown [id number] 2.16.840.1.586955.3.579.2. 9 1953 Unknown [id number] 2.16.840.1.784368.3.579.2. 9 1953 Unknown [id number] 2.16.840.1.506530.3.579.2. 1258 1953 Unknown [id number] 2.16.840.1.709352.3.579.2. 9 1953 Unknown [id number] 2.16.840.1.199282.3.579.2. 9 1953 Unknown [id number] 2.16.840.1.861247.3.579.2. 1259 1953 Unknown [id number] 2.16.840.1.499452.3.579.2. 1258 1953 Unknown [id number] 2.16.840.1.311425.3.579.2. 1259 1953 Unknown [id number] 2.16.840.1.226121.3.579.2. 125 Unknown [id number] 2.16.840.1.569477.3.579.2. 531 Social History Date Type Detail Facility Start: 11-18-2019 End: 11-09-2022 [facility] Start[facility] 11-18-2019 End: 02-07-2025 [facility]: 1955 Sex Assigned At Not on file M [place], [place] Exposure to SARS-CoV -2 (event) Unable to assess [place], [place] Start: 11-18-2019 End: 11-09-2022 Tobacco use and exposure Never used [employer] [place], [place] Start: 07-09-2023 End: 02-07-2025 Sex Assigned At [facility] [employer] [facility] Other Start: 1955 Sex Assigned At Female F [facility] Start: 07-09-2023 End: 02-07-2025 History of Social function [facility] Start: 08-20-2022 Gender identity Identifies as female gender (finding) [facility] Start: 01-31-2004 End: 03-26-2024 Alcoholic beverage intake Current drinker of alcohol (finding) [facility] National Score (1-100), lower number is lower risk 94 [facility] Functional Status Date Assessment Result Facility 02-07-2025 Patient Health Quest ionnaire 2 item (PHQ-2) [Reported] [facility] 01-10-2025 Patient Health Quest ionnaire 2 item (PHQ-2) [Reported] [facility] Clinical Notes 05-17-2022 to 02-07-2025 UZMA Blanco - 02/07/2025 2:00 PM Carla Patrick DPM - 01/26/2025 8:45 AM Sofya Grant NP - 01/10/2025 11:30 AM Carla Patrick DPM - 12/13/2024 1:45 PM EDT Note Date & Type Note Facility 02-07-2025 History of Present illness Narrative Images from the original note were not included. Subjective Patient ID: Renetta Lopez is a 69 y.o. female who presents for swollen ankle. Renetta is present today for evaluation of swollen ankle. Admits bilateral foot swelling. Left worse than right. It has been going on for about 2 weeks. It is over the outside of the ankle. When she get up in the morning her feet feel stiff and painful. It has improved. She does not elevate or wear compression stockings. She does see podiatry and was advised to use inserts for her plantar fasciitis. Follows up with Podiatry in 2 weeks. Applied a steroid cream and it does seem to help with the swelling. Does not recall any specific injury. Toes feel hot at night. States her specialist for trigeminal neuralgia put her on Gabapentin, which has helped. Sees Dr. Melani Matute at the [facility], Neurology. Over the past 2 weeks, how often have you been bothered by any of the following problems? Little interest or pleasure in doing things: Not at all Feeling down, depressed, or hopeless: Not at all Patient Health Questionnaire-2 Score: 0 Current Outpatient Medications on File Prior to Visit Medication Sig Dispense Refill carBAMazepine (TEGretol) 200 MG tablet (Patient not taking: Reported on 02/07/2025) hydroCHLOROthiazide (HYDRODiuril) 25 MG tablet Take 1 tablet (25 mg) by mouth Daily 100 tablet 3 levothyroxine (Synthroid, Levoxyl) 75 MCG tablet Take 1 tablet (75 mcg) by mouth Daily 100 tablet 4 meloxicam (Mobic) 15 MG tablet Take 1 tablet (15 mg) by mouth in the morning. 100 tablet 1 metoprolol tartrate (Lopressor) 50 MG tablet Take 1 tablet (50 mg) by mouth in the morning. 100 tablet 3 rosuvastatin (Crestor) 10 MG tablet Take 1 tablet (10 mg) by mouth Daily 100 tablet 3 No current facility-administered medications on file prior to visit. I have reviewed and reconciled the history and medication list with the patient today. Allergies Allergen Reactions Hydromorphone Other Reaction(s): difficulty breathing Lisinopril cough Morphine Other Reaction(s): difficulty breathing Plasminogen Patient unaware of reaction Sumatriptan Other Reaction(s): Muscle Tightening Wound Dressing Adhesive Rash Social History Tobacco Use Smoking status: Never Smokeless tobacco: Never Vaping Use Vaping status: Never Used Substance Use Topics Alcohol use: Not Currently Drug use: Never Family History Problem Relation Name Age of Onset Dementia Mother Mental illness Mother Hypertension Father Stroke Father Past Medical History: Diagnosis Date Anemia Arthritis Combined hyperlipidemia DDD (degenerative disc disease), lumbar Disease of thyroid gland Fall 11/2018 at work, no fractures Hepatitis history of hepatitis as a child History of being hospitalized 12/06/2021 Campylobacter Sepsis, Electrolyte Abnormalities, Dehydration, Hypotension, Afib Hyperlipidemia Hypertension Hypoparathyroidism (HCC) spontaneous Pleurisy Spinal stenosis Spinal stenosis of lumbar region at multiple levels Tendonitis of shoulder Past Surgical History: Procedure Laterality Date APPENDECTOMY 2006 BUNIONECTOMY 2005 DILATION AND CURETTAGE OF UTERUS HYSTERECTOMY 2006 JOINT REPLACEMENT 05/14/2017 right knee KNEE ARTHROSCOPY W/ DEBRIDEMENT 2006 LUMBAR FUSION 2009 OTHER SURGICAL HISTORY battery removed from bone stim (back) TOTAL KNEE ARTHROPLASTY Left 2012 Dr Archer Visit Vitals BP 128/72 Pulse 61 Resp 16 Ht 5' 2 Wt 175 lb 6.4 oz SpO2 95% BMI 32.08 kg/m Smoking Status Never BSA 1.87 m Review of Systems Constitutional: Negative for chills, fatigue and fever. Respiratory: Negative for cough, shortness of breath and wheezing. Cardiovascular: Negative for chest pain, palpitations and leg swelling. Gastrointestinal: Negative for abdominal pain, constipation, diarrhea, nausea and vomiting. Musculoskeletal: Positive for arthralgias and joint swelling. Skin: Negative for rash. Objective Physical Exam Constitutional: General: She is not in acute distress. Appearance: Normal appearance. She is well-developed. HENT: Head: Normocephalic and atraumatic. Eyes: General: No scleral icterus. Conjunctiva/sclera: Conjunctivae normal. Cardiovascular: Rate and Rhythm: Normal rate and regular rhythm. Heart sounds: Normal heart sounds. No murmur heard. Pulmonary: Effort: Pulmonary effort is normal. No respiratory distress. Breath sounds: Normal breath sounds. No wheezing, rhonchi or rales. Musculoskeletal: Right ankle: Swelling (Mild, inferior to lateral malleolus) present. Tenderness present over the lateral malleolus. Anterior drawer test negative. Left ankle: Swelling (Mild, inferior to lateral malleolus) present. Tenderness present over the lateral malleolus. Anterior drawer test negative. Right foot: Normal range of motion. Bunion present. Normal pulse. Left foot: Normal range of motion. Normal pulse. Skin: General: Skin is warm and dry. Neurological: General: No focal deficit present. Mental Status: She is alert and oriented to person, place, and time. Psychiatric: Mood and Affect: Mood normal. Behavior: Behavior normal. Assessment/Plan Diagnoses and all orders for this visit: Swelling of both ankles Shoes do rub at the spot she is having swelling. Encouraged her to look into alternative shoes, or adjust the shoes she has currently. Try ankle sleeves for support and compression. Voltaren Gel, apply it 2 times a day to affected areas. Follow up with Podiatry as scheduled. Encounter for screening mammogram for malignant neoplasm of breast - Bilateral screening mammogram with tomosynthesis; Future Provided patient with an order for an updated Mammogram. If results are negative/normal, will plan to continue with routine yearly screenings. She will have this done at [facility] in [place]. Follow up for Medicare Wellness Visit, Fasting Labs. documented in this encounter [facility] 01-26-2025 History of Present illness Narrative Images from the original note were not included. Subjective Patient ID: Renetta Lopez is a 69 y.o. female who presents for Foot Pain (Pt is here today for Rt foot pain, she went to the ER yesterday. Dx'd as plantar fasciitis, they gave her an injection in the arm for it and pt states it has helped. She was also rx'd oral Diclofenac and she hasn't started it yet as she is on Meloxicam. Her foot is feeling better, only painful now if she plantar flexes great toe. Also Lt ankle was bothersome for her last week, swelling and pain present/SS: 9). HPI Established patient returns on an urgent basis complaining of right heel pain that started 2 nights ago. It woke her up from her sleep. When she tried to stand it was significantly painful. No known injury. She was unable to walk comfortably, she went to the emergency room in [place]. They took radiographs which were negative and gave her a shot of a nonnarcotic -patient is unsure if this was Toradol or steroid. She was also given Rx for oral diclofenac. She has not started this , as she is already on meloxicam. She is currently wearing ortho heel shoes. She has power steps at home but has not been wearing them. Review of Systems Medications Current Outpatient Medications: carBAMazepine (TEGretol) 200 MG tablet, , Disp: , Rfl: hydroCHLOROthiazide (HYDRODiuril) 25 MG [...] 1 metoprolol tartrate (Lopressor) 50 MG tablet, Take 1 tablet (50 mg) by mouth in the morning., Disp: 100 tablet, Rfl: 3 rosuvastatin (Crestor) 10 MG tablet, Take 1 tablet (10 mg) by mouth Daily, Disp: 100 tablet, Rfl: 3 Allergies Hydromorphone, Lisinopril, Morphine, Plasminogen, Sumatriptan, and [...] plantarflexion, inversion, eversion are 5/5 b/l. PAIN: Pain at the insertion of the plantar fascia into the calcaneus b/l. Mild discomfort with palpation of the weight bearing surface of the calcaneus. No pain with medial to lateral compression of the heel. Mild pain in the peroneals and posterior tibial tendon just posterior to the malleoli R. No pain at Achilles DEFORMITY: pes planus, dorsal midfoot osteophyte palpable [...] turgor normal HYPERKERATOTIC LESION: none NAIL PATHOLOGY: The medial nail border of the right hallux has been removed. Left medial hallux nail has been removed. No drainage present Neurological: Mental Status: She is alert and oriented to person, place, and time. Comments: Light touch sensation intact Assessment/Plan ICD-10-CM 1. Plantar fasciitis, right M72.2 2. Gastrocnemius equinus of right lower extremity M62.461 Patient was examined and evaluated. Radiographs from [facility] were unavailable for my review today. Patient is significantly more comfortable than she was 2 days ago. I recommended she start conservative treatment for the plantar fasciitis, to help support the non narcotic injection she was given. Stress the importance of good supportive tie shoes. Recommended going to [facility] to be fit and measured for shoes. Advise no flip flops, slippers nor bare feet. Explain the anatomy of the plantar fascia. Demonstrate stretching exercises and give handout for the same. Also advise icing therapy. Patient has Powerstep orthotics at home. She will look for them and start wearing them. She is currently on Meloxicam. Activity discussed and to minimize irritation to the heel area. RTO 3-4 weeks, prn. This note was created with the assistance of a speech recognition program. While intending to generate a timely document that accurately reflects the content of the visit, no guarantee can be provided that every grammatical or spelling mistake has been or will be identified or corrected. Thank you for your understanding. Madiha Patrick DPM documented in this encounter [facility] 01-10-2025 History of Present illness Narrative Images from the original note were not included. Subjective Patient ID: Renetta Lopez is a 69 y.o. female who presents for No chief complaint on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 (Lopressor) 50 MG tablet Take 1 tablet (50 mg) by mouth in the morning. 100 tablet 3 [] nystatin (Mycostatin) cream Apply topically 2 (two) times a day for 14 days 30 g 1 rosuvastatin (Crestor) 10 MG tablet Take 1 tablet (10 mg) by mouth Daily 100 tablet 3 No current facility-administered medications on file prior to visit. I have reviewed and reconciled the history and medication list with the patient today. Allergies Allergen Reactions Hydromorphone Other Reaction(s): difficulty breathing Lisinopril cough Morphine Other Reaction(s): difficulty breathing Plasminogen Patient unaware of reaction Sumatriptan Other Reaction(s): Muscle Tightening Wound Dressing Adhesive Rash Social History Tobacco Use Smoking status: Never Smokeless tobacco: Never Vaping Use Vaping status: Never Used Substance Use Topics Alcohol use: Not Currently [...] Smoking Status Never Review of Systems Constitutional: Negative. HENT: Negative. Eyes: Negative. Respiratory: Negative. Cardiovascular: Negative. Gastrointestinal: Negative. Genitourinary: Negative. Musculoskeletal: Negative. Skin: Positive for rash. Neurological: Negative. Psychiatric/Behavioral: Negative. Endocrine: Negative. Objective Physical Exam Vitals reviewed. Constitutional: Appearance: Normal appearance. HENT: Head: Normocephalic. Cardiovascular: Rate and Rhythm: Normal rate. Skin: General: Skin is warm and dry. Neurological: General: No focal deficit present. Mental Status: She is alert and oriented to person, place, and time. Mental status is at baseline. Assessment/Plan Diagnoses and all orders for this visit: Yeast dermatitis - Ambulatory referral to Dermatology; Future Pt tried nystatin and it was ineffective. She is going to dermatology. Will ask dermatology to look at breast when she goes for her visit tomorrow. No follow-ups on file. documented in this encounter [facility] 07-19-2024 Miscellaneous Notes LVM to [facility] in regard to BUE referral from Dr Chamorro--Approved to schedule--patient has [facility] and [facility] documented in this encounter [facility] 07-19-2024 Telephone encounter Note FILI to [facility] in regard to BUE referral from Dr Chamorro--Approved to schedule--patient has [facility] and [facility] 07-18-2024 History of Present illness Narrative Associated Problem(s): Bilateral carpal tunnel syndrome Already on Meloxicam Try Cock up wrist splints Do an EMG Probable Referral to Dr. Archer Images from the original note were not included. Subjective Patient ID: Renetta Lopez is a 69 y.o. female who presents for numbness and tingling fingers. Pt is having numbness and tingling mainly in her right arm , but does sometimes hurt in left Been going on for awhile , she is using voltaren gel and shelves for her arms Has hands goes to sleep when sleeping Current Outpatient Medications on File Prior to Visit Medication Sig Dispense Refill carBAMazepine (TEGretol) 200 MG tablet Take by mouth. One-half tablet daily for a week; then one-half tablet twice daily for a week; then one-half tablet three times daily for a week; then one tablet twice daily thereafter. hydroCHLOROthiazide (HYDRODiuril) 25 MG tablet Take 1 tablet (25 mg) by mouth Daily 100 tablet 3 levothyroxine (Synthroid, Levoxyl) 75 MCG tablet Take 1 tablet (75 mcg) by mouth Daily 100 tablet 4 meloxicam (Mobic) 15 MG tablet Take 1 tablet (15 mg) by mouth in the morning. 100 tablet 1 metoprolol tartrate (Lopressor) 50 MG tablet Take 1 tablet (50 mg) by mouth in the morning. 100 tablet 3 nystatin (Mycostatin) cream Apply topically 2 (two) times a day for 14 days 30 g 1 rosuvastatin (Crestor) 10 MG tablet Take 1 tablet (10 mg) by mouth Daily 100 tablet 3 No current facility-administered medications on file prior to visit. I have reviewed and reconciled the history and medication list with the patient today. Allergies Allergen Reactions Hydromorphone Other Reaction(s): difficulty breathing Lisinopril cough Morphine Other Reaction(s): difficulty breathing Plasminogen Patient unaware of reaction Sumatriptan Other Reaction(s): Muscle Tightening Wound Dressing Adhesive Rash Social History Tobacco Use Smoking status: Never Smokeless tobacco: Never Vaping Use Vaping status: Never Used Substance Use Topics Alcohol use: Not Currently [...] Vitals Smoking Status Never Review of Systems Neurological: Positive for numbness. Negative for light-headedness. Objective Physical Exam Constitutional: Appearance: Normal appearance. Musculoskeletal: Comments: Negative Tinnel Negative Phalens But distribution is index and middle finger Neurological: Mental Status: She is alert. Assessment/Plan Problem List Items Addressed This Visit None Visit Diagnoses Bilateral carpal tunnel syndrome - Primary Relevant Orders EMG AND NERVE CONDUCTION STUDY No follow-ups on file. documented in this encounter [facility] 07-05-2024 History of Present illness Narrative Images from the original note were not included. Subjective Patient ID: Renetta Lopez is a 69 y.o. female who presents for Rash. Rash Patient presents for evaluation of a rash involving the right breat. Rash started 2 week ago. Rash has changed over time. Rash is pruritic. Associated symptoms: none. Patient denies: congestion, cough, fever, nausea, and vomiting. patient has not had new exposures (soaps, lotions, laundry detergents, foods, medications, plants, insects or animals). Rash This is a new problem. The current episode started 1 to 4 weeks ago. The problem has been gradually worsening since onset. Location: right breast. The rash is characterized by itchiness and redness (bumpy). She was exposed to nothing. Treatments tried: hydrocortisone, peroxide, antifungal cream. The treatment provided no relief. Current Outpatient Medications on File Prior to Visit Medication Sig Dispense Refill carBAMazepine (TEGretol) 200 MG tablet Take by mouth. One-half tablet daily for a week; then one-half tablet twice daily for a week; then one-half tablet three times daily for a week; then one tablet twice daily thereafter. cephalexin (Keflex) 500 MG capsule Take 1 capsule (500 mg) by mouth in the morning and 1 capsule (500 mg) before bedtime. Do all this for 7 days. 14 capsule 0 hydroCHLOROthiazide (HYDRODiuril) 25 MG tablet Take 1 tablet (25 mg) by mouth Daily 100 tablet 3 levothyroxine (Synthroid, Levoxyl) 75 MCG tablet Take 1 tablet (75 mcg) by mouth Daily 100 tablet 4 meloxicam (Mobic) 15 MG tablet Take 1 tablet (15 mg) by mouth in the morning. 100 tablet 1 metoprolol tartrate (Lopressor) 50 MG tablet Take 1 tablet (50 mg) by mouth in the morning. 100 tablet 3 rosuvastatin (Crestor) 10 MG tablet Take 1 tablet (10 mg) by mouth Daily 100 tablet 3 [DISCONTINUED] potassium chloride CR (Klor-Con M10) 10 MEQ ER tablet Take 1 tablet (10 mEq) by mouth Daily Do not crush or chew. 100 tablet 3 No current facility-administered medications on file prior to visit. I have reviewed and reconciled the history and medication list with the patient today. Allergies Allergen Reactions Hydromorphone Other Reaction(s): difficulty breathing Lisinopril cough Morphine Other Reaction(s): difficulty breathing Plasminogen Patient unaware of reaction Sumatriptan Other Reaction(s): Muscle Tightening Wound Dressing Adhesive Rash Social History Tobacco Use Smoking status: Never Smokeless tobacco: Never Vaping Use Vaping status: Never Used Substance Use Topics Alcohol use: Not Currently [...] ARTHROPLASTY Left 2013 Dr Archer Visit Vitals Ht 5' 2 BMI 32.01 kg/m Smoking Status Never BSA 1.86 m Review of Systems Constitutional: Negative. HENT: Negative. Eyes: Negative. Respiratory: Negative. Cardiovascular: Negative. Gastrointestinal: Negative. Genitourinary: Negative. Musculoskeletal: Negative. Skin: Positive for rash. Neurological: Negative. Psychiatric/Behavioral: Negative. Objective Physical Exam Vitals reviewed. Constitutional: Appearance: Normal appearance. HENT: Head: Normocephalic. Mouth/Throat: Mouth: Mucous membranes are moist. Pharynx: Oropharynx is clear. Cardiovascular: Rate and Rhythm: Normal rate. Pulmonary: Effort: Pulmonary effort is normal. Skin: General: Skin is warm. Findings: Rash present. Rash is macular and papular. Comments: Rt breast ad 3-6 o' clock and a few scattered area from 9-12 Neurological: General: No focal deficit present. Mental Status: She is alert and oriented to person, place, and time. Psychiatric: Mood and Affect: Mood normal. Behavior: Behavior normal. Assessment/Plan Diagnoses and all orders for this visit: Yeast dermatitis - nystatin (Mycostatin) cream; Apply topically 2 (two) times a day for 14 days Use cream 2 times a day for 14 days. If there is no improvement, come back for further treatment. No follow-ups on file. documented in this encounter [facility] 07-01-2024 History of Present illness Narrative Pt here for urine sample she is having urgency, and when she tried to go will only go a little documented in this encounter [facility] 05-21-2024 Telephone encounter Note The patient @ [phone], is calling back to discuss her episode of facial pain this morning & any possible imaging that can be done.The patient was given the [facility] riveting machine operator number, to get connected with the neurologist personal injury legal assistant, to discuss her episode of facial pain. [facility] Work Phone: 05-21-2024 Miscellaneous Notes The patient @ [phone], is calling back to discuss her episode of facial pain this morning & any possible imaging that can be done.The patient was given the [facility] riveting machine operator number, to get connected with the neurologist personal injury legal assistant, to discuss her episode of facial pain. They need a back xray order out of precaution they already performed it and need an order please send over! Patient still has lead wires in her back. The hospital called the company that manufactured these lead wires (patient still had the information), and the company was unable to confirm that the wires were safe to scan. Patient did not have the MRI and she is asking what's next. Please call to advise. documented in this encounter [facility] 05-19-2024 History of Present illness Narrative Images from the original note were not included. Subjective Patient ID: Renetta Lopez is a 69 y.o. female who presents for FUV (Renetta Lopez is a 68 y.o. female who presents for FUV of right Foot Pain. Patient relates some improvement when wearing new shoes ([employer]), CBD oil and voltaren. Patient is taking Meloxicam 1x daily. SS 9). HPI Patient presents for follow up of right mid foot pain. She states she has changed her shoe gear, has been relacing her shoes to avoid increased pressure on the dorsal mid foot, she has been using Voltaren gel and CBD oil. She still has painful flares, but overall she feels the dorsal mid foot pain has improved. She states in the last week she has noticed right plantar foot pain at her heel and along her medial arch. She takes meloxicam daily. She does not wear inserts. She has had custom-molded orthotics in the past which she did not tolerate well. Review of Systems Medications Current Outpatient Medications: [...] 1 metoprolol tartrate (Lopressor) 50 MG tablet, Take 1 tablet (50 mg) by mouth in the morning., Disp: 100 tablet, Rfl: 3 potassium chloride CR (Klor-Con M10) 10 MEQ ER tablet, Take 1 tablet (10 mEq) by mouth Daily Do not crush or chew., Disp: 100 tablet, Rfl: 3 rosuvastatin (Crestor) 10 MG tablet, Take 1 tablet (10 mg) by mouth Daily, Disp: 100 tablet, Rfl: 3 Allergies Hydromorphone, Lisinopril, Morphine, Plasminogen, Sumatriptan, and Wound dressing adhesive Past Surgical History Past Surgical History: Procedure Laterality Date APPENDECTOMY 2006 BUNIONECTOMY 2005 DILATION AND CURETTAGE OF UTERUS HYSTERECTOMY 2006 JOINT REPLACEMENT 05/14/2017 right knee KNEE ARTHROSCOPY W/ DEBRIDEMENT 2006 LUMBAR FUSION 2009 OTHER SURGICAL HISTORY battery removed from bone stim (back) TOTAL KNEE ARTHROPLASTY Left 2013 Dr Stepanic Family History Family History Problem Relation Name [...] plantarflexion, inversion, eversion are 5/5 b/l. PAIN: Pain at the insertion of the plantar fascia into the calcaneus right. Mild discomfort with palpation of the weight bearing surface of the calcaneus and along the medial band of the plantar fascia at the arch. No pain with medial to lateral compression of the heel. No pain in the peroneals, Achilles or Posterior tibial tendon. There is less pain with palpation right foot dorsal 2nd [...] 2. Bursitis of right foot M77.51 3. Plantar fasciitis, right M72.2 4. Gastrocnemius equinus of right lower extremity M62.461 The right mid foot pain has responded well to supportive shoe gear, relacing shoes, Voltaren gel and CBD oil. Patient would like to continue with these conservative measures. She states she will call if the right foot pain becomes so severe that she would like to try other treatment options. Discuss with patient the diagnosis of plantar fasciitis. She states she has had this issue in the past. Stress the importance of good supportive tie shoes. Advise no flip flops, slippers nor bare feet. Explain the anatomy of the plantar fascia and equinus. Demonstrate stretching exercises and give handout for the same. Also advise icing therapy. Patient tried Powerstep orthotics and will take them; they felt comfortable. Reviewed break in period. RTO 4 weeks. This note was created with the assistance of a speech recognition program. While intending to generate a timely document that accurately reflects the content of the visit, no guarantee can be provided that every grammatical or spelling mistake has been or will be identified or corrected. Thank you for your understanding. Madiha Patrick DPM documented in this encounter [facility] 04-28-2024 History of Present illness Narrative Images from the original note were not included. Subjective Patient ID: Renetta Lopez is a 69 y.o. female who presents for hand swelling. Renetta presents to with hand swelling at times that comes and goes, she also has numbness at night that happens daily. She also has a hard time picking up things. Patient has tried CBD oil and Voltaren gel. Uses the Voltaren Gel only on her left thumb. Normally once a day. Heat seems to help. States for 5.5 hours a day she does nothing but use her hands, they swell after work. States her hands go numb, completely fall asleep. Happens at night, every night. It is mostly her palms. Shakes them, rubs them, or just moves them around and it helps after a while. Following with Dr. Stringer for her foot pain. Following with Neurology for Trigeminal Neuralgia. Current Outpatient Medications on File Prior to Visit Medication Sig Dispense Refill carBAMazepine (TEGretol) 200 MG tablet Take by mouth. One-half tablet daily for a week; then one-half tablet twice daily for a week; then one-half tablet three times daily for a week; then one tablet twice daily thereafter. hydroCHLOROthiazide (HYDRODiuril) 25 MG tablet Take 1 tablet (25 mg) by mouth Daily 100 tablet 3 levothyroxine (Synthroid, Levoxyl) 75 MCG tablet Take 1 tablet (75 mcg) by mouth Daily 100 tablet 4 meloxicam (Mobic) 15 MG tablet Take 1 tablet (15 mg) by mouth in the morning. 100 tablet 1 metoprolol tartrate (Lopressor) 50 MG tablet Take 1 tablet (50 mg) by mouth in the morning. 100 tablet 3 potassium chloride CR (Klor-Con M10) 10 MEQ ER tablet Take 1 tablet (10 mEq) by mouth Daily Do not crush or chew. 100 tablet 3 rosuvastatin (Crestor) 10 MG tablet Take 1 tablet (10 mg) by mouth Daily 100 tablet 3 [DISCONTINUED] predniSONE (Deltasone) 20 MG tablet 3 tabs x 2 days, 2 tabs x 2 day, 1 1/2 tabs x 2 days, 1 tab x 2 days, 1/2 tab x 2 days then stop (Patient not taking: Reported on 04/07/2024) 16 tablet 0 No current facility-administered medications on file prior to visit. I have reviewed and reconciled the history and medication list with the patient today. Allergies Allergen Reactions Hydromorphone Other Reaction(s): difficulty breathing Lisinopril cough Morphine Other Reaction(s): difficulty breathing Plasminogen Patient unaware of reaction Sumatriptan Other Reaction(s): Muscle Tightening Wound Dressing Adhesive Rash Social History Tobacco Use Smoking status: Never Smokeless tobacco: Never Vaping Use Vaping status: Never Used Substance Use Topics Alcohol use: Not Currently [...] ARTHROPLASTY Left 2013 Dr Archer Visit Vitals BP 118/78 Pulse 78 Resp 16 Ht 5' 2 Wt 175 lb SpO2 98% BMI 32.01 kg/m Smoking Status Never BSA 1.86 m Review of Systems Constitutional: Negative for chills, fatigue and fever. Respiratory: Negative for cough, shortness of breath and wheezing. Cardiovascular: Negative for chest pain, palpitations and leg swelling. Gastrointestinal: Negative for abdominal pain, constipation, diarrhea, nausea and vomiting. Musculoskeletal: Bilateral hand swelling Skin: Negative for rash. Objective Physical Exam Constitutional: General: She is not in acute distress. Appearance: She is well-developed. She is obese. HENT: Head: Normocephalic and atraumatic. Eyes: General: No scleral icterus. Conjunctiva/sclera: Conjunctivae normal. Cardiovascular: Rate and Rhythm: Normal rate and regular rhythm. Heart sounds: Normal heart sounds. No murmur heard. Pulmonary: Effort: Pulmonary effort is normal. No respiratory distress. Breath sounds: Normal breath sounds. No wheezing, rhonchi or rales. Musculoskeletal: Right hand: Deformity (Arhtritic changes of multiple joints), tenderness and bony tenderness present. No swelling. Normal range of motion. Normal strength. Normal sensation. Normal capillary refill. Normal pulse. Left hand: Deformity (Arhtritic changes of multiple joints), tenderness and bony tenderness present. No swelling. Normal range of motion. Normal strength. Normal sensation. Normal capillary refill. Normal pulse. Comments: Phalen's and Tinel's negative for N/T, did have some increased discomfort in her fingers with Phalen's Skin: General: Skin is warm and dry. Neurological: General: No focal deficit present. Mental Status: She is alert and oriented to person, place, and time. Psychiatric: Mood and Affect: Mood normal. Behavior: Behavior normal. Assessment/Plan Diagnoses and all orders for this visit: Arthritis of both hands Encouraged pt to start using the Voltaren Gel more routinely, at least twice a day, up to four times a day, 2 grams per hand. Encouraged her to use gentle heat on hands as needed, especially in the mornings. Paresthesia of hand, bilateral Possibly early carpal tunnel. Try wrist braces at night to see if symptoms improve as they currently only bother her at night. If symptoms worsen, may need to pursue EMG testing for further evaluation. Bilateral hand swelling No swelling at time of exam. Only occurs after working, or using her hands for extended periods of time. She is currently working [employer]. Discussed with her the possibility of residential, if her financial situation allows, to help reduce flare ups of her arthritic pain. She states she will consider. Trigeminal neuralgia of left side of face (CMS/HCC) The patient is seeing a medical massage therapist for this condition, treatment is deferred to that specialist. Correspondence from that specialist and any available testing were reviewed during today's visit. Arthritis of right midfoot The patient is seeing a medical massage therapist for this condition, treatment is deferred to that specialist. Correspondence from that specialist and any available testing were reviewed during today's visit. Bursitis of right foot See above. Exostosis of right foot See above. Follow up if symptoms worsen or fail to improve. documented in this encounter [facility] 04-16-2024 Telephone encounter Note Earlier this week, the patient was unable to have an MRI brain done in re: trigeminal neuralgia due to metal hardware in her lumbar spine. She is said to have the device cards. I asked her to call me back on my [facility] mobile phone; our radiology department may be able to do her scan, depending upon what they may know of her devices. I asked that she let me know the device card info to this end. Melani Matute MD [facility] 04-16-2024 Miscellaneous Notes Earlier this week, the patient was unable to have an MRI brain done in re: trigeminal neuralgia due to metal hardware in her lumbar spine. She is said to have the device cards. I asked her to call me back on my [facility] mobile phone; our radiology department may be able to do her scan, depending upon what they may know of her devices. I asked that she let me know the device card info to this end. Melani Matute MD documented in this encounter [facility] 04-12-2024 Telephone encounter Note They need a back xray order out of precaution they already performed it and need an order please send over! [facility] 04-11-2024 Telephone encounter Note Patient still has lead wires in her back. The hospital called the company that manufactured these lead wires (patient still had the information), and the company was unable to confirm that the wires were safe to scan. Patient did not have the MRI and she is asking what's next. Please call to advise. [facility] 04-11-2024 Telephone encounter Note Sent message to provider for review and to advise. Harika Rondon MA [facility] 04-11-2024 Miscellaneous Notes Sent message to provider for review and to advise. Harika Rondon MA The mri was resent it was supposed to be back Xray. Faxed order to [facility] and received fax confirmation. Harika Rondon MA [facility] calling to request orders for xray for PT's back. Pt unsure if she has metal in her back for MRI appt scheduled for today at 4pm. Please fax orders to [phone] if agreeable. [phone] documented in this encounter [facility] 04-11-2024 Telephone encounter Note The mri was resent it was supposed to be back Xray. [facility] 04-11-2024 Telephone encounter Note Faxed order to [facility] and received fax confirmation. Harika Rondon MA [facility] 04-11-2024 Telephone encounter Note [facility] calling to request orders for xray for PT's back. Pt unsure if she has metal in her back for MRI appt scheduled for today at 4pm. Please fax orders to [phone] if agreeable. [phone] [facility] 04-07-2024 History of Present illness Narrative Images from the original note were not included. Subjective Patient ID: Renetta Lopez is a 68 y.o. female who presents for Foot Pain (68 yo [employer] presents today with spur on top of [...] over 5 years. She has seen different last model department supervisor in the past who administered multiple steroid [...] (back) TOTAL KNEE ARTHROPLASTY Left 2012 Dr Stepanic Family History Family History Problem Relation Name [...] examined and evaluated. Previous notes from different last model department supervisor were available for my review today. Radiographs [...] Madiha Patrick DPM documented in this encounter [facility] 03-30-2024 Telephone encounter Note Received outside blood work sent to scanning. Harika Rondon MA [facility] 03-30-2024 Miscellaneous Notes Received outside blood work sent to scanning. Harika Rondon MA documented in this encounter [facility] 03-28-2024 Telephone encounter Note Sent to scanning CT from [facility]. Harika Rondon MA [facility] 03-28-2024 Miscellaneous Notes Sent to scanning CT from [facility]. Harika Rondon MA documented in this encounter [facility] 03-26-2024 Note Addended by: MELANI MATUTE on: 03/26/2024 12:08 PM Modules accepted: Orders [facility] 03-26-2024 Miscellaneous Notes Addended by: MELANI MATUTE on: 03/26/2024 12:08 PM Modules accepted: Orders documented in this encounter [facility] 03-26-2024 Note HNO ID: [id number] Author: JULIÁN PEREZ MA Service: ? Author Type: Chef'S Assistant Type: Progress Notes Filed: 03/26/2024 12:03 Note Text: [facility] 03-26-2024 History of Present illness Narrative documented in this encounter [facility] 03-25-2024 History and physical note Chart Review [...] List is unpopulated. ====== Melani Matute MD [facility] 03-25-2024 History and physical note Chart Review [...] Melani Matute MD documented in this encounter [facility] 03-25-2024 History and physical note 11:16 - [...] recent (01/31/24) CT brain w from [facility] which showed only age related changes. With [...] normal. There were no involuntary movements. Coordination: [id number]-[id number] was normal. Finger and toe wiggling rapid [...] further diagnostic testing, and coordination of care. [facility] 03-25-2024 History and physical note 11:16 - [...] recent (01/31/24) CT brain w from [facility] which showed only age related changes. With [...] normal. There were no involuntary movements. Coordination: Sfigwr-coyz-bjegci was normal. Finger and toe wiggling rapid [...] coordination of care. documented in this encounter [facility] 03-03-2024 Telephone encounter Note Please call her and inform her that I resent it again today. [facility] 03-03-2024 Miscellaneous Notes Please call her and inform her that I resent it again today. Pt called stated that the refill of crestor and steroid was not at her pharm. I do not see where a steroid was prescribed please advise documented in this encounter [facility] 03-03-2024 Telephone encounter Note Pt called stated that the refill of crestor and steroid was not at her pharm. I do not see where a steroid was prescribed please advise [facility] 03-02-2024 History of Present illness Narrative Images from the original note were not included. HPI Med Refill Additional comments: Crestor--DM kit Last edited by Manuela Almodovar LPN on 03/02/2024 1:34 PM. Subjective Patient ID: Renetta Lopez is a 68 y.o. female who presents for Foot Pain and Med Refill (Crestor--DM kit). Right foot pain x 1 month Pain,edema Podiatry had advised her in past to use Asper cream with lidocaine-pt states it has not been helping Denies inciting even Med Refill Current Outpatient Medications on File Prior to Visit Medication Sig Dispense Refill hydroCHLOROthiazide (HYDRODiuril) 25 MG tablet Take 1 tablet (25 mg) by mouth Daily 100 tablet 3 levothyroxine (Synthroid, Levoxyl) 75 MCG tablet Take 1 tablet (75 mcg) by mouth Daily 100 tablet 4 meloxicam (Mobic) 15 MG tablet Take 1 tablet (15 mg) by mouth in the morning. 100 tablet 1 metoprolol tartrate (Lopressor) 50 MG tablet TAKE 1 TABLET BY MOUTH IN THE MORNING 30 tablet 11 potassium chloride CR (Klor-Con M10) 10 MEQ ER tablet Take 1 tablet (10 mEq) by mouth Daily Do not crush or chew. 100 tablet 3 rosuvastatin (Crestor) 10 MG tablet TAKE 1 TABLET BY MOUTH DAILY 100 tablet 3 [DISCONTINUED] levothyroxine (Synthroid, Levoxyl) 75 MCG tablet TAKE 1 TABLET BY MOUTH DAILY 100 tablet 4 No current facility-administered medications on file prior to visit. I have reviewed and reconciled the history and medication list with the patient today. Allergies Allergen Reactions Hydromorphone Other Reaction(s): difficulty breathing Lisinopril cough Morphine Other Reaction(s): difficulty breathing Plasminogen Patient unaware of reaction Sumatriptan Other Reaction(s): Muscle Tightening Wound Dressing Adhesive Rash Social History Tobacco Use Smoking status: Never Smokeless tobacco: Never Vaping Use Vaping status: Never Used Substance Use Topics Alcohol use: Not Currently [...] ARTHROPLASTY Left 2013 Dr Archer Visit Vitals Ht 5' 2 BMI 31.46 kg/m Smoking Status Never BSA 1.85 m Review of Systems Constitutional: Positive for activity change. HENT: Negative. Eyes: Negative. Respiratory: Negative. Cardiovascular: Negative. Gastrointestinal: Negative. Genitourinary: Negative. Musculoskeletal: Positive for gait problem. Limping gait, rt heel pain Psychiatric/Behavioral: Negative. Hematological: Negative. Endocrine: Negative. Allergic/Immunologic: Negative. Objective Physical Exam Vitals reviewed. Constitutional: Appearance: Normal appearance. HENT: Head: Normocephalic and atraumatic. Right Ear: External ear normal. Left Ear: External ear normal. Nose: Nose normal. Mouth/Throat: Mouth: Mucous membranes are moist. Pharynx: Oropharynx is clear. Cardiovascular: Rate and Rhythm: Normal rate and regular rhythm. Pulses: Normal pulses. Heart sounds: Normal heart sounds. Pulmonary: Effort: Pulmonary effort is normal. Breath sounds: Normal breath sounds. Abdominal: General: Bowel sounds are normal. Palpations: Abdomen is soft. Musculoskeletal: Cervical back: Normal range of motion and neck supple. Comments: right heel pain, mild swelling at the lateral aspect of the dorsum of the foot Skin: General: Skin is warm and dry. Neurological: General: No focal deficit present. Mental Status: She is alert and oriented to person, place, and time. Psychiatric: Mood and Affect: Mood normal. Behavior: Behavior normal. Thought Content: Thought content normal. Judgment: Judgment normal. Assessment/Plan 1. Heel spur, right Discussed diagnosis, use of prednisone and its most common side effects. She is advised to continue ice to the area as needed, continue prednisone as ordered and follow up as needed. - predniSONE (Deltasone) 20 MG tablet; 3 tabs x 2 days, 2 tabs x 2 day, 1 1/2 tabs x 2 days, 1 tab x 2 days, 1/2 tab x 2 days then stop Dispense: 16 tablet; Refill: 0 2. Pain of right heel 3. Pure hypercholesterolemia, unspecified (CMS/HCC) Refill sent today. - rosuvastatin (Crestor) 10 MG tablet; Take 1 tablet (10 mg) by mouth Daily Dispense: 100 tablet; Refill: 3 No follow-ups on file. documented in this encounter [facility] 03-02-2024 Instructions Amanda Echols NP - 03/02/2024 1:30 PM EDT Prednisone added documented in this encounter [facility] 02-11-2024 Telephone encounter Note Rx re-sent. [facility] 02-11-2024 Miscellaneous Notes Rx re-sent. Pt stopped at window regarding this , she needs an updated one with current date on it, the one in her chart would not work the [employer] told her. Please call her when it updated she will pick It up. [phone] Pt stopped at window requesting a new handicap placard be issue? The one she does have in her car 01/2024. Please advise. Her call back [phone] documented in this encounter [facility] 02-10-2024 Telephone encounter Note Pt stopped at window regarding this , she needs an updated one with current date on it, the one in her chart would not work the [employer] told her. Please call her when it updated she will pick It up. [phone] [facility] 02-09-2024 Telephone encounter Note Pt stopped at window requesting a new handicap placard be issue? The one she does have in her car 01/2024. Please advise. Her call back [phone] [facility] 02-04-2024 History of Present illness Narrative Patient: Renetta Lopez : 1955 PCP: Ashly Chamorro MD SUBJECTIVE This is a 68 y.o. female that presents today for a chief complaint of pain to the right midfoot region. Patient has seen other providers applied did injections in the past and has different shoe gear with more improvement. States dull and achy at times particularly with prolonged standing has been happening for the past 2-3 years and presents today for treatment options. Allergies: Allergies Allergen Reactions Hydromorphone Other Reaction(s): difficulty breathing Lisinopril cough Morphine Other Reaction(s): difficulty breathing Plasminogen Patient unaware of reaction Sumatriptan Other Reaction(s): Muscle Tightening Wound Dressing Adhesive Rash Past Medical History: Past Medical History: Diagnosis Date Anemia Arthritis [...] region at multiple levels Tendonitis of shoulder Medications: Current Outpatient Medications: hydroCHLOROthiazide (HYDRODiuril) 25 MG tablet, Take 1 tablet (25 mg) by mouth Daily, Disp: 100 tablet, Rfl: 3 levothyroxine (Synthroid, Levoxyl) 75 MCG tablet, TAKE 1 TABLET BY MOUTH ONCE DAILY, Disp: 100 tablet, Rfl: 4 meloxicam (Mobic) [...] Rfl: 3 rosuvastatin (Crestor) 10 MG tablet, TAKE 1 TABLET BY MOUTH DAILY, Disp: 100 tablet, Rfl: 3 Social History: Social History Socioeconomic History Marital status: Spouse name: Not on file Number of children: Not on file Years of education: Not on file Highest education level: Not on file Occupational History Not on file Tobacco Use Smoking status: Never Smokeless tobacco: Never Vaping Use Vaping status: Never Used Substance and Sexual Activity Alcohol use: Not Currently Drug use: Never Sexual activity: Not on file Other Topics Concern Not on file Social History Narrative Not on file Social Determinants of Health Financial Resource Strain: Not on file Food Insecurity: Not on file Transportation Needs: Not on file Physical Activity: Not on file Stress: Not on file Social Connections: Not on file Intimate Partner Violence: Not on file Housing Stability: Not on file ROS: Gastrointestinal: denies abdominal pain, ulcers, or changes in appetite or bowel habits Musculoskeletal: Positive generalized arthritis to joints and denies loss of strength. Positive history of knee replacements as well as back surgery in the past Cardiovascular: denies CP, palpitations, irregular rhythms OBJECTIVE LE EXAM: DERM: Positive hair growth to b/l feet with good skin turgor noted. Negative openings in skin. Minimal edema to right forefoot region VASC: Palpable pedal pulsed b/l with warm to cool tibia to toes b/l NEURO: Gross sensation intact digits 1-10 and b/l feet ORTHO: +5/5 DF/PF/IN/EV right, +5/5 DF/PF/IN/EV left. 20 degrees inversion and 10 degrees eversion STJ b/l. Ankle ROM less than 10 degrees b/l. Positive pain on palpation to right Lisfranc joint region XRAY: Verbal order today for x-rays be taken by staff. AP/Oblique/Lateral 3 view radiographs today of the right foot demonstrated the following: Notable severe degenerative changes to the right midfoot along Lisfranc's joint as well so a navicular exostosis on lateral view most likely old chip fracture US: ASSESSMENT 1. DJD (degenerative joint disease), ankle and foot, right PLAN Reviewed x-rays today with patient and to continue with Mobic daily Discussed possible pinpoint or trigger point injection if symptoms worsen this specific area of the Lisfranc joint region otherwise recommend continue with good shoe gear and also recommended [id number] versus custom inserts and patient may purchase [id number] inserts in the near future Ayo Mckeon DPM documented in this encounter [facility] 07-09-2023 History of Present illness Narrative Subjective [...] follow-ups on file. documented in this encounter [facility] 07-04-2023 Evaluation note Encounter Date Diagnosis Assessment [...] for further eval and possible repeat injection. [employer] Other 01-13-2023 NotePROCEDURE: XR HAND RT MIN [...] Electronically authenticated by: KADE GLEZ Date: 2022-06-20 12:56[facility]12-10-2022 Evaluation note* Encounter Date Diagnosis Assessment Notes [...] no improvement in 3 to 4 days [employer] Other Evaluation noteNo assessment information available [facility] Work Phone: Evalunkhwp noteNo InformationNort [employer] Other Evaluqzlgc note* Diagnosis Acute non-recurrent pansinusitis- Primary documented in this encounter [facility]* Diagnosis Trigeminal neuralgia of left side of face- Primary [facility] Sprain of low back, initial [...] of right foot documented [facility]* Diagnosis Sprain of low back, initial [...] with rapid ventricular response (CMS/HCC) Arthritis of both hands- Primary Paresthesia of hand, bilateral Bilateral hand swelling Trigeminal neuralgia of left side of face (CMS/HCC) Arthritis of right midfoot Bursitis of right foot Exostosis of right foot documented [facility]* Diagnosis Sprain of low back, initial [...] right midfoot- Primary Bursitis of right foot Plantar fasciitis, right Gastrocnemius equinus of right lower extremity documented [facility]* Diagnosis DJD (degenerative joint disease), ankle and foot, right- Primary documented in [facility]* Diagnosis Status post right knee replacement- Primary Status post left knee replacement documented [facility]* Diagnosis Heel spur, right- Primary Pain of right heel Pure hypercholesterolemia, unspecified (CMS/HCC) documented [facility]* Diagnosis Sprain of low back, initial [...] Atrial fibrillation with rapid ventricular response (CMS/HCC) Dysuria documented [facility]* Diagnosis Sprain of low back, initial [...] Atrial fibrillation with rapid ventricular response (CMS/HCC) Yeast dermatitis- Primary documented [facility]* Diagnosis Sprain of low back, initial [...] Atrial fibrillation with rapid ventricular response (CMS/HCC) Bilateral carpal tunnel syndrome- Primary Carpal tunnel syndrome documented [facility]* Diagnosis Sprain of low back, initial [...] Atrial fibrillation with rapid ventricular response (CMS/HCC) Bilateral carpal tunnel syndrome- Primary Carpal tunnel syndrome Yeast dermatitis- Primary Unspecified atrial fibrillation (CMS/HCC) Longstanding persistent atrial fibrillation (CMS/HCC) documented [facility]* Diagnosis Sprain of low back, initial [...] for malignant neoplasm of breast Other thrombophilia Unspecified atrial fibrillation (CMS/HCC) Atherosclerosis of aorta (CMS/HCC) Atherosclerosis of aorta Atrial fibrillation with rapid ventricular response (CMS/HCC) Bilateral carpal tunnel syndrome- Primary Carpal tunnel syndrome Ingrown toenail- Primary Ingrowing nail Toe pain, right Pain in soft tissues of limb documented [facility] this [facility]* Diagnosis Sprain of low back, initial [...] for malignant neoplasm of breast Other thrombophilia Unspecified atrial fibrillation (CMS/HCC) Atherosclerosis of aorta (CMS/HCC) Atherosclerosis of aorta Atrial fibrillation with rapid ventricular response (CMS/HCC) Bilateral carpal tunnel syndrome- Primary Carpal tunnel syndrome Dysuria documented in this [facility]* Diagnosis Sprain of low back, initial [...] for malignant neoplasm of breast Other thrombophilia Unspecified atrial fibrillation (CMS/HCC) Atherosclerosis of aorta (CMS/HCC) Atherosclerosis of aorta Atrial fibrillation with rapid ventricular response (CMS/HCC) Bilateral carpal tunnel syndrome- Primary Carpal tunnel syndrome Ingrown nail- Primary Ingrowing nail Nail dystrophy Other specified disease of nail Pain of toe of left foot documented [facility] this [facility]* Diagnosis Sprain of low back, initial encounter- Primary H/O lumbosacral spine surgery Paronychia of great toe- Primary Routine general medical examination at health care facility- Primary Routine general medical examination at a health care facility Abnormal glucose tolerance test Impaired glucose tolerance test Benign essential hypertension Essential hypertension, benign Medicare annual wellness visit, subsequent Vitamin D deficiency Hypocalcemia Hypomagnesemia Disorders of magnesium metabolism Mixed hyperlipidemia Mixed hyperlipidemia Encounter for screening mammogram for malignant neoplasm of breast Other thrombophilia ([facility]) Unspecified atrial fibrillation (HCC) Atherosclerosis of aorta Atrial fibrillation with rapid ventricular response (HCC) Bilateral carpal tunnel syndrome- Primary Carpal tunnel syndrome Ingrown nail- Primary Ingrowing nail Nail dystrophy Other specified disease of nail Toe pain, right Pain in soft tissues of limb Paronychia of great toe of right foot documented [facility]* Diagnosis Sprain of low back, initial encounter- Primary H/O lumbosacral spine surgery Paronychia of great toe- Primary Routine general medical examination at health care facility- Primary Routine general medical examination at a health care facility Abnormal glucose tolerance test Impaired glucose tolerance test Benign essential hypertension Essential hypertension, benign Medicare annual wellness visit, subsequent Vitamin D deficiency Hypocalcemia Hypomagnesemia Disorders of magnesium metabolism Mixed hyperlipidemia Mixed hyperlipidemia Encounter for screening mammogram for malignant neoplasm of breast Other thrombophilia ([facility]-HCC) Unspecified atrial fibrillation (HCC) Atherosclerosis of aorta Atrial fibrillation with rapid ventricular response (HCC) Bilateral carpal tunnel syndrome- Primary Carpal tunnel syndrome Ingrown nail- Primary Ingrowing nail Nail dystrophy Other specified disease of nail Toe pain, right Pain in soft tissues of limb Paronychia of great toe of right foot documented in this [facility]* Diagnosis Sprain of low back, initial encounter- Primary H/O lumbosacral spine surgery Paronychia of great toe- Primary Routine general medical examination at health care facility- Primary Routine general medical examination at a health care facility Abnormal glucose tolerance test Impaired glucose tolerance test Benign essential hypertension Essential hypertension, benign Medicare annual wellness visit, subsequent Vitamin D deficiency Hypocalcemia Hypomagnesemia Disorders of magnesium metabolism Mixed hyperlipidemia Mixed hyperlipidemia Encounter for screening mammogram for malignant neoplasm of breast Other thrombophilia ([facility]-HCC) Unspecified atrial fibrillation (HCC) Atherosclerosis of aorta Atrial fibrillation with rapid ventricular response (HCC) Bilateral carpal tunnel syndrome- Primary Carpal tunnel syndrome Ingrown nail- Primary Ingrowing nail Nail dystrophy Other specified disease of nail Toe pain, right Pain in soft tissues of limb documented in this encounter [facility]* Diagnosis Sprain of low back, initial encounter- Primary H/O lumbosacral spine surgery Paronychia of great toe- Primary Routine general medical examination at health care facility- Primary Routine general medical examination at a health care facility Abnormal glucose tolerance test Impaired glucose tolerance test Benign essential hypertension Essential hypertension, benign Medicare annual wellness visit, subsequent Vitamin D deficiency Hypocalcemia Hypomagnesemia Disorders of magnesium metabolism Mixed hyperlipidemia Mixed hyperlipidemia Encounter for screening mammogram for malignant neoplasm of breast Other thrombophilia ([facility]-HCC) Unspecified atrial fibrillation (HCC) Atherosclerosis of aorta Atrial fibrillation with rapid ventricular response (HCC) Bilateral carpal tunnel syndrome- Primary Carpal tunnel syndrome Current moderate episode of major depressive disorder without prior episode (HCC)- Primary documented in this encounter [facility]* Diagnosis Sprain of low back, initial encounter- Primary H/O lumbosacral spine surgery Paronychia of great toe- Primary Routine general medical examination at health care facility- Primary Routine general medical examination at a health care facility Abnormal glucose tolerance test Impaired glucose tolerance test Benign essential hypertension Essential hypertension, benign Medicare annual wellness visit, subsequent Vitamin D deficiency Hypocalcemia Hypomagnesemia Disorders of magnesium metabolism Mixed hyperlipidemia Mixed hyperlipidemia Encounter for screening mammogram for malignant neoplasm of breast Other thrombophilia ([facility]) Unspecified atrial fibrillation (HCC) Atherosclerosis of aorta Atrial fibrillation with rapid ventricular response (HCC) Bilateral carpal tunnel syndrome- Primary Carpal tunnel syndrome Plantar fasciitis, right- Primary Gastrocnemius equinus of right lower extremity documented in this encounter [facility]* Diagnosis Sprain of low back, initial encounter- Primary H/O lumbosacral spine surgery Paronychia of great toe- Primary Routine general medical examination at health care facility- Primary Routine general medical examination at a health care facility Abnormal glucose tolerance test Impaired glucose tolerance test Benign essential hypertension Essential hypertension, benign Medicare annual wellness visit, subsequent Vitamin D deficiency Hypocalcemia Hypomagnesemia Disorders of magnesium metabolism Mixed hyperlipidemia Mixed hyperlipidemia Encounter for screening mammogram for malignant neoplasm of breast Other thrombophilia ([facility]) Unspecified atrial fibrillation (HCC) Atherosclerosis of aorta Atrial fibrillation with rapid ventricular response (HCC) Bilateral carpal tunnel syndrome- Primary Carpal tunnel syndrome Swelling of both ankles- Primary Swelling of limb Encounter for screening mammogram for malignant neoplasm of breast documented in this encounter [facility] HealthcareHistory general Narrative - Reported* Type Description Date Medical History Hypertension Medical History Hypothyroidism Medical History Spinal stenosis Surgical History bunionectomy Surgical History hysterectomy Surgical History knee arthroscopy left knee Surgical History spine surgery Surgical History knee replacement left knee Hospitalization History Campylobactor 11/2021 [employer] Other History of Present Illness * Lucille Montesinos APRN - COST ESTIMATING MANAGER - 11/18/2019 2:00 PM EDT Covid swab [facility] 11/23/2019 & agrees to self quarantine until OR 11/29/2019. documented in this encounter* Ava Jackson RN - 11/29/2019 1:34 PM EDT Pt Awake and alert, no c/o pain eating and drinking miguel well, pts has been called to pick pt up * Indra Hernandez RN - 11/29/2019 12:59 PM EDT Awake and alert. Stable. Color good skin warm and dry. Incision looks good. Comfortable and sittingup without difficulty. * Indra Hernandez RN - 11/29/2019 11:03 AM EDT Kianna in pharmacy will profile Ancef for patient. Did fax order. * Indra Hernandez RN - 11/29/2019 10:25 AM EDT Patient thought it was just a local. She discussed with Dr. Rey and is fine to do MAC and local. * Indra Hernandez RN - 11/29/2019 10:00 AM EDT Patient arrived at 0945, registration was in after that. 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 The 24- hour phone is [phone] 13) If you are unable to contact your surgeon, in an emergency situation, go to the nearest hospital emergency room. 14) shower on Thursday 15) Drive whenever she stopped taking narcotics * Attachments The following attachments cannot be sent through Care Everywhere. * Coronavirus Disease (COVID-19): General Info (Italian) documented in this encounter Reason for Referral Status Reason Specialty Diagnoses / Procedures Referred By Contact Referred To Contact Authorized Radiology Diagnoses Pain Procedures Fluoro For Surgical Procedures Pastor Rosado MD [address] [place] [address], [address] [place] [id number] Specialty Diagnoses / Procedures Referred By Contac t Referred To Contact MR IMAGING Diagnoses Trigeminal neuralgia of left side of face Procedures MRI BRAIN WO IVCON MRI BRAIN BRAIN STEM W/[place] [address] [place] [address] [place] [id number] Referral ID Status Reason Start Date Expiration Date Visits Requested Visits Authorized [id number] New Request Auto-Generat ed Referral 4 04/25/2025 [...] HISTORY OF BACK SURGERY, SHOULDER PAIN Procedures ND IMPLANT NEUROSTIM/NOVELTY TWISTER TENDER REMOVAL OF INTERNAL BONE GROWTH STIMULATOR, 30 MINS 1 C-ARM, MAC/LOCAL Pastor Rosado MD [address] [facility], [address] [place] [address] [facility] Reason Comments New Patient Evaluation Reason Comments Foot Pain 68 yo MILL SET UP presents to day with spur on top of right foot, was going to Dr. Nielsen, pt states she received injections from him, states he would inject the area. Pt states it can be hard to walk at times. Also relates swelling in foot and ankle. Soaks in epsom salts, voltaren, aspercreme. This flare up ongoing for about a month. Reason Comments Orders See note Reason Comments FUV Renetta Lopez i s a 68 y.o. female who presents for FUV of right Foot Pain. Patient relates some improvement when wearing new shoes ([employer]), CBD oil and voltaren. Patient is taking Meloxicam 1x daily. SS 9 Reason Comments Foot Pain Reason Onset Date Comments handicap placard 02/09/2024 Reason Comments Foot Pain Med Refill Crestor--DM kit Reason Comments Rash Reason Comments numbness and tingling fingers Reason Comments Ingrown Toenail Renetta Lopez i s a 69 y.o. female requested to be seen today, who presents complaining of a very tender ingrown Rt hallux medial margin. Pain started 2 days ago, admits drainage. /SS: 9 Reason Comments Unable to have MRI Reason Comments FUV Renetta Lopez i s a 69 y.o. female who presents for Left medial border Ingrown Toenail. Patient relates Dr. Zeb Fernandez discussed Phenol matricectomy for ING toenails. SS: 9 Reason Comments Ingrown Toenail Established patient presents today for ingrown nail of the RGT. Patient states started to become bothersome on 11/17/24. Patient relates pain, redness, and drainage. Patient had phenol matricectomy done on the LGT medial margin and states this is doing well, patient uses neosporin and keeps band-aid on the toe. Reason Comments Post-op Established patient presents today for 10-14 day fuv after phenol matricectomy of the right hallux, medial margin, as well as medial margin of LGT. Patient states the LGT is doing well. Patient states RGT is red, patient states only hurts when bumped. Patient relates drainage as well, has been using neosporin and band-aid. Reason Comments Follow-up Established patient presents today for 2 week fuv after phenol matricectomy for right medial hallux. Patient states she is doing well, states the antibiotics cleared her toe. Reason Comments Foot Pain Pt is here today for Rt foot pain, she went to the ER yesterday. Dx'd as plantar fasciitis, they gave her an injection in the arm for it and pt states it has helped. She was also rx'd oral Diclofenac and she hasn't started it yet as she is on Meloxicam. Her foot is feeling better, only painful now if she plantar flexes great toe. Also Lt ankle was bothersome for her last week, swelling and pain presentSS: 9 INFORMATION SOURCE (unrecogn ized section and content) DATE CREATED AUTHOR 05/19/2020 [facility] DATE CREATED AUTHOR AUTHOR'S ORGANIZ ATION 06/20/2022 [facility] DATE CREATED AUTHOR AUTHOR'S ORGANIZ ATION 12/23/2022 [facility] DATE CREATED AUTHOR AUTHOR'S ORGANIZ ATION 10/16/2024 [facility] DATE CREATED AUTHOR AUTHOR'S ORGANIZ ATION 02/08/2025 [facility] EPIC Care Teams (unrecognized sec tion and content) Team Status: Inactive Member Role Status Dates Saima Garcia APRN Attending Provider Active International Accounting Manager Relationship Specialty Start Date End Date Ashly Chamorro MD [address] [facility] [address] [place] [address] PCP - ACO Reach 10/30/22 Ashly Chamorro MD [address] [facility] [address] [place] [address] PCP - General Family Medicine 11/10/22 International Accounting Manager Relationship Specialty Start Date End Date Ashly Chamorro MD [address] [facility] [address] [place] [address] PCP - ACO Reach 10/30/22 Ashly Chamorro MD [address] [facility] [address] [place] [address] PCP - General Family Medicine 11/10/22 International Accounting Manager Relationship Specialty Start Date End Date Randolph Leonard Jr., DO [address] [place] [address] [place] [address] PCP - General 12/21/03 International Accounting Manager Relationship Specialty Start Date End Date Randolph Leonard Jr., DO [address] [place] [address] PCP - General 12/21/03 International Accounting Manager Relationship Specialty Start Date End Date Randolph Leonard Jr., DO [address] [place] [address] PCP - General 12/21/03 International Accounting Manager Relationship Specialty Start Date End Date Ashly Chamorro MD [address] [place] [address] [place] [address] PCP - ACO Reach 10/30/22 Ashly Chamorro MD [address] [place] [address] [place] [address] PCP - General Family Medicine 11/10/22 International Accounting Manager Relationship Specialty Start Date End Date Ashly Chamorro MD [address] [place] [address] [place] [address] PCP - ACO Reach 10/30/22 Ashly Chamorro MD [address] [place] [address] [place] [address] PCP - General Family Medicine 11/10/22 International Accounting Manager Relationship Specialty Start Date End Date Randolph Leonard Jr., DO [address] [place] [address] PCP - General 12/21/03 International Accounting Manager Relationship Specialty Start Date End Date Ashly Chamorro MD [address] [place] [address] PCP - ACO Reach 10/30/22 Ashly Chamorro MD [address] [place] [address] PCP - General Family Medicine 11/10/22 International Accounting Manager Relationship Specialty Start Date End Date Ashly Chamorro MD [address] [place] [address] PCP - ACO Reach 10/30/22 Ashly Chamorro MD [address] [place] [address] PCP - General Family Medicine 11/10/22 International Accounting Manager Relationship Specialty Start Date End Date Ashly Chamorro MD [address] [place] [address] PCP - ACO Reach 10/30/22 Ashly Chamorro MD [address] [place] [address] PCP - General Family Medicine 11/10/22 International Accounting Manager Relationship Specialty Start Date End Date Ashly Chamorro MD [address] [place] [address] PCP - ACO Reach 10/30/22 Ashly Chamorro MD [address] [place] [address] PCP - General Family Medicine 11/10/22 International Accounting Manager Relationship Specialty Start Date End Date Ashly Chamorro MD [address] [place] [address] PCP - ACO Reach 10/30/22 Ashly Chamorro MD [address] [place] [address] PCP - General Family Medicine 11/10/22 International Accounting Manager Relationship Specialty Start Date End Date Ashly Chamorro MD [address] [place] [address] PCP - ACO Reach 10/30/22 Ashly Chamorro MD [address] [place] [address] PCP - General Family Medicine 11/10/22 International Accounting Manager Relationship Specialty Start Date End Date Ashly Chamorro MD [address] [place] [address] PCP - ACO Reach 10/30/22 Ashly Chamorro MD [address] [place] [address] PCP - General Family Medicine 11/10/22 International Accounting Manager Relationship Specialty Start Date End Date Ashly Chamorro MD [address] [place] [address] PCP - ACO Reach 10/30/22 Ashly Chamorro MD [address] [place] [address] PCP - General Family Medicine 11/10/22 International Accounting Manager Relationship Specialty Start Date End Date Ashly Chamorro MD [address] [place] [address] PCP - ACO Reach 10/30/22 Ashly Chamorro MD [address] [place] [address] PCP - General Family Medicine 11/10/22 International Accounting Manager Relationship Specialty Start Date End Date Ashly Chamorro MD [address] [place] [address] PCP - ACO Reach 10/30/22 Ashly Chamorro MD [address] [place] [address] PCP - General Family Medicine 11/10/22 International Accounting Manager Relationship Specialty Start Date End Date Ashly Chamorro MD [address] [place] [address] PCP - ACO Reach 10/30/22 Ashly Chamorro MD [address] [place] [address] PCP - General Family Medicine 11/10/22 International Accounting Manager Relationship Specialty Start Date End Date Ashly Chamorro MD [address] [place] [address] PCP - ACO Reach 10/30/22 Ashly Chamorro MD [address] [place] [address] PCP - General Family Medicine 11/10/22 International Accounting Manager Relationship Specialty Start Date End Date Ashly Chamorro MD [address] [place] [address] PCP - ACO Reach 10/30/22 Ashly Chamorro MD [address] [place] [address] PCP - General Family Medicine 11/10/22 International Accounting Manager Relationship Specialty Start Date End Date Ashly Chamorro MD [address] [place] [address] PCP - ACO Reach 10/30/22 Ashly Chamorro MD [address] [facility] [address] [place] [address] PCP - General Family Medicine 11/10/22 International Accounting Manager Relationship Specialty Start Date End Date Ashly Chamorro MD [address] [facility] [address] [place] [address] PCP - ACO Reach 10/30/22 Ashly Chamorro MD [address] [facility] [address] [place] [address] PCP - General Family Medicine 11/10/22 International Accounting Manager Relationship Specialty Start Date End Date Ashly Chamorro MD [address] [facility] [address] [place] [address] PCP - ACO Reach 10/30/22 Ashly Chamorro MD [address] [facility] [address] [place] [address] PCP - General Family Medicine 11/10/22 International Accounting Manager Relationship Specialty Start Date End Date Ashly Chamorro MD [address] [facility] [address] [place] [address] PCP - ACO Reach 10/30/22 Ashly Chamorro MD [address] [facility] [address] [place] [address] PCP - General Family Medicine 11/10/22 International Accounting Manager Relationship Specialty Start Date End Date Randolph Leonard Jr., [address] [place] [address] [facility] [address] PCP - General 12/21/03 International Accounting Manager Relationship Specialty Start Date End Date Ashly Chamorro MD [address] [facility] [address] [place] [address] PCP - ACO Reach 10/30/22 Ashly Chamorro MD [address] [facility] [address] [place] [address] PCP - General Family Medicine 11/10/22 International Accounting Manager Relationship Specialty Start Date End Date Ashly Chamorro MD [address] [facility] [address] [place] [address] PCP - ACO Reach 10/30/22 Ashly Chamorro MD [address] [facility] [address] [place] [address] PCP - General Family Medicine 11/10/22 International Accounting Manager Relationship Specialty Start Date End Date Ashly Chamorro MD [address] [facility] [address] [place] [address] PCP - ACO Reach 10/30/22 Ashly Chamorro MD [address] [facility] [address] [place] [address] PCP - General Family Medicine 11/10/22 Goals [...] or prosecute any alcohol or drug abuse patient.[facility] InstituteIn the event this information is protected by the Federal Confidentiality of Alcohol and Drug Abuse Patient Records regulations: The Federal rules restrict any use of the information to criminally investigate or prosecute any alcohol or drug abuse patient.[facility] InstituteIn the event this information is protected by the Federal Confidentiality of Alcohol and Drug Abuse Patient Records regulations: The Federal rules restrict any use of the information to criminally investigate or prosecute any alcohol or drug abuse patient.[facility] InstituteIn the event this information is protected by the Federal Confidentiality of Alcohol and Drug Abuse Patient Records regulations: The Federal rules restrict any use of the information to criminally investigate or prosecute any alcohol or drug abuse patient.[facility] InstituteIn the event this information is protected by the Federal Confidentiality of Alcohol and Drug Abuse Patient Records regulations: The Federal rules restrict any use of the information to criminally investigate or prosecute any alcohol or drug abuse patient.[facility] InstituteIn the event this information is protected by the Federal Confidentiality of Alcohol and Drug Abuse Patient Records regulations: The Federal rules restrict any use of the information to criminally investigate or prosecute any alcohol or drug abuse patient.[facility] InstituteIn the event this information is protected by the Federal Confidentiality of Alcohol and Drug Abuse Patient Records regulations: The Federal rules restrict any use of the information to criminally investigate or prosecute any alcohol or drug abuse patient.[facility] FOR RECORDS PERTAINING TO PATIENTS WHO ARE [...] BE BASED ON THE PRIMARY CLINICAL RECORDS. [facility] [employer] [facility]. provides no warranty or guarantee of the accuracy or completeness of information in this document.
== END 2025-02-17 14:35 | disposition home or self-care (01) ==
LOC: MAMMO 14:34
PROVIDERS: PCP Nurse Practitioner Family; Visit Provider Physician Assistant
DX: Z12.31 Encounter for screening mammogram for malignant neoplasm of breast (principal)
CPT/HCPCS: 77063; 77067

== ENCOUNTER 2025-03-26 16:50 | Emergency (ER) | payer MEDICARE, OTHER, SELFPAY ==
--- OUTSIDE RECORDS SUMMARY | 2025-03-15 14:00 | XMS_ITS | Encounter Summary ---
Author Organization [facility] Address [address] [place] [address] Care Team Providers Care Medical Office Manager Name Role Phone Ciera Mares MD Unavailable Ciera Mares MD Primary Care Provider [phone] Reason for Visit * Reason Comments discuss lab results She does not underst and them, especially the Vit D. Encounter Details Date Type Department Care Team (Late st Contact Info) Description 03/15/2025 2:00 PM EDT [facility] [address] [place] [address] Griselda Roe PA [address] [place] [address] Mixed hyperlipidemia (Primary Dx); Vitamin D deficiency; Neuropathy; Impaired fasting glucose Social History Tobacco Use Types Packs/Day Years Used Date Smoking Tobacco: Never Smokeless Tobacco: Never Alcohol Use Standard Drinks/Week Comments Not Currently 0 (1 standard drink = 0.6 oz pur e alcohol) PHQ-2 Answer Date Recorded Patient Health Questionnaire-2 Score 0 03/15/2025 Comments Unknown Sex and Gender Information Value Date Recorded Sex Assigned at Not on file Legal Sex Female 7:14 PM EDT Gender Identity Female 08/20/2022 7:14 PM EDT Sexual Orientation Not on file documented as of this encounter Last Filed Vital Signs Vital Sign Reading Time Taken Comments Blood Pressure 128/70 03/15/2025 2:16 PM EDT Pulse 77 03/15/2025 2:16 PM EDT Temperature - - Respiratory Rate 16 03/15/2025 2:16 PM EDT Oxygen Saturation 96% 03/15/2025 2:16 PM EDT Inhaled Oxygen Concentration - - Weight 79.7 kg (175 lb 12.8 oz) 03/15/2025 2:16 PM EDT Height 157.5 cm (5' 2 ) 03/15/2025 2:16 PM EDT Body Mass Index 32.15 03/15/2025 2:16 PM EDT documented in this encounter Functional Status * Over the past 2 weeks, how often have you been bothered by any of the following problems? Question Answer Date of Assessment Author Little interest or pleasure in doing things Not at all 03/15/2025 2:11 PM EDT Lilly Mcfarlane LP N Feeling down, depressed, or hopeless Not at all 03/15/2025 2:11 PM EDT Lilly Mcfarlane LP N Patient Health Questionnaire -2 Score 0 03/15/2025 2:11 PM EDT Lilly Mcfarlane LP N documented as of this encounter Progress Notes * UZMA Blanco - 03/15/2025 2:00 PM EDT Images from the original note were not included. HPI discuss lab results Additional comments: She does not understand them, especially the Vit D. Last edited by Lilly Mcfarlane LPN on 03/15/2025 2:16 PM. Subjective Patient ID: Renetta Lopez is a 69 y.o. female who presents for feet burning. Renetta is present today for evaluation of feet burning. Admits bilateral feet burning, it started a few weeks ago, the burning is constant now, it was just at night. She has tried soaking them incold water. Wears [place] shoes. States the ASO brace makes her foot hurt worse. Has not worn the inserts consistently, at first said she tried them once, but later states she used them a few times. They raise her arch up so far that is almost out of her shoe. Worse at night, but did burn all day today. Pain is better when she wears her shoes. Burning occasionally goes up into her lower legs. Does go to a Chiropractor. Does eat pasta and rice routinely. Eats cereal, Bran Rasin with Granola. Usually for lunch eats sandwich, fried bologna, ham off the bone, spaghetti, chips, beef stew. Does like salads with scotty and spinach. Over the past 2 weeks, how often have you been bothered by any of the following problems? Little interest or pleasure in doing things: Not at all Feeling down, depressed, or hopeless: Not at all Patient Health Questionnaire-2 Score: 0 Current Outpatient Medications on File Prior to Visit Medication Sig Dispense Refill cholecalciferol (Vitamin D-3) 50 MCG (2000 UT) capsule Take 2,000 Units by mouth Daily rosuvastatin (Crestor) 10 MG tablet TAKE 1 TABLET BY MOUTH ONCE DAILY 100 tablet 3 busPIRone (Buspar) 10 MG tablet Take 1 tablet (10 mg) by mouth 2 (two) times a day as needed (Anxiety) 60 tablet 0 carBAMazepine ER (Carbatrol) 200 MG 12 hr capsule Take 200 mg by mouth in the morning and 200 mg before bedtime. Do not crush or chew. hydroCHLOROthiazide (HYDRODiuril) 25 MG tablet Take 1 [...] mouth in the morning. 100 tablet 3 No current facility-administered medications [...] Past Medical History: Diagnosis Date Anemia Arthritis Cataract 11/23/2022 Combined hyperlipidemia DDD (degenerative disc disease), lumbar [...] Left 2013 Dr Archer Visit Vitals BP 128/70 Pulse 77 Resp 16 Ht 5' 2 Wt 175 lb 12.8 oz SpO2 96% BMI 32.15 kg/m?? Smoking Status Never BSA 1.87 m?? Review of Systems Constitutional: Negative for chills, fatigue and fever. Respiratory: Negative for cough, shortness of breath and wheezing. Cardiovascular: Negative for chest pain, palpitations and leg swelling. Gastrointestinal: Negative for abdominal pain, constipation, diarrhea, nausea and vomiting. Skin: Negative for rash. Neurological: Feet burning Objective Physical Exam Constitutional: General: She is [...] breath sounds. No wheezing, rhonchi or rales. Skin: General: Skin is warm and dry. Neurological: General: No focal deficit present. Mental Status: She is alert and oriented to person, place, and time. Psychiatric: Mood and Affect: Mood normal. Behavior: Behavior normal. Office Visit on 03/08/2025 Component Date Value Ref Range Status WHITE BLOOD CELL COUNT 03/08/2025 5.3 3.8 - 10.8 Thousand/uL Final RED BLOOD CELL COUNT 03/08/2025 4.34 3.80 - 5.10 Million/uL Final HEMOGLOBIN 03/08/2025 13.2 11.7 - 15.5 g/dL Final HEMATOCRIT 03/08/2025 41.0 35.0 - 45.0 % Final MCV 03/08/2025 94.5 80.0 - 100.0 fL Final MCH 03/08/2025 30.4 27.0 - 33.0 pg Final MCHC 03/08/2025 32.2 32.0 - 36.0 g/dL Final Comment: For adults, a slight decrease in the calculated MCHC value (in the range of 30 to 32 g/dL) is most likely not clinically significant; however, it should be interpreted with caution in correlation with other red cell parameters and the patient's clinical condition. RDW 03/08/2025 13.3 11.0 - 15.0 % Final PLATELET COUNT 03/08/2025 199 140 - 400 Thousand/uL Final MPV 03/08/2025 10.1 7.5 - 12.5 fL Final ABSOLUTE NEUTROPHILS 03/08/2025 3,927 1,500 - 7,800 cells/uL Final ABSOLUTE LYMPHOCYTES 03/08/2025 806 (L) 850 - 3,900 cells/uL Final ABSOLUTE MONOCYTES 03/08/2025 408 200 - 950 cells/uL Final ABSOLUTE EOSINOPHILS 03/08/2025 138 15 - 500 cells/uL Final ABSOLUTE BASOPHILS 03/08/2025 21 0 - 200 cells/uL Final NEUTROPHILS 03/08/2025 74.1 % Final LYMPHOCYTES 03/08/2025 15.2 % Final MONOCYTES 03/08/2025 7.7 % Final EOSINOPHILS 03/08/2025 2.6 % Final BASOPHILS 03/08/2025 0.4 % Final Glucose 03/08/2025 104 (H) 65 - 99 mg/dL Final Comment: Fasting reference interval For someone without known diabetes, a glucose value between 100 and 125 mg/dL is consistent with prediabetes and should be confirmed with a follow-up test. BUN 03/08/2025 12 7 - 25 mg/dL Final Creatinine 03/08/2025 0.61 0.60 - 1.00 mg/dL Final EGFR 03/08/2025 96 > OR = 60 mL/min/1.73m2 Final BUN/CREATININE RATIO 03/08/2025 SEE NOTE: 6 - 22 (calc) Final Comment: Not Reported: BUN and Creatinine are within reference range. Sodium 03/08/2025 139 135 - 146 mmol/L Final Potassium, Bld 03/08/2025 4.1 3.5 - 5.3 mmol/L Final Chloride 03/08/2025 101 98 - 110 mmol/L Final Carbon Dioxide 03/08/2025 28 20 - 32 mmol/L Final Calcium 03/08/2025 9.3 8.6 - 10.4 mg/dL Final PROTEIN, TOTAL 03/08/2025 6.5 6.1 - 8.1 g/dL Final ALBUMIN 03/08/2025 4.2 3.6 - 5.1 g/dL Final GLOBULIN 03/08/2025 2.3 1.9 - 3.7 g/dL (calc) Final ALBUMIN/GLOBULIN RATIO 03/08/2025 1.8 1.0 - 2.5 (calc) Final BILIRUBIN, TOTAL 03/08/2025 0.3 0.2 - 1.2 mg/dL Final ALKALINE PHOSPHATASE 03/08/2025 98 37 - 153 U/L Final AST 03/08/2025 17 10 - 35 U/L Final ALT 03/08/2025 16 6 - 29 U/L Final CHOLESTEROL, TOTAL 03/08/2025 122 <200 mg/dL Final HDL CHOLESTEROL 03/08/2025 46 (L) > OR = 50 mg/dL Final TRIGLYCERIDES 03/08/2025 158 (H) <150 mg/dL Final LDL CHOLESTEROL 03/08/2025 52 mg/dL (calc) Final Comment: Reference range: <100 Desirable range <100 mg/dL for primary prevention; <70 mg/dL for patients with CHD or diabetic patients with > or = 2 CHD risk factors. LDL-C is now calculated using the Robby-Rueda calculation, which is a validated novel method providing better accuracy than the Friedewald equation in the estimation of LDL-C. Robby LUA et al. DORA. 2013;310(19): 8411-3761 (http://education.[employer].com/faq/UIH846) CHOL/HDLC RATIO 03/08/2025 2.7 <5.0 (calc) Final NON HDL CHOLESTEROL 03/08/2025 76 <130 mg/dL (calc) Final Comment: For patients with diabetes plus 1 major ASCVD risk factor, treating to a non-HDL-C goal of <100 mg/dL (LDL-C of <70 mg/dL) is considered a therapeutic option. TSH W/REFLEX TO FT4 03/08/2025 2.67 0.40 - 4.50 mIU/L Final VITAMIN D,25-OH,TOTAL,IA 03/08/2025 49 30 - 100 ng/mL Final Comment: Vitamin D Status 25-OH Vitamin D: Deficiency: <20 ng/mL Insufficiency: 20 - 29 ng/mL Optimal: > or = 30 ng/mL For 25-OH Vitamin D testing on patients on D2-supplementation and patients for whom quantitation of D2 and D3 fractions is required, the QuestAssureD(TM) 25-OH VIT D, (D2,D3), LC/MS/MS is recommended: order code 01179 (patients >2yrs). See Note 1 Note 1 For additional information, please refer to http://education.[employer]/faq/FMC353 (This link is being provided for informational/ educational purposes only.) MAGNESIUM 03/08/2025 2.0 1.5 - 2.5 mg/dL Final Assessment/Plan Diagnoses and all orders for this visit: Mixed hyperlipidemia Reviewed recent labs with patient in detail. Reviewed foods that can help lower cholesterol, and which contribute to elevation. Recommended increasing fresh fruits and vegetables, decrease chips and simple sugars. Vitamin D deficiency Continue with current dosage of Vitamin D3 that she recently started to support bone health. Neuropathy Recommend she discuss potentially having an EMG of her BLE done when she sees her Neurology later this month. This would help differentiate the cause of her nerve related pain in her feet and lower legs. Can try to roll feet over frozen water bottle prn and see if pain improves. Impaired fasting glucose Advised 104 is very mildly elevated. Refer to food discussion above. Pt inconsistent today in her history. Difficult to get clear answers at times regarding her currentsymptoms and what she has or has not tried. She states she will only go to her Neurology appointment if she can get a ride. Will not drive there on her own. Follow up in about 25 weeks (around 09/06/2025) for Hypertension. documented in this encounter Plan of Treatment Upcoming Encounters Date Type Department Care Team (Late st Contact Info) Description 03/28/2025 1:45 PM EDT Office Visit [facility] [address] [place] [address] Madiha Damian, DPM [address] [place] [address] 05/24/2025 8:00 AM EST Office Visit [facility] [address] [place] [phone] Jr. Tres Archer DO [address] [facility] [address] [place] [address] documented as of this encounter Visit Diagnoses Diagnosis Mixed hyperlipidemia- Primary Vitamin D deficiency Neuropathy Mononeuritis of unspecified site Impaired fasting glucose documented in this encounter Additional Health Concerns Assessment Noted Time PHQ-9 Depression Total Score: 0 03/08/20 25 10:00 AM EDT documented as of this encounter Care Teams Medical Office Manager Relationship Specialty Start Date End Date Ciera Mares MD [address] [facility] [address] [place] [address] PCP - ACO Reach 10/30/22 Ciera Mares MD [address] [facility] [address] [place] [address] PCP - General Family Medicine 11/10/22 documented as of this encounter
[2025-03-26 16:52] VITALS: BP 185/89; PULSE 78; TEMP 36.9; O2SAT 98; BMI 32.0
--- NOTE | 2025-03-26 17:02 | CT_ITS ---
The [address] [address] Patient Name: MITALI CRONIN MRN: [id number] date: 1955 Sex: F Assigned Patient Location: ED.MAIN Current Patient Location: ED.MAIN Accession/Order Number: [id number] Exam Date: 03/26/2025 17:25 Report Date: 03/26/2025 17:51 At the request of: SALAS GUSMAN Procedure: CT head/brain wo con CT head/brain wo con 03/26/2025 5:37 PM SIGNS AND SYMPTOMS: ^fall with head injury, laceration over forehead TECHNIQUE:Multi-detector CT axial slices of the brain were obtained without IV contrast. CT was performed with one or more of the following dose reduction techniques: Automated exposure control, adjustment of the mA and/or kV according to patient size, or use of iterative reconstruction technique. COMPARISON: 01/31/2024. FINDINGS: There is no shift of the midline structures, acute intracranial bleeding, mass effects, or evidence of acute ischemia. There is age-related cortical atrophy. This periventricular white matter hypoattenuation. Atherosclerotic changes are noted in the intracranial segments of the internal carotid arteries in the V4 segment of the right vertebral artery. The ventricular system is normal in size. The brainstem and the cerebellum are unremarkable. The visualized intraorbital contents, the visualized paranasal sinuses, and the infratemporal soft tissues show no acute abnormality. The osseous structures in the skull base and the calvarium show no abnormality. There is mild left frontal soft tissue swelling with an accompanying laceration. CT/CT head/brain wo con IMPRESSION: No acute intracranial pathology. There is mild left frontal soft tissue swelling with an accompanying laceration. Chronic age-related neurodegenerative changes are noted as above. Impression dictated by: Gallo Tompkins M.D. 03/26/2025 5:51 PM Dictation Location: [place] [address] Electronically authenticated by: [id number] Date: 03/26/2025 17:51
--- NOTE | 2025-03-26 17:02 | XR_ITS ---
The [place] [id number] Patient Name: MITALI CRONIN MRN: [id number] date: 1955 Sex: F Assigned Patient Location: ED.MAIN Current Patient Location: ED.MAIN Accession/Order Number: [id number] Exam Date: 03/26/2025 17:25 Report Date: 03/26/2025 17:48 At the request of: SALAS GUSMAN Procedure: XR knee LT 3V XR knee LT 3V 03/26/2025 5:37 PM SIGNS AND SYMPTOMS: Fall, left knee pain PROTOCOL: Frontal, lateral, and oblique radiographs of the left knee COMPARISON: 10/12/2018 FINDINGS: There is total left knee arthroplasty hardware. No hardware complication There is no fracture or dislocation. No significant soft tissue swelling or joint effusion. XR/XR knee LT 3V IMPRESSION: There is total left knee arthroplasty hardware. No hardware complication. There is no fracture or dislocation. Impression dictated by: Gallo Tompkins M.D. 03/26/2025 5:48 PM Dictation Location: [place] [address] Electronically authenticated by: [id number] Y Date: 03/26/2025 17:48
--- NOTE | 2025-03-26 17:02 | CT_ITS ---
The [address] [address] Patient Name: MITALI CRONIN MRN: [id number] date: 1955 Sex: F Assigned Patient Location: ED.MAIN Current Patient Location: ED.MAIN Accession/Order Number: [id number] Exam Date: 03/26/2025 17:25 Report Date: 03/26/2025 17:56 At the request of: SALAS GUSMAN Procedure: CT cervical spine wo con CT cervical spine wo con 03/26/2025 5:37 PM SIGN AND SYMPTOMS: ^fall with head injury TECHNIQUE: Multi detector CT axial slices of the cervical spine were obtained without IV contrast. Volumetric acquisition sagittal, coronal, and 3-D reconstructions were performed and reviewed. CT was performed with one or more of the following dose reduction techniques: Automated exposure control, adjustment of the mA and/or kV according to patient size, or use of iterative reconstruction technique. COMPARISON: None. FINDINGS: There is preservation of the vertebral body heights. There is moderate to severe disc height loss at C6-C7. There is severe disc height loss at C7-T1. No fractures or dislocations are seen. Facet degenerative changes are present throughout. There is 3 mm of anterolisthesis of C7 upon T1. The craniocervical junction and atlantoaxial joint are within normal limits. The prevertebral soft tissues are within normal limits. The paraspinous soft tissues are within normal limits. The lung apices are unremarkable. Atherosclerotic changes are noted in the carotid bifurcations. CT/CT cervical spine wo con IMPRESSION: No acute bony injury. There is 3 mm of anterolisthesis of C7 upon T1. Degenerative changes are noted throughout the cervical spine as above. Impression dictated by: Gallo Tompkins M.D. 03/26/2025 5:56 PM Dictation Location: [place] [address] Electronically authenticated by: [id number] Y Date: 03/26/2025 17:56
--- OUTSIDE RECORDS SUMMARY | 2025-03-26 17:02 | XMS_ITS | Encounter Summary ---
Author Organization [facility] Address [address] [place] [address] Care Team Providers Care Car Rental Service Attendant Name Role Phone Ciera Mares MD Unavailable Ciera Mares MD Primary Care Provider [phone] Encounter Details Date Type Department Care Team (Late Contact Info) Description 10/12/2024 Abstract [facility] [address] [place] [address] Ciera Mares MD [address] [place] [address] Social History Tobacco Use Types Packs/Day Years Used Date Smoking Tobacco: Never Smokeless Tobacco: Never Alcohol Use Standard Drinks/Week Comments Not Currently 0 (1 standard drink = 0.6 oz pur e alcohol) PHQ-2 Answer Date Recorded Patient Health Questionnaire-2 Score 0 07/05/2024 Comments Unknown Sex and Gender Information Value Date Recorded Sex Assigned at Not on file Legal Sex Female 7:14 PM EDT Gender Identity Female 08/20/2022 7:14 PM EDT Sexual Orientation Not on file documented as of this encounter Plan of Treatment Upcoming Encounters Date Type Department Care Team (Late st Contact Info) Description 03/28/2025 1:45 PM EDT Office Visit [facility] [address] [place] [phone] Madiha Damian, DPM [address] [place], [place] [phone] 05/24/2025 8:00 AM EST Office Visit [facility] [address] [place] [address] Jr. Tres Archer, DO [address] [place] [address] documented as of this encounter Visit Diagnoses Not on filedocumented in this encounter Additional Health Concerns Assessment Noted Time PHQ-9 Depression Total Score: 4 11/25/19 23 8:00 AM EDT documented as of this encounter Care Teams Car Rental Service Attendant Relationship Specialty Start Date End Date Ciera Mares MD [address] [facility] [address] [place] [address] PCP - ACO Reach 10/30/22 Ciera Mares MD [address] [place] [address] PCP - General Family Medicine 11/10/22 documented as of this encounter
--- OUTSIDE RECORDS SUMMARY | 2025-03-26 17:02 | XMS_ITS | Encounter Summary ---
Author Organization [facility] Address [address] [place] [address] Care Team Providers Care Elephant Keeper Name Role Phone Ciera Mares MD Unavailable Ciera Mares MD Primary Care Provider [phone] Encounter Details Date Type Department Care Team (Late Contact Info) Description 02/20/2025 Abstract [facility] [place] [address] [place] [address] Ciera Mares MD [address] [place] [address] Social History Tobacco Use Types Packs/Day Years Used Date Smoking Tobacco: Never Smokeless Tobacco: Never Alcohol Use Standard Drinks/Week Comments Not Currently 0 (1 standard drink = 0.6 oz pur e alcohol) PHQ-2 Answer Date Recorded Patient Health Questionnaire-2 Score 0 02/07/2025 Comments Unknown Sex and Gender Information Value [...] Office Visit [facility] [address] [place] [address] Madiha Damian, DPM [address] [place], [place] [address] 05/24/2025 8:00 AM EST Office Visit [facility] [address] [place] [address] Jr. Tres Archer, DO [address] [place] [address] documented as of this encounter Visit Diagnoses Not on filedocumented in this encounter Additional Health Concerns Assessment Noted Time PHQ-9 Depression Total Score: 4 11/25/19 23 8:00 AM EDT documented as of this encounter Care Teams Elephant Keeper Relationship Specialty Start Date End Date Ciera Mares MD [address] [facility] [address] [place] [address] PCP - ACO Reach 10/30/22 Ciera Mares MD [address] [place] [address] PCP - General Family Medicine 11/10/22 documented as of this encounter
--- OUTSIDE RECORDS SUMMARY | 2025-03-26 17:02 | XMS_ITS | Encounter Summary ---
Author Organization [facility] Address [address] [place] [address] Care Team Providers Care Holiday Detector Operator Name Role Phone Ciera Mares MD Unavailable Ciera Mares MD Primary Care Provider [phone] Encounter Details Date Type Department Care Team (Late st Contact Info) Description 07/04/2024 Abstract [facility] [address] [place] [address] Ciera Mares MD [address] [place] [address] Social History Tobacco Use Types Packs/Day Years [...] on file documented as of this encounter Functional Status * Over the past 2 weeks, how often have you been bothered by any of the following problems? Question Answer Date of Assessment Author Little interest or pleasure in doing things Not at all 07/05/2024 9:01 AM Manuela Kearney LP N Feeling down, depressed, or hopeless Not at all 07/05/2024 9:01 AM Manuela Kearney LP N Patient Health Questionnaire -2 Score 0 07/05/2024 9:01 AM EST Manuela Almodovar LP N documented as of this encounter Plan of Treatment Upcoming Encounters Date Type Department Care Team (Late st Contact Info) Description 03/28/2025 1:45 PM EDT Office Visit [facility] [address] [facility] [place] [address] Madiha Damian, DPM [address] [place] [address] 05/24/2025 8:00 AM EST [facility] [address] [place] [address] Jr. Tres Archer, DO [address] [place] [address] documented as of this encounter Visit Diagnoses Not on filedocumented in this encounter Additional Health Concerns Assessment Noted Time PHQ-9 Depression Total Score: 4 11/25/19 23 8:00 AM EDT documented as of this encounter Care Teams Holiday Detector Operator Relationship Specialty Start Date End Date Ciera Mares MD [address] [place] [address] PCP - ACO Reach 10/30/22 Ciera Mares MD [address] [place] [address] PCP - General Family Medicine 11/10/22 documented as of this encounter
--- OUTSIDE RECORDS SUMMARY | 2025-03-26 17:02 | XMS_ITS | Encounter Summary ---
Author Organization [facility] Address [address] [place] [address] Care Team Providers Care Health Benefits Specialist Name Role Phone Ciera Mares MD Unavailable Ciera Mares MD Primary Care Provider [phone] Encounter Details Date Type Department Care Team (Late Contact Info) Description 12/24/2022 Abstract [facility] [address] [place] [address] Ciera Mares MD [address] [place] [address] Social History Tobacco Use Types Packs/Day Years Used Date Smoking Tobacco: Never Smokeless Tobacco: Never Alcohol Use Standard Drinks/Week Comments Not Currently 0 (1 standard drink = 0.6 oz pur e alcohol) PHQ-2 Answer Date Recorded Patient Health Questionnaire-2 Score 2 11/24/2022 Comments Unknown Sex and Gender Information Value [...] Office Visit [facility] [address] [place] [address] Madiha Damian, DPM [address] [place], [place] [address] 05/24/2025 8:00 AM EST Office Visit [facility] [address] [place] [address] Jr. Tres Archer, DO [address] [place] [address] documented as of this encounter Visit Diagnoses Not on filedocumented in this encounter Additional Health Concerns Assessment Noted Time PHQ-9 Depression Total Score: 4 11/25/19 23 8:00 AM EDT documented as of this encounter Care Teams Health Benefits Specialist Relationship Specialty Start Date End Date Ciera Mares MD [address] [facility] [address] [place] [address] PCP - ACO Reach 10/30/22 Ciera Mares MD [address] [place] [address] PCP - General Family Medicine 11/10/22 documented as of this encounter
--- OUTSIDE RECORDS SUMMARY | 2025-03-26 17:02 | XMS_ITS | Encounter Summary ---
Author Organization [facility] Address [address] [place] [address] Care Team Providers Care Global Director Air And Climate Change Name Role Phone Ciera Mares MD Unavailable Ciera Mares MD Primary Care Provider [phone] Encounter Details Date Type Department Care Team (Late st Contact Info) Description 03/24/2023 Orders Only [facility] [address] [place] [address] A, Unknown Practice [address] [place], [place] [address] Social History Tobacco Use Types Packs/Day Years [...] Office Visit [facility] [address] [place] [address] Madiha Damian, DPM [address] [place] [address] 05/24/2025 8:00 AM EST Office Visit [facility] [address] [place] [address] Jr. Tres Archer DO [address] [facility] 150 [place] [address] documented as of this encounter Procedures Procedure Name Priority Date/Time Associated Diagnosis Comments SCANNED LABS Routine 03/21/2023 9:00 AM EDT documented in this encounter Results * SCANNED LABS (03/21/2023 9:00 AM EDT) us Unknown Practice A LAB CHG PERFORMABLES Final Re sult documented in this encounter Visit Diagnoses Not on filedocumented in this encounter Additional Health Concerns Assessment Noted Time PHQ-9 Depression Total Score: 4 11/25/19 8:00 AM EDT documented as of this encounter Care Teams Global Director Air And Climate Change Relationship Specialty Start Date End Date Ciera Mares MD [address] [facility] 110 [place] [address] PCP - ACO Reach 10/30/22 Ciera Mares MD [address] [facility] 110 [place] [address] PCP - General Family Medicine 11/10/22 documented as of this encounter
--- OUTSIDE RECORDS SUMMARY | 2025-03-26 17:02 | XMS_ITS | Encounter Summary ---
Author Organization [facility] Address [address] [place] [address] Care Team Providers Care Director Of Financial Aid Name Role Phone Ciera Mares MD Unavailable Ciera Mares MD Primary Care Provider [phone] Encounter Details Date Type Department Care Team (Late st Contact Info) Description 03/09/2025 Abstract [facility] [address] [place] [address] Ciera Mares MD [address] [place] [address] Social History Tobacco Use Types Packs/Day Years Used Date Smoking Tobacco: Never Smokeless Tobacco: Never Alcohol Use Standard Drinks/Week Comments Not Currently 0 (1 standard drink = 0.6 oz pur e alcohol) PHQ-2 Answer Date Recorded Patient Health Questionnaire-2 Score 0 03/08/2025 Comments Unknown Sex and Gender Information Value [...] Office Visit [facility] [address] [place] [address] Madiha Damian, DPM [address] [place], [place] [address] 05/24/2025 8:00 AM EST Office Visit [facility] [address] [place] [address] Jr. Tres Archer, DO [address] [place] [address] documented as of this encounter Visit Diagnoses Not on filedocumented in this encounter Additional Health Concerns Assessment Noted Time PHQ-9 Depression Total Score: 0 03/08/20 25 10:00 AM EDT documented as of this encounter Care Teams Director Of Financial Aid Relationship Specialty Start Date End Date Ciera Mares MD [address] [place] [address] PCP - ACO Reach 10/30/22 Ciera Mares MD [address] [place] [address] PCP - General Family Medicine 11/10/22 documented as of this encounter
--- OUTSIDE RECORDS SUMMARY | 2025-03-26 17:02 | XMS_ITS | Clinical Summary ---
Author Organization [facility] Address [address], [address] [place] [address] Care Team Providers Care Primary Substance Abuse Counselor Name Role Phone Antoine Dill MD Primary [...] Treatment Not on file Insurance [employer] [place] Member Subscriber Plan / Payer (Ef fective 2019-Present) Name:Renetta Lopez Relation to Subscriber:Self Name:Renetta Lopez Payer ID:Not on file Type:Not on file Address: [address] [place] [id number] MEDICARE Member Subscriber Plan / Payer (Ef fective 2019-Present) Name:Renetta Lopez Relation to Subscriber:Self Name:Renetta Lopez Payer ID:Not on file Group ID:Not on file Type:Not on file Address: [address] Member Subscriber Plan / Payer (Ef fective 2019-Present) Name:Renetta Lopez Relation to Subscriber:Self Name:Renetta Lopez Payer ID:Not on file Type:Not on file Address: [address] [place] [id number] Care Teams Primary Substance Abuse Counselor Relationship Specialty Start Date End Date Antoine Dill MD [address] [place] [address] PCP - General Family Medicine 08/03/19
--- OUTSIDE RECORDS SUMMARY | 2025-03-26 17:02 | XMS_ITS | Encounter Summary ---
Author Organization [facility] Address [address] [place] [address] Care Team Providers Care E Commerce Director Name Role Phone Ciera Mares MD Unavailable Ciera Mares MD Primary Care Provider [phone] Encounter Details Date Type Department Care Team (Late Contact Info) Description 02/20/2025 Results Follow-Up [facility] [address] [place] [address] Griselda Roe PA [address] [facility] 110 [place] [address] MM TOMOSYNTHESIS SCREENING BI Social History Tobacco Use Types Packs/Day Years [...] PM EDT Office Visit [facility] [address] [place] [address] Madiha Damian, DPM [address] [place] [address] 05/24/2025 8:00 AM EST Office Visit [facility] [address] [place] [address] Jr. Tres Archer DO [address] [facility] 150 [place] [address] documented as of this encounter Visit Diagnoses Not on filedocumented in this encounter Additional Health Concerns Assessment Noted Time PHQ-9 Depression Total Score: 4 11/25/19 23 8:00 AM EDT documented as of this encounter Care Teams E Commerce Director Relationship Specialty Start Date End Date Ciera Mares MD [address] [facility] 110 [place] [address] PCP - ACO Reach 10/30/22 Ciera Mares MD [address] [facility] 110 [place] [address] PCP - General Family Medicine 11/10/22 documented as of this encounter
--- OUTSIDE RECORDS SUMMARY | 2025-03-26 17:02 | XMS_ITS | Encounter Summary ---
Author Organization [facility] Address [address] [place] [address] Care Team Providers Care Juvenile Court Judge Name Role Phone Ciera Mares MD Unavailable Ciera Mares MD Primary Care Provider [phone] Encounter Details Date Type Department Care Team (Late st Contact Info) Description 03/09/2025 Abstract [facility] [address] [place] [address] Ciera Mares MD [address] [place] [address] Social History Tobacco Use Types Packs/Day Years [...] Office Visit [facility] [address] [place] [address] Madiha Damian, DPM [address] [place], [place] [address] 05/24/2025 8:00 AM EST Office Visit [facility] [address] [place] [address] Jr. Tres Archer, DO [address] [place] [address] documented as of this encounter Visit Diagnoses Not on filedocumented in this encounter Additional Health Concerns Assessment Noted Time PHQ-9 Depression Total Score: 0 03/08/20 25 10:00 AM EDT documented as of this encounter Care Teams Juvenile Court Judge Relationship Specialty Start Date End Date Ciera Mares MD [address] [place] [address] PCP - ACO Reach 10/30/22 Ciera Mares MD [address] [place] [address] PCP - General Family Medicine 11/10/22 documented as of this encounter
--- OUTSIDE RECORDS SUMMARY | 2025-03-26 17:03 | XMS_ITS | Encounter Summary ---
Author Organization [facility] Address [address] [place] [address] Care Team Providers Care Controls Project Engineer Name Role Phone Ciera Mares MD Unavailable Ciera Mares MD Primary Care Provider [phone] Encounter Details Date Type Department Care Team (Late Contact Info) Description 01/07/2024 Abstract [facility] [address] [place] [address] Ciera Mares MD [address] [place] [address] Social History Tobacco Use Types Packs/Day Years Used Date Smoking Tobacco: Never Smokeless Tobacco: Never Alcohol Use Standard Drinks/Week Comments Not Currently 0 (1 standard drink = 0.6 oz pur e alcohol) PHQ-2 Answer Date Recorded Patient Health Questionnaire-2 Score 0 12/31/2023 Comments Unknown Sex and Gender Information Value [...] Office Visit [facility] [address] [place] [address] Madiha Damian, DPM [address] [place], [place] [address] 05/24/2025 8:00 AM EST Office Visit [facility] [address] [place] [address] Jr. Tres Archer, DO [address] [place] [address] documented as of this encounter Visit Diagnoses Not on filedocumented in this encounter Additional Health Concerns Assessment Noted Time PHQ-9 Depression Total Score: 4 11/25/19 23 8:00 AM EDT documented as of this encounter Care Teams Controls Project Engineer Relationship Specialty Start Date End Date Ciera Mares MD [address] [facility] [address] [place] [address] PCP - ACO Reach 10/30/22 Ciera Mares MD [address] [place] [address] PCP - General Family Medicine 11/10/22 documented as of this encounter
--- OUTSIDE RECORDS SUMMARY | 2025-03-26 17:03 | XMS_ITS | Encounter Summary ---
Author Organization [facility] Address [address] [place] [address] Care Team Providers Care Leasing Manager Name Role Phone Ciera Mares MD Unavailable Ciera Mares MD Primary Care Provider [phone] Encounter Details Date Type Department Care Team (Late st Contact Info) Description 02/07/2025 Abstract [facility] [address] [place] [address] Cirea Mares MD [address] [place] [address] Social History Tobacco Use Types Packs/Day Years [...] pleasure in doing things Not at all 02/07/2025 2:04 PM EDT Lilly Mcfarlane LP N Feeling down, depressed, or hopeless Not at all 02/07/2025 2:04 PM EDT Lilly Mcfarlane LP N Patient Health Questionnaire -2 Score 0 02/07/2025 2:04 PM EDT Lilly Mcfarlane LP N documented as of this encounter Plan of Treatment Upcoming Encounters Date Type Department Care Team (Late st Contact Info) Description 03/28/2025 1:45 PM EDT Office Visit [facility] [address] [facility] [place] [address] Madiha Damian, DPM [address] [place] [address] 05/24/2025 8:00 AM EST Office Visit [facility] [address] [place] [address] Jr. Tres Archer, DO [address] [place] [address] documented as of this encounter Visit Diagnoses Not on filedocumented in this encounter Additional Health Concerns Assessment Noted Time PHQ-9 Depression Total Score: 4 11/25/19 23 8:00 AM EDT documented as of this encounter Care Teams Leasing Manager Relationship Specialty Start Date End Date Ciera Mares MD [address] [place] [address] PCP - ACO Reach 10/30/22 Ciera Mares MD [address] [place] [address] PCP - General Family Medicine 11/10/22 documented as of this encounter
--- OUTSIDE RECORDS SUMMARY | 2025-03-26 17:03 | XMS_ITS | Encounter Summary ---
Author Organization [facility] Address [address] [place] [address] Care Team Providers Care Applications Chemist Name Role Phone Ciera Mares MD Unavailable Ciera Mares MD Primary Care Provider [phone] Encounter Details Date Type Department Care Team (Late Contact Info) Description 01/14/2024 Abstract [facility] [address] [place] [address] Ciera Mares MD [address] [place] [address] Social History Tobacco Use Types Packs/Day Years [...] Office Visit [facility] [address] [place] [address] Madiha Damian, DPM [address] [place], [place] [address] 05/24/2025 8:00 AM EST Office Visit [facility] [address] [place] [address] Jr. Tres Archer, DO [address] [place] [address] documented as of this encounter Visit Diagnoses Not on filedocumented in this encounter Additional Health Concerns Assessment Noted Time PHQ-9 Depression Total Score: 4 11/25/19 23 8:00 AM EDT documented as of this encounter Care Teams Applications Chemist Relationship Specialty Start Date End Date Ciera Mares MD [address] [facility] [address] [place] [address] PCP - ACO Reach 10/30/22 Ciera Mares MD [address] [place] [address] PCP - General Family Medicine 11/10/22 documented as of this encounter
--- OUTSIDE RECORDS SUMMARY | 2025-03-26 17:03 | XMS_ITS | Encounter Summary ---
Author Organization [facility] Address [address] [place] [address] Care Team Providers Care Wash Operator Name Role Phone Ciera Mares MD Unavailable Ciera Mares MD Primary Care Provider [phone] Encounter Details Date Type Department Care Team (Late st Contact Info) Description 08/15/2024 Abstract [facility] [address] [place] [address] Ciera Mares MD [address] [place] [address] Social History Tobacco Use Types Packs/Day Years [...] Office Visit [facility] [address] [place] [address] Madiha Damian, DPM [address] [place], [place] [address] 05/24/2025 8:00 AM EST Office Visit [facility] [address] [place] [address] Jr. Tres Archer, DO [address] [place] [address] documented as of this encounter Visit Diagnoses Not on filedocumented in this encounter Additional Health Concerns Assessment Noted Time PHQ-9 Depression Total Score: 4 11/25/19 23 8:00 AM EDT documented as of this encounter Care Teams Wash Operator Relationship Specialty Start Date End Date Ciera Mares MD [address] [facility] [address] [place] [address] PCP - ACO Reach 10/30/22 Ciera Mares MD [address] [place] [address] PCP - General Family Medicine 11/10/22 documented as of this encounter
--- OUTSIDE RECORDS SUMMARY | 2025-03-26 17:03 | XMS_ITS | Encounter Summary ---
Author Organization [facility] Address [address] [place] [address] Care Team Providers Care Resin Shaver Name Role Phone Ciera Mares MD Unavailable Ciera Mares MD Primary Care Provider [phone] Encounter Details Date Type Department Care Team (Late Contact Info) Description 01/25/2025 Abstract [facility] [address] [place] [address] Ciera Mares MD [address] [place] [address] [place] [address] Social History Tobacco Use Types Packs/Day Years Used Date Smoking Tobacco: Never Smokeless Tobacco: Never Alcohol Use Standard Drinks/Week Comments Not Currently 0 (1 standard drink = 0.6 oz pur e alcohol) PHQ-2 Answer Date Recorded Patient Health Questionnaire-2 Score 0 01/10/2025 Comments Unknown Sex and Gender Information Value [...] Office Visit [facility] [address] [place] [phone] Madiha Damian, DPM [address] [place], [place] [id number] 05/24/2025 8:00 AM EST Office Visit [facility] [address] [place] [address] Jr. Tres Archer, DO [address] [place] [address] [place] [address] documented as of this encounter Visit Diagnoses Not on filedocumented in this encounter Additional Health Concerns Assessment Noted Time PHQ-9 Depression Total Score: 4 11/25/19 23 8:00 AM EDT documented as of this encounter Care Teams Resin Shaver Relationship Specialty Start Date End Date Ciera Mares MD [address] [facility] [address] [place] [address] PCP - ACO Reach 10/30/22 Ciera Mares MD [address] [place] [address] [place] [address] PCP - General Family Medicine 11/10/22 documented as of this encounter
--- OUTSIDE RECORDS SUMMARY | 2025-03-26 17:03 | XMS_ITS | Encounter Summary ---
Author Organization [facility] Address [address] [place] [address] Care Team Providers Care Skip Miner Name Role Phone Ciera Mares MD Unavailable Ciera Mares MD Primary Care Provider Encounter Details Date Type Department Care Team (Late Contact Info) Description 03/15/2025 Bamboo flowsheet [facility] [address] [place] [address] Griselda Roe PA [address] [facility] 110 [place] [address] Social History Tobacco Use Types Packs/Day Years [...] 03/28/2025 1:45 PM EDT Office Visit [facility] [address] [place] [phone] Madiha Damian, DPM [address] [place], [place] [phone] 05/24/2025 8:00 AM EST Office Visit [facility] [address] [place] [phone] Jr. Tres Archer, [address] [facility] [address] [place] [address] documented as of this encounter Visit Diagnoses Not on filedocumented in this encounter Additional Health Concerns Assessment Noted Time PHQ-9 Depression Total Score: 0 03/08/20 25 10:00 AM EDT documented as of this encounter Care Teams Skip Miner Relationship Specialty Start Date End Date Ciera Mares MD [address] [facility] [address] [place] [address] PCP - ACO Reach 10/30/22 Ciera Mares MD [address] [facility] 110 [place] [address] PCP - General Family Medicine 11/10/22 documented as of this encounter
--- OUTSIDE RECORDS SUMMARY | 2025-03-26 17:03 | XMS_ITS | Encounter Summary ---
Author Organization [facility] Address [address] [place] [address] Care Team Providers Care Pan Shaker Name Role Phone Ciera Mares MD Unavailable Ciera Mares MD Primary Care Provider [phone] Encounter Details Date Type Department Care Team (Late Contact Info) Description 08/03/2024 Abstract [facility] [address] [place] [address] Ciera Mares MD [address] [place] [address] [place] [address] Social History Tobacco Use Types Packs/Day Years [...] Office Visit [facility] [address] [place] [phone] Madiha Damian, DPM [address] [place], [place] [phone] 05/24/2025 8:00 AM EST Office Visit [facility] [address] [place] [address] Jr. Tres Archer, DO [address] [place] [address] [place] [address] documented as of this encounter Visit Diagnoses Not on filedocumented in this encounter Additional Health Concerns Assessment Noted Time PHQ-9 Depression Total Score: 4 11/25/19 23 8:00 AM EDT documented as of this encounter Care Teams Pan Shaker Relationship Specialty Start Date End Date Ciera Mares MD [address] [facility] [address] [place] [address] PCP - ACO Reach 10/30/22 Ciera Mares MD [address] [place] [address] [place] [address] PCP - General Family Medicine 11/10/22 documented as of this encounter
--- OUTSIDE RECORDS SUMMARY | 2025-03-26 17:03 | XMS_ITS | Encounter Summary ---
Author Organization [facility] Address [address] [place], [place] [id number] Care Team Providers Care Graphite Grinder Name Role Phone Aisha Randolph Gastelum Primary Care Provi karla Source Comments In the event this information is protected by the Federal Confidentiality of Alcohol and Drug AbusePatient Records regulations: The Federal rules restrict any use of the information to criminally investigate or prosecute any alcohol or drug abuse patient.[facility] Encounter Details Date Type Department Care [...] AM EDT Office Visit Neurology [facility] [address] [place] [address] [place] [address] [place] [address] Return in about 1 year (around 03/26/2025). // called and spoke with patient - patient aware of new location documented as of this encounter Visit Diagnoses Not on filedocumented in this encounter Care Teams Graphite Grinder Relationship Specialty Start Date End Date Randolph Leonard Jr., [address] [place] [phone] PCP - General 12/21/03 documented as of this encounter
--- OUTSIDE RECORDS SUMMARY | 2025-03-26 17:03 | XMS_ITS | Encounter Summary ---
Author Organization [facility] Address [address] [place] [address] Care Team Providers Care Worm Sorter Name Role Phone Ciera Mares MD Unavailable Ciera Mares MD Primary Care Provider [phone] Encounter Details Date Type Department Care Team (Late Contact Info) Description 01/25/2025 Abstract [facility] [address] [place] [address] Ciera Mares MD [address] [place] [address] [place] [address] Social History Tobacco Use Types Packs/Day Years [...] Office Visit [facility] [address] [place] [phone] Madiha Damian, DPM [address] [place], [place] [phone] 05/24/2025 8:00 AM EST Office Visit [facility] [address] [place] [address] Jr. Tres Archer, DO [address] [place] [address] [place] [address] documented as of this encounter Visit Diagnoses Not on filedocumented in this encounter Additional Health Concerns Assessment Noted Time PHQ-9 Depression Total Score: 4 11/25/19 23 8:00 AM EDT documented as of this encounter Care Teams Worm Sorter Relationship Specialty Start Date End Date Ciera Mares MD [address] [facility] [address] [place] [address] PCP - ACO Reach 10/30/22 Ciera Mares MD [address] [place] [address] [place] [address] PCP - General Family Medicine 11/10/22 documented as of this encounter
--- OUTSIDE RECORDS SUMMARY | 2025-03-26 17:03 | XMS_ITS | Encounter Summary ---
Author Organization [facility] Address [address] [place] [address] Care Team Providers Care Health Advisor Name Role Phone Ciera Mares MD Unavailable Ciera Mares MD Primary Care Provider [phone] Encounter Details Date Type Department Care Team (Late Contact Info) Description 04/09/2023 Abstract [facility] [address] [place] [address] Ciera Mares MD [address] [place] [address] [place] [address] Social History Tobacco Use Types Packs/Day Years [...] Office Visit [facility] [address] [place] [phone] Madiha Damian, DPM [address] [place], [place] [address] 05/24/2025 8:00 AM EST Office Visit [facility] [address] [place] [address] Jr. Tres Acrher, DO [address] [place] [address] [place] [address] documented as of this encounter Visit Diagnoses Not on filedocumented in this encounter Additional Health Concerns Assessment Noted Time PHQ-9 Depression Total Score: 4 11/25/19 23 8:00 AM EDT documented as of this encounter Care Teams Health Advisor Relationship Specialty Start Date End Date Ciera Mares MD [address] [facility] [address] [place] [address] PCP - ACO Reach 10/30/22 Ciera Mares MD [address] [place] [address] [place] [address] PCP - General Family Medicine 11/10/22 documented as of this encounter
--- OUTSIDE RECORDS SUMMARY | 2025-03-26 17:03 | XMS_ITS | Encounter Summary ---
Author Organization [facility] Address [address] [place] [address] Care Team Providers Care Psychologist Private Practice Name Role Phone Ciera Mares MD Unavailable Ciera Mares MD Primary Care Provider [phone] Encounter Details Date Type Department Care Team (Latest Contact Info) Description 03/15/2025 Travel Social History Tobacco Use Types Packs/Day Years [...] Office Visit [facility] [address] [facility] [place] [phone] Madiha Damian, DPCruzito [address] [place] [address] 05/24/2025 8:00 AM EST [facility] [address] [facility] [place] [phone] Jr. Tres Archer, [address] [facility] 150 [place] [address] documented as of this encounter Visit Diagnoses Not on filedocumented in this encounter Additional Health Concerns Assessment Noted Time PHQ-9 Depression Total Score: 0 03/08/20 25 10:00 AM EDT documented as of this encounter Care Teams Psychologist Private Practice Relationship Specialty Start Date End Date Ciera Mares MD [address] [facility] 110 [place] [address] PCP - ACO Reach 10/30/22 Ciera Mares MD [address] [facility] 110 [place] [address] PCP - General Family Medicine 11/10/22 documented as of this encounter
--- OUTSIDE RECORDS SUMMARY | 2025-03-26 17:03 | XMS_ITS | CCD ---
Author Organization [facility] Care Team Providers Care Sales Account Representative Name Role Phone Antoine Waggoner Primary Care Provider ANTOINE WAGGONER Primary Care Unavailabl e KURT, PASTOR H. Referring Unavailable KURT, PASTOR H. Attending Unavailable KURT, PASTOR H. Referring Unavailable ANTOINE WAGGONER [facility] Care Unavailabl e KURT, PASTOR H. Admitting Unavailable KURT, PASTOR H. Attending Unavailable KURT, PASTOR H. Referring Unavailable ANTOINE WAGGONER [facility] Care Unavailabl e KURT, PASTOR H. Referring Un[facility] Primary Care Unavailabl e Antoine Waggoner [...] Unavailable ASHTYN, DR LIMON Primary Care Unavailable CRANDLAL, DR AMANDA Thayer Attending Unavailable JULIANN, DR PARK Consulting Unavailable SARAH HAIDER Consulting Unavailable GLENN Garcia Attending Provider Saima Garcia Unavailable NO FAMILY, PHYSICIAN Primary Care Unavailable Saima Garcia Admitting Unavailable Saima Garcia Attending Unavailable Nadia Durham Unavailable Ashly Chamorro MD Unavailable Ashly Chamorro MD Primary Care Provider Aisha Kemp DO, Charles Lewis Primary Care Provi karla YANICK MELANI SUAZO Attending Unava RANDOLPH Castañeda JR Primary Care Unavail able DALY GRANT Attending Unavailable ASHTYNASHLY Attending Unavailable RUDY, DALY M Attending Unavailable RUSHER, ZEB S Attending Unavailable PATRICK, MADIHA W Attending Unavailable PATRICK, MADIHA W Attending Unavailable PATRICK, MADIHA W Attending Unavailable PATRICK, MADIHA W Attending Unavailable RUDY, DALY M Attending Unavailable PATRICK, MADIHA W Attending Unavailable HEMMER, GRISELDA M Attending Unavailable PATRICK, MADIHA W Attending Unavailable HEMMER, GRISELDA East Attending Unavailable HEMMER, GRISELDA East Attending Unavailable PATRICK, MADIHA W Attending Unavailable PATRICK, MADIHA W Referring Unavailable HEMMER, GRISELDA M Attending Unavailable PATRICK, MADIHA W Attending Unavailable PATRICK, MADIHA W Attending Unavailable Allergies Allergy Classification Reported Allergen(s) Allergy Type Date of Onset Reaction(s) Facility (4 sources) Adhesive Tape Propensity to adverse reactions to drug 11-18-19 20 [place], [place] (4 sources) HYDROmorphone Drug Allergy 11-18-19 20 Shortness Of Breath [place] (4 sources) Lisinopril Drug Allergy 11-18-19 20 [place] (20 sources) Morphine Drug Allergy 10-17-19 20 [place]ness [place] (20 sources) SUMAtriptan Drug Allergy 11-18-19 20 Unknown [place] (4 sources) Plasminogen Propensity to adverse reactions to drug 11-18-19 20 [place] (4 sources) Adhesive agent; Translations: [Adhesive] Drug allergy rash [facility] (20 sources) HYDROmorphone Drug Allergy 11-10-[address] [facility] (1 source) HYDROmorphone Drug Allergy [facility] (1 source) Morphine Drug Allergy [facility] (1 source) Plasmin Drug Allergy [facility] (20 sources) Lisinopril Propensity to adverse reactions 11-18-19 [facility] Work Phone: (20 sources) Plasminogen Propensity to adverse reactions 11-18-19 20 [facility] (20 sources) Wound Dressing Adhesive Drug Intolerance 11-18-19 Rash [facility] Medications Current Medications Medication Drug Class(es) [...] mg by mouth every evening. 07/15/2019 Active busPIRone hydrochloride 10 mg oral tablet (5 sources) Start: 03-08-2025 take 1 tablet by mouth twice daily as needed for anxiety busPIRone (Buspar) 10 MG tablet Indications: Situational anxiety Take 1 tablet (10 mg) by mouth 2 (two) times a day as needed (Anxiety) 60 tablet 03/08/2025 Active calcium chloride 0.0014 meq/ml / potassium [...] days 21 capsule 0 11/29/2019 12/06/2019 Active cholecalciferol 0.05 mg oral capsule (2 sources) Vitamin D take 1 capsule by mouth once daily cholecalciferol (Vitamin D-3) 50 MCG (2000 UT) capsule Take 2,000 Units by mouth Daily Active ciprofloxacin 250 mg oral tablet (2 sources) Quinolone Antimicrobial Start : 10-11 End: 10-14 take 1 tablet by mouth in the morning ciprofloxacin (Cipro) 250 MG tablet Indications: Acute cystitis with hematuria Take 1 tablet (250 mg) by mouth in the morning and 1 tablet (250 mg) before bedtime. Do all this for 3 days. 6 tablet 10/11/2024 10/14/2024 Active doxycycline hyclate 100 mg oral capsule (1 source) Tetracycline-class Drug Start : 07-04 take 1 capsule by mouth every twelve hours Doxycycline Hyclate 100 MG 1 capsule Orally Twice a day for 5 days Jun, Active fluconazole 150 mg oral tablet (1 source) Azole Antifungal Start : 07-04 Diflucan 150 MG Take 1 tablet on day 1, if still symptomatic on day 4 take 1 tab, if still symptomatic on day 7 take Orally Once a day for 7 days Jun, Active hydroCHLOROthiazide 25 mg oral tablet (20 sources) Thiazide Diuretic Start : 08-09 take 1 tablet by mouth once daily hydroCHLOROthiazide (HYDRODiuril) 25 MG tablet Indications: Essential (primary) hypertension Take 1 tablet (25 mg) by mouth Daily 100 tablet 3 02/24/2024 Active levoFLOXacin 500 mg oral tablet (6 sources) Quinolone Antimicrobial Start : 01-11 take 1 tablet by mouth once levoFLOXacin (LEVAQUIN) 500 mg tablet Take 1 tablet by mouth every afternoon. 01/12/2024 Active levothyroxine sodium 0.075 mg oral tablet (20 sources) l-Thyroxine Start : 05-09 take 1 tablet by mouth once daily [...] mg by mouth every morning. Active nystatin 536382 unt/ml topical cream (6 sources) Polyene Antifungal [...] tablet (20 sources) HMG-CoA Reductase Inhibitor Start: 02-27-2025 take 1 tablet by mouth once daily rosuvastatin (Crestor) 10 MG tablet Indications: Pure hypercholesterolem ia, unspecified TAKE 1 TABLET BY MOUTH ONCE DAILY 100 tablet 3 02/27/2025 Active Start: 12-11-2022 End: 03-02-2024 take 1 tablet by mouth once daily rosuvastatin (Crestor) 10 MG tablet Indications: Pure hypercholesterolemia, unspecified Take 1 tablet (10 mg) by [...] tablet twice daily thereafter. 03/26/2024 03/26/2025 Active take 1 capsule by mo ut in the morning, then take 1 capsule by mouth every twelve hours at bedtime carBAMazepine ER (Carbatrol) 200 MG 12 hr capsule Take 200 mg by mouth in the morning and 200 mg before bedtime. Do not crush or chew. Active fluticasone propionate 0.05 mg/actuat metered dose [...] tonsils and adenoids] Onset: 11-23-2022 11-23-2022 Chronic Anxiety disorders (7 sources) Anxiety; Translations: [Other specified anxiety disorders] Onset: 03-08-2025 03-08-2025 Chronic Cardiac dysrhythmias (20 sources) Unspecified atrial fibrillation; Translations: [Atrial fibrillation with rapid ventricular response] Onset: 12-17-2021 Chronic Diabetes mellitus without complication (4 sources) Impaired fasting glycemia; Translations: [Impaired fasting glucose] Onset: 03-15-2025 03-15-2025 Episodic Disorders of lipid metabolism (20 sources) Hyperlipidemia; Translations: [Pure hypercholesterolemia , unspecified] Onset: 06-13-2019 Resolved: 11-24-2022 11-18-2019 Chronic Essential hypertension (20 sources) Hypertensive disorder; Translations: [Essential (primary) hypertension] Onset: 05-20-2013 11-18-2019 Chronic Genitourinary symptoms and ill-defined conditions (3 sources) Dysuria; Translations: [Dysuria] Onset: 11-21-2022 07-01-2024 Episodic Menopausal disorders (2 sources) Decreased estrogen level; Translations: [Other primary ovarian failure] 03-08-2025 Chronic Mood disorders (2 sources) Moderate major depression, [...] left foot Episodic Other connective tissue disease (8 sources) Bursitis of right foot; Translations: [Other [...] [Pain in left toe(s)] 11-15-2024 Episodic Other connective tissue disease (2 sources) Tendinitis of right posterior tibial tendon; Translations: [Posterior tibial tendinitis, right leg] 02-23-2025 Episodic Other connective tissue disease (2 sources) Peroneal tendinitis of left lower limb; Translations: [Peroneal tendinitis, left leg] 02-23-2025 Episodic Other diseases of bladder and urethra [...] 07-18-2024 07-18-2024 Chronic Other nervous system disorders (4 sources) Neuropathy; Translations: [Polyneuropathy, unspecified] Onset: 03-15-2025 03-15-2025 Chronic Other nervous system disorders (1 source) Postoperative pain ; Translations: [Postoperative pain] Episodic Other non-traumatic joint disorders (2 sources) Pain of joint of right foot; Translations: [Pain in right ankle and joints of right foot] 04-07-2024 Episodic Other non-traumatic joint disorders (2 sources) Swollen ankle region; Translations: [Effusion, right ankle] 02-07-2025 Episodic Other non-traumatic joint disorders (2 sources) Instability of joint of left ankle; Translations: [Other instability, left ankle] 02-23-2025 Episodic Other nutritional; endocrine; and metabolic disorders [...] [Obesity, unspecified] Onset: 11-23-2022 11-23-2022 Chronic Other nutritional; endocrine; and metabolic disorders (2 sources) Obesity caused by energy imbalance; Translations: [Class 1 obesity due to excess calories with serious comorbidity and body mass index (BMI) of 31.0 to 31.9 in adult] 03-08-2025 Chronic Other screening for suspected conditions (not mental disorders or infectious disease) (4 sources) Patient encounter status; Translations: [Encounter for [...] CONTACT DERMATITIS UNS CAUSE] Onset: 12-17-2021 Episodic Cataract (20 sources) Cataract; Translations: [Unspecified cataract] Onset: 11-23-2022 Resolved: 03-08-2025 11-23-2022 Chronic Deficiency and other anemia (1 source) Anemia, [...] disorders (20 sources) Mood disorders Onset: 11-24-2022 Resolved: 03-08-2025 11-24-2022 Other aftercare (1 source) penitentiary (current) use of aspirin; Translations: [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 USE OF ASPIRIN] Onset: 12-17-2021 Episodic Other aftercare (1 source) 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; Translations: [OTH STOCK ROLLER CURRENT DRUG THERAPY] Onset: 12-17-2021 Episodic Other [...] [Pain in joint, lower leg] Onset: 11-23-2022 Resolved: 03-08-2025 11-23-2022 Episodic Other non-traumatic joint disorders (20 sources) Pain in right shoulder; Translations: [Pain in joint, shoulder region] Onset: 11-18-2019 Resolved: 03-08-2025 11-23-2022 Episodic Other skin disorders (3 sources) Rash and other nonspecific skin eruption; Translations: [RASH OTH NONSPECIFIC SKIN ERUPTION] Onset: 12-16-2021 Episodic Other skin disorders (20 sources) Callosity; Translations: [Corns and callosities] Onset: 11-09-2022 11-09-2022 Episodic Other skin disorders (20 sources) Ingrowing toenail; Translations: [Ingrowing nail] Onset: 11-09-2022 Resolved: 03-08-2025 11-09-2022 Episodic Residual codes; unclassified (1 source) [...] of lumbar spine, initial encounter] Onset: 03-31-2023 Resolved: 03-08-2025 03-31-2023 Episodic Results Test Name Value Interpretation Reference Range Facility CBC (INCLUDES DIFF/PLT)on Basophils (Bld) [#/Vol] 0.021 10*3/uL Normal 0-200 [facility] Comment on above: Performed By: #### 1 7306, 7600, 622, 47694, 6399 #### [facility] [place] [address] Forensic Document Examiner: Karsten Fung MD Basophils/100 WBC (Bld) 0.4 % Normal [facility] Comment on above: Performed By: #### 1 7306, 7600, 622, 06176, 6399 #### [facility] [place] [address] Forensic Document Examiner: Karsten Fung MD Eosinophils (Bld) [#/Vol] 0.138 10*3/uL Normal 15-500 [facility] Comment on above: Performed By: #### 1 7306, 7600, 622, 93021, 6399 #### [facility] [place] [id number] Forensic Document Examiner: Karsten Fung MD Eosinophils/100 WBC (Bld) 2.6 % Normal [facility] Comment on above: Performed By: #### 1 7306, 7600, 622, 48766, 6399 #### [facility] of [place] [address] Forensic Document Examiner: Karsten Fung MD Erythrocyte distribution width (RBC) [Ratio] 13.3 % Normal 11.0-15.0 [facility] Comment on above: Performed By: #### 1 7306, 7600, 622, 21461, 6399 #### [facility] of [place] [address] Forensic Document Examiner: Karsten Fung MD Hematocrit (Bld) [Volume fraction] 41.0 % Normal 35.0-45.0 [facility] Comment on above: Performed By: #### 1 7306, 7600, 622, 48556, 6399 #### [facility] of [place] [address] Forensic Document Examiner: Karsten Fung MD Hemoglobin (Bld) [Mass/Vol] 13.2 g/dL Normal 11.7-15.5 [facility] Comment on above: Performed By: #### 1 7306, 7600, 622, 79658, 6399 #### [facility] of [place] [address] Forensic Document Examiner: Karsten Fung MD Lymphocytes (Bld) [#/Vol] 0.806 10*3/uL Low 850-3900 [facility] Comment on above: Performed By: #### 1 7306, 7600, 622, 99185, 6399 #### [facility] [place] [address] Forensic Document Examiner: Karsten Fung MD Lymphocytes/100 WBC (Bld) 15.2 % Normal [facility] Comment on above: Performed By: #### 1 7306, 7600, 622, 35316, 6399 #### [facility] of [address], [address] [place] [address] Forensic Document Examiner: Karsten Fung MD MCH (RBC) [Entitic mass] 30.4 pg Normal 27.0-33.0 [facility] Comment on above: Performed By: #### 1 7306, 7600, 622, 64788, 6399 #### [facility] [place] [address] Forensic Document Examiner: Karsten Fung MD MCHC (RBC) [Mass/Vol] 32.2 g/dL Normal 32.0-36.0 [facility] Comment on above: Result Comment: For adults, a slight decrease in the calculated MCHC value (in the range of 30 to 32 g/dL) is most likely not clinically significant; however, it should be interpreted with caution in correlation with other red cell parameters and the patient's clinical condition. Performed By: #### 1 7306, 7600, 622, 18015, 6399 #### [facility] [place] [address] Forensic Document Examiner: Karsten Fung MD MCV (RBC) [Entitic vol] 94.5 fL Normal 80.0-100.0 [facility] Comment on above: Performed By: #### 1 7306, 7600, 622, 33184, 6399 #### [facility] [place] [address] Forensic Document Examiner: Karsten Fung MD Monocytes (Bld) [#/Vol] 0.408 10*3/uL Normal 200-950 [facility] Comment on above: Performed By: #### 1 7306, 7600, 622, 09777, 6399 #### [facility] [place] [address] Forensic Document Examiner: Krasten Fung MD Monocytes/100 WBC (Bld) 7.7 % Normal [facility] Comment on above: Performed By: #### 1 7306, 7600, 622, 73106, 6399 #### [facility] [place] [id number] Forensic Document Examiner: Karsten Fung MD Neutrophils (Bld) [#/Vol] 3.927 10*3/uL Normal 2772-4393 [facility] Comment on above: Performed By: #### 1 7306, 7600, 622, 36272, 6399 #### [facility] of [place] [address] Forensic Document Examiner: Karsten Fung MD Neutrophils/100 WBC (Bld) 74.1 % Normal [facility] Comment on above: Performed By: #### 1 7306, 7600, 622, 46099, 6399 #### [facility] of [place] [address] Forensic Document Examiner: Karsten Fung MD Platelet mean volume (Bld) [Entitic vol] 10.1 fL Normal 7.5-12.5 [facility] Comment on above: Performed By: #### 1 7306, 7600, 622, 11968, 6399 #### [facility] of [place] [address] Forensic Document Examiner: Karsten Fung MD Platelets (Bld) [#/Vol] 199 10*3/uL Normal 140-400 [facility] Comment on above: Performed By: #### 1 7306, 7600, 622, 06485, 6399 #### [facility] [place] [address] Forensic Document Examiner: Karsten Fung MD RBC (Bld) [#/Vol] 4.34 10*6/uL Normal 3.80-5.10 [facility] Comment on above: Performed By: #### 1 7306, 7600, 622, 86010, 6399 #### [facility] of [place] [address] Forensic Document Examiner: Karsten Fung MD WBC (Bld) [#/Vol] 5.3 10*3/uL Normal 3.8-10.8 [facility] Comment on above: Performed By: #### 1 7306, 7600, 622, 76543, 6399 #### [facility] of [address], [address] [place] [address] Forensic Document Examiner: Karsten Fung MD [facility] 03-09-2025 Albumin [Mass/Vol] 4.2 g/dL Normal 3.6-5.1 [facility] Comment on above: Performed By: #### 1 7306, 7600, 622, 35463, 6399 #### [facility] of [place] [address] Forensic Document Examiner: Karsten Fung MD Albumin/Globulin [Mass ratio] 1.8 {ratio} Normal 1.0-2.5 [facility] Comment on above: Performed By: #### 1 7306, 7600, 622, 61641, 6399 #### [facility] of [place] [address] Forensic Document Examiner: Karsten Fung MD ALP [Catalytic activity/Vol] 98 U/L Normal 37-153 [facility] Comment on above: Performed By: #### 1 7306, 7600, 622, 74488, 6399 #### [facility] of [place] [address] Forensic Document Examiner: Karsten Fung MD ALT [Catalytic activity/Vol] 16 U/L Normal 6-29 [facility] Comment on above: Performed By: #### 1 7306, 7600, 622, 37605, 6399 #### [facility] [place] [address] Forensic Document Examiner: Karsten Fung MD AST [Catalytic activity/Vol] 17 U/L Normal 10-35 [facility] Comment on above: Performed By: #### 1 7306, 7600, 622, 21525, 6399 #### [facility] [place] [address] Forensic Document Examiner: Karsten Fung MD Bilirubin [Mass/Vol] 0.3 mg/dL Normal 0.2-1.2 [facility] Comment on above: Performed By: #### 1 7306, 7600, 622, 24069, 6399 #### [facility] [place] [address] Forensic Document Examiner: Karsten Fung MD BUN/CREATININE RATIO SEE NOTE: Normal 6-22 [facility] Comment on above: Result Comment: Not Reported: BUN and Creatinine are within reference range. Performed By: #### 1 7306, 7600, 622, 24607, 6399 #### [facility] [place] [address] Forensic Document Examiner: Karsten Fung MD Calcium [Mass/Vol] 9.3 mg/dL Normal 8.6-10.4 [facility] Comment on above: Performed By: #### 1 7306, 7600, 622, 64572, 6399 #### [facility] [place] [address] Forensic Document Examiner: Karsten Fung MD Chloride [Moles/Vol] 101 mmol/L Normal 98-110 [facility] Comment on above: Performed By: #### 1 7306, 7600, 622, 50112, 6399 #### [facility] [place] [address] Forensic Document Examiner: Karsten Fung MD CO2 [Moles/Vol] 28 mmol/L Normal 20-32 [facility] Comment on above: Performed By: #### 1 7306, 7600, 622, 21695, 6399 #### [facility] [place] [address] Forensic Document Examiner: Karsten Fung MD Creatinine [Mass/Vol] 0.61 mg/dL Normal 0.60-1.00 [facility] Comment on above: Performed By: #### 1 7306, 7600, 622, 47408, 6399 #### [facility] [place] [address] Forensic Document Examiner: Karsten Fung MD GFR/1.73 sq M.predicted among non-blacks MDRD (S/P/Bld) [Vol rate/Area] 96 mL/min/{1.73_m2} Normal > OR = 60 [facility] Comment on above: Performed By: #### 1 7306, 7600, 622, 40278, 6399 #### [facility] [place] [address] Forensic Document Examiner: Karsten Fung MD Globulin (S) [Mass/Vol] 2.3 g/dL Normal 1.9-3.7 [facility] Comment on above: Performed By: #### 1 7306, 7600, 622, 89928, 6399 #### [facility] [place] [address] Forensic Document Examiner: Karsten Fung MD Glucose [Mass/Vol] 104 mg/dL High 65-99 [facility] Comment on above: Result Comment: Fasting reference interval For someone without known diabetes, a glucose value between 100 and 125 mg/dL is consistent with prediabetes and should be confirmed with a follow-up test. Performed By: #### 1 7306, 7600, 622, 02077, 6399 #### [facility] [place] [address] Forensic Document Examiner: Karsten Fung MD Potassium [Moles/Vol] 4.1 mmol/L Normal 3.5-5.3 [facility] Comment on above: Performed By: #### 1 7306, 7600, 622, 85441, 6399 #### [facility] [place] [address] Forensic Document Examiner: Karsten Fung MD Protein [Mass/Vol] 6.5 g/dL Normal 6.1-8.1 [facility] Comment on above: Performed By: #### 1 7306, 7600, 622, 07723, 6399 #### [facility] [place] [address] Forensic Document Examiner: Karsten Fung MD Sodium [Moles/Vol] 139 mmol/L Normal 135-146 [facility] Comment on above: Performed By: #### 1 7306, 7600, 622, 13371, 6399 #### [facility] [address], [address] [place] [address] Forensic Document Examiner: Karsten Fung MD Urea nitrogen [Mass/Vol] 12 mg/dL Normal 7-25 [facility] Comment on above: Performed By: #### 1 7306, 7600, 622, 10812, 6399 #### [facility] [place] [address] Forensic Document Examiner: Karsten Fung MD LIPID PANEL, [facility] 10-0 Cholesterol [Mass/Vol] 122 mg/dL Normal <200 [facility] Comment on above: Order Comment: FASTI NG:YES FASTING: YES Performed By: #### 1 7306, 7600, 622, 81359, 6399 #### [facility] [place] [address] Forensic Document Examiner: Karsten Fung MD Cholesterol in HDL [Mass/Vol] 46 mg/dL Low > OR = 50 [facility] Comment on above: Order Comment: FASTI NG:YES FASTING: YES Performed By: #### 1 7306, 7600, 622, 62553, 6399 #### [facility] [place] [address] Forensic Document Examiner: Karsten Fung MD Cholesterol in LDL [Mass/Vol] 52 mg/dL Normal [facility] Comment on above: Order Comment: FASTI NG:YES FASTING: YES Result Comment: Refe rence range: <100 Desirable range <100 mg/dL for primary prevention; <70 mg/dL for patients with CHD or diabetic patients with > or = 2 CHD risk factors. LDL-C is now calculated using the Delfin calculation, which is a validated novel method providing better accuracy than the Friedewald equation in the estimation of LDL-C. Robby LUA et al. DORA. 2013;310(19): 0391-1589 (http://education.ShaveLogic.TransBiodiesel/faq/EHL896) Performed By: #### 1 7306, 7600, 622, 23877, 6399 #### [facility] [place] [address] Forensic Document Examiner: Karsten Fung MD Cholesterol.total/C holesterol in HDL [Mass ratio] 2.7 {ratio} Normal <5.0 [facility] Comment on above: Order Comment: FASTI NG:YES FASTING: YES Performed By: #### 1 7306, 7600, 622, 14208, 6399 #### [facility] [place] [address] Forensic Document Examiner: Karsten Fung MD NON HDL CHOLESTEROL 76 mg/dL (calc) Normal <130 [facility] Comment on above: Order Comment: FASTI NG:YES FASTING: YES Result Comment: For patients with diabetes plus 1 major ASCVD risk factor, treating to a non-HDL-C goal of <100 mg/dL (LDL-C of <70 mg/dL) is considered a therapeutic option. Performed By: #### 1 7306, 7600, 622, 38983, 6399 #### [facility] [place] [address] Forensic Document Examiner: Karsten Fung MD Triglyceride [Mass/Vol] 158 mg/dL High <150 [facility] Comment on above: Order Comment: FASTI NG:YES FASTING: YES Performed By: #### 1 7306, 7600, 622, 52573, 6399 #### [facility] [place] [address] Forensic Document Examiner: Karsten Fung MD MAGNESIUMon 03-09-2025 Magnesium [Mass/Vol] 2.0 mg/dL Normal 1.5-2.5 [facility] Comment on above: Performed By: #### 1 7306, 7600, 622, 65010, 6399 #### [facility] [place] [address] Forensic Document Examiner: Karsten Fung MD TSH W/REFLEX TO FT4on 2024 TSH W/REFLEX TO FT4 2.67 mIU/L Normal 0.40-4.50 [facility] Comment on above: Performed By: #### 1 7306, 7600, 622, 95356, 6399 #### [facility] [place] [address] Forensic Document Examiner: Karsten Fung MD VITAMIN D,25-OH,TOTAL,IAon 1 VITAMIN D,25-OH,TOTAL,IA 49 ng/mL Normal 30-100 [facility] Comment on above: Result Comment: Sosa min D Status 25-OH Vitamin D: Deficiency: <20 ng/mL Insufficiency: 20 - 29 ng/mL Optimal: > or = 30 ng/mL For 25-OH Vitamin D testing on patients on D2-supplementation and patients for whom quantitation of D2 and D3 fractions is required, the Quest[facility]ure[facility](TM) 25-OH VIT D, (D2,D3), LC/MS/MS is recommended: order code 76958 (patients >2yrs). See Note 1 Note 1 For additional information, please refer to http://education.Grata/faq/MDI831 (This link is being provided for informational/ educational purposes only.) Performed By: #### 1 7306, 7600, 622, 76137, 6399 #### [facility] [place] [address] Forensic Document Examiner: Karsten Fung MD MM TOMOSYNTHESIS SCREENING B Ion 02-17-2025 [place] [address] Mammography Report Signed Patient: RENETTA LOPEZ MR#: [id number] : 1955 Acct:[id number] Age/Sex: 69 / F ADM Date: 02/17/25 Loc: MAMMO Attending Dr: GRISELDA ROE Ordering Physician: GRISELDA ROE Results: Date of Service: 02/17/25 Follow Up: Procedure(s): MM tomosynthesis screening BI Accession Number(s): [id number] cc: GRISELDA ROE ; DALY GRANT Patient Name: RENETTA LOPEZ MR#: [id number] : 1955 Exam Date: 02/17/2025 Ordering Doctor: DR GRISELDA GUSMAN RADIOLOGY REPORT PROCEDURE: MM TOMOSYNTHESIS SCREENING BI COMPARISON: MM TOMOSYNTHESIS SCREENING BI, 01/28/2024. MM TOMOSYNTHESIS SCREENING BI, 12/23/2022. MG MAMM SCREEN 3D AMOL CAD, 2021. MG MAMM AMOL SCRN W CAD DIG, 02/14/2016. INDICATIONS: screening Calculator Name NCI Breast Cancer Risk Assessment Tool 5 Year Breast Cancer Risk 1.50% Lifetime Breast Cancer Risk 4.10% Personal Breast Cancer No Personal Ovarian Cancer No Treatments None Family Cancers None LOCATION: [facility] BREAST COMPOSITION: The breasts are heterogeneously dense, which may obscure small masses. FINDINGS: RIGHT BREAST: No significant suspicious finding. Vascular calcifications LEFT BREAST: No significant suspicious finding. Vascular calcifications DIAGNOSTIC CATEGORY 1--NEGATIVE. RECOMMENDATIONS: ROUTINE MAMMOGRAM AND CLINICAL EVALUATION IN 12 MONTHS. Dictated by: Cody Fernandez DO on 02/17/2025 at 15:39 Approved by: Cody Fernandez DO on 02/17/2025 at 15:57 Dictated By: Cody Fernandez D.O. Signed By: 02/17/25 1558 DD/ 1557 TD/TT: Copier Field Service Technician: [facility] Radiology, Radiologist, MD - 02/17/2025 [place] [address] Mammography Report Signed Patient: RENETTA LOPEZ MR#: [id number] : 1955 Acct:[id number] Age/Sex: 69 / F ADM Date: 02/17/25 Loc: MAMMO Attending Dr: GRISELDA ROE Ordering Physician: GRISELDA ROE Results: Date of Service: 02/17/25 Follow Up: Procedure(s): MM tomosynthesis screening BI Accession Number(s): [id number] cc: GRISELDA ROE ; DALY GRANT Patient Name: RENETTA LOPEZ MR#: [id number] : 1955 Exam Date: 02/17/2025 Ordering Doctor: DR GRISELDA ROE PA RADIOLOGY REPORT PROCEDURE: MM TOMOSYNTHESIS SCREENING BI COMPARISON: MM TOMOSYNTHESIS SCREENING BI, 01/28/2024. MM TOMOSYNTHESIS SCREENING BI, 12/23/2022. MG MAMM SCREEN 3D AMOL CAD, 2021. MG MAMM AMOL SCRN W CAD DIG, 02/14/2016. INDICATIONS: screening Calculator Name NCI Breast Cancer Risk Assessment Tool 5 Year Breast Cancer Risk 1.50% Lifetime Breast Cancer Risk 4.10% Personal Breast Cancer No Personal Ovarian Cancer No Treatments None Family Cancers None LOCATION: [facility] BREAST COMPOSITION: The breasts are heterogeneously dense, which may obscure small masses. FINDINGS: RIGHT BREAST: No significant suspicious finding. Vascular calcifications LEFT BREAST: No significant suspicious finding. Vascular calcifications DIAGNOSTIC CATEGORY 1--NEGATIVE. RECOMMENDATIONS: ROUTINE MAMMOGRAM AND CLINICAL EVALUATION IN 12 MONTHS. Dictated by: Cody Fernandez DO on 02/17/2025 at 15:39 Approved by: Cody Fernandez DO on 02/17/2025 at 15:57 Dictated By: Cody Fernandez D.O. Signed By: 02/17/25 1558 DD/ 1557 TD/TT: Copier Field Service Technician: [facility] Radiology Study observation (narrative) [facility] MM TOMOSYNTHESIS SCREENING B IOrdered By: Radiologist Radiology on 02-17-2025 [facility] Work Phone: No Panel Informationon 10-12 STAPHYLOCOCCUS EPIDERMIDIS, HAEMOLYTICUS, LUGDUNENSIS, SAPROPHYTICUS (URINA 0 [facility] STAPHYLOCOCCUS EPIDERMIDIS, HAEMOLYTICUS, LUGDUNENSIS, SAPROPHYTICUS (URINA Not detected [facility] URINARY TRACT INFECTION (HTR X)on 10-12-2024 [address]ER [address]II 0 [facility] ACINETOBACTER BAUMANII Not detected [facility] TEMI ALBICANS, PARAPSILOSIS, TROPICALIS 0 [facility] TEMI ALBICANS, PARAPSILOSIS, TROPICALIS Not detected [facility] TEMI GLABRATA 0 [facility] TEMI GLABRATA Not detected [facility] TEMI KRUSEI 0 [facility] TEMI KRUSEI Not detected [facility] CITROBACTER FREUNDII 0 [facility] CITROBACTER FREUNDII Not detected [facility] ENTEROBACTER AEROGENES, CLOACAE 0 [facility] ENTEROBACTER AEROGENES, CLOACAE Not detected [facility] ENTEROCOCCUS FAECALIS, FAECIUM 0 [facility] ENTEROCOCCUS FAECALIS, FAECIUM Not detected [facility] ESCHERICHIA COLI 24.[address] [facility] ESCHERICHIA COLI Detected Abnormal [facility] Interpretation and review of laboratory results Abnormal [facility] KLEBSIELLA PNEUMONIAE, OXYTOCA 0 [facility] KLEBSIELLA PNEUMONIAE, OXYTOCA Not detected [facility] MORGANELLA MORGANII 0 [facility] MORGANELLA MORGANII Not detected [facility] PROTEUS MIRABILIS, VULGARIS 0 [facility] PROTEUS MIRABILIS, VULGARIS Not detected [facility] PSEUDOMONAS AERUGINOSA 0 [facility] PSEUDOMONAS AERUGINOSA Not detected [facility] SERRATIA MARCESCENS 0 [facility] SERRATIA MARCESCENS Not detected [facility] STAPHYLOCOCCUS AUREUS 0 [facility] STAPHYLOCOCCUS AUREUS Not detected [facility] STREPTOCOCCUS AGALACTIAE (GROUP B STREP) 0 [facility] STREPTOCOCCUS AGALACTIAE (GROUP B STREP) Not detected [facility] STREPTOCOCCUS PYOGENES (GROUP A STREP) 0 [facility] STREPTOCOCCUS PYOGENES (GROUP A STREP) Not detected [facility] Urinalysis macro (dipstick) panel (U)on 10-11-2024 Bilirubin, UA Negative Negative - 4(70) +++ mg/dL [facility] Blood, UA Positive Negative - 50 Heriberto/mcL [facility] Clarity, UA Cloudy [facility] Color, UA Kira [facility] Glucose, UA Negative Negative - 1999(110) ++++ mg/dL [facility] Interpretation and review of laboratory results Abnormal [facility] Ketones, UA Negative Negative - 160(16) ++++ mg/dL [facility] Leukocytes, UA Positive Negative - 500+++ Chloe/mcL [facility] Nitrite, UA Negative Negative - Positive [facility] pH, UA 7 5 - 9 [facility] Protein, UA Negative Negative - 1999(20) ++++ mg/dL [facility] Spec Grav, UA 1.005 1 - 1.03 [facility] Urobilinogen, UA 0.2 0.2 - 12 mg/dL [facility] Urinalysis macro (dipstick) panel (U)on 07-01-2024 Bilirubin, UA Negative Negative - 4(70) +++ mg/dL [facility] Blood, UA Positive Negative - 50 Heriberto/mcL [facility] Glucose, UA Negative Negative - 1999(110) ++++ mg/dL [facility] Interpretation and review of laboratory results Abnormal [facility] Ketones, UA Negative Negative - 160(16) ++++ mg/dL [facility] Leukocytes, UA Many Negative - 500+++ Chloe/mcL [facility] Nitrite, UA Negative Negative - Positive [facility] pH, UA 6 5 - 9 [facility] Protein, UA Negative Negative - 2000(20) ++++ mg/dL [facility] Spec Grav, UA 1.01 1 - 1.03 [facility] Urobilinogen, UA 1.0 0.2 - 12 mg/dL [facility] CNPNon 05-22-2024 CNPN Telephone (NEURST) RENETTA LOPEZ ([id number]) 1955 F Date Time Provider Department 05/22/24 MELANI MATUTE During your visit today, we recorded the following information about you: Melani Matute MD 05/22/2024 5:32 PM Signed I spoke to Ms. Lopez. She had bone stimulator leads implanted when she was at [facility] for lumbar spine surgery c. 2010-04. Dr. Hicks, who placed them, is no longer in [place]. It is not clear whether the leads are MRI compatible or not. She had a CT brain at [facility] about a month prior to my consultation, [...] 05/22/2024 Noted Resolved TEAR MED MENISC KNEE-CURRENT [[id number]] 01/31/2004 Encounter Status:Closed by MELANI MATUTE on 05/22/24 [facility] 04-16-2024 [facility] Telephone (NEURST) RENETTA LOPEZ ([id number]) 1955 F Date Time Provider Department 04/16/24 MELANI MATUTE NEUR During your visit today, we recorded the following information about you: Melani Matute MD 04/16/2024 5:28 PM Signed Earlier this week, the patient was unable to have an MRI brain done in re: trigeminal neuralgia due to metal hardware in her lumbar spine. She is said to have the device cards. I asked her to call me back on my [facility] mobile phone; our radiology department may be [...] 04/16/2024 Noted Resolved TEAR MED MENISC KNEE-CURRENT [[id number]] 01/31/2004 Encounter Status:Closed by MELANI MATUTE on 04/16/24 [facility] 04-11-2024 [facility] Telephone (ANAIS) RENETTA LOPEZ ([id number]) 1955 F Date Time Provider Department 04/11/24 [...] 05/21/2024 9:11 AM Signed The patient @ [phone], is calling back to discuss her episode of facial pain this morning AND any possible imaging that can be done.The patient was given the [employer] unit operator number, to get connected with the neurologist coke oven mason, to discuss her episode of facial pain. [...] 04/11/2024 Noted Resolved TEAR MED MENISC KNEE-CURRENT [[id number]] 01/31/2004 Encounter Status:Closed by HERMAN FELDMAN on [facility] ([id number]) 1955 F Date Time Provider Department 04/11/24 MELANI MATUTE During your visit today, we recorded the following information about you: AlexxGrazyna bone 04/11/2024 11:44 AM Signed [facility] calling to request orders for xray for PT's back. Pt unsure if she has metal in her back for MRI appt scheduled for today at 4pm. Please fax orders to [phone] if agreeable. [phone] Harika Rondon MA 04/11/2024 12:43 PM Signed Faxed order to [facility] and received fax confirmation. LEMUEL DialloiverLita 04/11/2024 1:58 PM Signed The mri was resent it was supposed to be back Xray. Harika Rondon MA 04/11/2024 2:14 PM Signed Sent message to provider for review and to advise. 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 [facility] Radiology Study observation (narrative) [facility] 03-30-2024 [facility] Telephone (NEURST) RENETTA LOPEZ ([id number]) 1955 F Date Time Provider Department 03/30/24 [...] 03/30/2024 Noted Resolved TEAR MED MENISC KNEE-CURRENT [[id number]] 01/31/2004 Encounter Status:Closed by HARIKA RONDON on 03/30/24 [facility] 03-28-2024 [facility] Telephone (NEURST) RENETTA LOPEZ ([id number]) 1955 F Date Time Provider Department 03/28/24 MELANI MATUTE During your visit today, we recorded the following information about you: Harika Rondon MA 03/28/2024 8:53 AM Signed Sent to scanning CT from [facility]. Harika Rondon MA Allergies As of [...] 03/28/2024 Noted Resolved TEAR MED MENISC KNEE-CURRENT [[id number]] 01/31/2004 Encounter Status:Closed by HARIKA RONDON on 03/28/24 [facility] CNCOon 03-26-2024 CNCO Letter Text Normal [facility] CNOVon 03-26-2024 CNOV Office Visit (NEURST ) RENETTA LOPEZ ([id number]) 1955 F Date Time Provider Department 03/26/24 [...] recent (01/31/24) CT brain w from [facility] which showed only age related changes. [...] normal. There were no involuntary movements. Coordination: Ijoxxe-zhzn-yqjtym was normal. Finger and toe wiggling rapid [...] further evolution (more content not included)... Normal [facility] HISTORY PHYSICALon HISTORY PHYSICAL HNO ID: [id number] Author: MELANI MATUTE MD Service: ? Author [...] is unpopulated. ====== Melani Matute MD Normal [facility] HISTORY PHYSICAL HNO ID: [id number] Author: MELANI MATUTE MD Service: ? Author [...] recent (01/31/24) CT brain w from [facility] which showed only age related changes. [...] normal. There were no involuntary movements. Coordination: Aaenzg-vqrd-qmngin was normal. Finger and toe wiggling rapid [...] the cause (more content not included)... Normal [facility] Urine Cultureon 11-21-2022 Bacteria identified Cx Nom (U) <9,000 colonies/ml mixed bacterial skin contaminants 1 Day PERFORMED BY: [place] [address] PATHOLOGIST BUSINESS ANALYSIS PROFESSIONAL DARYL SEVILLA M.D. Normal [facility] Comment on above: Performed By: #### C UU #### [facility] [address] CBC AUTO DIFFon 12-09-2021 BASO # 0.0 103/ul Normal 0.0-0.1 [facility] Comment on above: Performed By: #### V ITAD #### [facility] [address] [address] [address] Jonelle Trujillo Basophils/100 WBC (Bld) 0.5 % Normal 0.2-2.0 [facility] Comment on above: Performed By: #### V ITAD #### [facility] [address] [place] [address] Dr. Jonelle Trujillo EO # 0.1 103/ul Normal 0.0-0.7 [facility] Comment on above: Performed By: #### V ITAD #### [facility] [address] [place] [address] Dr. Jonelle Trujillo Eosinophils/100 WBC (Bld) 2.5 % Normal 0.9-7.0 [facility] Comment on above: Performed By: #### V ITAD #### [facility] [address] [place] [address] Dr. Jonelle Trujillo Erythrocyte distribution width (RBC) [Ratio] 13.4 % Normal 11.0-15.0 [facility] Comment on above: Performed By: #### V ITAD #### [facility] [address] [place] [address] Dr. Jonelle Trujillo Hematocrit (Bld) [Volume fraction] 33.4 % Critically low 36.0-48.0 [facility] Comment on above: Performed By: #### V ITAD #### [facility] [address] [place] [address] Dr. Jonelle Trujillo Hemoglobin (Bld) [Mass/Vol] 10.7 g/dL Critically low 12.0-16.0 [facility] Comment on above: Performed By: #### V ITAD #### [facility] [address] [place] [address] Dr. Jonelle Trujillo IG # 0.01 10e3/ul Normal 0.00-0.03 [facility] Comment on above: Performed By: #### V ITAD #### [facility] [address] [place] [address] Dr. Jonelle Trujillo IG % 0.2 % Normal 0.0-0.5 [facility] Comment on above: Performed By: #### V ITAD #### [facility] [address] [place] [address] Dr. Jonelle Trujillo LYMPH # 1.6 103/ul Normal 1.2-3.8 [facility] Comment on above: Performed By: #### V ITAD #### [facility] [address] [place] [address] Dr. Jonelle Trujillo Lymphocytes/100 WBC (Bld) 37.7 % Normal 20.5-60.0 [facility] Comment on above: Performed By: #### V ITAD #### [facility] [address] [place] [address] Dr. Jonelle Trujillo MANUAL DIFF REQ NO Normal [facility] Comment on above: Performed By: #### V ITAD #### [facility] [address] [place] [address] Dr. Jonelle Trujillo MCH (RBC) [Entitic mass] 28.4 pg Normal 26.7-34.0 [facility] Comment on above: Performed By: #### V ITAD #### [facility] [address] [place] [address] Dr. Jonelle Trujillo MCHC (RBC) [Mass/Vol] 32.0 g/dL Normal 29.9-35.2 [facility] Comment on above: Performed By: #### V ITAD #### [facility] [address] [place] [address] Dr. Jonelle Trujillo MCV (RBC) [Entitic vol] 88.6 fL Normal 81.0-99.0 [facility] Comment on above: Performed By: #### V ITAD #### [facility] [address] [place] [address] Dr. Jonelle Trujillo MONO # 0.5 103/ul Normal 0.3-0.8 [facility] Comment on above: Performed By: #### V ITAD #### [facility] [address] [place] [address] Dr. Jonelle Trujillo Monocytes/100 WBC (Bld) 12.3 % Critically high 1.7-12.0 [facility] Comment on above: Performed By: #### V ITAD #### [facility] [address] [place] [address] Dr. Jonelle Trujillo NEUT # 2.0 103/ul Normal 1.4-6.5 [facility] Comment on above: Performed By: #### V ITAD #### [facility] [address] [place] [address] Dr. Jonelle Trujillo Neutrophils/100 WBC (Bld) 46.8 % Normal 43.0-75.0 [facility] Comment on above: Performed By: #### V ITAD #### [facility] [address] [place] [address] Dr. Jonelle Trujillo Platelet mean volume (Bld) [Entitic vol] 10.5 fL Normal 9.5-13.5 [facility] Comment on above: Performed By: #### V ITAD #### [facility] [address] [place] [address] Dr. Jonelle Trujillo PLT 163 103/ul Normal 150-450 [facility] Comment on above: Performed By: #### V ITAD #### [facility] [address] [place] [address] Dr. Jonelle Trujillo RBC 3.77 106/ul Critically low 4.20-5.40 [facility] Comment on above: Performed By: #### V ITAD #### [facility] [address] [place] [address] Dr. Jonelle Trujillo WBC 4.3 103/ul Normal 4.0-11.0 [facility] Comment on above: Performed By: #### V ITAD #### [facility] [address] [place] [address] Dr. Jonelle Trujillo MAGNESIUMon 12-09-2021 Magnesium [Mass/Vol] 1.7 mg/dL Critically low 1.8-2.4 [facility] Comment on above: Performed By: #### C BC #### [facility] [address] [place] [address] Dr. Jonelle Trujillo PROF CHEM 8 (BAS METB)on Anion gap [Moles/Vol] 12.8 mmol/L Normal [facility] Comment on above: Performed By: #### B MP #### [facility] [address] [place] [address] Dr. Jonelle Trujillo Calcium [Mass/Vol] 8.8 mg/dL Normal 8.5-10.1 [facility] Comment on above: Performed By: #### B MP #### [facility] [address] [address] [address] Jonelle Trujillo Chloride [Moles/Vol] 107 mmol/L Normal 98-107 [facility] Comment on above: Performed By: #### B MP #### [facility] [address] [address] [address] Jonelle Trujillo CO2 [Moles/Vol] 24.5 mmol/L Normal 21.0-32.0 [facility] Comment on above: Performed By: #### B MP #### [facility] [address] [place] [address] Dr. Jonelle Trujillo Creatinine [Mass/Vol] 0.56 mg/dL Normal 0.55-1.02 [facility] Comment on above: Performed By: #### B MP #### [facility] [address] [address] [address] Jonelle Trujillo EGFR-AF TOGOLESE >60 Normal >=60 [facility] Comment on above: Performed By: #### B MP #### [facility] [address] [place] [address] Dr. Jonelle Trujillo EGFR-NON AF TOGOLESE >60 Normal >=60 [facility] Comment on above: Performed By: #### B MP #### [facility] [address] [address] [address] Jonelle Trujillo Glucose [Mass/Vol] 83 mg/dL Normal 74-106 [facility] Comment on above: Performed By: #### B MP #### [facility] [address] [address] [address] Jonelle Trujillo Potassium [Moles/Vol] 4.3 mmol/L Normal 3.5-5.1 [facility] Comment on above: Performed By: #### B MP #### [facility] [address] [place] [address] Dr. Jonelle Trujillo Sodium [Moles/Vol] 140 mmol/L Normal 136-145 [facility] Comment on above: Performed By: #### B MP #### [facility] [address] [place] [address] Dr. Jonelle Trujillo Urea nitrogen [Mass/Vol] 5.0 mg/dL Critically low 7.0-18.0 [facility] Comment on above: Performed By: #### B MP #### [facility] [address] [place] [address] Dr. Jonelle Trujillo Urea nitrogen/Creatinine [Mass ratio] 8.9 mg/mg Normal [facility] Comment on above: Performed By: #### B MP #### [facility] [address] [place] [address] Dr. Jonelle Trujillo CBC AUTO DIFFon 12-08-2021 BASO # 0.0 103/ul Normal 0.0-0.1 [facility] Comment on above: Performed By: #### C BC #### [facility] [address] [place] [address] Dr. Jonelle Trujillo Basophils/100 WBC (Bld) 0.4 % Normal 0.2-2.0 [facility] Comment on above: Performed By: #### C BC #### [facility] [address] [place] [address] Dr. Jonelle Trujillo EO # 0.1 103/ul Normal 0.0-0.7 [facility] Comment on above: Performed By: #### C BC #### [facility] [address] [place] [address] Dr. Jonelle Trujillo Eosinophils/100 WBC (Bld) 1.4 % Normal 0.9-7.0 [facility] Comment on above: Performed By: #### C BC #### [facility] [address] [place] [address] Dr. Jonelle Trujillo Erythrocyte distribution width (RBC) [Ratio] 13.9 % Normal 11.0-15.0 [facility] Comment on above: Performed By: #### C BC #### [facility] [address] [place] [address] Dr. Jonelle Trujillo Hematocrit (Bld) [Volume fraction] 32.4 % Critically low 36.0-48.0 [facility] Comment on above: Performed By: #### C BC #### [facility] [address] [place] [address] Dr. Jonelle Trujillo Hemoglobin (Bld) [Mass/Vol] 10.4 g/dL Critically low 12.0-16.0 [facility] Comment on above: Performed By: #### C BC #### [facility] [address] [place] [address] Dr. Jonelle Trujillo IG # 0.02 10e3/ul Normal 0.00-0.03 [facility] Comment on above: Performed By: #### C BC #### [facility] [address] [place] [address] Dr. Jonelle Trujillo IG % 0.4 % Normal 0.0-0.5 [facility] Comment on above: Performed By: #### C BC #### [facility] [address] [place] [address] Dr. Jonelle Trujillo LYMPH # 1.5 103/ul Normal 1.2-3.8 [facility] Comment on above: Performed By: #### C BC #### [facility] [address] [place] [address] Dr. Jonelle Trujillo Lymphocytes/100 WBC (Bld) 31.1 % Normal 20.5-60.0 [facility] Comment on above: Performed By: #### C BC #### [facility] [address] [place] [address] Dr. Jonelle Trujillo MANUAL DIFF REQ NO Normal [facility] Comment on above: Performed By: #### C BC #### [facility] [address] [place] [address] Dr. Jonelle Trujillo MCH (RBC) [Entitic mass] 28.6 pg Normal 26.7-34.0 [facility] Comment on above: Performed By: #### C BC #### [facility] [address] [place] [address] Dr. Jonelle Trujillo MCHC (RBC) [Mass/Vol] 32.1 g/dL Normal 29.9-35.2 [facility] Comment on above: Performed By: #### C BC #### [facility] [address] [address] [address] Jonelle Trujillo MCV (RBC) [Entitic vol] 89.0 fL Normal 81.0-99.0 [facility] Comment on above: Performed By: #### C BC #### [facility] [address] [address] [address] Jonelle Trujillo MONO # 0.7 103/ul Normal 0.3-0.8 [facility] Comment on above: Performed By: #### C BC #### [facility] [address] [address] [address] Jonelle Trujillo Monocytes/100 WBC (Bld) 13.3 % Critically high 1.7-12.0 [facility] Comment on above: Performed By: #### C BC #### [facility] [address] [address] [address] Jonelle Trujillo NEUT # 2.6 103/ul Normal 1.4-6.5 [facility] Comment on above: Performed By: #### C BC #### [facility] [address] [place] [address] Dr. Jonelle Trujillo Neutrophils/100 WBC (Bld) 53.4 % Normal 43.0-75.0 [facility] Comment on above: Performed By: #### C BC #### [facility] [address] [place] [address] Dr. Jonelle Trujillo Platelet mean volume (Bld) [Entitic vol] 10.0 fL Normal 9.5-13.5 [facility] Comment on above: Performed By: #### C BC #### [facility] [address] [place] [address] Dr. Jonelle Trujillo PLT 152 103/ul Normal 150-450 [facility] Comment on above: Performed By: #### C BC #### [facility] [address] [address] [address] Jonelle Trujillo RBC 3.64 106/ul Critically low 4.20-5.40 [facility] Comment on above: Performed By: #### C BC #### [facility] [address] [address] [address] Jonelle Trujillo WBC 4.9 103/ul Normal 4.0-11.0 [facility] Comment on above: Performed By: #### C BC #### [facility] [address] [address] [address] Jonelle Trujillo PROF CHEM 8 (BAS METB)on Anion gap [Moles/Vol] 11.8 mmol/L Normal [facility] Comment on above: Performed By: #### C BC #### [facility] [address] [place] [address] Dr. Jonelle Trujillo Calcium [Mass/Vol] 8.4 mg/dL Critically low 8.5-10.1 [facility] Comment on above: Performed By: #### C BC #### [facility] [address] [place] [address] Dr. Jonelle Trujillo Chloride [Moles/Vol] 108 mmol/L Critically high 98-107 [facility] Comment on above: Performed By: #### C BC #### [facility] [address] [place] [address] Dr. Jonelle Trujillo CO2 [Moles/Vol] 24.3 mmol/L Normal 21.0-32.0 [facility] Comment on above: Performed By: #### C BC #### [facility] [address] [place] [address] Dr. Jonelle Trujillo Creatinine [Mass/Vol] 0.63 mg/dL Normal 0.55-1.02 [facility] Comment on above: Performed By: #### C BC #### [facility] [address] [place] [address] Dr. Jonelle Trujillo EGFR-AF TOGOLESE >60 Normal >=60 [facility] Comment on above: Performed By: #### C BC #### [facility] [address] [place] [address] Dr. Jonelle Trujillo EGFR-NON AF TOGOLESE >60 Normal >=60 [facility] Comment on above: Performed By: #### C BC #### [facility] [address] [address] [address] Jonelle Trujillo Glucose [Mass/Vol] 88 mg/dL Normal 74-106 [facility] Comment on above: Performed By: #### C BC #### [facility] [address] [place] [address] Dr. Jonelle Trujillo Potassium [Moles/Vol] 4.1 mmol/L Normal 3.5-5.1 [facility] Comment on above: Performed By: #### C BC #### [facility] [address] [place] [address] Dr. Jonelle Trujillo Sodium [Moles/Vol] 140 mmol/L Normal 136-145 [facility] Comment on above: Performed By: #### C BC #### [facility] [address] [place] [address] Dr. Jonelle Trujillo Urea nitrogen [Mass/Vol] 7.0 mg/dL Normal 7.0-18.0 [facility] Comment on above: Performed By: #### C BC #### [facility] [address] [place] [address] Dr. Jonelle Trujillo Urea nitrogen/Creatinine [Mass ratio] 11.1 mg/mg Normal [facility] Comment on above: Performed By: #### C BC #### [facility] [address] [place] [address] Dr. Jonelle Trujillo CBC AUTO DIFFon 12-07-2021 BASO # 0.0 103/ul Normal 0.0-0.1 [facility] Comment on above: Performed By: #### C BC #### [facility] [address] [place] [address] Dr. Jonelle Trujillo Basophils/100 WBC (Bld) 0.4 % Normal 0.2-2.0 [facility] Comment on above: Performed By: #### C BC #### [facility] [address] [place] [address] Dr. Jonelle Trujillo EO # 0.0 103/ul Normal 0.0-0.7 [facility] Comment on above: Performed By: #### C BC #### [facility] [address] [place] [address] Dr. Jonelle Trujillo Eosinophils/100 WBC (Bld) 0.0 % Critically low 0.9-7.0 [facility] Comment on above: Performed By: #### C BC #### [facility] [address] [place] [address] Dr. Jonelle Trujillo Erythrocyte distribution width (RBC) [Ratio] 13.5 % Normal 11.0-15.0 [facility] Comment on above: Performed By: #### C BC #### [facility] [address] [place] [address] Dr. Jonelle Trujillo Hematocrit (Bld) [Volume fraction] 37.4 % Normal 36.0-48.0 [facility] Comment on above: Performed By: #### C BC #### [facility] [address] [place] [address] Dr. Jonelle Trujillo Hemoglobin (Bld) [Mass/Vol] 12.2 g/dL Normal 12.0-16.0 [facility] Comment on above: Performed By: #### C BC #### [facility] [address] [place] [address] Dr. Jonelle Trujillo IG # 0.01 10e3/ul Normal 0.00-0.03 [facility] Comment on above: Performed By: #### C BC #### [facility] [address] [place] [address] Dr. Jonelle Trujillo IG % 0.2 % Normal 0.0-0.5 [facility] Comment on above: Performed By: #### C BC #### [facility] [address] [place] [address] Dr. Jonelle Trujillo LYMPH # 0.9 103/ul Critically low 1.2-3.8 [facility] Comment on above: Performed By: #### C BC #### [facility] [address] [place] [address] Dr. Jonelle Trujillo Lymphocytes/100 WBC (Bld) 16.4 % Critically low 20.5-60.0 [facility] Comment on above: Performed By: #### C BC #### [facility] [address] [place] [address] Dr. Jonelle Trujillo MANUAL DIFF REQ NO Normal [facility] Comment on above: Performed By: #### C BC #### [facility] [address] [place] [address] Dr. Jonelle Trujillo MCH (RBC) [Entitic mass] 28.6 pg Normal 26.7-34.0 [facility] Comment on above: Performed By: #### C BC #### [facility] [address] [place] [address] Dr. Jonelle Trujillo MCHC (RBC) [Mass/Vol] 32.6 g/dL Normal 29.9-35.2 [facility] Comment on above: Performed By: #### C BC #### [facility] [address] [place] [address] Dr. Jonelle Trujillo MCV (RBC) [Entitic vol] 87.8 fL Normal 81.0-99.0 [facility] Comment on above: Performed By: #### C BC #### [facility] [address] [place] [address] Dr. Jonelle Trujillo MONO # 0.5 103/ul Normal 0.3-0.8 [facility] Comment on above: Performed By: #### C BC #### [facility] [address] [place] [address] Dr. Jonelle Trujillo Monocytes/100 WBC (Bld) 9.7 % Normal 1.7-12.0 [facility] Comment on above: Performed By: #### C BC #### [facility] [address] [place] [address] Dr. Jonelle Trujillo NEUT # 4.0 103/ul Normal 1.4-6.5 [facility] Comment on above: Performed By: #### C BC #### [facility] [address] [place] [address] Dr. Jonelle Trujillo Neutrophils/100 WBC (Bld) 73.3 % Normal 43.0-75.0 [facility] Comment on above: Performed By: #### C BC #### [facility] [address] [place] [address] Dr. Jonelle Trujillo Platelet mean volume (Bld) [Entitic vol] 9.8 fL Normal 9.5-13.5 [facility] Comment on above: Performed By: #### C BC #### [facility] [address] [place] [address] Dr. Jonelle Trujillo PLT 144 103/ul Critically low 150-450 [facility] Comment on above: Performed By: #### C BC #### [facility] [address] [place] [address] Dr. Jonelle Trujillo RBC 4.26 106/ul Normal 4.20-5.40 [facility] Comment on above: Performed By: #### C BC #### [facility] [address] [place] [address] Dr. Jonelle Trujillo WBC 5.5 103/ul Normal 4.0-11.0 [facility] Comment on above: Performed By: #### C BC #### [facility] [address] [place] [address] Dr. Jonelle Trujillo [facility]on SARS-CoV-2 (COVID-19) RNA MARCIA+probe Ql (Unsp spec) Not detected Normal NOT DETECTED [facility] Comment on above: Result Comment: When [...] for this test is supported by the [place] of Health and Human Service's declaration that [...] used). Performed By: #### C VDTBH #### [facility] [address] [place] [address] Dr. Jonelle Trujillo GI PANEL (PCR)on 12-07-2021 Adenovirus F 40/41 Not detected Normal NOT DETECTED [facility] Comment on above: Performed By: #### C BC #### [facility] [address] [place] [address] Dr. Jonelle Trujillo Astrovirus Not detected Normal NOT DETECTED [facility] Comment on above: Performed By: #### C BC #### [facility] [address] [place] [address] Dr. Jonelle Trujillo C. Diff toxin A/B Not detected Normal NOT DETECTED [facility] Comment on above: Performed By: #### C BC #### [facility] [address] [place] [address] Dr. Jonelle Trujillo Campylobacter Detected Critically abnormal NOT DETECTED [facility] Comment on above: Performed By: #### C BC #### [facility] [address] [place] [address] Dr. Jonelle Trujillo Cryptosporidium Not detected Normal NOT DETECTED [facility] Comment on above: Performed By: #### C BC #### [facility] [address] [place] [address] Dr. Jonelle Trujillo Cyclos. Cayetanensis Not detected Normal NOT DETECTED [facility] Comment on above: Performed By: #### C BC #### [facility] [address] [place] [address] Dr. Jonelle Trujillo E. Coli O157 Not Applicable Normal Not Applicable [facility] Comment on above: Performed By: #### C BC #### [facility] [address] [place] [address] Dr. Jonelle Trujillo E. histolytica Not detected Normal NOT DETECTED [facility] Comment on above: Performed By: #### C BC #### [facility] [address] [place] [address] Dr. Jonelle Trujillo EAEC Not detected Normal NOT DETECTED [facility] Comment on above: Performed By: #### C BC #### [facility] [address] [place] [address] Dr. Jonelle Trujillo EIEC Not detected Normal NOT DETECTED [facility] Comment on above: Performed By: #### C BC #### [facility] [address] [place] [address] Dr. Jonelle Trujillo EPEC Not detected Normal NOT DETECTED [facility] Comment on above: Performed By: #### C BC #### [facility] [address] [place] [address] Dr. Jonelle Trujillo ETEC Not detected Normal NOT DETECTED [facility] Comment on above: Performed By: #### C BC #### [facility] [address] [place] [address] Dr. Jonelle Ordaz. [place] Not detected Normal NOT DETECTED [facility] Comment on above: Performed By: #### C BC #### [facility] [address] [place] [address] Dr. Jonelle MULLIGAN CONTROLS PASSED Normal [facility] Comment on above: Performed By: #### C BC #### [facility] [address] [place] [address] Dr. Jonelle GRIMES HEADER GI PANEL BACTERIA Normal [facility] Comment on above: Performed By: #### C BC #### [facility] [address] [place] [address] Dr. Jonelle POWELL ECOLI GI PANEL DIARRHEAGEN IC E.COLI / SHIGELLA Normal [facility] Comment on above: Performed By: #### C BC #### [facility] [address] [place] [address] Dr. Jonelle POWELL INFO SEE BELOW Normal [facility] Comment on above: Result Comment: EAEC - Enteroaggregative E. Coli EPEC- Enteropathogenic E. Coli ETEC- Enterotoxigenic E. Coli lt/st STEC- Shigella-like toxin-producing E. Coli stx1/stx2 EIEC- Shigella/Enteroinvasive E. Coli Performed By: #### C BC #### [facility] [address] [place] [address] Dr. Jonelle POWELL PARASITES GI PANEL PARASITES Normal [facility] Comment on above: Performed By: #### C BC #### [facility] [address] [place] [address] Dr. Jonelle Trujillo GIPHD VIRUS GI PANEL VIRUSES Normal [facility] Comment on above: Performed By: #### C BC #### [facility] [address] [place] [address] Dr. Jonelle Trujillo Norovirus GI/GII Not detected Normal NOT DETECTED [facility] Comment on above: Performed By: #### C BC #### [facility] [address] [place] [address] Dr. Jonelle Trujillo P. Shigelloides Not detected Normal NOT DETECTED [facility] Comment on above: Performed By: #### C BC #### [facility] [address] [place] [address] Dr. Jonelle Trujillo Rotavirus A Not detected Normal NOT DETECTED [facility] Comment on above: Performed By: #### C BC #### [facility] [address] [place] [address] Dr. Jonelle Trujillo Salmonella Not detected Normal NOT DETECTED [facility] Comment on above: Performed By: #### C BC #### [facility] [address] [place] [address] Dr. Jonelle Trujillo Sapovirus Not detected Normal NOT DETECTED [facility] Comment on above: Performed By: #### C BC #### [facility] [address] [place] [address] Dr. Jonelle Trujillo STEC Not detected Normal NOT DETECTED [facility] Comment on above: Performed By: #### C BC #### [facility] [address] [place] [address] Dr. Jonelle Trujillo Vibrio Not detected Normal NOT DETECTED [facility] Comment on above: Performed By: #### C BC #### [facility] [address] [place] [address] Dr. Jonelle Trujillo Vibrio Cholera Not detected Normal NOT DETECTED [facility] Comment on above: Performed By: #### C BC #### [facility] [address] [place] [address] Dr. Jonelle Trujillo Y. Enterocolitica Not detected Normal NOT DETECTED [facility] Comment on above: Performed By: #### C BC #### [facility] [address] [place] [address] Dr. Jonelle Trujillo PROF 14(COMP METB)on 022 Albumin [Mass/Vol] 2.7 g/dL Critically low 3.4-5.0 [facility] Comment on above: Performed By: #### C BC #### [facility] [address] [place] [address] Dr. Jonelle Trujillo Albumin/Globulin [Mass ratio] 0.8 {ratio} Normal [facility] Comment on above: Performed By: #### C BC #### [facility] [address] [place] [address] Dr. Jonelle Trujillo ALP [Catalytic activity/Vol] 57 U/L Normal 46-116 [facility] Comment on above: Performed By: #### C BC #### [facility] [address] [place] [address] Dr. Jonelle Trujillo ALT [Catalytic activity/Vol] 30 U/L Normal 14-59 [facility] Comment on above: Performed By: #### C BC #### [facility] [address] [place] [address] Dr. Jonelle Trujillo Anion gap [Moles/Vol] 11.5 mmol/L Normal [facility] Comment on above: Performed By: #### C BC #### [facility] [address] [place] [address] Dr. Jonelle Trujillo AST [Catalytic activity/Vol] 25 U/L Normal 15-37 [facility] Comment on above: Performed By: #### C BC #### [facility] [address] [place] [address] Dr. Jonelle Trujillo Bilirubin [Mass/Vol] 0.3 mg/dL Normal 0.2-1.0 [facility] Comment on above: Performed By: #### C BC #### [facility] [address] [place] [address] Dr. Jonelle Trujillo Calcium [Mass/Vol] 8.0 mg/dL Critically low 8.5-10.1 [facility] Comment on above: Performed By: #### C BC #### [facility] [address] [address] [address] Jonelle Trujillo Chloride [Moles/Vol] 107 mmol/L Normal 98-107 [facility] Comment on above: Performed By: #### C BC #### [facility] [address] [address] [address] Jonelle Trujillo CO2 [Moles/Vol] 26.2 mmol/L Normal 21.0-32.0 [facility] Comment on above: Performed By: #### C BC #### [facility] [address] [address] [address] Jonelle Trujillo Creatinine [Mass/Vol] 0.67 mg/dL Normal 0.55-1.02 [facility] Comment on above: Performed By: #### C BC #### [facility] [address] [place] [address] Dr. Jonelle Trujillo EGFR-AF TOGOLESE >60 Normal >=60 [facility] Comment on above: Performed By: #### C BC #### [facility] [address] [place] [address] Dr. Jonelle Trujillo EGFR-NON AF TOGOLESE >60 Normal >=60 [facility] Comment on above: Performed By: #### C BC #### [facility] [address] [place] [address] Dr. Jonelle Trujillo Globulin (S) [Mass/Vol] 3.2 g/dL Normal [facility] Comment on above: Performed By: #### C BC #### [facility] [address] [place] [address] Dr. Jonelle Trujillo Glucose [Mass/Vol] 90 mg/dL Normal 74-106 [facility] Comment on above: Performed By: #### C BC #### [facility] [address] [place] [address] Dr. Jonelle Trujillo Potassium [Moles/Vol] 3.7 mmol/L Normal 3.5-5.1 [facility] Comment on above: Performed By: #### C BC #### [facility] [address] [place] [address] Dr. Jonelle Trujillo Protein [Mass/Vol] 5.9 g/dL Critically low 6.4-8.2 Th e [facility] Comment on above: Performed By: #### C BC #### [facility] [address] [place] [address] Dr. Jonelle Trujillo Sodium [Moles/Vol] 141 mmol/L Normal 136-145 [facility] Comment on above: Performed By: #### C BC #### [facility] [address] [place] [address] Dr. Jonelle Trujillo Urea nitrogen [Mass/Vol] 8.0 mg/dL Normal 7.0-18.0 [facility] Comment on above: Performed By: #### C BC #### [facility] [address] [place] [address] Dr. Jonelle Trujillo Urea nitrogen/Creatinine [Mass ratio] 11.9 mg/mg Normal [facility] Comment on above: Performed By: #### C BC #### [facility] [address] [place] [address] Dr. Jonelle Trujillo VITAMIN D 25 OHon 12-07-2021 VIT D 25-OH 27.8 ng/mL Normal [facility] Comment on above: Performed By: #### V ITAD #### [facility] [address] [place] [address] Dr. Jonelle Trujillo VIT D RANGES SEE BELOW Normal [facility] Comment on above: Result Comment: <20 ng/mL Vit D deficient 20 - <30 ng/mL Vit D insufficient 30 - 100 ng/mL Vit D sufficient >100 ng/mL Potential Toxicity Performed By: #### V ITAD #### [facility] [address] [place] [address] Dr. Jonelle Trujillo BNPon 12-06-2021 Natriuretic peptide B (Bld) [Mass/Vol] 336.0 pg/mL Normal <=900.0 [facility] Comment on above: Performed By: #### C MP, BNP, HSTROPN #### [facility] [address] [place] [address] Dr. Jonelle Trujillo CBC AUTO DIFFon 12-06-2021 BASO # 0.0 103/ul Normal 0.0-0.1 [facility] Comment on above: Performed By: #### V ITAD #### [facility] [address] [place] [address] Dr. Jonelle Trujillo Basophils/100 WBC (Bld) 0.2 % Normal 0.2-2.0 [facility] Comment on above: Performed By: #### V ITAD #### [facility] [address] [place] [address] Dr. Jonelle Trujillo EO # 0.0 103/ul Normal 0.0-0.7 [facility] Comment on above: Performed By: #### V ITAD #### [facility] [address] [place] [address] Dr. Jonelle Trujillo Eosinophils/100 WBC (Bld) 0.0 % Critically low 0.9-7.0 [facility] Comment on above: Performed By: #### V ITAD #### [facility] [address] [place] [address] Dr. Jonelle Trujillo Erythrocyte distribution width (RBC) [Ratio] 13.2 % Normal 11.0-15.0 [facility] Comment on above: Performed By: #### V ITAD #### [facility] [address] [place] [address] Dr. Jonelle Trujillo Hematocrit (Bld) [Volume fraction] 41.2 % Normal 36.0-48.0 [facility] Comment on above: Performed By: #### V ITAD #### [facility] [address] [place] [address] Dr. Jonelle Trujillo Hemoglobin (Bld) [Mass/Vol] 13.7 g/dL Normal 12.0-16.0 [facility] Comment on above: Performed By: #### V ITAD #### [facility] [address] [place] [address] Dr. Jonelle Trujillo IG # 0.02 10e3/ul Normal 0.00-0.03 [facility] Comment on above: Performed By: #### V ITAD #### [facility] [address] [place] [address] Dr. Jonelle Trujillo IG % 0.2 % Normal 0.0-0.5 [facility] Comment on above: Performed By: #### V ITAD #### [facility] [address] [place] [address] Dr. Jonelle Trujillo LYMPH # 0.9 103/ul Critically low 1.2-3.8 [facility] Comment on above: Performed By: #### V ITAD #### [facility] [address] [place] [address] Dr. Jonelle Trujillo Lymphocytes/100 WBC (Bld) 9.6 % Critically low 20.5-60.0 [facility] Comment on above: Performed By: #### V ITAD #### [facility] [address] [place] [address] Dr. Jonelle Trujillo MANUAL DIFF REQ NO Normal [facility] Comment on above: Performed By: #### V ITAD #### [facility] [address] [place] [address] Dr. Jonelle Trujillo MCH (RBC) [Entitic mass] 28.5 pg Normal 26.7-34.0 [facility] Comment on above: Performed By: #### V ITAD #### [facility] [address] [place] [address] Dr. Jonelle Turjillo MCHC (RBC) [Mass/Vol] 33.3 g/dL Normal 29.9-35.2 [facility] Comment on above: Performed By: #### V ITAD #### [facility] [address] [place] [address] Dr. Jonelle Trujillo MCV (RBC) [Entitic vol] 85.7 fL Normal 81.0-99.0 [facility] Comment on above: Performed By: #### V ITAD #### [facility] [address] [place] [address] Dr. Jonelle Trujillo MONO # 0.8 103/ul Normal 0.3-0.8 [facility] Comment on above: Performed By: #### V ITAD #### [facility] [address] [place] [address] Dr. Jonelle Trujillo Monocytes/100 WBC (Bld) 9.0 % Normal 1.7-12.0 [facility] Comment on above: Performed By: #### V ITAD #### [facility] [address] [place] [address] Dr. Jonelle Trujillo NEUT # 7.3 103/ul Critically high 1.4-6.5 [facility] Comment on above: Performed By: #### V ITAD #### [facility] [address] [place] [address] Dr. Jonelle Trujillo Neutrophils/100 WBC (Bld) 81.0 % Critically high 43.0-75.0 [facility] Comment on above: Performed By: #### V ITAD #### [facility] [address] [place] [address] Dr. Jonelle Trujillo Platelet mean volume (Bld) [Entitic vol] 10.0 fL Normal 9.5-13.5 [facility] Comment on above: Performed By: #### V ITAD #### [facility] [address] [place] [address] Dr. Jonelle Trujillo PLT 163 103/ul Normal 150-450 [facility] Comment on above: Performed By: #### V ITAD #### [facility] [address] [place] [address] Dr. Jonelle Trujillo RBC 4.81 106/ul Normal 4.20-5.40 [facility] Comment on above: Performed By: #### V ITAD #### [facility] [address] [place] [address] Dr. Jonelle Trujillo WBC 9.0 103/ul Normal 4.0-11.0 [facility] Comment on above: Performed By: #### V ITAD #### [facility] [address] [place] [address] Dr. Jonelle Trujillo CULTURE BLOODon 12-06-2021 Microscopic examination of blood, culture Culture Observations: NO GROWTH AT 5 DAYS. Normal [facility] Comment on above: Performed By: #### C BC #### [facility] [address] [place] [address] Dr. Jonelle Trujillo Microscopic examination of blood, culture Culture Observations: NO GROWTH AT 5 DAYS. Normal [facility] Comment on above: Performed By: #### C BC #### [facility] [address] [place] [address] Dr. Jonelle Trujillo FREE T3on 12-06-2021 FREE T3 1.70 pg/mlL Critically low 2.18-3.98 [facility] Comment on above: Performed By: #### F T3 #### [facility] [address] [place] [address] Dr. Jonelle Trujillo FREE T4on 12-06-2021 Free T4 [Mass/Vol] 1.24 ng/dL Normal 0.76-1.46 [facility] Comment on above: Performed By: #### C BC #### [facility] [address] [place] [address] Dr. Jonelle Trujillo LACTATE/LACTIC ACIDon 2021 Lactate [Moles/Vol] 1.5 mmol/L Normal 0.4-1.9 [facility] Comment on above: Performed By: #### C BC #### [facility] [address] [place] [address] Dr. Jonelle Trujillo MAGNESIUMon 12-06-2021 Magnesium [Mass/Vol] 1.6 mg/dL Critically low 1.8-2.4 [facility] Comment on above: Performed By: #### M G #### [facility] [address] [place] [address] Dr. Jonelle Trujillo PROF 14(COMP METB)on 022 Albumin [Mass/Vol] 3.3 g/dL Critically low 3.4-5.0 [facility] Comment on above: Performed By: #### C MP, BNP, HSTROPN #### [facility] [address] [place] [address] Dr. Jonelle Trujillo Albumin/Globulin [Mass ratio] 0.8 {ratio} Normal [facility] Comment on above: Performed By: #### C MP, BNP, HSTROPN #### [facility] [address] [place] [address] Dr. Jonelle Trujillo ALP [Catalytic activity/Vol] 71 U/L Normal 46-116 [facility] Comment on above: Performed By: #### C MP, BNP, HSTROPN #### [facility] [address] [place] [address] Dr. Jonelle Trujillo ALT [Catalytic activity/Vol] 33 U/L Normal 14-59 [facility] Comment on above: Performed By: #### C MP, BNP, HSTROPN #### [facility] [address] [place] [address] Dr. Jonelle Trujillo Anion gap [Moles/Vol] 15.2 mmol/L Normal [facility] Comment on above: Performed By: #### C MP, BNP, HSTROPN #### [facility] [address] [place] [address] Dr. Jonelle Trujillo AST [Catalytic activity/Vol] 32 U/L Normal 15-37 [facility] Comment on above: Performed By: #### C MP, BNP, HSTROPN #### [facility] [address] [place] [address] Dr. Jonelle Trujillo Bilirubin [Mass/Vol] 0.4 mg/dL Normal 0.2-1.0 [facility] Comment on above: Performed By: #### C MP, BNP, HSTROPN #### [facility] [address] [place] [address] Dr. Jonelle Trujillo Calcium [Mass/Vol] 9.1 mg/dL Normal 8.5-10.1 [facility] Comment on above: Performed By: #### C MP, BNP, HSTROPN #### [facility] [address] [place] [address] Dr. Jonelle Trujillo Chloride [Moles/Vol] 97 mmol/L Critically low 98-107 [facility] Comment on above: Performed By: #### C MP, BNP, HSTROPN #### [facility] [address] [place] [address] Dr. Jonelle Trujillo CO2 [Moles/Vol] 26.5 mmol/L Normal 21.0-32.0 [facility] Comment on above: Performed By: #### C MP, BNP, HSTROPN #### [facility] [address] [address] [address] Jonelle Trujillo Creatinine [Mass/Vol] 0.85 mg/dL Normal 0.55-1.02 [facility] Comment on above: Performed By: #### C MP, BNP, HSTROPN #### [facility] [address] [place] [address] Dr. Jonelle Trujillo EGFR-AF TOGOLESE >60 Normal >=60 [facility] Comment on above: Performed By: #### C MP, BNP, HSTROPN #### [facility] [address] [place] [address] Dr. Jonelle Trujillo EGFR-NON AF TOGOLESE >60 Normal >=60 [facility] Comment on above: Performed By: #### C MP, BNP, HSTROPN #### [facility] [address] [place] [address] Dr. Jonelle Trujillo Globulin (S) [Mass/Vol] 3.9 g/dL Normal [facility] Comment on above: Performed By: #### C MP, BNP, HSTROPN #### [facility] [address] [place] [address] Dr. Jonelle Trujillo Glucose [Mass/Vol] 115 mg/dL Critically high 74-106 [facility] Comment on above: Performed By: #### C MP, BNP, HSTROPN #### [facility] [address] [place] [address] Dr. Jonelle Trujillo Potassium [Moles/Vol] 2.7 mmol/L Critically low 3.5-5.1 [facility] Comment on above: Performed By: #### C MP, BNP, HSTROPN #### [facility] [address] [place] [address] Dr. Jonelle Trujillo Protein [Mass/Vol] 7.2 g/dL Normal 6.4-8.2 [facility] Comment on above: Performed By: #### C MP, BNP, HSTROPN #### [facility] [address] [place] [address] Dr. Jonelle Trujillo Sodium [Moles/Vol] 135 mmol/L Critically low 136-145 [facility] Comment on above: Performed By: #### C MP, BNP, HSTROPN #### [facility] [address] [place] [address] Dr. Jonelle Trujillo Urea nitrogen [Mass/Vol] 10.0 mg/dL Normal 7.0-18.0 [facility] Comment on above: Performed By: #### C MP, BNP, HSTROPN #### [facility] [address] [place] [address] Dr. Jonelle Trujillo Urea nitrogen/Creatinine [Mass ratio] 11.8 mg/mg Normal [facility] Comment on above: Performed By: #### C MP, BNP, HSTROPN #### [facility] [address] [place] [address] Dr. Jonelle Trujillo TROPONIN, HIGH SENSITIVITYon 12-06-2021 HSTROP 13.1 pg/mL Normal 4.0-51.3 [facility] Comment on above: Result Comment: CUT- OFF POINTS HAVE BEEN ESTABLISHED BASED ON THE FOURTH UNIVERSAL DEFINITIONS OF MYOCARDIAL INFARCTION. THE UPPER REFERENCE LIMIT (URL) OF TROPONIN, DEFINED THE 99TH PERCENTILE OF cTnI DISTRIBUTION IN A REFERENCE POPULATION, HAS BEEN CONFIRMED THE DECISION THRESHOLD FOR OK DIAGNOSIS. Performed By: #### C MP, BNP, HSTROPN #### [facility] [address] [place] [address] Dr. Jonelle Trujillo TSHon 12-06-2021 TSH 0.788 uIU/mL Normal 0.358-3.740 [facility] Comment on above: Performed By: #### V ITAD #### [facility] [address] [place] [address] Dr. Jonelle Trujillo XR CHEST 1 Von [...] SARAH HAIDER Date: 2021-12-06 21:58 Normal [facility] COVID-19, NAAon 11-26-2019 COVID-19, MARCIA Not Detected Normal Not Detect [facility] Comment on above: Result Comment: This test was developed and its performance characteristics determined by [employer] This test has not been FDA cleared [...] detected) result in this assay. Performed at: [facility] [employer] [place] [id number] Director Employee Communications: Cathryn Patel MD, Phone: [phone] Performed By: #### I RCOV #### [facility] [address] [facility] [address] COVID-19, NAAon 11-23-2019 Source Swab OP swab Normal [facility] Comment on above: Performed By: #### I RCOV #### [facility] [address] [facility] [address] EKG 12 Leadon 11-21-2019 Atrial Rate 64 BPM [facility], [place] P Acme 25 degrees [facility], [place] P-R Interval 162 ms [facility], [place] Q-T Interval 418 ms [facility], [place] QRS Duration 90 ms [facility], [place] QTc Calculation (Bazett) 431 ms [facility] R Acme 12 degrees [facility] T Acme 6 degrees [facility] Ventricular Rate 64 BPM [place], [place] Normal sinus rhythm Moderate voltage criteria for LVH, may be normal variant Borderline ECG No previous ECGs available Confirmed by Porfirio Silverman () on 11/21/2019 11:18:56 AM [place], [place], Chpo Incoming Results From [place] - 11/21/2019 11:19 AM EDT Normal sinus rhythm Moderate voltage criteria for LVH, may be normal variant Borderline ECG No previous ECGs available Confirmed by Porfirio Silverman () on 11/21/2019 11:18:56 AM [facility], [place] Basic Metabolic Panelon 11-06 Anion gap [Moles/Vol] 14 mmol/L Normal 9-15 [facility] Comment on above: Performed By: #### B MP #### [facility] [address] [place] [address] Calcium [Mass/Vol] 9.9 mg/dL Normal 8.5-9.9 [facility] Comment on above: Performed By: #### B MP #### [facility] [address] [place] [address] Chloride [Moles/Vol] 102 mmol/L Normal 95-107 [facility] Comment on above: Performed By: #### B MP #### [facility] [address] [place] [address] CO2 [Moles/Vol] 26 mmol/L Normal 20-31 [facility] Comment on above: Performed By: #### B MP #### [facility] [address] [place] [address] Creatinine [Mass/Vol] 0.58 mg/dL Normal 0.50-0.90 [facility] Comment on above: Performed By: #### B MP #### [facility] [address] [place] [address] GFR/1.73 sq M predicted among blacks MDRD (S/P/Bld) [Vol rate/Area] mL/min/{1.73_m2} Normal >60 [facility] Comment on above: Result Comment: >60 mL/min/1.73m2 EGFR, calc. for ages 18 and older using the MDRD formula (not corrected for weight), is valid for stable renal function. Performed By: #### B MP #### [facility] [address] [place] [address] GFR/1.73 sq M.predicted MDRD (S/P/Bld) [Vol rate/Area] mL/min/{1.73_m2} Normal >60 [facility] Comment on above: Result Comment: >60 mL/min/1.73m2 EGFR, calc. for ages 18 and older using the MDRD formula (not corrected for weight), is valid for stable renal function. Performed By: #### B MP #### [facility] [address] [place] [address] Glucose [Mass/Vol] 75 mg/dL Normal 70-99 [facility] Comment on above: Performed By: #### B MP #### [facility] [address] [place] [address] Potassium [Moles/Vol] 3.8 mmol/L Normal 3.4-4.9 [facility] Comment on above: Performed By: #### B MP #### [facility] [address] [place] [address] Sodium [Moles/Vol] 142 mmol/L Normal 135-144 [facility] Comment on above: Performed By: #### B MP #### [facility] [address] [place] [address] Urea nitrogen [Mass/Vol] 16 mg/dL Normal 8-23 [facility] Comment on above: Performed By: #### B MP #### [facility] [address] [place] [address] Anion gap [Moles/Vol] 14 mmol/L [facility], [place] Calcium [Mass/Vol] 9.9 mg/dL 8.5 - 9.9 mg/dL [place] Chloride [Moles/Vol] 102 mmol/L [place] CO2 [Moles/Vol] 26 mmol/L [place], [place] Creatinine [Mass/Vol] 0.58 mg/dL 0.5 - 0.9 mg/dL [place] GFR >60.0 >60 [place] Comment on above: >60 mL/min/1.73m2 EG FR, calc. for ages 18 and older using the MDRD formula (not corrected for weight), is valid for stable renal function. GFR Non- >60.0 >60 [place] Comment on above: >60 mL/min/1.73m2 EG FR, calc. for ages 18 and older using the MDRD formula (not corrected for weight), is valid for stable renal function. Glucose [Mass/Vol] 75 mg/dL 70 - 99 mg/dL [place] Potassium [Moles/Vol] 3.8 mmol/L [place] Sodium [Moles/Vol] 142 mmol/L [place] Urea nitrogen [Mass/Vol] 16 mg/dL 8 - 23 mg/dL [place] CBCon 11-18-2019 Erythrocyte distribution width (RBC) [Ratio] 14.1 % 11.5 - 14.5 % [place] Hematocrit (Bld) [Volume fraction] 41.9 % 37 - 47 % [place] Hemoglobin (Bld) [Mass/Vol] 13.5 g/dL 12 - 16 g/dL [place] Interpretation and review of laboratory results Abnormal [place] MCH (RBC) [Entitic mass] 28.6 pg 27 - 31.3 pg [place] MCHC (RBC) [Mass/Vol] 32.4 % Low 33 - 37 % [place] MCV (RBC) [Entitic vol] 88.3 fL 82 - 100 fL [place] Platelets (Bld) [#/Vol] 226 10*3/uL 130 - 400 K/uL [place] RBC (Bld) [#/Vol] 4.74 10*6/uL [place] WBC (Bld) [#/Vol] 6.6 10*3/uL 4.8 - 10.8 K/uL [place] CBC With Platelet No Differe ntialon 11-18-2019 Erythrocyte distribution width (RBC) [Ratio] 14.1 % Normal 11.5-14.5 [facility] Comment on above: Performed By: #### C BCND #### [facility] [address] [place] [address] Hematocrit (Bld) [Volume fraction] 41.9 % Normal 37.0-47.0 [facility] Comment on above: Performed By: #### C BCND #### [facility] [address] [place] [address] Hemoglobin (Bld) [Mass/Vol] 13.5 g/dL Normal 12.0-16.0 [facility] Comment on above: Performed By: #### C BCND #### [facility] [address] [place] [address] MCH (RBC) [Entitic mass] 28.6 pg Normal 27.0-31.3 [facility] Comment on above: Performed By: #### C BCND #### [facility] [address] [place] [address] MCHC (RBC) [Mass/Vol] 32.4 % Low 33.0-37.0 [facility] Comment on above: Performed By: #### C BCND #### [facility] [address] [place] [address] MCV (RBC) [Entitic vol] 88.3 fL Normal 82.0-100.0 [facility] Comment on above: Performed By: #### C BCND #### [facility] [address] [place] [address] Platelets (Bld) [#/Vol] 226 10*3/uL Normal 130-400 [facility] Comment on above: Performed By: #### C BCND #### [facility] [address] [place] [address] RBC (Bld) [#/Vol] 4.74 10*6/uL Normal 4.20-5.40 [facility] Comment on above: Performed By: #### C BCND #### [facility] [address] [place] [address] WBC (Bld) [#/Vol] 6.6 10*3/uL Normal 4.8-10.8 [facility] Comment on above: Performed By: #### C BCND #### [facility] [address] [place] [address] Vital Signs Date Time Vital Sign Value Performing Clinician Facility 03-15-2025 14:16-0400 Body height 157.5 cm Griselda Hemmer PA Work Phone: [facility] 03-15-2025 14:16-0400 Body mass index (BMI) [Ratio] 32.15 kg/m2 Griselda Hemmer PA Work Phone: [facility] 03-15-2025 14:16-0400 Body weight 79.74 kg Griselda Hemmer PA Work Phone: [facility] 03-15-2025 14:16-0400 Diastolic blood pressure 70 mm[Hg] Griselda Hemmer PA Work Phone: [facility] 03-15-2025 14:16-0400 Heart rate 77 /min Griselda Hemmer PA Work Phone: [facility] 03-15-2025 14:16-0400 Respiratory rate 16 /min Griselda Hemmer PA Work Phone: [facility] 03-15-2025 14:16-0400 SaO2% (BldA) [Mass fraction] 96 % Griselda Hemmer PA Work Phone: [facility] 03-15-2025 14:16-0400 Systolic blood pressure 128 mm[Hg] Griselda Hemmer PA Work Phone: [facility] 03-08-2025 10:13-0400 Body height 157.5 cm Griselda Hemmer PA Work Phone: [facility] 03-08-2025 10:13-0400 Body mass index (BMI) [Ratio] 31.68 kg/m2 Griselda Hemmer PA Work Phone: [facility] 03-08-2025 10:13-0400 Body weight 78.56 kg Griselda Hemmer PA Work Phone: [facility] 03-08-2025 10:13-0400 Diastolic blood pressure 72 mm[Hg] Griselda Hemmer PA Work Phone: [facility] 03-08-2025 10:13-0400 Heart rate 64 /min Griselda Hemmer PA Work Phone: [facility] 03-08-2025 10:13-0400 Respiratory rate 16 /min Griselda Hemmer PA Work Phone: [facility] 03-08-2025 10:13-0400 SaO2% (BldA) [Mass fraction] 95 % Griselda Hemmer PA Work Phone: [facility] 03-08-2025 10:13-0400 Systolic blood pressure 124 mm[Hg] Griselda Hemmer PA Work Phone: [facility] 02-23-2025 09:44-0400 Body height 157.5 cm Madiha Patrick DPM Work Phone: [facility] 02-23-2025 09:44-0400 Body mass index (BMI) [Ratio] 32.08 kg/m2 Madiha Patrick DPM Work Phone: [facility] 02-23-2025 09:44-0400 Body weight 79.56 kg Madiha Stringere DPM Work Phone: [facility] 02-07-2025 14:12-0400 Body height 157.5 cm Griselda Hemmer PA Work Phone: [facility] 02-07-2025 14:12-0400 Body mass index (BMI) [Ratio] 32.08 kg/m2 Griselda Hemmer PA Work Phone: [facility] 02-07-2025 14:12-0400 Body weight 79.56 kg Griselda Hemmer PA Work Phone: [facility] 02-07-2025 14:12-0400 Diastolic blood pressure 72 mm[Hg] Griselda Hemmer PA Work Phone: [facility] 02-07-2025 14:12-0400 Heart rate 61 /min Griselda Hemmer PA Work Phone: [facility] 02-07-2025 14:12-0400 Respiratory rate 16 /min Griselda Hemmer PA Work Phone: [facility] 02-07-2025 14:12-0400 SaO2% (BldA) [Mass fraction] 95 % Griselda Hemmer PA Work Phone: [facility] 02-07-2025 14:12-0400 Systolic blood pressure 128 mm[Hg] Griselda Hemmer PA Work Phone: [facility] 01-26-2025 08:50-0400 Body height 158.8 cm Madiha Stringere DPM Work Phone: [facility] 01-26-2025 08:50-0400 Body mass index (BMI) [Ratio] 30.42 kg/m2 Madiha Stringere DPM Work Phone: [facility] 01-26-2025 08:50-0400 Body weight 76.66 kg Madiha Patrick DPM Work Phone: [facility] 01-10-2025 11:34-0400 Body height 157.5 cm Daly Grant [employer] Work Phone: [facility] 01-10-2025 11:34-0400 Body mass index (BMI) [Ratio] 30.91 kg/m2 Daly Grant [employer] Work Phone: [facility] 01-10-2025 11:34-0400 Body weight 76.66 kg Daly Grant [employer] Work Phone: [facility] 01-10-2025 11:34-0400 Diastolic blood pressure 64 mm[Hg] Daly Grant [employer] Work Phone: [facility] 01-10-2025 11:34-0400 Heart rate 66 /min Daly Grant [employer] Work Phone: [facility] 01-10-2025 11:34-0400 Respiratory rate 17 /min Daly Grant [employer] Work Phone: [facility] 01-10-2025 11:34-0400 SaO2% (BldA) [Mass fraction] 92 % Daly Grant [employer] Work Phone: [facility] 01-10-2025 11:34-0400 Systolic blood pressure 118 mm[Hg] Daly Grant [employer] Work Phone: [facility] 12-13-2024 13:50-0400 Body height 157.5 cm Madiha Patrick DPM Work Phone: [facility] 12-13-2024 13:50-0400 Body mass index (BMI) [Ratio] 31.83 kg/m2 Madiha Patrick DPM Work Phone: [facility] 12-13-2024 13:50-0400 Body weight 78.93 kg Madiha Patrick DPM Work Phone: [facility] 11-29-2024 11:13-0400 Body height 158.8 cm Madiha Patrick DPM Work Phone: [facility] 11-29-2024 11:13-0400 Body mass index (BMI) [Ratio] 31.32 kg/m2 Madiha Patrick DPM Work Phone: [facility] 11-29-2024 11:13-0400 Body weight 78.93 kg Madiha Patrick DPM Work Phone: [facility] 11-22-2024 14:11-0400 Body height 158.8 cm Madiha Patrick DPM Work Phone: [facility] 11-22-2024 14:11-0400 Body mass index (BMI) [Ratio] 31.32 kg/m2 Madiha Patrick DPM Work Phone: [facility] 11-22-2024 14:11-0400 Body weight 78.93 kg Madiha Patrick DPM Work Phone: [facility] 11-15-2024 15:16-0400 Body height 158.8 cm Madiha Patrick DPM Work Phone: [facility] 11-15-2024 15:16-0400 Body mass index (BMI) [Ratio] 31.32 kg/m2 Madiha Patrick DPM Work Phone: [facility] 11-15-2024 15:16-0400 Body weight 78.93 kg Madiha Patrick DPM Work Phone: [facility] 09-07-2024 15:55-0400 Body height 158.8 cm Zeb Fernandez DPM Work Phone: [facility] 09-07-2024 15:55-0400 Body mass index (BMI) [Ratio] 31.32 kg/m2 Zeb Fernandez DPM Work Phone: [facility] 09-07-2024 15:55-0400 Body weight 78.93 kg Zeb Fernandez DPM Work Phone: [facility] 07-21-2024 14:56-0500 Body height 157.5 cm Daly Grant [employer] Work Phone: [facility] 07-21-2024 14:56-0500 Body mass index (BMI) [Ratio] 31.97 kg/m2 Daly Grant [employer] Work Phone: [facility] 07-21-2024 14:56-0500 Body weight 79.29 kg Daly Grant [employer] Work Phone: [facility] 07-21-2024 14:56-0500 Diastolic blood pressure 64 mm[Hg] Daly Grant [employer] Work Phone: [facility] 07-21-2024 14:56-0500 Heart rate 77 /min Daly Grant [employer] Work Phone: [facility] 07-21-2024 14:56-0500 Respiratory rate 16 /min Daly Grant [employer] Work Phone: [facility] 07-21-2024 14:56-0500 SaO2% (BldA) [Mass fraction] 98 % Daly Grant [employer] Work Phone: [facility] 07-21-2024 14:56-0500 Systolic blood pressure 138 mm[Hg] Daly Grant [employer] Work Phone: [facility] 07-18-2024 13:40-0500 Body height 157.5 cm Ashly Chamorro MD Work Phone: [facility] 07-18-2024 13:40-0500 Body mass index (BMI) [Ratio] 31.64 kg/m2 Ashly Chamorro MD Work Phone: [facility] [facility] 07-18-2024 13:40-0500 Body weight 78.47 kg Ashly Chamorro MD Work Phone: [facility] 07-18-2024 13:40-0500 Diastolic blood pressure 72 mm[Hg] Ashly Chamorro MD Work Phone: [facility] 07-18-2024 13:40-0500 Heart rate 69 /min Ashly Chamorro MD Work Phone: [facility] 07-18-2024 13:40-0500 SaO2% (BldA) [Mass fraction] 97 % Ashly Chamorro MD Work Phone: [facility] 07-18-2024 13:40-0500 Systolic blood pressure 128 mm[Hg] Ashly Chamorro MD Work Phone: [facility] 07-05-2024 09:00-0500 Body height 157.5 cm Daly Grant [employer] Work Phone: [facility] 07-05-2024 09:00-0500 Body mass index (BMI) [Ratio] 31.46 kg/m2 Daly Grant [employer] Work Phone: [facility] 07-05-2024 09:00-0500 Body weight 78.02 kg Daly Grant [employer] Work Phone: [facility] 07-05-2024 09:00-0500 Diastolic blood pressure 72 mm[Hg] Daly Grant [employer] Work Phone: [facility] 07-05-2024 09:00-0500 Heart rate 74 /min Daly Grant [employer] Work Phone: [facility] 07-05-2024 09:00-0500 SaO2% (BldA) [Mass fraction] 99 % Daly Grant [employer] Work Phone: [facility] 07-05-2024 09:00-0500 Systolic blood pressure 128 mm[Hg] Daly Grant [employer] Work Phone: [facility] 05-19-2024 15:32-0500 Body height 157.5 cm Madiha Patrick DPM Work Phone: [facility] 05-19-2024 15:32-0500 Body mass index (BMI) [Ratio] 32.01 kg/m2 Madiha Patrick DPM Work Phone: [facility] 05-19-2024 15:32-0500 Body weight 79.38 kg Madiha Patrick DPM Work Phone: [facility] 04-28-2024 13:43-0500 Body height 157.5 cm Griselda Hemmer PA Work Phone: [facility] 04-28-2024 13:43-0500 Body mass index (BMI) [Ratio] 32.01 kg/m2 Griselda Hemmer PA Work Phone: [facility] 04-28-2024 13:43-0500 Body weight 79.38 kg Griselda Hemmer PA Work Phone: [facility] 04-28-2024 13:43-0500 Diastolic blood pressure 78 mm[Hg] Griselda Hemmer PA Work Phone: [facility] 04-28-2024 13:43-0500 Heart rate 78 /min Griselda Hemmer PA Work Phone: [facility] 04-28-2024 13:43-0500 Respiratory rate 16 /min Griselda Lanierbritany PA Work Phone: [facility] 04-28-2024 13:43-0500 SaO2% (BldA) [Mass fraction] 98 % Griselda Lanierbritany PA Work Phone: [facility] 04-28-2024 13:43-0500 Systolic blood pressure 118 mm[Hg] Griselda Lanierbritany PA Work Phone: [facility] 04-07-2024 13:06-0400 Body height 157.5 cm Madiha Rickie DPM Work Phone: [facility] 04-07-2024 13:06-0400 Body mass index (BMI) [Ratio] 31.28 kg/m2 Madiha Patrick DPM Work Phone: [facility] 04-07-2024 13:06-0400 Body weight 77.56 kg Madiha Patrick DPM Work Phone: [facility] 03-26-2024 10:33-0400 Body height 158.8 cm Melani Matute MD Work Phone: [facility] 03-26-2024 10:33-0400 Body mass index (BMI) [Ratio] 30.67 kg/m2 Melani Matute MD Work Phone: [facility] 03-26-2024 10:33-0400 Body weight 77.3 kg Melani Matute MD Work Phone: [facility] 03-26-2024 10:33-0400 Diastolic blood pressure 74 mm[Hg] Melani Matute MD Work Phone: [facility] 03-26-2024 10:33-0400 Heart rate 65 /min Melani Matute MD Work Phone: [facility] 03-26-2024 10:33-0400 SaO2% (BldA) [Mass fraction] 98 % Melani Matute MD Work Phone: [facility] 03-26-2024 10:33-0400 Systolic blood pressure 112 mm[Hg] Melani Matute MD Work Phone: [facility] 03-02-2024 13:30-0400 Body height 157.5 cm Amanda Echols [employer] Work Phone: [facility] 03-02-2024 13:30-0400 Body mass index (BMI) [Ratio] 31.28 kg/m2 Amanda Echols [employer] Work Phone: [facility] 03-02-2024 13:30-0400 Body weight 77.56 kg Amanda Echols [employer] Work Phone: [facility] 03-02-2024 13:30-0400 Diastolic blood pressure 72 mm[Hg] Amanda Echols [employer] Work Phone: [facility] 03-02-2024 13:30-0400 Heart rate 76 /min Amanda Echols [employer] Work Phone: [facility] 03-02-2024 13:30-0400 SaO2% (BldA) [Mass fraction] 97 % Amanda Echols [employer] Work Phone: [facility] 03-02-2024 13:30-0400 Systolic blood pressure 128 mm[Hg] Amanda Echols [employer] Work Phone: [facility] 02-04-2024 14:40-0400 Body height 157.5 cm Ayo Mckeon DPM Work Phone: [facility] 02-04-2024 14:40-0400 Body mass index (BMI) [Ratio] 31.46 kg/m2 Ayo Mckeon DPM Work Phone: [facility] 02-04-2024 14:40-0400 Body weight 78.02 kg Ayo Mckeon DPM Work Phone: [facility] 02-04-2024 14:40-0400 Diastolic blood pressure 79 mm[Hg] Ayo Mckeon DPM Work Phone: [facility] 02-04-2024 14:40-0400 Heart rate 82 /min Ayo Mckeon DPM Work Phone: [facility] 02-04-2024 14:40-0400 Systolic blood pressure 128 mm[Hg] Ayo Mckeon DPM Work Phone: [facility] 07-09-2023 14:46-0500 Body mass index (BMI) [Ratio] 31.17 kg/m2 Dalyana Grant [employer] Work Phone: [facility] 07-09-2023 14:46-0500 Body temperature 98.29 [degF] Daly Grant [employer] Work Phone: [facility] 07-09-2023 14:46-0500 Body weight 78.56 kg Dalyana Grant [employer] Work Phone: [facility] 07-09-2023 14:46-0500 Diastolic blood pressure 75 mm[Hg] Daly Grant [employer] Work Phone: [facility] 07-09-2023 14:46-0500 Heart rate 80 /min Daly Rudy [employer] Work Phone: [facility] 07-09-2023 14:46-0500 Respiratory rate 16 /min Daly Rudy [employer] Work Phone: [facility] 07-09-2023 14:46-0500 SaO2% (BldA) [Mass fraction] 96 % Daly Rduy [employer] Work Phone: [facility] 07-09-2023 14:46-0500 Systolic blood pressure 139 mm[Hg] Daly Rudy [employer] Work Phone: [facility] 07-04-2023 13:25-0500 Body height 160.02 cm Nadia Durham Other [employer] Other 07-04-2023 13:25-0500 Body mass index (BMI) [Ratio] 31.05 kg/m2 Nadia Durham Other [employer] Other 07-04-2023 13:25-0500 Body temperature 98.1 [degF] Nadia Durham Other [employer] Other 07-04-2023 13:25-0500 Body weight 79.52 kg Nadia Durham Other [employer] Other 07-04-2023 13:25-0500 Respiratory rate 18 /min Nadia Durham Other [employer] Other 07-04-2023 13:25-0500 SaO2% (BldA) [Mass fraction] 97 % Nadia Durham Other [employer] Other 05-17-2022 11:45-0500 Body height 160.02 cm Margarita Pond Other [employer] Other 05-17-2022 11:45-0500 Body mass index (BMI) [Ratio] 31 kg/m2 Margarita Girardmond Other [employer] Other 05-17-2022 11:45-0500 Body temperature 98.2 [degF] Margarita Pond Other [employer] Other 05-17-2022 11:45-0500 Body weight 79.38 kg Margarita Podn Other [employer] Other 05-17-2022 11:45-0500 Respiratory rate 18 /min Margarita Pond Other [employer] Other 05-17-2022 11:45-0500 SaO2% (BldA) [Mass fraction] 98 % Margarita Girardmond Other [employer] Other 11-29-2019 13:20-0400 BP Diastolic 70 mm[Hg] [facility] [place] 11-29-2019 13:20-0400 BP Systolic 164 mm[Hg] Pastor Kurt [facility] [place] , [place] 11-29-2019 13:20-0400 Pulse (Heart Rate) 64 /min Pastor Kurt [facility] [place] [place] 11-29-2019 13:20-0400 Respiratory Rate 18 /min P[place]or Kurt [facility] 11-29-2019 13:05-0400 Pulse Oximetry 99 % Pastor Kurt [facility] [place] [facility] [place] 11-29-2019 10:09-0400 BMI (Body Mass Index) 34.5 kg/m2 Pastor Kurt [facility] [place] 11-29-2019 10:09-0400 Body Temperature 97.59 [degF] Pastor Kurt [facility] [place] 11-29-2019 10:09-0400 Body weight 82.83 kg Pastor Kurt [facility] [place] [facility] [place] 11-29-2019 10:09-0400 Height 154.9 cm Pastor Kurt [facility] [place] [facility] [place] 11-18-2019 14:01-0400 BMI (Body Mass Index) 34.5 kg/m2 [facility] [place] 11-18-2019 14:01-0400 Body Temperature 97 [degF] [facility] [place] 11-18-2019 14:01-0400 Body weight 82.83 kg [facility] [place] [facility] [place] 11-18-2019 14:01-0400 BP Diastolic 74 mm[Hg] [facility] [place] [facility] [place] 11-18-2019 14:01-0400 BP Systolic 151 mm[Hg] [facility] [place] [facility] [place] 11-18-2019 14:01-0400 Height 154.9 cm [facility] [place] [facility] [place] 11-18-2019 14:01-0400 Pulse (Heart Rate) 55 /min [facility] [place] 11-18-2019 14:01-0400 Pulse Oximetry 98 % [facility] [place] [facility] [place] 11-18-2019 14:01-0400 Respiratory Rate 16 /min [facility] [place] Encounters Encounter Date Encounter Type Care Provider Facility Start: 03-15-2025 End: 03-15-2025 ambulatory GRISELDA ROE Not Available Start: 03-15-2025 End: 03-15-2025 [employer] Griselda GUSMAN Work Phone: [facility] Start: 03-15-2025 End: 03-15-2025 [employer] Griselda GUSMAN Work Phone: [facility] Start: 03-15-2025 End: 03-15-2025 Office outpatient visit 25 minutes Griselda GUSMAN Work Phone: [facility] Comment on above: Mixed hyperlipidemia (Primary Dx); Vitamin D deficiency; Neuropathy; Impaired fasting glucose Start: 03-08-2025 End: 03-08-2025 [employer] Griselda GUSMAN Work Phone: [facility] Start: 03-08-2025 End: 03-08-2025 [employer] Griselda GUSMAN Work Phone: [facility] Start: 03-08-2025 End: 03-08-2025 Patient encounter procedure Griselda GUSMAN Work Phone: [facility] Comment on above: Medicare annual well ness visit, subsequent (Primary Dx); ACP (advance care planning); Estrogen deficiency; Primary hypertension; Acquired hypothyroidism; Class 1 obesity due to excess calories with serious comorbidity and body mass index (BMI) of 31.0 to 31.9 in adult; Vitamin D deficiency; Anemia, unspecified type; Hypocalcemia; Hypokalemia; Hypomagnesemia; Bursitis of right foot; Callosity; Exostosis of right foot; Sesamoiditis of foot, unspecified laterality; Toe pain, right; Plantar fasciitis, right; Arthritis of finger of left hand; Atrial fibrillation with rapid ventricular response (HCC); History of hysterectomy; History of lumbar fusion; Chronic sinusitis, unspecified location; Lesion of ulnar nerve, unspecified laterality; Primary osteoarthritis involving multiple joints; Other chronic pain; Primary osteoarthritis of left knee; Status post left knee replacement; Overactive bladder; H/O lumbosacral spine surgery; Paronychia of great toe; Arthritis of both hands; Paresthesia of hand, bilateral; Bilateral hand swelling; Trigeminal neuralgia of left side of face; Arthritis of right midfoot; Bilateral carpal tunnel syndrome; Tonsillar cyst; Mixed hyperlipidemia; Situational anxiety Start: 03-08-2025 End: 03-08-2025 ambulatory GRISELDA ROE Not Available Start: 02-23-2025 End: 02-23-2025 Bamboo flowsheet Madiha Patrick DPM Work Phone: [facility] Start: 02-23-2025 End: 02-23-2025 Bamboo flowsheet Madiha Patrick DPM Work Phone: [facility] Start: 02-23-2025 End: 02-23-2025 ambulatory MADIHA PATRICK Not Available Start: 02-23-2025 End: 02-23-2025 Office outpatient visit 15 minutes Madiha Patrick DPM Work Phone: [facility] Comment on above: Plantar fasciitis, r ight (Primary Dx); Posterior tibial tendonitis, right; Peroneal tendonitis, left; Ankle instability, left Start: 02-17-2025 End: 02-17-2025 Clinisync Result Encounter Griselda GUSMAN Work Phone: [facility] External Department Unsolicited Start: 02-17-2025 End: 02-17-2025 Clinisync Result Encounter Griselda GUSMAN Work Phone: [facility] External Department Unsolicited Start: 02-07-2025 End: 02-07-2025 ambulatory GRISELDA ROE Not Available Start: 02-07-2025 End: 02-07-2025 Bamboo flowsheet Griselda GUSMAN Work Phone: [facility] Start: 02-07-2025 End: 02-07-2025 Bamboo flowsheet Griselda Roe PA Work Phone: [facility] Start: 02-07-2025 End: 02-07-2025 Office outpatient visit 15 minutes Griselda GUSMAN Work Phone: [facility] Comment on above: Swelling of both ank les (Primary Dx); Encounter for screening mammogram for malignant neoplasm of breast Start: 01-26-2025 End: 01-26-2025 Bamboo flowsheet Madiha Patrick DPM Work Phone: [facility] Start: 01-26-2025 End: 01-26-2025 Bamboo flowsheet Madiha Patrick DPM Work Phone: [facility] Start: 01-26-2025 End: 01-26-2025 Office outpatient visit 15 minutes Madiha Patrick DPM Work Phone: [facility] Comment on above: Plantar fasciitis, r ight (Primary Dx); Gastrocnemius equinus of right lower extremity Start: 01-26-2025 End: 01-26-2025 ambulatory MADIHA PATRICK Not Available Start: 01-10-2025 End: 01-10-2025 Bamboo flowsheet Daly Grant [employer] Work Phone: [facility] Start: 01-10-2025 End: 01-10-2025 Bamboo flowsheet Daly Grant [employer] Work Phone: [facility] Start: 01-10-2025 End: 01-10-2025 Office outpatient visit 15 minutes Daly Grant [employer] Work Phone: [facility] Comment on above: Current moderate epi sode of major depressive disorder without prior episode (HCC) (Primary Dx) Start: 01-10-2025 End: 01-10-2025 ambulatory DALY GRANT Not Available Start: 12-13-2024 End: 12-13-2024 Bamboo flowsheet Madiha Patrick DPM Work Phone: [facility] Start: 12-13-2024 End: 12-13-2024 Bamboo flowsheet Madiha Patrick DPM Work Phone: [facility] Start: 12-13-2024 End: 12-13-2024 ambulatory MADIHA PATRICK Not Available Start: 12-13-2024 End: 12-13-2024 Office outpatient visit 15 minutes Madiha Patrick DPM Work Phone: [facility] Comment on above: Ingrown nail (Primar y Dx); Nail dystrophy; Toe pain, right Start: 11-29-2024 End: 11-29-2024 Postop follow up visit related to original px Madiha Patrick DPM Work Phone: [facility] Comment on above: Ingrown nail (Primar y Dx); Nail dystrophy; Toe pain, right; Paronychia of great toe of right foot Start: 11-29-2024 End: 11-29-2024 ambulatory MADIHA PATRICK Not Available Start: 11-22-2024 End: 11-22-2024 ambulatory MADIHA PATRICK Not Available Start: 11-22-2024 End: 11-22-2024 Bamboo flowsheet Madiha Patrick DPM Work Phone: [facility] Start: 11-22-2024 End: 11-22-2024 Bamboo flowsheet Madiha Patrick DPM Work Phone: [facility] Start: 11-22-2024 End: 11-22-2024 Patient encounter procedure Madiha Patrick DPM Work Phone: [facility] Comment on above: Ingrown nail (Primar y Dx); Nail dystrophy; Toe pain, right; Paronychia of great toe of right foot Start: 11-15-2024 End: 11-15-2024 Office outpatient visit 15 minutes Madiha Patrick DPM Work Phone: [facility] Comment on above: Ingrown nail (Primar y Dx); Nail dystrophy; Pain of toe of left foot Start: 11-15-2024 End: 11-15-2024 ambulatory MADIHA PATRICK Not Available Start: 11-15-2024 End: 11-15-2024 Bamboo flowsheet Madiha Patrick DPM Work Phone: [facility] Start: 11-15-2024 End: 11-15-2024 Bamboo flowsheet Madiha Patrick DPM Work Phone: [facility] Start: 10-11-2024 End: 10-12-2024 External Result Encounter Griselda GUSMAN Work Phone: [facility] External Department Unsolicited Start: 10-11-2024 End: 10-12-2024 External Result Encounter Griselda GUSMAN Work Phone: [facility] External Department Unsolicited Start: 10-11-2024 End: 10-11-2024 Clinical Support Griselda GUSMAN Work Phone: [facility] Comment on above: Dysuria Start: 09-07-2024 End: 09-07-2024 Office outpatient visit 15 minutes Zeb S Rebecca DPM Work Phone: [facility] Comment on above: Ingrown toenail (Danielle indra Dx); Toe pain, right Start: 09-07-2024 End: 09-07-2024 ambulatory ZEB S REBECCA Not Available Start: 09-07-2024 End: 09-07-2024 Bamboo flowsheet Zeb S Rusher DPM Work Phone: [facility] Start: 09-07-2024 End: 09-07-2024 Bamboo flowsheet Zeb S Rusher DPM Work Phone: [facility] Start: 07-21-2024 End: 07-21-2024 ambulatory DALY GRANT Not Available Start: 07-21-2024 End: 07-21-2024 Office outpatient visit 15 minutes Daly Grant [employer] Work Phone: [facility] Comment on above: Yeast dermatitis (Pr imary Dx); Unspecified atrial fibrillation (CMS/HCC); Longstanding persistent atrial fibrillation (CMS/HCC) Start: 07-19-2024 End: 07-19-2024 Telephone encounter Gallo Sarabia MD Work Phone: [facility] Start: 07-18-2024 End: 07-18-2024 [...] 07-05-2024 End: 07-05-2024 Bamboo flowsheet Daly Grant [employer] Work Phone: [facility] Start: 07-05-2024 End: 07-05-2024 Bamboo flowsheet Daly Grant [employer] Work Phone: [facility] Start: 07-05-2024 End: 07-05-2024 Office outpatient visit 25 minutes Daly Grant [employer] Work Phone: [facility] Comment on above: Yeast dermatitis (Pr imary Dx) Start: 07-05-2024 End: 07-05-2024 ambulatory DALY GRANT Not Available Start: 07-01-2024 End: 07-01-2024 Patient encounter procedure [facility] Comment on above: Dysuria Start: 07-01-2024 End: 07-01-2024 ambulatory DALY GRANT Not Available Start: 06-16-2024 End: 06-16-2024 Bamboo flowsheet Madiha Patrick DPM Work Phone: [facility] Start: 06-16-2024 End: 06-16-2024 Bamboo flowsheet Madiha Patrick DPM Work Phone: [facility] Start: 06-16-2024 End: 06-16-2024 ambulatory MADIHA PATRICK Not Available Start: 05-19-2024 End: 05-19-2024 ambulatory MADIHA PATRICK Not Available Start: 05-19-2024 End: 05-19-2024 Office outpatient visit 15 minutes Madiha Patrick DPM Work Phone: [facility] Comment on above: Arthritis of right m idfoot (Primary Dx); Bursitis of right foot; Plantar fasciitis, right; Gastrocnemius equinus of right lower extremity Start: 05-19-2024 End: 05-19-2024 Bamboo flowsheet Madiha Patrick DPM Work Phone: [facility] Start: 05-19-2024 End: 05-19-2024 Bamboo flowsheet Madiha Patrick DPM Work Phone: [facility] Start: 04-28-2024 End: 04-28-2024 Bamboo flowsheet Griselda Roe PA Work Phone: [facility] Start: 04-28-2024 End: 04-28-2024 Bamboo flowsheet Griselda Roe PA Work Phone: [facility] Start: 04-28-2024 End: 04-28-2024 ambulatory GRISELDA ROE Not Available Start: 04-28-2024 End: 04-28-2024 Office outpatient visit 25 minutes Griselda Roe PA Work Phone: [facility] Comment [...] Bamboo flowsheet Madiha Patrick DPM Work Phone: [facility] Start: 04-07-2024 End: 04-07-2024 Bamboo flowsheet Madiha Patrick DPM Work Phone: [facility] Start: 04-07-2024 End: 04-07-2024 Office outpatient visit 25 minutes Madiha Patrick DPM Work Phone: [facility] Comment on above: Arthritis of right [...] Start: 03-26-2024 End: 03-26-2024 ambulatory MELANI MATUTE Facility:[facility] Start: 03-26-2024 End: 03-26-2024 Patient encounter procedure Melani Matute MD Work Phone: Neurology Comment on above: Trigeminal neuralgia of left side of face (Primary Dx) Start: 03-25-2024 End: 03-25-2024 Chart abstracting Melani Matute MD Work Phone: Neurology Start: 03-03-2024 End: 03-03-2024 Telephone encounter Amanda Echols NP Work Phone: [facility] Start: 03-02-2024 End: 03-02-2024 Bamboo flowsheet Amanda Echols [employer] Work Phone: [facility] Start: 03-02-2024 End: 03-02-2024 Bamboo flowsheet Amanda Echols [employer] Work Phone: [facility] Start: 03-02-2024 End: 03-02-2024 Office outpatient visit 15 minutes Amanda Echols [employer] Work Phone: [facility] Comment on above: Heel spur, right (Pr imary Dx); Pain of right heel; Pure hypercholesterolemia, unspecified (CMS/HCC) Start: 02-09-2024 End: 02-11-2024 Telephone encounter Alfonzo Diaz [employer] Work Phone: [facility] Comment on [...] encounter procedure Ayo Mckeon DPM Work Phone: [facility] Start: 07-09-2023 End: 07-09-2023 Office outpatient visit 25 minutes Daly Grant [employer] Work Phone: [facility] Comment on above: Acute non-recurrent pansinusitis (Primary Dx) Start: 07-04-2023 End: 07-04-2023 ambulatory Nadia Durham Other [employer] Other Start: 07-04-2023 Office outpatient vi sit 25 minutes Nadia Durham [facility] Start: 01-02-2023 Chart abstracting Jesus stevens DPM Work Phone: [facility] Start: 11-23-2022 End: 11-23-2022 ambulatory [facility]aima [facility] [employer] [employer] Other Start: 11-23-2022 Telephone encounter Saima Garcia [facility] Start: 11-21-2022 End: 11-21-2022 ambulatory PHYSICIAN ELOY REYNOSO Facility:[facility] Start: 11-21-2022 End: 11-21-2022 ambulatory GLENN Garcia Work Phone: [facility] Work Phone: Start: 11-21-2022 End: 11-21-2022 Departed Referred GLENN Garcia Work Phone: [facility] Work Phone: Start: 06-20-2022 End: 06-21-2022 ambulatory KEESHA MÉNDEZ Facility:[facility] Start: 05-17-2022 End: 05-17-2022 ambulatory Margarita Pond Other [employer] Other Start: 05-17-2022 Office outpatient vi sit 15 minutes Margarita Pond [facility] Start: 02-14-2022 End: 02-15-[address] GRISELDA ROE Facility:[facility] Start: 12-16-2021 End: 12-16-[address] CODY SARAVIA Facility:[facility] Start: 12-07-2021 End: 12-09-2021 Evaluation and management of inpatient DR AMANDA CRANDALL Facility:[facility] Start: 11-29-2019 End: 11-29-2019 Patient encounter procedure PASTOR HICKS [facility] Start: 11-29-2019 End: 11-29-2019 Subsequent hospital visit by physician Pastor Hicks Work Phone: [facility] Comment on above: Postoperative pain ( Primary Dx) Start: 11-29-2019 End: 12-02-2019 Patient encounter procedure PASTOR HICKS [facility] Start: 11-29-2019 End: 12-01-2019 Subsequent hospital visit by physician Pastor Breaux Kurt Work Phone: [facility] Comment on above: Pain Start: 11-23-2019 End: 11-24-2019 Patient encounter procedure PASTOR HICKS [facility] Start: 11-23-2019 End: 11-23-2019 Subsequent hospital visit by physician Antoine [facility] Start: 11-18-2019 End: 11-23-2019 Patient encounter procedure ANTOINE MCCLENDONSAFIAJacqueline [facility] Start: 11-18-2019 End: 11-22-2019 Subsequent hospital visit by physician Dinesh Pat [facility] Pre-Admission Testing Comment on above: History of lumbar fu ronni Procedures Date Procedure Procedure Detail Performing Clinician Start: 02-17-2025 MM TOMOSYNTHESIS SCREENING BI Griselda GUSMAN Work Phone: Start: 02-17-2025 Mammography Griselda Roe PA Work Phone: Start: 10-11-2024 Urnls dip stick/tablet rgnt non-auto w/o micrscp Griselda Roe PA Work Phone: Start: 10-11-2024 URINARY TRACT INFECTION (HTRX) Griselda Roe PA Work Phone: Start: 07-01-2024 Urnls dip stick/tablet rgnt non-auto w/o micrscp Ashly Chamorro MD Work Phone: Start: 04-07-2024 Radex foot complete minimum 3 views Madiha Patrick DPM Work Phone: Start: 01-28-2024 Mammography Ayo Mckeon DPM Work Phone: Start: 11-23-2022 H/O: hysterectomy History of hysterectomy Daly Thompson Work Phone: Start: 2022 Mammography Daly Grant [employer] Work Phone: Start: 11-29-2019 DISCHARGE PATIENT ANTOINE [...] Start: 11-18-2019 Blood count complete automated Lucille Meilssa Montesinos Start: 11-18-2019 Ecg routine ecg w/least 12 lds w/i&r ANTOINE DONNJacqueline Start: 11-18-2019 Basic metabolic panel calcium total Lucille Melissa Montesinos Start: 11-18-2019 Ecg routine ecg w/least 12 lds w/i&r Lucilleming Montesinos H/O: hysterectomy History of hysterectomy Griselda Roe PA Work Phone: Plan of Treatment Date Care Activity Detail Author Start: 2028 RSV Vaccine (1 - 1-d ose 75+ series) RSV Vaccine (1 - 1-dose 75+ series) [facility] Start: 06-10-2027 Screening for malign ant neoplasm of colon [facility] Start: 03-08-2026 Medicare Annual Wellness (AWV) Medicare Annual Wellness (AWV) [facility] Start: 02-17-2026 Screening for malign ant neoplasm of breast Mammogram [facility] Start: 12-05-2025 Influenza vaccination Influenza Vacc ine (#1) [facility] Comment on above: Postponed from 02/06 (Patient Refused) Start: 05-24-2025 End: 05-24-2025 Patient encounter procedure [facility] Start: 04-28-2025 Pneumococcal Vaccine : 65+ Years (1 of 1 - PCV) Pneumococcal Vaccine: 65+ Years (1 of 1 - PCV) [facility] Comment on above: Postponed from 04/17 (Patient Refused) Postponed from 04/17 (Patient Refused) Start: 03-31-2025 End: 03-31-2025 Patient encounter procedure Neurology Comment on above: Return in about 1 ye ar (around 03/26/2025). Return in about 1 ye ar (around 03/26/2025). // called and spoke with patient - patient aware of new location Start: 03-28-2025 End: 03-28-2025 Patient encounter procedure 03/28/2025 1:45 PM EDT Office Visit [facility] [address] [place] [phone] Madiha Patrick, DPM [address] [place], [place] [phone] [facility] Start: 03-08-2025 End: 03-08-2026 DXA Skeletal system Views for bone density DEXA bone density Imaging Routine Estrogen deficiency Expected: 03/08/2025, Expires: 03/08/2026 [facility] Work Phone: Comment on above: Expected: 03/08/2025 , Expires: 03/08/2026 Start: 03-08-2025 End: 03-08-2025 Patient encounter procedure 03/08/2025 10:00 AM EDT Office Visit [facility]A Cordero [address] [place] [phone] Griselda Roe PA [address] [place] [address] Arrived [facility] Comment on above: Arrived Start: 02-24-2025 End: 02-24-2025 Patient encounter procedure 02/24/2025 8:30 AM EDT Office Visit [facility]URA Falcone [address] [place] [phone] Griselda Roe PA [address] [place] [address] [facility] Start: 02-23-2025 End: 02-23-2025 Patient encounter procedure 02/23/2025 9:30 AM EDT Office Visit [facility] [address] [place] [phone] Madiha Patrick, DPM [address] [place] [address] [facility] Start: 02-07-2025 End: 04-09-2026 DBT Breast - bilateral screening Bilateral screening mammogram with tomosynthesis Imaging Routine Encounter for screening mammogram for malignant neoplasm of breast Expected: 02/07/2025, Expires: 04/09/2026 [facility] Work Phone: Comment on above: Expected: 02/07/2025 , Expires: 04/09/2026 Start: 02-06-2025 Influenza vaccination [facility] Start: 01-27-2025 Screening for malign ant neoplasm of breast Mammogram [facility] Start: 01-26-2025 End: 01-26-2025 Patient encounter procedure 01/26/2025 8:45 AM EDT Office Visit [facility] [address] [place] [phone] Madiha Patrick, DPM [address] [place], [place] [phone] Arrived [facility] Comment on above: Arrived Start: 01-10-2025 End: 01-10-2025 Patient encounter procedure 01/10/2025 11:30 AM EDT Office Visit [facility]URA Bobnce [address] [place] [phone] Daly Grant NP [address] [place] [address] Arrived [facility] Comment on above: Arrived Start: 12-30-2024 Medicare Annual Wellness (AWV) Medicare Annual Wellness (AWV) [facility] Start: 12-13-2024 End: 12-13-2024 Patient encounter procedure 12/13/2024 1:45 PM EDT Office Visit [facility] [address] [place] [address] Madiha Patrick, DPCruzito [address] [place] [address] [facility] Start: 11-29-2024 End: 11-29-2024 Patient encounter procedure 11/29/2024 11:15 AM EDT Office Visit [facility] [address] [place] [address] Madiha Patrick, ROGE [address] [place] [address] [facility] Start: 11-15-2024 End: 11-15-2024 Patient encounter procedure [facility] Comment on above: Arrived Start: 10-11-2024 End: 10-11-2025 URINARY TRACT INFECTION (HTRX) URINARY TRACT INFECTION (HTRX) Lab Routine Dysuria Expected: 10/11/2024 (Approximate), Expires: 10/11/2025 [facility] Work Phone: Comment on above: Expected: 10/11/2024 (Approximate), Expires: 10/11/2025 Start: 09-07-2024 End: 09-07-2024 Patient encounter procedure 09/07/2024 4:00 PM EDT Office [facility] [address] [place] [address] Zeb Fernandez, DPM [address] [place] [address] Arrived [facility] Comment on above: Arrived Start: 07-18-2024 End: 07-18-2025 EMG AND NERVE CONDUCTION STUDY EMG AND NERVE CONDUCTION STUDY Neurology Routine Bilateral carpal tunnel syndrome Expected: 07/18/2024 (Approximate), Expires: 07/18/2025 [facility] Work Phone: Comment on above: Expected: 07/18/2024 (Approximate), Expires: 07/18/2025 Start: 07-01-2024 End: 07-01-2025 URINARY TRACT INFECTION (HTRX) URINARY TRACT INFECTION (HTRX) Lab Routine Dysuria Expected: 07/01/2024 (Approximate), Expires: 07/01/2025 [facility] Work Phone: Comment on above: Expected: 07/01/2024 (Approximate), Expires: 07/01/2025 Start: 06-23-2024 Influenza vaccination Influenza Vacc ine (#1) [facility] Comment on above: Postponed from 02/06 (Patient Refused) Start: 06-16-2024 End: 06-16-2024 Patient encounter procedure 06/16/2024 4:15 PM EST Office Visit [facility] [address] [place] [phone] Madiha Patrick, DPM [address] [place] [address] [facility] Start: 06-16-2024 End: 06-16-2024 Patient encounter procedure 06/16/2024 1:45 PM EST Office Visit [facility] [address] [place] [address] Madiha Patrick, DPM [address] [place] [address] Arrived [facility] Comment on above: Arrived Start: 06-08-2024 Advance Directive Discussion Advance Directive Discussion [facility] Start: 05-19-2024 End: 05-19-2024 Patient encounter procedure 05/19/2024 3:15 PM EST Office Visit [facility] [address] [place] [address] Madiha Patrick, DPM [address] [place], [place] [phone] [facility] Start: 05-03-2024 Screening for malign ant neoplasm of colon [facility] Start: 04-07-2024 End: 04-07-2024 Patient encounter procedure 04/07/2024 1:15 PM EDT Office Visit [facility] [address] [phone] Madiha Patrick, DPM [address] [place], [place] [phone] Arrived [facility] Comment on above: Arrived Start: 03-31-2024 Pneumococcal Vaccine : 65+ Years (1 - PCV) Pneumococcal Vaccine: 65+ Years (1 - PCV) [facility] Comment on above: Postponed from 04/17 (Patient Refused) Start: 03-31-2024 Pneumococcal Vaccine : 65+ Years (1 of 1 - PCV) Pneumococcal Vaccine: 65+ Years (1 of 1 - PCV) [facility] Comment on above: Postponed from 04/17 (Patient Refused) Start: 03-26-2024 End: 03-26-2024 Patient encounter procedure 03/26/2024 10:30 AM EDT Office Visit Neurology [address] [place] [address] [place] [address] [place] [address] MULTIPL SYMPTOMS Neurology Comment on above: MULTIPL SYMPTOMS Start: 02-07-2024 Covid-19 Vaccine ( season) Covid-19 Vaccine ( season) [facility] Start: 02-07-2024 Influenza vaccination Influenza Vacc ine (#1) [facility] Start: 02-04-2024 End: 02-04-2024 Professional / ancillary services management 02/04/2024 3:35 PM EDT Ancillary Procedure [facility] [address] [place] [phone] Arrived [facility] Comment on above: Arrived Start: 02-04-2024 End: 02-04-2024 Patient encounter procedure 02/04/2024 2:40 PM EDT Office Visit [facility] [address] [place] [address] Ayo Mckeon DPM [address] [facility] [address] [place] [address] Arrived [facility] Comment on above: Arrived Start: 12-06-2023 Influenza vaccination Influenza Vacc ine (#1) [facility] Comment on above: Postponed from 02/06 (Patient Refused) Start: 11-25-2023 Medicare Annual Wellness (AWV) Medicare Annual Wellness (AWV) [facility] Start: 07-14-2023 End: 07-14-2023 Patient encounter procedure 07/14/2023 2:30 PM EST Office Visit [facility] [address] [place] [phone] Jesus Mendoza DPM [address] [place] [address] [facility] Start: 06-08-2023 Advance Directive Discussion Advance Directive Discussion [facility] Start: 2023 Screening for malign ant neoplasm of breast [facility] Start: 11-21-2022 Bacteria identified in Urine by Culture Urine Culture [facility] Start: 11-17-2022 Diabetes Screening Diabetes Screenin g [facility] Start: 11-17-2020 Creatinine measurement Creatinine mo nitoring [facility], [place] Start: 11-17-2020 Potassium monitoring Potassium monit oring [facility], [place] Start: 02-07-2020 Influenza vaccination [facility], [place] Start: 12-16-2019 End: 12-16-2019 Office Visit 12/16/2019 Office Visit Neurosurgery Pastor Hicks MD [address] [place], [place] [phone] [employer] Start: 11-29-2019 End: 11-29-2019 Hospital Encounter [facility] Comment on above: REMOVAL OF INTERNAL BONE GROWTH STIMULATOR, 30 MINS 1 C-ARM, MAC/LOCAL Start: 10-07-2019 Annual Wellness Visi t (AWV) Annual Wellness Visit (AWV) [place], [place] Start: 2018 Pneumococcal 65+ yea rs Vaccine (1 of 1 - PPSV23) Pneumococcal 65+ years Vaccine (1 of 1 - PPSV23) [place] Start: 2018 Pneumococcal Vaccine : 65+ (1 of 1 - PCV) Pneumococcal Vaccine: 65+ (1 of 1 - PCV) [facility] Start: 2018 Pneumococcal Vaccine : 65+ Years (1 of 1 - PCV) Pneumococcal Vaccine: 65+ Years (1 of 1 - PCV) [facility] Start: 2018 Screening for osteoporosis Bone Density Screening [facility] Start: 2008 Screening for osteoporosis DEXA (modify frequency per FRAX score) [place], [place] Start: 2003 Pneumococcal Vaccine : 50+ (1 of 1 - PCV) Pneumococcal Vaccine: 50+ (1 of 1 - PCV) [facility] Start: 2003 Screening for malign ant neoplasm of breast Breast cancer screen [place], [place] Start: 2003 Screening for malign ant neoplasm of colon Colon cancer screen colonoscopy [place], [place] Start: 2003 Shingles Vaccine (1 of 2) Shingles Vaccine (1 of 2) [place], [place] Start: 2003 Shingrix Vaccine (1 of 2) Shingrix Vaccine (1 of 2) [facility] Start: 1998 Diabetes Screening Diabetes Screenin g [facility] Start: 1998 Lipid panel Lipid Screening [facility] Start: 1998 Screening for malign ant neoplasm of colon [facility] Start: 1993 Screening for malign ant neoplasm of breast Mammogram Screening [facility] Start: 1972 DTaP/Tdap/Td vaccine (1 - Tdap) DTaP/Tdap/Td vaccine (1 - Tdap) [place], [place] Start: 1972 Urine microalbumin profile DTaP,Tdap,Td Vaccine (1 - Tdap) [facility] Start: 1971 Anxiety Screening Anxiety Screening [facility] Start: 1971 Depression Screening Depression Scre ening [facility] Start: 1971 Hepatitis C screening Hepatitis C Sc soumya [facility] Start: 1963 Lipid panel Lipid screen [place], [place] Start: 1953 Hepatitis C screening Hepatitis C lesly eugene [place], [place] Start: 1953 Screening for malign ant neoplasm of colon [facility] Start: 1953 TSH Qn TSH testing [place], [place] 25-hydroxyvitamin D3 [Mass/volume] in Serum or Plasma Vitamin D 25 hydroxy Total Lab Routine Medicare annual wellness visit, subsequent Vitamin D deficiency Ordered: 03/08/2025 [facility] Comment on above: Ordered: 03/08/2025 CBC W Auto Different ial panel - Blood CBC and differential Lab Routine Medicare annual wellness visit, subsequent Primary hypertension Anemia, unspecified type Mixed hyperlipidemia Ordered: 03/08/2025 [facility] Comment on above: Ordered: 03/08/2025 Comprehensive metabo lic 2000 panel - Serum or Plasma Comprehensive metabolic panel Lab Routine Medicare annual wellness visit, subsequent Primary hypertension Hypocalcemia Hypokalemia Mixed hyperlipidemia Ordered: 03/08/2025 [facility] Comment on above: Ordered: 03/08/2025 End: 11-29-2019 Fluoro For Surgical Procedures Fluoro For Surgical Procedures Imaging Routine Pain 1 Occurrences starting 11/29/2019 until 11/29/2019 [place], [place] Comment on above: 1 Occurrences starti ng 11/29/2019 until 11/29/2019 Initiate Oxygen Ther apy Protocol Initiate Oxygen Therapy Protocol Respiratory Care Routine Daily until discontinued starting 11/29/2019 [place], [place] Comment on above: Daily until disconti nued starting 11/29/2019 Lipid 1996 panel - Serum or Plasma Lipid panel Lab Routine Medicare annual wellness visit, subsequent Primary hypertension Mixed hyperlipidemia Ordered: 03/08/2025 [facility] Comment on above: Ordered: 03/08/2025 Magnesium [Mass/volu me] in Serum or Plasma Magnesium Lab Routine Medicare annual wellness visit, subsequent Hypomagnesemia Ordered: 03/08/2025 [facility] Comment on above: Ordered: 03/08/2025 End: 04-25-2025 MR Brain WO contrast MRI BRAIN WO IVCON Radiology Routine Trigeminal neuralgia of left side of face 1 Occurrences starting 03/26/2024 until 04/25/2025 [facility] Work Phone: Comment on above: 1 Occurrences starti ng 03/26/2024 until 04/25/2025 End: 11-29-2019 Pulse Oximetry Spot Check Pulse Oximetry Spot Check Respiratory Care Routine One Time for 1 Occurrences starting 11/29/2019 until 11/29/2019 [facility], [place] Comment on above: One Time for 1 Occur rences starting 11/29/2019 until 11/29/2019 TSH W/REFLEX TO FT4 TSH W/REFLEX TO FT4 Lab Routine Medicare annual wellness visit, subsequent Acquired hypothyroidism Ordered: 03/08/2025 [facility] Comment on above: Ordered: 03/08/2025 XR Foot - right 3 Views XR foot 3+ views right Imaging Routine DJD (degenerative joint disease), ankle and foot, right 02/04/2024 3:[address] [facility] Work Phone: Payers Date Payer Category Payer Self-pay [id number] 2021 Private Health Insurance [id number] 2021 Unknown [id number]. 1.13.693.2. [id number] 2019 Medicare MEDICARE MEDICAR E PART A AND B xxxxxxxxxxx 2019-Present [phone] [place] [address] xxxxxxxxxxx [id number]. [id number] 2018 Medicare [id number]. 1.13.693.2. [id number] 2014 Unknown xxxxxxxxxxxx 1.2.840.725678.1.13.239.2. 7.3.515859.315 1959 Medicare [id number] 1959 Unknown [id number] 1959 Unknown [id number] 1959 Unknown [id number] 1953 Unknown [id number] 2.16.840.1.877681.3.579.2. 182 1953 Unknown [id number] 2.16.840.1.672255.3.579.2. 182 1953 Unknown [id number] 2.16.840.1.371435.3.579.2. 182 1953 Unknown [id number] 2.16.840.1.480202.3.579.2. 182 1953 Unknown [id number] 2.16.840.1.530273.3.579.2. 593 1953 Unknown [id number] 2.16.840.1.921259.3.579.2. 593 1953 Unknown [id number] 2.16.840.1.687300.3.579.2. 593 1953 Unknown [id number] 2.16.840.1.856281.3.579.2. 593 1953 Unknown [id number] 2.16.840.1.517909.3.579.2. 1259 1953 Unknown [id number] 2.16.840.1.583459.3.579.2. 1259 1953 Unknown [id number] 2.16.840.1.433701.3.579.2. 1259 1953 Unknown [id number] 2.16.840.1.924259.3.579.2. 1259 1953 Unknown [id number] 2.16.840.1.575581.3.579.2. 1259 1953 Unknown [id number] 2.16.840.1.531400.3.579.2. 1259 1953 Unknown [id number] 2.16.840.1.202541.3.579.2. 125 1953 Unknown [id number] 2.16.840.1.490672.3.579.2. 125 1953 Unknown [id number] 2.16.840.1.678788.3.579.2. 1258 1953 Unknown [id number] 2.16.840.1.661683.3.579.2. 125 1953 Unknown [id number] 2..840.1.861957.3.579.2. 1258 1953 Unknown [id number] 2.840.1.140220.3.579.2. 1258 1953 Unknown [id number] 2.840.1.969932.3.579.2. 1258 1953 Unknown [id number] 2.840.1.030936.3.579.2. 125 1953 Unknown [id number] 2.840.1.599703.3.579.2. 1258 1953 Unknown [id number] 2.840.1.548737.3.579.2. 1258 1953 Unknown [id number] 2.840.1.631653.3.579.2. 125 1953 Unknown [id number] 2..840.1.953396.3.579.2. 125 1953 Unknown [id number] 2..840.1.830908.3.579.2. 125 1953 Unknown [id number] 2.16.840.1.501341.3.579.2. 125 1953 Unknown [id number] 2.16.840.1.055411.3.579.2. 125 Unknown [id number] 2.16.840.1.139782.3.579.2. 531 Social History Date Type Detail Facility Start: 11-18-2019 End: 11-09-2022 Tobacco smoking status NHIS Never smoker [facility] NICOLA BAKER Start: 11-18-2019 End: 03-08-2025 Alcohol intake Ex-drinker (finding) [facility] Start: 1955 [facility] Exposure to SARS-CoV -2 (event) Unable to assess [facility] NICOLA BAK[facility] Start: 11-18-2019 End: 11-09-2022 Tobacco use and exposure Never used [facility] NICOLA BAKER Start: 07-09-2023 End: 03-08-2025 Sex Assigned At [facility] Other Start: 1955 Sex Assigned At Female F [facility] Start: 07-09-2023 End: 03-08-2025 History of Social function [facility] Start: 08-20-2022 Gender identity Identifies as female gender (finding) [facility] Start: 01-31-2004 End: 03-26-2024 Alcoholic beverage intake Current drinker of alcohol (finding) [facility] National Score (1-100), lower number is lower risk 94 [facility] Functional Status Date Assessment Result Facility 03-15-2025 Patient Health Quest ionnaire 2 item (PHQ-2) [Reported] [facility] 03-08-2025 Patient Health Quest ionnaire 2 item (PHQ-2) [Reported] [facility] 02-07-2025 Patient Health Quest ionnaire 2 item (PHQ-2) [Reported] [facility] 01-10-2025 Patient Health Quest ionnaire 2 item (PHQ-2) [Reported] [facility] Clinical Notes 05-17-2022 to 03-15-2025 UZMA Blanco - 03/15/2025 2:00 PM UZMA Wise - 03/08/2025 10:00 AM Carla Patrick DPM - 02/23/2025 9:30 AM UZMA Wise - 02/07/2025 2:00 PM EDTPatient Instructions Note Date & Type Note Facility 03-15-2025 History of Present illness Narrative Images from [...] at night. She has tried soaking them in cold water. Wears [employer] shoes. States the ASO [...] Dispense Refill cholecalciferol (Vitamin D-3) 50 MCG (1999) capsule Take 2,000 Units by mouth Daily [...] lb 12.8 oz SpO2 96% BMI 32.15 kg/m Smoking Status Never BSA 1.87 m [...] equation in the estimation of LDL-C. Robby SS et al. DORA. 2013;310(19): 6781-1896 (http://education.TinyCo/faq/PWS264) CHOL/HDLC RATIO 03/08/2025 2.7 <5.0 (calc) Final [...] D, (D2,D3), LC/MS/MS is recommended: order code 95194 (patients >2yrs). See Note 1 Note 1 For additional information, please refer to http://education.[employer] Systems/faq/CWK423 (This link is being provided for informational/ [...] get clear answers at times regarding her current symptoms and what she has or has not tried. She states she will only go to her Neurology appointment if she can get a ride. Will not drive there on her own. Follow up in about 25 weeks (around 09/06/2025) for Hypertension. documented in this encounter [facility] 03-08-2025 History of Present illness Narrative Images from the original note were not included. Subjective Patient ID: Renetta Lopez is a 69 y.o. female who presents for Medicare Annual Wellness Visit Subsequent. Recently got carpal tunnel braces to wear at night. Medicare Wellness Over the past 2 weeks, how often have you been bothered by any of the following problems? Little interest or pleasure in doing things: Not at all Feeling down, depressed, or hopeless: Not at all Patient Health Questionnaire-2 Score: 0 Over the past 2 weeks, how often have you been bothered by any of the following problems? Trouble falling or staying asleep, or sleeping too much: Not at all Feeling tired or having little energy: Not at all Poor appetite or overeating: Not at all Feeling bad about yourself - or that you are a failure or have let yourself or your family down: Not at all Trouble concentrating on things, such as reading the newspaper or watching television: Not at all Moving or speaking so slowly that other people could have noticed? Or the opposite - being so fidgety or restless that you have been moving around a lot more than usual.: Not at all Thoughts that you would be better off or hurting yourself in some way: Not at all Patient Health Questionnaire-9 Score: 0 Calderón Fall Risk History of Falling, Immediate or Within 3 Months: No Health Risk Assessment Form Do you need help eating, bathing, using the toilet, dressing, or getting around your home?: No Can you prepare your own meals?: Yes Can you do your own housework without help?: Yes Can you shop for groceries or clothes without help?: Yes Do you exercise for about 20 minutes 3 or more days a week?: No How confident are you that you can control and manage most of your health problems?: Very confident Can you mange your money, credit cards and accounts, pay bills and taxes?: Yes Vision Screening: Yes, no gross abnormalities Hearing Screening: Yes, no gross abnormalities Cognitive Screening Self Assessment: No overt cognitive deficiency is apparent by direct observation Three Word Registration: Leader, Season, Table Clock Drawing: Normal Clock - 2 Three Word Recall: All 3 words correct - 3 Total Score (0-5 Points): 5 Pain Assessment Pain Score: 0 - No pain Advance Care Planning Do you have a living will?: Yes Do you have a medical power of assistant city attorney?: Yes Current Outpatient Medications on File Prior to Visit Medication Sig Dispense Refill carBAMazepine ER (Carbatrol) 200 MG 12 hr capsule Take 200 mg by mouth in the morning and 200 mg before bedtime. Do not crush or chew. rosuvastatin (Crestor) 10 MG tablet TAKE 1 TABLET BY MOUTH ONCE DAILY 100 tablet 3 hydroCHLOROthiazide (HYDRODiuril) 25 MG tablet Take 1 [...] Left 2012 Dr Archer Visit Vitals BP 124/72 Pulse 64 Resp 16 Ht 5' 2 Wt 173 lb 3.2 oz SpO2 95% BMI 31.68 kg/m Smoking Status Never BSA 1.85 m Review of Systems Constitutional: Negative for chills, fatigue and fever. HENT: Negative for congestion, ear pain, rhinorrhea and sore throat. Eyes: Negative for pain, discharge and visual disturbance. Respiratory: Negative for cough, shortness of breath and wheezing. Cardiovascular: Negative for chest pain, palpitations and leg swelling. Gastrointestinal: Negative for abdominal pain, constipation, diarrhea, nausea and vomiting. Genitourinary: Negative for difficulty urinating, dysuria and frequency. Musculoskeletal: Positive for arthralgias. Negative for back pain. Skin: Negative for rash. Neurological: Positive for numbness. Negative for dizziness. Psychiatric/Behavioral: Negative for sleep disturbance. The patient is nervous/anxious. Objective Physical Exam Constitutional: General: She is not in acute distress. Appearance: She is well-developed. She is obese. HENT: Head: Normocephalic and atraumatic. Right Ear: Tympanic membrane and ear canal normal. Left Ear: Tympanic membrane and ear canal normal. Nose: Nose normal. Mouth/Throat: Mouth: Mucous membranes are moist. Pharynx: No posterior oropharyngeal erythema. Eyes: General: No scleral icterus. Extraocular Movements: Extraocular movements intact. Conjunctiva/sclera: Conjunctivae normal. Pupils: Pupils are equal, round, and reactive to light. Neck: Vascular: No carotid bruit. Cardiovascular: Rate and Rhythm: Normal rate and regular rhythm. Heart sounds: Normal heart sounds. No murmur heard. Pulmonary: Effort: Pulmonary effort is normal. No respiratory distress. Breath sounds: Normal breath sounds. No wheezing, rhonchi or rales. Abdominal: General: Bowel sounds are normal. There is no distension. Palpations: Abdomen is soft. Tenderness: There is no abdominal tenderness. There is no guarding. Musculoskeletal: General: No swelling or deformity. Normal range of motion. Cervical back: Normal range of motion and neck supple. No tenderness. Skin: General: Skin is warm and dry. Capillary Refill: Capillary refill takes less than 2 seconds. Findings: No rash. Neurological: General: No focal deficit present. Mental Status: She is alert and oriented to person, place, and time. Cranial Nerves: No cranial nerve deficit. Sensory: No sensory deficit. Motor: No weakness. Gait: Gait normal. Deep Tendon Reflexes: Reflexes normal. Psychiatric: Mood and Affect: Mood normal. Behavior: Behavior normal. Thought Content: Thought content normal. Judgment: Judgment normal. Assessment & Plan 1. Medicare annual wellness visit, subsequent (Primary) Wellness form reviewed in detail with the patient. Encouraged patient to stay up to date on immunizations and preventative testing. Encouraged healthy diet, stay active. Will continue with yearly wellness exams. - CBC and differential - Comprehensive metabolic panel - Lipid panel - TSH W/REFLEX TO FT4 - Vitamin D 25 hydroxy Total - Magnesium 2. ACP (advance care planning) Patient willing to discuss ACP. Pt has Living Will and DPOA in place. 3. Estrogen deficiency This is a chronic medical condition that is stable since last assessment. Provided pt with order for updated DEXA scan. - DEXA bone density; Future 4. Primary hypertension Patient's blood pressure is currently well controlled. Continue with current medications and I will continue to monitor. Goal BP remains less than 130/80. - CBC and differential - Comprehensive metabolic panel - Lipid panel 5. Acquired hypothyroidism This is a chronic medical condition that is stable since last assessment. No changes in treatment are suggested at this time. Continue Levothyroxine. Will monitor with routine labs. - TSH W/REFLEX TO FT4 6. Class 1 obesity due to excess calories with serious comorbidity and body mass index (BMI) of 31.0 to 31.9 in adult Encouraged portion control, decrease simple sugars and carbohydrates, gradually increase activity level. Aim for gradual steady weight loss. 7. Vitamin D deficiency This is a chronic medical condition that is stable since last assessment. Will continue to monitor with routine labs. - Vitamin D 25 hydroxy Total 8. Anemia, unspecified type This is a chronic medical condition that is stable since last assessment. Will continue to monitor with routine labs. - CBC and differential 9. Hypocalcemia This is a chronic medical condition that is stable since last assessment. Will continue to monitor with routine labs. - Comprehensive metabolic panel 10. Hypokalemia This is a chronic medical condition that is stable since last assessment. Will continue to monitor with routine labs. - Comprehensive metabolic panel 11. Hypomagnesemia This is a chronic medical condition that is stable since last assessment. Will continue to monitor with routine labs. - Magnesium 12. Bursitis of right foot The patient is seeing a medical assistant for this condition, treatment is deferred to that specialist. Correspondence from that specialist and any available testing were reviewed during today's visit. 13. Callosity The patient is seeing a medical assistant for this condition, treatment is deferred to that specialist. Correspondence from that specialist and any available testing were reviewed during today's visit. 14. Exostosis of right foot The patient is seeing a medical assistant for this condition, treatment is deferred to that specialist. Correspondence from that specialist and any available testing were reviewed during today's visit. 15. Sesamoiditis of foot, unspecified laterality The patient is seeing a medical assistant for this condition, treatment is deferred to that specialist. Correspondence from that specialist and any available testing were reviewed during today's visit. 16. Toe pain, right The patient is seeing a medical assistant for this condition, treatment is deferred to that specialist. Correspondence from that specialist and any available testing were reviewed during today's visit. 17. Plantar fasciitis, right The patient is seeing a medical assistant for this condition, treatment is deferred to that specialist. Correspondence from that specialist and any available testing were reviewed during today's visit. 18. Arthritis of finger of left hand This is a chronic medical condition that is stable since last assessment. No changes in treatment are suggested at this time. Continue Meloxicam as prescribed. 19. Atrial fibrillation with rapid ventricular response (HCC) This is a chronic medical condition that is stable since last assessment. No changes in treatment are suggested at this time. Continue Metoprolol as prescribed as prescribed. 20. History of hysterectomy Pt is s/p hysterectomy. Denies concerns at this time. 21. History of lumbar fusion This is a chronic medical condition that is stable since last assessment. No changes in treatment are suggested at this time. Continue Meloxicam as prescribed. 22. Chronic sinusitis, unspecified location This is a chronic medical condition that is stable since last assessment. No current symptoms. Will monitor. 23. Lesion of ulnar nerve, unspecified laterality This is a chronic medical condition that is stable since last assessment. No changes in treatment are suggested at this time. Continue Meloxicam as prescribed. 24. Primary osteoarthritis involving multiple joints This is a chronic medical condition that is stable since last assessment. No changes in treatment are suggested at this time. Continue Meloxicam as prescribed. 25. Other chronic pain This is a chronic medical condition that is stable since last assessment. No changes in treatment are suggested at this time. Continue Meloxicam as prescribed. 26. Primary osteoarthritis of left knee This is a chronic medical condition that is stable since last assessment. No changes in treatment are suggested at this time. Continue Meloxicam as prescribed. 27. Status post left knee replacement This is a chronic medical condition that is stable since last assessment. No changes in treatment are suggested at this time. Continue Meloxicam as prescribed. 28. Overactive bladder This is a chronic medical condition that is stable since last assessment. No current treatment at this time. 29. H/O lumbosacral spine surgery This is a chronic medical condition that is stable since last assessment. No changes in treatment are suggested at this time. Continue Meloxicam as prescribed. 30. Paronychia of great toe The patient is seeing a medical assistant for this condition, treatment is deferred to that specialist. Correspondence from that specialist and any available testing were reviewed during today's visit. 31. Arthritis of both hands This is a chronic medical condition that is stable since last assessment. No changes in treatment are suggested at this time. Continue Meloxicam as prescribed. 32. Paresthesia of hand, bilateral Encouraged her to start using the carpal tunnel braces every night. She does not wish to pursue surgical options for treatment at this time. 33. Bilateral hand swelling Encouraged her to start using the carpal tunnel braces every night. She does not wish to pursue surgical options for treatment at this time. 34. Trigeminal neuralgia of left side of face This is a chronic medical condition that is stable since last assessment. No changes in treatment are suggested at this time. 35. Arthritis of right midfoot The patient is seeing a medical assistant for this condition, treatment is deferred to that specialist. Correspondence from that specialist and any available testing were reviewed during today's visit. 36. Bilateral carpal tunnel syndrome Encouraged her to start using the carpal tunnel braces every night. She does not wish to pursue surgical options for treatment at this time. 37. Tonsillar cyst H/o, no concerns at this time. Will continue to monitor. 38. Mixed hyperlipidemia This is a chronic medical condition that is stable since last assessment. No changes in treatment are suggested at this time. - CBC and differential - Comprehensive metabolic panel - Lipid panel 39. Situational anxiety Discussed Ashwagandha supplementation, advised there is a possibility that it could interact with her current medications. Cannot be certain. Shared decision making for patient to start Buspar as needed for anxiety. She can contact office if she would like to change the dosage or if she needs a refill. Contact office also if any concerns regarding the medication. - busPIRone (Buspar) 10 MG tablet; Take 1 tablet (10 mg) by mouth 2 (two) times a day as needed (Anxiety) Dispense: 60 tablet; Refill: 0 Follow up in about 6 months (around 09/06/2025) for Hypertension. BREANNE PayneC documented in this encounter [facility] 02-23-2025 History of Present illness Narrative Images from the original note were not included. Subjective Patient ID: Renetta Lopez is a 69 y.o. female who presents for Follow-up (Established patient presents for 3-4 week fuv of right heel pain. Patient states that her heel pain has gotten better, but does feel pulling sensation.Patient also reports new swelling with BL ankles. Reports pain with left ankle. Patient reports burning sensation of ball of BL feet and toes. Pt takes gabapentin for trigeminal neuralgia. Patient did purchase new shoes. Pt does see neurologist in [place], has appointment next month. ). HPI Patient presents for follow up bilateral plantar fasciitis. She states soon after her last visit she started wearing Power step inserts in her older shoes. She then was fit and measured for better quality tennis shoes. She noticed the heel pain resolve. She has been having medial ankle pain and lateral ankle pain. She has a occasional sharp shooting pain, the left is worse than the right. Review of Systems Medications Current Outpatient Medications: hydroCHLOROthiazide (HYDRODiuril) 25 MG [...] plantarflexion, inversion, eversion are 5/5 b/l. PAIN: No further pain at the insertion of the plantar fascia into the calcaneus b/l. There is pain at the PT tendon just posterior to the medial malleolus. No pain at the PT tendon insertion. There is also pain at the left peroneals just posterior to the lateral malleolus. There is pain with direct palpation to the lateral malleolus. Pain with palpation to the Left ATFL and CFL. DEFORMITY: pes planus, dorsal midfoot osteophyte palpable [...] ICD-10-CM 1. Plantar fasciitis, right M72.2 2. Posterior tibial tendonitis, right M76.821 3. Peroneal tendonitis, left M76.72 4. Ankle instability, left M25.372 Patient was examined and evaluated. Plantar fasciitis symptoms have resolved. She is having new pain at the right posterior tibial tendon and left peroneal tendons. Patient is wearing supportive shoe gear without power step inserts. I recommended she Wear the supportive shoe gear with the power step inserts. I also recommend use of ASO ankle brace. Left is worse than the right currently, where ASO ankle brace on the left. Recommended wearing it daily until her follow up appointment in 4 weeks. Patient agreed and was fitted for the appropriate brace. Goals of therapy include prevent further injury, stabilization, reduction of stress and pressure to the ankle joint. Anticipated time of use - at least 6 months. At the time of dispensing it is suitable and not substandard. Patient is able to apply the brace independently. It is comfortable to walk and fits inside the shoe. RTO 4months This note was created with the assistance of a speech recognition program. While intending to generate a timely document that accurately reflects the content of the visit, no guarantee can be provided that every grammatical or spelling mistake has been or will be identified or corrected. Thank you for your understanding. Madiha Patrick DPM documented in this encounter [facility] 02-07-2025 History of Present illness Narrative Images [...] helped. Sees Dr. Melani Matute at the [facility], Neurology. Over the past 2 weeks, how [...] Left 2013 Dr Archer Visit Vitals BP 128/72 Pulse [...] screenings. She will have this done at [facility] in [place]. Follow up for Medicare Wellness Visit, Fasting Labs. documented in this encounter [facility] 01-26-2025 History of Present illness Narrative Images [...] she went to the emergency room in [place]. They took radiographs which were negative and [...] TOTAL KNEE ARTHROPLASTY Left 2013 Dr Archer Family History Family History Problem [...] Patient was examined and evaluated. Radiographs from [facility] were unavailable for my review today. Patient is significantly more comfortable than she was 2 days ago. I recommended she start conservative treatment for the plantar fasciitis, to help support the non narcotic injection she was given. Stress the importance of good supportive tie shoes. Recommended going to [employer] to be fit and measured for shoes. [...] Patrick DPM documented in this encounter [facility] 01-10-2025 History of Present illness Narrative Images from the original note were not included. Subjective Patient ID: Renetta Lopez is a 69 y.o. female who presents for No chief complaint on file.. 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 She is [...] on file. documented in this encounter [facility] 12-13-2024 History of Present illness Narrative Images [...] Patrick DPM documented in this encounter [facility] 11-29-2024 History of Present illness Narrative Images [...] painful. The right medial hallux nail is gill box tender, redness and drainage present. She has continued [...] Patrick DPM documented in this encounter [facility] 11-22-2024 History of Present illness Narrative Images [...] Patrick DPM documented in this encounter [facility] 11-15-2024 History of Present illness Narrative Images [...] Patrick DPM documented in this encounter [facility] 09-07-2024 History of Present illness Narrative Images [...] Fernandez DPM documented in this encounter [facility] 07-21-2024 History of Present illness Narrative Images [...] on file. documented in this encounter [facility] 07-19-2024 Miscellaneous Notes LVM to RC in regard to BUE referral from Dr Chamorro--Approved to schedule--patient has [facility] and [facility]MO documented in this encounter [facility] 07-19-2024 Telephone encounter Note LVM to RC in regard to BUE referral from Dr Chamorro--Approved to schedule--patient has [facility] and MMO [facility] 07-18-2024 History of Present illness Narrative Associated [...] on file. documented in this encounter [facility] 07-05-2024 History of Present illness Narrative Images [...] ARTHROPLASTY Left 2012 Dr Archer Visit Vitals Ht 5' 2 [...] on file. documented in this encounter [facility] 07-01-2024 History of Present illness Narrative Pt here for urine sample she is having urgency, and when she tried to go will only go a little documented in this encounter [facility] 05-21-2024 Telephone encounter Note The patient @ [phone], is calling back to discuss her episode of facial pain this morning & any possible imaging that can be done.The patient was given the [facility] catalyst unit operator number, to get connected with the neurologist coke oven mason, to discuss her episode of facial pain. [facility] Work Phone: 05-21-2024 Miscellaneous Notes The patient @ [phone], is calling back to discuss her episode of facial pain this morning & any possible imaging that can be done.The patient was given the [facility] catalyst unit operator number, to get connected with the neurologist coke oven mason, to discuss her episode of facial pain. [...] call to advise. documented in this encounter [facility] 05-19-2024 History of Present illness Narrative Images [...] Patrick DPM documented in this encounter [facility] 04-28-2024 History of Present illness Narrative Images [...] periods of time. 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 Discussed with her the possibility of jail, if her financial situation allows, to help reduce flare ups of her arthritic pain. She states she will consider. Trigeminal neuralgia of left side of face (CMS/HCC) The patient is seeing a medical assistant for this condition, treatment is deferred to that specialist. Correspondence from that specialist and any available testing were reviewed during today's visit. Arthritis of right midfoot The patient is seeing a medical assistant for this condition, treatment is deferred to that specialist. Correspondence from that specialist and any available testing were reviewed during today's visit. Bursitis of right foot See above. Exostosis of right foot See above. Follow up if symptoms worsen or fail to improve. documented in this encounter [facility] 04-16-2024 Telephone encounter Note Earlier this week, the patient was unable to have an MRI brain done in re: trigeminal neuralgia due to metal hardware in her lumbar spine. She is said to have the device cards. I asked her to call me back on my [facility] mobile phone; our radiology department may be able to do her scan, depending upon what they may know of her devices. I asked that she let me know the device card info to this end. Melani Matute MD [facility] 04-16-2024 Miscellaneous Notes Earlier this week, the patient was unable to have an MRI brain done in re: trigeminal neuralgia due to metal hardware in her lumbar spine. She is said to have the device cards. I asked her to call me back on my [facility] mobile phone; our radiology department may be able to do her scan, depending upon what they may know of her devices. I asked that she let me know the device card info to this end. Melani Matute MD documented in this encounter [facility] 04-12-2024 Telephone encounter Note They need a back xray order out of precaution they already performed it and need an order please send over! [facility] 04-11-2024 Telephone encounter Note Patient still has lead wires in her back. The hospital called the company that manufactured these lead wires (patient still had the information), and the company was unable to confirm that the wires were safe to scan. Patient did not have the MRI and she is asking what's next. Please call to advise. [facility] 04-11-2024 Telephone encounter Note Sent message to provider for review and to advise. Harika Rondon MA [facility] 04-11-2024 Miscellaneous Notes Sent message to provider for review and to advise. Harika Rondon MA The mri was resent it was supposed to be back Xray. Faxed order to [facility] and received fax confirmation. Harika Rondon MA [facility] calling to request orders for xray for PT's back. Pt unsure if she has metal in her back for MRI appt scheduled for today at 4pm. Please fax orders to [phone] if agreeable. [phone] documented in this encounter [facility] 04-11-2024 Telephone encounter Note The mri was resent it was supposed to be back Xray. [facility] 04-11-2024 Telephone encounter Note Faxed order to [facility] and received fax confirmation. Harika Rondon MA [facility] 04-11-2024 Telephone encounter Note [facility] calling to request orders for xray for PT's back. Pt unsure if she has metal in her back for MRI appt scheduled for today at 4pm. Please fax orders to [phone] if agreeable. [phone] [facility] 04-07-2024 History of Present illness Narrative Images from the original note were not included. Subjective Patient ID: Renetta Lopez is a 68 y.o. female who presents for Foot Pain (68 yo [employer]VET STE[employer] presents today with spur on top of [...] over 5 years. She has seen different vacuum cleaner operator in the past who administered multiple steroid [...] examined and evaluated. Previous notes from different vacuum cleaner operator were available for my review today. Radiographs [...] Patrick DPM documented in this encounter [facility] 03-30-2024 Telephone encounter Note Received outside blood work sent to scanning. Harika Rondon MA [facility] 03-30-2024 Miscellaneous Notes Received outside blood work sent to scanning. Harika Rondon MA documented in this encounter [facility] 03-28-2024 Telephone encounter Note Sent to scanning CT from [facility]. Harika Rondon MA [facility] 03-28-2024 Miscellaneous Notes Sent to scanning CT from [facility]. Harika Rondon MA documented in this encounter [facility] 03-26-2024 Note Addended by: MELANI MATUTE on: 03/26/2024 12:08 PM Modules accepted: Orders [facility] 03-26-2024 Miscellaneous Notes Addended by: MELANI MATUTE on: 03/26/2024 12:08 PM Modules accepted: Orders documented in this encounter [facility] 03-26-2024 Note HNO ID: [id number] Author: JULIÁN PEREZ MA Service: ? Author Type: Hoisting Machine Operator Type: Progress Notes Filed: 03/26/2024 12:03 Note Text: [facility] 03-26-2024 History of Present illness Narrative documented in this encounter [facility] 03-25-2024 History and physical note Chart Review [...] MD [facility] 03-25-2024 History and physical note Chart Review [...] encounter [facility] 03-25-2024 History and physical note 11:16 - [...] recent (01/31/24) CT brain w from [facility] which showed only age related changes. [...] normal. There were no involuntary movements. Coordination: Gefssu-zzpb-qiidfh was normal. Finger and toe wiggling rapid [...] further diagnostic testing, and coordination of care. [facility] 03-25-2024 History and physical note 11:16 - [...] recent (01/31/24) CT brain w from [facility] which showed only age related changes. [...] normal. There were no involuntary movements. Coordination: Iqnshs-ehnz-cbladi was normal. Finger and toe wiggling rapid [...] encounter [facility] 03-03-2024 Telephone encounter Note Please call her and inform her that I resent it again today. [facility] 03-03-2024 Miscellaneous Notes Please call her and inform her that I resent it again today. Pt called stated that the refill of crestor and steroid was not at her pharm. I do not see where a steroid was prescribed please advise documented in this encounter [facility] 09-26-2024 Telephone encounter Note Pt called stated that the refill of crestor and steroid was not at her pharm. I do not see where a steroid was prescribed please advise [facility] 03-02-2024 History of Present illness Narrative Images [...] ARTHROPLASTY Left 2012 Dr Archer Visit Vitals Ht 5' 2 [...] on file. documented in this encounter [facility] 03-02-2024 Instructions Amanda Echols NP - 03/02/2024 1:30 PM EDT Prednisone added documented in this encounter [facility] 02-11-2024 Telephone encounter Note Rx re-sent. [facility] 02-11-2024 Miscellaneous Notes Rx re-sent. Pt stopped at window regarding this , she needs an updated one with current date on it, the one in her chart would not work the [employer] told her. Please call her when it updated she will pick It up. [phone] Pt stopped at window requesting a new handicap placard be issue? The one she does have in her car 01/2024. Please advise. Her call back [phone] documented in this encounter [facility] 02-10-2024 Telephone encounter Note Pt stopped at window regarding this , she needs an updated one with current date on it, the one in her chart would not work the [employer] told her. Please call her when it updated she will pick It up. [phone] [facility] 02-09-2024 Telephone encounter Note Pt stopped at window requesting a new handicap placard be issue? The one she does have in her car 01/2024. Please advise. Her call back [phone] [facility] 02-04-2024 History of Present illness Narrative Patient: [...] with good shoe gear and also recommended axvt-sfp-udtyoal versus custom inserts and patient may purchase poba-rwr-abqacpo inserts in the near future Ayo Mckeon DPM documented in this encounter [facility] 07-09-2023 History of Present illness Narrative Subjective [...] on file. documented in this encounter [facility] 07-04-2023 Evaluation note Encounter Date Diagnosis [...] for further eval and possible repeat injection. [employer] Other 01-13-2023 NotePROCEDURE: XR HAND RT MIN 3V HISTORY: Pain in right hand ; fifth digit pain after falling COMPARISON: XR hand right 07/19/2020 FINDINGS: BONES:No fracture or dislocation. Moderate degenerative changes of the distal interphalangeal joints of the second and third digits. SOFT TISSUES:No visible soft tissue swelling. EFFUSION:None visible. OTHER: Negative. IMPRESSION: 1. No acute bone abnormality. Electronically authenticated by: KADE Treadwell: 2022-06-20 12:56[facility]12-10-2022 Evaluation note* Encounter Date Diagnosis [...] no improvement in 3 to 4 days [facility] [employer] Other Evaluation noteNo assessment information available [facility] Work Phone: Evaluation noteNo InformationNortHoly [facility] [employer] Other Evaluation note* Diagnosis Acute non-recurrent pansinusitis- Primary documented in this encounter [facility] HealthcareEvaluation note* Diagnosis Trigeminal neuralgia of left side of face- Primary [facility] Diagnosis Sprain of low back, initial encounter- Primary H/O lumbosacral spine surgery Paronychia of great toe- Primary Routine general medical examination at health care facility- Primary Routine general medical examination at a health care facility Abnormal glucose tolerance test Impaired glucose tolerance test Benign essential hypertension ([facility]/HCC) Essential hypertension, benign Medicare annual wellness visit, [...] of right foot documented in this encounter [facility] HealthcareEvaluation note* Diagnosis Sprain of low back, [...] response (CMS/HCC) Dysuria documented in this encounter [facility] HealthcareEvaluation note* Diagnosis Sprain of low back, [...] Yeast dermatitis- Primary documented in this encounter [facility] HealthcareEvaluation note* Diagnosis Sprain of low back, [...] Carpal tunnel syndrome documented in this encounter [facility] HealthcareEvaluation note* Diagnosis Sprain of low back, [...] neoplasm of breast documented in this encounter [facility]* Diagnosis Sprain of low back, initial encounter- Primary H/O lumbosacral spine surgery Paronychia of great toe- Primary Routine general medical examination at health care facility- Primary Routine general medical examination at a [facility] care facility Abnormal glucose tolerance test Impaired [...] Carpal tunnel syndrome Plantar fasciitis, right- Primary Posterior tibial tendonitis, right Peroneal tendonitis, left Ankle instability, left documented in this encounter [facility]* [...] Hypomagnesemia Disorders of magnesium metabolism Mixed hyperlipidemia Encounter for screening mammogram for malignant neoplasm of breast Other thrombophilia (HHS-HCC) Unspecified atrial fibrillation (HCC) Atherosclerosis of aorta Atrial fibrillation with rapid ventricular response (HCC) Bilateral carpal tunnel syndrome- Primary Carpal tunnel syndrome Medicare annual wellness visit, subsequent- Primary ACP (advance care planning) Other specified counseling Estrogen deficiency Other ovarian failure Primary hypertension Unspecified essential hypertension Acquired hypothyroidism Unspecified hypothyroidism Class 1 obesity due to excess calories with serious comorbidity and body mass index (BMI) of 31.0 to 31.9 in adult Vitamin D deficiency Anemia, unspecified type Hypocalcemia Hypokalemia Hypopotassemia Hypomagnesemia Disorders of magnesium metabolism Bursitis of right foot Callosity Corns and callosities Exostosis of right foot Sesamoiditis of foot, unspecified laterality Toe pain, right Pain in soft tissues of limb Plantar fasciitis, right Arthritis of finger of left hand Atrial fibrillation with rapid ventricular response (HCC) History of hysterectomy Acquired absence of both cervix and uterus History of lumbar fusion Chronic sinusitis, unspecified location Lesion of ulnar nerve, unspecified laterality Primary osteoarthritis involving multiple joints Other chronic pain Primary osteoarthritis of left knee Status post left knee replacement Overactive bladder Hypertonicity of bladder H/O lumbosacral spine surgery Paronychia of great toe Arthritis of both hands Paresthesia of hand, bilateral Bilateral hand swelling Trigeminal neuralgia of left side of face Arthritis of right midfoot Bilateral carpal tunnel syndrome Carpal tunnel syndrome Tonsillar cyst Mixed hyperlipidemia Situational anxiety documented in this encounter [facility] [...] Hypomagnesemia Disorders of magnesium metabolism Mixed hyperlipidemia Encounter for screening mammogram for malignant neoplasm of breast Other thrombophilia (HHS-HCC) Unspecified atrial fibrillation (HCC) Atherosclerosis of aorta Atrial fibrillation with rapid ventricular response (HCC) Bilateral carpal tunnel syndrome- Primary Carpal tunnel syndrome Mixed hyperlipidemia- Primary Vitamin D deficiency Neuropathy Mononeuritis of unspecified site Impaired fasting glucose documented in this encounter [facility] Narrative - Reported* Type Description Date Medical History Hypertension Medical History Hypothyroidism Medical History Spinal stenosis Surgical History bunionectomy Surgical History hysterectomy Surgical History knee arthroscopy left knee Surgical History spine surgery Surgical History knee replacement left knee Hospitalization History Campylobactor 11/2021 [employer] Other History of Present Illness * Lucille Montesinos APRN - AIR CONDITIONING SUPERVISOR - 11/18/2019 2:00 PM EDT Covid swab [...] FoundDocuments on File Type Date Recorded Patient Senior Manager Asset Protection Expl anation Advance Directives and Living Will Power of Electronic Equipment Trades Worker Documents on File Type Date Recorded Patient Senior Manager Asset Protection Expl anation Advance Directives and Living Will Power of Electronic Equipment Trades Worker Documents on File Type Date Recorded Patient Senior Manager Asset Protection Expl anation ACP-Advance Directive ACP-Power of Electronic Equipment Trades Worker Advance Directive Response Recorded Date/ Time Advance Directives No April 06, 2020 4:14pm Discharge Instructions * Instructions* Pastor Hicks MD - 11/29/2019 medication given may have [...] your physician 11) Call your doctor at [phone] for an appointment (or follow up as [...] call OFFICE. The 24- hour phone is [phone] 13) If you are unable to contact your surgeon, in an emergency situation, go to the nearest hospital emergency room. 14) shower on Thursday 15) Drive whenever she stopped taking narcotics * Attachments The following attachments cannot be sent through Care Everywhere. * Coronavirus Disease (COVID-19): General Info (Telugu) documented in this encounter Reason for Referral Status Reason Specialty Diagnoses / Procedures Referred By Contact Referred To Contact Authorized Radiology Diagnoses Pain Procedures Fluoro For Surgical Procedures Pastor Hikcs MD [address], [address] [place] [address] Specialty Diagnoses / Procedures Referred By Contac t Referred To Contact MR IMAGING Diagnoses Trigeminal neuralgia of left side of face Procedures MRI BRAIN WO IVCON MRI BRAIN BRAIN STEM W/[place] [address] [place] [address] [place] [address] Referral ID Status Reason Start Date Expiration Date Visits Requested Visits Authorized [id number] New Request Auto-Generat ed Referral 4 04/25/2025 [...] HISTORY OF BACK SURGERY, SHOULDER PAIN Procedures MI IMPLANT NEUROSTIM/SUPERVISOR DRY PASTE REMOVAL OF INTERNAL BONE GROWTH STIMULATOR, 30 MINS 1 C-ARM, MAC/LOCAL Psator Hicks MD [address] [facility], [address] [place] [address] [facility] Reason Comments New Patient Evaluation Reason Comments Foot Pain 68 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 Patient states that her heel pain has gotten better, but does feel pulling sensation.Patient also reports new swelling with BL ankles. Reports pain with left ankle. Patient reports burning sensation of ball of BL feet and toes. Pt takes gabapentin for trigeminal neuralgia. Patient did purchase new shoes. Pt does see neurologist in [place], has appointment next month. Reason Comments Medicare Annual Wellness Visit Subsequen t Reason Comments discuss lab results She does not underst and them, especially the Vit D. INFORMATION SOURCE (unrecogn ized section and content) DATE CREATED AUTHOR 05/19/2020 [facility] DATE CREATED AUTHOR AUTHOR'S ORGANIZ ATION 06/20/2022 [facility] DATE CREATED AUTHOR AUTHOR'S ORGANIZ ATION 12/23/2022 [facility] DATE CREATED AUTHOR AUTHOR'S ORGANIZ ATION 10/16/2024 [facility] DATE CREATED AUTHOR AUTHOR'S ORGANIZ ATION 03/14/2025 [facility] DATE CREATED AUTHOR AUTHOR'S ORGANIZ ATION 03/18/2025 [facility] [employer] Care Teams (unrecognized sec tion and content) Team Status: Inactive Member Role Status Dates Saima Garcia APRN Attending Provider Active Sales Account Representative Relationship Specialty Start Date End Date Ashly Chamorro MD [address] [address] PCP - ACO Reach 10/30/22 Ashly Chamorro MD [address] [facility] [address] [place] [address] PCP - General Family Medicine 11/10/22 Sales Account Representative Relationship Specialty Start Date End Date Ashly Chamorro MD [address] [facility] [address] [place] [address] PCP - ACO Reach 10/30/22 Ashly Chamorro MD [address] [place] [address] [place] [address] PCP - General Family Medicine 11/10/22 Sales Account Representative Relationship Specialty Start Date End Date Randolph Leonard Jr., DO [address] [place] [address] PCP - General 12/21/03 Sales Account Representative Relationship Specialty Start Date End Date Randolph Leonard Jr., DO [address] [place] [address] PCP - General 12/21/03 Sales Account Representative Relationship Specialty Start Date End Date Randolph Leonard Jr., DO [address] [place] [address] PCP - General 12/21/03 Sales Account Representative Relationship Specialty Start Date End Date Ashly Chamorro MD [address] [place] [address] [place] [address] PCP - ACO Reach 10/30/22 Ashly Chamorro MD [address] [place] [address] [place] [address] PCP - General Family Medicine 11/10/22 Sales Account Representative Relationship Specialty Start Date End Date Ashly Chamorro MD [address] [place] [address] [place] [address] PCP - ACO Reach 10/30/22 Ashly Chamorro MD [address] [place] [address] [place] [address] PCP - General Family Medicine 11/10/22 Sales Account Representative Relationship Specialty Start Date End Date LaurenjohnRandolph Jr., DO [address] [place] [address] [place] [address] PCP - General 12/21/03 Sales Account Representative Relationship Specialty Start Date End Date Ashly Chamorro MD [address] [place] [address] [place] [address] PCP - ACO Reach 10/30/22 Ashly Chamorro MD [address] [place] [address] [place] [address] PCP - General Family Medicine 11/10/22 Sales Account Representative Relationship Specialty Start Date End Date Ashly Chamorro MD [address] [place] [address] [place] [address] PCP - ACO Reach 10/30/22 Ashly Chamorro MD [address] [place] [address] [place] [address] PCP - General Family Medicine 11/10/22 Sales Account Representative Relationship Specialty Start Date End Date Ashly Chamorro MD [address] [place] [address] [place] [address] PCP - ACO Reach 10/30/22 Ashly Chamorro MD [address] [place] [address] [place] [address] PCP - General Family Medicine 11/10/22 Sales Account Representative Relationship Specialty Start Date End Date Ashly Chamorro MD [address] [place] [address] [place] [address] PCP - ACO Reach 10/30/22 Ashly Chamorro MD [address] [place] [address] [place] [address] PCP - General Family Medicine 11/10/22 Sales Account Representative Relationship Specialty Start Date End Date Ashly Chamorro MD [address] [place] [address] [place] [address] PCP - ACO Reach 10/30/22 Ashly Chamorro MD [address] [place] [address] [place] [address] PCP - General Family Medicine 11/10/22 Sales Account Representative Relationship Specialty Start Date End Date Ashly Chamorro MD [address] [place] [address] PCP - ACO Reach 10/30/22 Ashly Chamorro MD [address] [place] [address] PCP - General Family Medicine 11/10/22 Sales Account Representative Relationship Specialty Start Date End Date Ashly Chamorro MD [address] [place] [address] [place] [address] PCP - ACO Reach 10/30/22 Ashly Chamorro MD [address] [place] [address] PCP - General Family Medicine 11/10/22 Sales Account Representative Relationship Specialty Start Date End Date Ashly Chamorro MD [address] [place] [address] [place] [address] PCP - ACO Reach 10/30/22 Ashly Chamorro MD [address] [place] [address] [place] [address] PCP - General Family Medicine 11/10/22 Sales Account Representative Relationship Specialty Start Date End Date Ashly Chamorro MD [address] [place] [address] PCP - ACO Reach 10/30/22 Ashly Chamorro MD [address] [place] [address] PCP - General Family Medicine 11/10/22 Sales Account Representative Relationship Specialty Start Date End Date Ashly Chamorro MD [address] [place] [address] PCP - ACO Reach 10/30/22 Ashly Chamorro MD [address] [place] [address] PCP - General Family Medicine 11/10/22 Sales Account Representative Relationship Specialty Start Date End Date Ashly Chamorro MD [address] [place] [address] PCP - ACO Reach 10/30/22 Ashly Chamorro MD [address] [place] [address] PCP - General Family Medicine 11/10/22 Sales Account Representative Relationship Specialty Start Date End Date Ashly Chamorro MD [address] [place] [address] PCP - ACO Reach 10/30/22 Ashly Chamorro MD [address] [place] [address] PCP - General Family Medicine 11/10/22 Sales Account Representative Relationship Specialty Start Date End Date Ashly Chamorro MD [address] [place] [address] PCP - ACO Reach 10/30/22 Ashly Chamorro MD [address] [place] [address] PCP - General Family Medicine 11/10/22 Sales Account Representative Relationship Specialty Start Date End Date Ashly Chamorro MD [address] [place] [address] [place] [address] PCP - ACO Reach 10/30/22 Ashly Chamorro MD [address] [place] [address] [place] [address] PCP - General Family Medicine 11/10/22 Sales Account Representative Relationship Specialty Start Date End Date Ashly Chamorro MD [address] [place] [address] PCP - ACO Reach 10/30/22 Ashly Chamorro MD [address] [place] [address] PCP - General Family Medicine 11/10/22 Sales Account Representative Relationship Specialty Start Date End Date Ashly Chamorro MD [address] [place] [address] PCP - ACO Reach 10/30/22 Ashly Chamorro MD [address] [place] [address] PCP - General Family Medicine 11/10/22 Sales Account Representative Relationship Specialty Start Date End Date Ashly Chamorro MD [address] [place] [address] PCP - ACO Reach 10/30/22 Ashly Chamorro MD [address] [place] [address] PCP - General Family Medicine 11/10/22 Sales Account Representative Relationship Specialty Start Date End Date Randolph Leonard Jr., [address] [place] [address] [place] [address] PCP - General 12/21/03 Sales Account Representative Relationship Specialty Start Date End Date Ashly Chamorro MD [address] [place] [address] PCP - ACO Reach 10/30/22 Ashly Chamorro MD [address] [place] [address] PCP - General Family Medicine 11/10/22 Sales Account Representative Relationship Specialty Start Date End Date Ashly Chamorro MD [address] [place] [address] PCP - ACO Reach 10/30/22 Ashly Chamorro MD [address] [place] [address] PCP - General Family Medicine 11/10/22 Sales Account Representative Relationship Specialty Start Date End Date Ashly Chamorro MD [address] [place] [address] PCP - ACO Reach 10/30/22 Ashly Chamorro MD [address] [place] [address] PCP - General Family Medicine 11/10/22 Sales Account Representative Relationship Specialty Start Date End Date Ashly Chamorro MD [address] [facility] [address] [place] [address] PCP - ACO Reach 10/30/22 Ashly Chamorro MD [address] [facility] [address] [place] [address] PCP - General Family Medicine 11/10/22 Sales Account Representative Relationship Specialty Start Date End Date Ashly hCamorro MD [address] [facility] [address] [place] [address] PCP - ACO Reach 10/30/22 Ashly Chamorro MD [address] [facility] [address] [place] [address] PCP - General Family Medicine 11/10/22 Goals [...] abuse patient.[facility] the event this information is protected by the Federal Confidentiality of Alcohol and Drug Abuse Patient Records regulations: The Federal rules restrict any use of the information to criminally investigate or prosecute any alcohol or drug abuse patient.[facility] the event this information is protected by the Federal Confidentiality of Alcohol and Drug Abuse Patient Records regulations: The Federal rules restrict any use of the information to criminally investigate or prosecute any alcohol or drug abuse patient.[facility] the event this information is protected by the Federal Confidentiality of Alcohol and Drug Abuse Patient Records regulations: The Federal rules restrict any use of the information to criminally investigate or prosecute any alcohol or drug abuse patient.[facility] the event this information is protected by the Federal Confidentiality of Alcohol and Drug Abuse Patient Records regulations: The Federal rules restrict any use of the information to criminally investigate or prosecute any alcohol or drug abuse patient.[facility] the event this information is protected by the Federal Confidentiality of Alcohol and Drug Abuse Patient Records regulations: The Federal rules restrict any use of the information to criminally investigate or prosecute any alcohol or drug abuse patient.[facility] the event this information is protected by the Federal Confidentiality of Alcohol and Drug Abuse Patient Records regulations: The Federal rules restrict any use of the information to criminally investigate or prosecute any alcohol or drug abuse patient.[facility] FOR RECORDS PERTAINING TO PATIENTS WHO ARE [...] BE BASED ON THE PRIMARY CLINICAL RECORDS. [facility] [employer] [facility]. provides no warranty or guarantee of the accuracy or completeness of information in this document.
--- OUTSIDE RECORDS SUMMARY | 2025-03-26 17:03 | XMS_ITS | Encounter Summary ---
Author Organization [facility] Address [address] [place] [address] Care Team Providers Care Front Desk Representative Name Role Phone Ciera Mares MD Unavailable Ciera Mares MD Primary Care Provider [phone] Encounter Details Date Type Department Care Team (Late Contact Info) Description 07/08/2023 Abstract [facility] [address] [place] [id number] Ciera Mares MD [address] [place] [address] Social History Tobacco Use Types Packs/Day Years [...] Office Visit [facility] [address] [place] [id number] Madiha Damian, DPM [address] [place], [place] [id number] 05/24/2025 8:00 AM EST Office Visit [facility] [address] [place] [address] Jr. Tres Archer, DO [address] [place] [address] documented as of this encounter Visit Diagnoses Not on filedocumented in this encounter Additional Health Concerns Assessment Noted Time PHQ-9 Depression Total Score: 4 11/25/19 23 8:00 AM EDT documented as of this encounter Care Teams Front Desk Representative Relationship Specialty Start Date End Date Ciera Mares MD [address] [facility] [place] [address] [place] [address] PCP - ACO Reach 10/30/22 Ciera Mares MD [address] [place] [address] PCP - General Family Medicine 11/10/22 documented as of this encounter
--- OUTSIDE RECORDS SUMMARY | 2025-03-26 17:03 | XMS_ITS | Clinical Summary ---
Author Organization [employer] Address [id number] [address] [place] [address] Care Team Providers Care Die Welder Name Role Phone Unavailable Primary Care Provider [...]
--- OUTSIDE RECORDS SUMMARY | 2025-03-26 17:03 | XMS_ITS | Encounter Summary ---
Author Organization [facility] Address [address] [place] [address] Care Team Providers Care Track Sweeper Name Role Phone Ciera Mares MD Unavailable Ciera Mares MD Primary Care Provider [phone] Encounter Details Date Type Department Care Team (Late st Contact Info) Description 04/06/2023 Abstract [facility] [address] [place] [address] Ciera Mares MD [address] [place] [address] Social History Tobacco Use Types Packs/Day Years [...] Office Visit [facility] [address] [place] [phone] Madiha Damian, DPM [address] [place], [place] [id number] 05/24/2025 8:00 AM EST Office Visit [facility] [address] [place] [address] Jr. Tres Archer, DO [address] [place] [address] documented as of this encounter Visit Diagnoses Not on filedocumented in this encounter Additional Health Concerns Assessment Noted Time PHQ-9 Depression Total Score: 4 11/25/19 23 8:00 AM EDT documented as of this encounter Care Teams Track Sweeper Relationship Specialty Start Date End Date Ciera Mares MD [address] [facility] [address] [place] [address] PCP - ACO Reach 10/30/22 Ciera Mares MD [address] [place] [address] PCP - General Family Medicine 11/10/22 documented as of this encounter
--- OUTSIDE RECORDS SUMMARY | 2025-03-26 17:03 | XMS_ITS | Clinical Summary ---
Author Organization [facility] Healthcare Address [address] [place] [address] Care Team Providers Care Crystal Flat Grinder Name Role Phone Ciera Mares MD Unavailable Ciera Mares MD Primary Care Provider [phone] Allergies Active Allergy Reactions Criticality Noted Date Comments Hydromorphone 11/09/2022 Other Reaction(s): difficulty breathing Lisinopril 11/18/2019 cough Morphine 11/09/2022 Other Reaction(s): difficulty breathing Plasminogen 11/18/2019 Patient unaware of reaction Sumatriptan 11/09/2022 Other Reaction(s): Muscle Tightening Wound Dressing Adhesive Rash Low 11/18/2019 Medications hydroCHLOROthiazid e (HYDRODiuril) 25 MG tabletIndications: Essential (primary) hypertension Take 1 tablet (25 mg) by mouth Daily 100 tablet 3 02/24/20 24 Active metoprolol tartrate (Lopressor) 50 MG tabletIndications: Essential (primary) hypertension Take 1 tablet (50 mg) by mouth in the morning. 100 tablet 3 04/07/20 24 Active levothyroxine (Synthroid, Levoxyl) 75 MCG tabletIndications: Hypothyroidism, unspecified Take 1 tablet (75 mcg) by mouth Daily 100 tablet 4 05/09/20 24 Active rosuvastatin (Crestor) 10 MG tabletIndications: Pure hypercholesterolem ia, unspecified TAKE 1 TABLET BY MOUTH ONCE DAILY 100 tablet 3 02/28/20 25 Active carBAMazepine ER (Carbatrol) 200 MG 12 hr capsule Take 200 mg by mouth in the morning and 200 mg before bedtime. Do not crush or chew. Active busPIRone (Buspar) 10 MG tabletIndications: Situational anxiety Take 1 tablet (10 mg) by mouth 2 (two) times a day as needed (Anxiety) 60 tablet 03/08/20 25 Active cholecalciferol (Vitamin D-3) 50 MCG (1999 UT) capsule Take 2,000 Units by mouth Daily Active meloxicam (Mobic) 15 MG tabletIndications: Primary osteoarthritis involving multiple joints TAKE 1 TABLET BY MOUTH IN THE MORNING 100 tablet 1 03/23/20 25 Active rosuvastatin (Crestor) 10 MG tabletIndications: Pure hypercholesterolem ia, unspecified Take 1 tablet (10 mg) by mouth Daily 100 tablet 3 03/03/20 24 025 Discontinued meloxicam (Mobic) 15 MG tabletIndications: Primary osteoarthritis involving multiple joints Take 1 tablet (15 mg) by mouth in the morning. 100 tablet 1 09/13/19 25 025 Discontinued Active Problems Problem Noted Date Diagnosed Date Impaired fasting glucose 03/15/2025 Neuropathy 03/15/2025 Situational anxiety 03/08/2025 Bilateral carpal tunnel syndrome 07/18/2024 Assessment & Plan (07/18/2024 1:50 PM EST): Already on Meloxicam Try Cock up wrist splints Do an EMG Probable Referral to Dr. Archer Trigeminal neuralgia of left side of face 2023 Arthritis of right midfoot 04/29/2024 Arthritis of both hands 04/28/2024 Paresthesia of hand, bilateral 04/28/2024 Bilateral hand swelling 04/28/2024 Paronychia of great toe 10/13/2023 Assessment & Plan (10/13/2023 3:59 PM EDT): On antibiotics Use a nail file and clippers to relieve that H/O lumbosacral spine surgery 03/31/2023 Assessment & Plan (03/31/2023 9:16 AM EDT): No current radicular symptoms Meds and XR Overactive bladder 11/24/2022 Anemia 11/23/2022 Arthritis of finger of left hand 11/23/2022 Atrial fibrillation with rapid ventricular respo nse 11/23/2022 Assessment & Plan (12/31/2023 4:38 PM EDT): Resolved Did Holter monitor and looked ok. Not on any blood thinners Chronic sinusitis 11/23/2022 History of hysterectomy 11/23/2022 Hypocalcemia 11/23/2022 Hypokalemia 11/23/2022 Hypomagnesemia 11/23/2022 Lesion of ulnar nerve 11/23/2022 Obesity (BMI 30-39.9) 11/23/2022 Osteoarthritis 11/23/2022 Other chronic pain 11/23/2022 Primary osteoarthritis of left knee 11/23/2022 Status post left knee replacement 11/23/2022 Tonsillar cyst 11/23/2022 Vitamin D deficiency 11/23/2022 Bursitis of foot 11/09/2022 Callosity 11/09/2022 Exostosis of right foot 11/09/2022 Sesamoiditis 11/09/2022 Toe pain, right 11/09/2022 Plantar fasciitis, right 11/09/2022 History of lumbar fusion 11/18/2019 Overview (11/23/2022): 2010-- presence of bone stimulator Mixed hyperlipidemia 06/13/2019 Hypertension 05/20/2013 Hypothyroidism 05/20/2013 Resolved Problems Problem Noted Date Diagnosed Date Resolved Date Medicare annual wellness visit, subsequent 12/31/2023 04/28/2024 Assessment & Plan (12/31/2023 4:38 PM EDT): Colonoscopy every 10 years or Cologuard every 3 years ages 50-75 Flu Vaccine yearly Pneumovax and Prevnar Mammo yearly for women and PSA yearly for men Labs/Screening yearly to rule out Diabetes, Chronic Kidney disease and liver disease Hepatitis Screen forat risk populations Shingles vaccine after 65 if indicated Tetanus Vaccine every 10 years Lipids yearly under the age of 75 If Smoking history: one time CT scan of chest and Ultrasound of Aorta to screen for Anuerysm Sprain, low back 03/31/2023 03/08/2025 Assessment & Plan (03/31/2023 9:16 AM EDT): I discussed with patient that while on prednisone, do not take any NSAIDs like Ibuprofen, Naprosyn, Alleve or motrin. Watch for any side effects like abdominal pain and nausea. Take the prednisone with food or milk. Prednisone may increase appetite. While on prednisone, watch for any sugar elevations. Acute pain of right knee 11/23/202206/2024 Cataract 11/23/2022 03/08/2025 Pure hypercholesterolemia 11/23/2022 Ingrown toenail 11/09/2022 03/08/2025 Right shoulder pain 11/18/2019 03/08/20 25 Encounters Date Type Department Care Team Description 03/23/2025 Refill [facility] [place] [facility] [address] [facility] [address] [place] [address] Ciera Mares MD Primary osteoarthritis involving multiple joints 03/15/2025 2:00 PM EDT Office Visit [facility] [place] [facility] [address] [facility] [address] [place] [address] Griselda Vargas PA Mixed hyperlipidemia (Primary Dx); Vitamin D deficiency; Neuropathy; Impaired fasting glucose 03/15/2025 Bamboo flowsheet [facility] [place] [facility] [address] [facility] [address] [place] [address] Griselda Vargas PA 03/15/2025 Travel 03/09/2025 Results Follow-Up [facility] [place] [facility] [address] [facility] [address] [place] [address] Griselda Vargas PA CBC and differential, Comprehensive metabolic panel, Lipid panel, Additional followed-up results: 3 03/09/2025 Abstract [facility] [place] [facility] [address] [facility] [address] [place] [address] Ciera Mraes MD 03/09/2025 Abstract [facility] [address] [facility] [address] [place] [address] Ciera Mares MD 03/08/2025 10:00 AM EDT Office Visit [facility] [place] [place] [address] Griselda Vargas PA Medicare annual wellness visit, subsequent (Primary Dx); ACP (advance care [...] syndrome; Tonsillar cyst; Mixed hyperlipidemia; Situational anxiety 03/08/2025 Bamboo flowsheet [facility] [address] [place] [address] Griselda Vargas PA 03/08/2025 Travel 02/24/2025 [address] [place] [address] Amada Echols NP Pure hypercholesterolemia, unspecified 02/23/2025 9:30 AM EDT Office Visit [facility] [address] [place] [phone] Madiha Damian, DPM Plantar fasciitis, right (Primary Dx); Posterior tibial tendonitis, right; Peroneal tendonitis, left; Ankle instability, left 02/23/2025 Bamboo flowsheet [facility] [address] [place] [phone] Madiha Damian, ROGE 02/23/2025 Travel 02/22/2025 Travel 02/20/2025 Abstract [facility] [place] [facility] [address] [facility] [address] [place] [address] Ciera Mares MD 02/20/2025 Results Follow-Up [facility] [place] [facility] [address] [facility] [address] [place] [address] Griselda Vargas, PA MM TOMOSYNTHESIS SCREENING BI 02/17/2025 Clinisync Result Encounter [facility] External Department Unsolicited Griselda Vargas, PA 02/07/2025 2:00 PM EDT Office Visit [facility] [place] [facility] [address] [facility] [address] [place] [address] Griselda Vargas, PA Swelling of both ankles (Primary Dx); Encounter for screening mammogram for malignant neoplasm of breast 02/07/2025 Abstract [facility] [place] [facility] [address] [facility] [address] [place] [address] Ciera Mares MD 02/07/2025 Bamboo flowsheet [facility] [place] [facility] [address] [facility] [address] [place] [address] Griselda Vargas PA 02/07/2025 Travel 01/27/2025 Patient Outreach [facility] [address] [place] [address] Susan Avelar RN 01/26/2025 8:45 AM EDT Office Visit [facility] [address] [place] [address] Madiha Damian, DPM Plantar fasciitis, right (Primary Dx); Gastrocnemius equinus of right lower extremity 01/26/2025 Bamboo flowsheet [facility] [address] [place] [address] Madiha Damian, DPM 01/26/2025 Travel 01/25/2025 Travel 01/25/2025 Abstract [facility] [place] [facility] [address] [facility] [address] [place] [address] Ciera Mares MD 01/25/2025 Abstract [facility] [place] [facility] [address] [facility] [address] [place] [address] Ciera Mares MD 01/10/2025 11:30 AM EDT Office Visit [facility] [place] [facility] [address] [facility] [address] [place] [address] Justine Trejo, UMAIR Current moderate episode of major depressive disorder without prior episode (HCC) (Primary Dx) 01/10/2025 Bamboo flowsheet [facility] [address] [facility] [address] [place] [address] Justine Trejo NP 01/10/2025 Travel from Last 3 Months Family History Medical History Relation Name Comments Hypertension Father Stroke Father Dementia Mother Mental illness Mother Relation Name Status Comments Brother x3 Daughter x3 Father Mother Sister x3 Son x1 Social History Tobacco Use Types Packs/Day Years Used Date Smoking Tobacco: Never Smokeless Tobacco: Never Tobacco Cessation:Counseling Given: Not Answered Alcohol Use Standard Drinks/Week Comments Not Currently 0 (1 standard drink = 0.6 oz pur e alcohol) PHQ-2 Answer Date Recorded Patient Health Questionnaire-2 Score 0 03/15/2025 Comments Unknown Sex and Gender Information Value Date Recorded Sex Assigned at Not on file Legal Sex Female 7:14 PM EDT Gender Identity Female 08/20/2022 7:14 PM EDT Sexual Orientation Not on file Last Filed Vital Signs Vital Sign Reading Time Taken Comments Blood Pressure 128/70 03/15/2025 2:16 PM EDT Pulse 77 03/15/2025 2:16 PM EDT Temperature 36.8 C (98.3 F) 11/17/2023 8:09 AM EDT Respiratory Rate 16 03/15/2025 2:16 PM EDT Oxygen Saturation 96% 03/15/2025 2:16 PM EDT Inhaled Oxygen Concentration - - Weight 79.7 kg (175 lb 12.8 oz) 03/15/2025 2:16 PM EDT Height 157.5 cm (5' 2 ) 03/15/2025 2:16 PM EDT Body Mass Index 32.15 03/15/2025 2:16 PM EDT Plan of Treatment Upcoming Encounters Date Type Department Care Team (Late st Contact Info) Description 03/28/2025 1:45 PM EDT Office Visit [facility] [address] [address] Madiha Damian, DPM [address] [place], [place] [phone] 05/24/2025 8:00 AM EST [facility] [address] [place] [phone] Jr. Tres Archer, DO [address] [place], [place] [id number] Health Maintenance Due Date Last Done Comments CT Colonography 1955 Colonoscopy 1955 FIT 1955 FOBT 1955 Sigmoidoscopy 1955 Pneumococcal Vaccine: 65+ Years (1 of 1 - PCV) 04/28/2025 Postponed from 2003 (Patient Refused) Influenza Vaccine (#1) 2025 Postp oned from 02/06/2025 (Patient Refused) Mammogram 02/17/2026 02/17/2025, 01/07, 12/23/2022, Additional history exists Medicare Annual Wellness (AWV) 03/08/2026 03/08/2025, 12/31/2023, 11/24/2022, Additional history exists Colorectal Cancer Screening 06/10/2027 FIT-DNA 06/10/2027 06/10/2024, 04/09, 05/03/2021 Procedures Procedure Name Priority Date/Time Associated Diagnosis Comments MAGNESIUM Routine 03/08/2025 10:48 AM EDT Medicare annual wellness visit, subsequent Hypomagnesemia VITAMIN D 25 HYDROXY TOTAL Routine 03/08/2025 10:48 AM EDT Medicare annual wellness visit, subsequent Vitamin D deficiency TSH W/REFLEX TO FT4 Routine 03/08/2025 1 0:48 AM EDT Medicare annual wellness visit, subsequent Acquired hypothyroidism LIPID PANEL Routine 03/08/2025 10:48 AM EDT Medicare annual wellness visit, subsequent Primary hypertension Mixed hyperlipidemia COMPREHENSIVE METABOLIC PANEL Routine 03/08/2025 10:48 AM EDT Medicare annual wellness visit, subsequent Primary hypertension Hypocalcemia Hypokalemia Mixed hyperlipidemia CBC (INCLUDES DIFF/PLT) Routine 03/08/2025 10:48 AM EDT Medicare annual wellness visit, subsequent Primary hypertension Anemia, unspecified type Mixed hyperlipidemia MM TOMOSYNTHESIS SCREENING BI 02/17/2025 3:57 PM EDT LAB COLOGUARD COLON CANCER SCREEN Routine 06/10/2024 10:00 AM EST Encounter for screening for colorectal malignant neoplasm from Last 3 Months or Most Recently Relevant to Health Maintenance Results * TSH W/REFLEX TO FT4 (03/08/2025 10:48 AM EDT) TSH W/REFLEX TO FT4 2.67 0.40 - 4.50 mIU/L [facility] 03/08/2025 10:4 8 AM EDT 03/08/2025 10:48 AM EDT Narrative [facility] - 03/09/2025 8:18 AM EDT FASTING:YES FASTING: YES Resulting Agency Comment Performing Organization Information Site ID: QPT Name: [facility] Address: [address] [place] [address], [address] [place] [phone] Director: Karsten Fung MD us Griselda GUSMAN LAB BLOOD ORDERABLES Final Res ult [facility] * Vitamin D 25 hydroxy Total (03/08/2025 10:48 AM EDT) Pathologist [facility] [place] VITAMIN D,25-OH,TOTAL,IA 49 30 - 100 ng/mL [facility] Comment: Vitamin D Status 25-OH Vitamin D: Deficiency: <20 ng/mL Insufficiency: 20 - 29 ng/mL Optimal: > or = 30 ng/mL For 25-OH Vitamin D testing on patients on D2-supplementation and patients for whom quantitation of D2 and D3 fractions is required, the QuestAssureD(TM) 25-OH VIT D, (D2,D3), LC/MS/MS is recommended: order code 87200 (patients >2yrs). See Note 1 Note 1 For additional information, please refer to http://education.[facility]/faq/NOE868 (This link is being provided for informational/ educational purposes only.) Blood Venous blood specimen / Unknown 03/08/2025 10:48 AM EDT 03/08/2025 10:48 AM EDT Narrative [facility] - 03/09/2025 8:18 AM EDT FASTING:YES FASTING: YES Resulting Agency Comment Performing Organization Information Site ID: QPT Name: [facility] Address: [address] [place] [address], [address] [place] [phone] Director: Karsten Fung MD us Griselda GUSMAN LAB BLOOD ORDERABLES Final Res ult [facility] * (ABNORMAL) CBC and differential (03/08/2025 10:48 AM EDT) Pathologist [facility] WHITE BLOOD CELL COUNT 5.3 3.8 - 10.8 Thousand/u L [facility] RED BLOOD CELL COUNT 4.34 3.80 - 5.10 Million/uL [facility] HEMOGLOBIN 13.2 11.7 - 15.5 g/dL [facility] HEMATOCRIT 41.0 35.0 - 45.0 % [facility] MCV 94.5 80.0 - 100.0 fL [facility] MCH 30.4 27.0 - 33.0 pg [facility] MCHC 32.2 32.0 - 36.0 g/dL [facility] Comment: For adults, a slight decrease in the calculated MCHC value (in the range of 30 to 32 g/dL) is most likely not clinically significant; however, it should be interpreted with caution in correlation with other red cell parameters and the patient's clinical condition. RDW 13.3 11.0 - 15.0 % [facility] PLATELET COUNT 199 140 - 400 Thousand/u L [facility] MPV 10.1 7.5 - 12.5 fL [facility] ABSOLUTE NEUTROPHILS 3,927 1,500 - 7,800 cells/uL [facility] ABSOLUTE LYMPHOCYTES 806(L) 850 - 3,900 cells/uL [facility] ABSOLUTE MONOCYTES 408 200 - 950 cells/uL [facility] ABSOLUTE EOSINOPHILS 138 15 - 500 cells/uL [facility] ABSOLUTE BASOPHILS 21 0 - 200 cells/uL [facility] NEUTROPHILS 74.1 % [facility] LYMPHOCYTES 15.2 % [facility] MONOCYTES 7.7 % [facility] EOSINOPHILS 2.6 % [facility] BASOPHILS 0.4 % [facility] Blood Venous blood specimen / Unknown 03/08/2025 10:48 AM EDT 03/08/2025 10:48 AM EDT Narrative [facility] - 03/09/2025 8:18 AM EDT FASTING:YES FASTING: YES Resulting Agency Comment Performing Organization Information Site ID: QPT Name: [facility] Address: [address] [place] [address], [address] [place] [phone] Director: Karsten Fung MD Griselda GUSMAN LAB BLOOD ORDERABLES Final Res ult [facility] * Magnesium (03/08/2025 10:48 AM EDT) MAGNESIUM 2.0 1.5 - 2.5 mg/dL [facility] Blood Venous blood specimen / Unknown 03/08/2025 10:48 AM EDT 03/08/2025 10:48 AM EDT Narrative [facility] - 03/09/2025 8:18 AM EDT FASTING:YES FASTING: YES Resulting Agency Comment Performing Organization Information Site ID: QPT Name: [facility] Address: [address] [place] [address], [address] [place] [phone] Director: Karsten Fung MD Griselda GUSMAN LAB BLOOD ORDERABLES Final Res ult Performing Organization Address [facility]/ZIP Co de Phone Number [facility] * (ABNORMAL) Lipid panel (03/08/2025 10:48 AM EDT) CHOLESTEROL, TOTAL 122 <200 mg/dL [facility] HDL CHOLESTEROL 46(L) > OR = 50 mg/dL [facility] TRIGLYCERIDES 158(H) <150 mg/dL [facility] LDL CHOLESTEROL 52 mg/dL (calc) [facility] Comment: Reference range: <100 Desirable range <100 mg/dL for primary prevention; <70 mg/dL for patients with CHD or diabetic patients with > or = 2 CHD risk factors. LDL-C is now calculated using the Delfin calculation, which is a validated novel method providing better accuracy than the Friedewald equation in the estimation of LDL-C. Robby SS et al. DORA. 2013;310(19): 2743-3170 (http://education.[facility]/faq/CSM573) CHOL/HDLC RATIO 2.7 <5.0 (calc) [facility] NON HDL CHOLESTEROL 76 <130 mg/dL (calc) [facility] Comment: For patients with diabetes plus 1 major ASCVD risk factor, treating to a non-HDL-C goal of <100 mg/dL (LDL-C of <70 mg/dL) is considered a therapeutic option. Blood Venous blood specimen / Unknown 03/08/2025 10:48 AM EDT 03/08/2025 10:48 AM EDT Narrative [facility] - 03/09/2025 8:18 AM EDT FASTING:YES FASTING: YES Resulting Agency Comment Performing Organization Information Site ID: QPT Name: [facility] Address: [address] [place] [address], [address] [place] [phone] Director: Karsten Fung MD Griselda GUSMAN LAB BLOOD ORDERABLES Final Res ult Performing Organization Address City/[facility]/ZIP Co de Phone Number [facility] * (ABNORMAL) Comprehensive metabolic panel (03/08/2025 10:48 AM EDT) Glucose 104(H) 65 - 99 mg/dL [facility] Comment: Fasting reference interval For someone without known diabetes, a glucose value between 100 and 125 mg/dL is consistent with prediabetes and should be confirmed with a follow-up test. BUN 12 7 - 25 mg/dL [facility] Creatinine 0.61 0.60 - 1.00 mg/dL [facility] EGFR 96 > OR = 60 mL/min/1. 73m2 [facility] BUN/CREATININE RATIO SEE NOTE: 6 - 22 (calc) [facility] Comment: Not Reported: BUN and Creatinine are within reference range. Sodium 139 135 - 146 mmol/L [facility] Potassium, Bld 4.1 3.5 - 5.3 mmol/L [facility] Chloride 101 98 - 110 mmol/L [facility] Carbon Dioxide 28 20 - 32 mmol/L [facility] Calcium 9.3 8.6 - 10.4 mg/dL [facility] PROTEIN, TOTAL 6.5 6.1 - 8.1 g/dL [facility] ALBUMIN 4.2 3.6 - 5.1 g/dL [facility] GLOBULIN 2.3 1.9 - 3.7 g/dL (calc) [facility] ALBUMIN/GLOBULIN RATIO 1.8 1.0 - 2.5 (calc) [facility] BILIRUBIN, TOTAL 0.3 0.2 - 1.2 mg/dL [facility] ALKALINE PHOSPHATASE 98 37 - 153 U/L [facility] AST 17 10 - 35 U/L [facility] ALT 16 6 - 29 U/L [facility] Blood Venous blood specimen / Unknown 03/08/2025 10:48 AM EDT 03/08/2025 10:48 AM EDT Narrative [facility] - 03/09/2025 8:18 AM EDT FASTING:YES FASTING: YES Resulting Agency Comment Performing Organization Information Site ID: QPT Name: [facility] Address: [address] [place] [address], [address] [place] [phone] Director: Karsten Fung MD us Griselda GUSMAN LAB BLOOD ORDERABLES Final Res ult [facility] * MM TOMOSYNTHESIS SCREENING BI (02/17/2025 3:57 PM EDT) Anatomical Region Laterality Modality Other 02/17/2025 3:57 PM EDT Narrative 02/17/2025 3:58 PM EDT [address] [address] Mammography Report Signed Patient: RENETTA LOPEZ MR#: [id number] : 1955 Acct:[id number] Age/Sex: 69 / F ADM Date: 02/17/25 Loc: MAMMO Attending Dr: GRISELDA VARGAS Ordering Physician: GRISELDA VARGAS Results: Date of Service: 02/17/25 Follow Up: Procedure(s): MM tomosynthesis screening BI Accession Number(s): [id number] cc: GRISELDA VARGAS ; JUSTINE TREJO Patient Name: RENETTA LOPEZ MR#: [id number] : 1955 Exam Date: 02/17/2025 Ordering Doctor: [...] Treatments None Family Cancers None LOCATION: [facility] BREAST COMPOSITION: The breasts are heterogeneously [...] Signed By: 02/17/25 1558 DD/ 1557 TD/TT: Magisterial District Judge: Procedure Note Radiology, Radiologist, - 02/17/2025 [place] [address] Mammography Report Signed Patient: RENETTA LOPEZ LMR#: [id number] : 1955cct:[id number] Age/Sex: 69 / FADM Date: 02/17/25 Loc: MAMMO Attending Dr: GRISELDA VARGAS Ordering Physician: GRISELDA VARGAS MResults: Date of Service: 02/17/25Follow Up: Procedure(s): MM tomosynthesis screening BI Accession Number(s): [id number] cc: GRISELDA VARGAS ; JUSTINE TREJO Patient Name: RENETTA LOPEZ MR#: [id number] : 1955 Exam Date: 02/17/2025 Ordering Doctor: DR GRISELDA GUSMAN RADIOLOGY REPORT PROCEDURE: MM TOMOSYNTHESIS SCREENING BI COMPARISON: MM TOMOSYNTHESIS SCREENING BI, 01/28/2024. MMTOMOSYNTHESIS SCREENING BI, 12/23/2022. MG MAMM SCREEN 3D AMOL CAD, 2021. MG MAMMBIL SCRN W CAD DIG, 02/14/2016. INDICATIONS: screening Calculator Name NCI Breast Cancer Risk Assessment Tool 5 Year Breast Cancer Risk 1.50% Lifetime Breast Cancer Risk 4.10% Personal Breast Cancer No Personal Ovarian Cancer No Treatments None Family Cancers None LOCATION: [facility] BREAST COMPOSITION: The breasts are heterogeneously [...] 15:57 Dictated By: Cody Fernandez D.O. Signed By:02/17/25 1558 DD/ 1557 TD/TT: Magisterial District Judge: us Griselda GUSMAN [facility] Final Result * Cologuard?? colon cancer screening (06/10/2024 10:00 AM EST) NONINV COLON CA DNA+OCC BLD SCRN STL-IMP Negative Negative 06/15/2024 12:54 AM EST Cloudy Days (CLIA #:[id number]) Comment: NEGATIVE TEST RESULT. A negative Cologuard result indicates a low likelihood that a colorectal cancer (CRC) or advanced adenoma (adenomatous polyps with more advanced pre-malignant features) is present. The chance that a person with a negative Cologuard test has a colorectal cancer is less than 1 in 1500 (negative predictive value >99.9%) or has an advanced adenoma is less than 5.3% (negative predictive value 94.7%). These data are based on a prospective cross-sectional study of 10,000 individuals at average risk for colorectal cancer who were screened with both Cologuard and colonoscopy. (Quang Alamo al, N Engl J Med 2014;370(14):2641-4095) The normal value (reference range) for this assay is negative. COLOGUARD RE-SCREENING RECOMMENDATION: Periodic colorectal cancer screening is an important part of preventive healthcare for asymptomatic individuals at average risk for colorectal cancer. Following a negative Cologuard result, the [place] [employer] and U.S. Multi-Society Task Force screening guidelines recommend a Cologuard re-screening interval of 3 years. References: [place] [employer] Guideline for Colorectal Cancer Screening: https://www.cancer.org/cancer/myukd-xtjthr-ngywuc/znfsubxqg-kyjlodqrn-inldnbl/ac s-rec ommendations.html.; Brijesh DK, Dagmar MARINO, Jazlyn OrdoñezK, Colorectal Cancer Screening: Recommendations for Physicians and Patients from the U.S. Multi-Society Task Force on Colorectal Cancer Screening , Am J Gastroenterology 2017; 112:0001-7367. TEST DESCRIPTION: Composite algorithmic analysis of stool DNA-biomarkers with hemoglobin immunoassay. Quantitative values of individual biomarkers are not reportable and are not associated with individual biomarker result reference ranges. Cologuard is intended for colorectal cancer screening of adults of either sex, 45 years or older, who are at average-risk for colorectal cancer (CRC). Cologuard has been approved for use by the U.S. FDA. The performance of Cologuard was established in a cross sectional study of average-risk adults aged 50-84. Cologuard performance in patients ages 45 to 49 years was estimated by sub-group analysis of near-age groups. Colonoscopies performed for a positive result may find as the most clinically significant lesion: colorectal cancer [4.0%], advanced adenoma (including sessile serrated polyps greater than or equal to 1cm diameter) [20%] or non- advanced adenoma [31%]; or no colorectal neoplasia [45%]. These estimates are derived from a prospective cross-sectional screening study of 10,000 individuals at average risk for colorectal cancer who were screened with both Cologuard and colonoscopy. (Quang Alamo al, N Engl J Med 2014;370(14):1914-4719.) Cologuard may produce a false negative or false positive result (no colorectal cancer or precancerous polyp present at colonoscopy follow up). A negative Cologuard test result does not guarantee the absence of CRC or advanced adenoma (pre-cancer). The current Cologuard screening interval is every 3 years. ([place] [employer] and U.S. Multi-Society Task Force). Cologuard performance data in a 10,000 patient pivotal study using colonoscopy as the reference method can be accessed at the following location: www.[employer]/results. Additional description of the Cologuard test process, warnings and precautions can be found at www.[employer]ogQuanterixrd.com. Stool specimen (specimen) 06/10/2024 10:00 AM EST 06/11/2024 7:23 AM EST Ciera Mares MD LAB MOLECULAR DIAGNOSTICS ORDERA BLES Final Result Cloudy Days (CLIA #:[id number]) [place] [address] [address], from Last 3 Months or Most Recently Relevant to Health Maintenance Insurance [employer] Care Teams Crystal Flat Grinder Relationship Specialty Start Date End Date Ciera Mares MD [address] [facility] 110 [place] [address] PCP - ACO Reach 10/30/22 Ciera Mares MD [address] [facility] 110 [place] [address] PCP - General Family Medicine 11/10/22
--- OUTSIDE RECORDS SUMMARY | 2025-03-26 17:03 | XMS_ITS | Encounter Summary ---
Author Organization [facility] Address [address] [place] [address] Care Team Providers Care Flush Tester Name Role Phone Ciera Mares MD Unavailable Ciera Mares MD Primary Care Provider [phone] Encounter Details Date Type Department Care Team (Late st Contact Info) Description 11/09/2022 Abstract [facility] [address] [place] [phone] Gia Ford LPN Social History Tobacco Use Types Packs/Day Years Used Date Smoking Tobacco: Never Smokeless Tobacco: Never Tobacco Cessation:Counseling Given: Not Answered Alcohol Use Standard Drinks/Week Comments Not Currently 0 (1 standard drink = 0.6 oz pur e alcohol) Comments Unknown Sex and Gender Information Value [...] Office Visit [facility] [address] [place] [address] Madiha Damian, DPM [address] [place], [place] [address] 05/24/2025 8:00 AM EST Office Visit [facility] [address] [place] [address] Jr. Tres Archer, [address] [facility] 150 [place] [address] documented as of this encounter Visit Diagnoses Not on filedocumented in this encounter Care Teams Flush Tester Relationship Specialty Start Date End Date Ciera Mares MD [address] [facility] 110 [place] [address] PCP - ACO Reach 10/30/22 Ciera Mares MD [address] [facility] 110 [place] [address] PCP - General Family Medicine 11/10/22 documented as of this encounter
--- OUTSIDE RECORDS SUMMARY | 2025-03-26 17:03 | XMS_ITS | Clinical Summary ---
Author Organization [facility] Address [address] [place], [place] [id number] Care Team Providers Care Gas Mask Inspector Name Role Phone Aisha Kemp DO, Charles [...] tablet by mouth once daily. 03/03/2024 Active hydroCHLOROthiaz daniel 25 mg tablet Take 25 mg by mouth. 08/10/2019 Active levothyroxine (SYNTHROID) 75 mcg tablet Take 75 mcg by mouth. 08/28/2019 Active carBAMazepine (TEGRETOL) 200 mg tablet Take by mouth. One-half tablet daily for a week; then one-half tablet twice daily for a week; then one-half tablet three times daily for a week; then one tablet twice daily thereafter. 60 tablet 11 03/26/2024 Active Active Problems Problem Noted Date Diagnosed [...] is lower risk 9 03/26/2024 Data from: https://www.neighborhoodatlas.medicine.[facility] [place]/. Last address used for calculation [address] 03/26/2024 Comments No Sex and Gender Information [...] EDT Office Visit Neurology [facility] [address] [place] [address] [place] [address] [place] [address] Return in about 1 year [...] Screening 11/17/2022 11/18/2019 Mammogram Screening 2023 2022, Advance Directive Discussion 06/08/2024 Covid-19 Vaccine ( season) 2025 Influenza Vaccine (#1) 2025 Cologuard (FIT-DNA) 06/10/2027 06/10/2024, Colorectal Cancer Screening 06/10/2027 RSV Vaccine (1 - 1-dose 75+ series) 2028 Bone Density Screening Completed 11/19/2021 Insurance MEDICARE [facility] MEDICARE SUPPLEMENT Care Teams Gas Mask Inspector Relationship Specialty Start Date End Date Randolph Leonard Jr., [address] [place] [address] [place] [address] PCP - General 12/21/03
--- OUTSIDE RECORDS SUMMARY | 2025-03-26 17:03 | XMS_ITS | Encounter Summary ---
Author Organization [facility] Address [address] [place] [address] Care Team Providers Care Investment Manager Name Role Phone Ciera Mares MD Unavailable Ciera Mares MD Primary Care Provider [phone] Encounter Details Date Type Department Care Team (Late Contact Info) Description 06/09/[address] [facility] [address] [place] [address] Ciera Mares MD [address] [place] [address] Social History Tobacco Use Types Packs/Day Years [...] Office Visit [facility] [address] [place] [address] Madiha Damian, DPM [address] [place], [place] [address] 05/24/2025 8:00 AM EST Office Visit [facility] [address] [place] [address] Jr. Tres Archer, DO [address] [place] [address] documented as of this encounter Visit Diagnoses Not on filedocumented in this encounter Additional Health Concerns Assessment Noted Time PHQ-9 Depression Total Score: 4 11/25/19 23 8:00 AM EDT documented as of this encounter Care Teams Investment Manager Relationship Specialty Start Date End Date Ciera Mares MD [address] [facility] [address] [place] [address] PCP - ACO Reach 10/30/22 Ciera Mares MD [address] [place] [address] [place] [address] PCP - General Family Medicine 11/10/22 documented as of this encounter
--- OUTSIDE RECORDS SUMMARY | 2025-03-26 17:03 | XMS_ITS | Encounter Summary ---
Author Organization [facility] Address [address] [place] [address] Care Team Providers Care Dashboard Developer Name Role Phone Ciera Mares MD Unavailable Ciera Mares MD Primary Care Provider Encounter Details Date Type Department Care Team (Late Contact Info) Description 11/18/2023 Abstract [facility] [address] [place] [address] Ciera Mares MD [address] [place] [address] Social History Tobacco Use Types Packs/Day Years [...] Office Visit [facility] [address] [place] [address] Madiha Damian, DPM [address] [place], [place] [address] 05/24/2025 8:00 AM EST Office Visit [facility] [address] [place] [address] Jr. Tres Archer, DO [address] [place] [address] [place] [address] documented as of this encounter Visit Diagnoses Not on filedocumented in this encounter Additional Health Concerns Assessment Noted Time PHQ-9 Depression Total Score: 4 11/25/19 23 8:00 AM EDT documented as of this encounter Care Teams Dashboard Developer Relationship Specialty Start Date End Date Ciera Mares MD [address] [facility] 110 [place] [address] PCP - ACO Reach 10/30/22 Ciera Mares MD [address] [place] [address] [place] [address] PCP - General Family Medicine 11/10/22 documented as of this encounter
--- OUTSIDE RECORDS SUMMARY | 2025-03-26 17:03 | XMS_ITS | Encounter Summary ---
Author Organization [facility] Address [address] [place] [address] Care Team Providers Care Wharf Attendant Name Role Phone Ciera Mares MD Unavailable Ciera Mares MD Primary Care Provider [phone] Encounter Details Date Type Department Care Team (Late Contact Info) Description 02/10/2024 Abstract [facility] [address] [place] [address] Ciera Mares MD [address] [place] [address] Social History Tobacco Use Types Packs/Day Years [...] Office Visit [facility] [address] [place] [address] Madiha Damian, DPM [address] [place], [place] [address] 05/24/2025 8:00 AM EST Office Visit [facility] [address] [place] [address] Jr. Tres Archer, DO [address] [place] [address] documented as of this encounter Visit Diagnoses Not on filedocumented in this encounter Additional Health Concerns Assessment Noted Time PHQ-9 Depression Total Score: 4 11/25/19 23 8:00 AM EDT documented as of this encounter Care Teams Wharf Attendant Relationship Specialty Start Date End Date Ciera Mares MD [address] [facility] [address] [place] [address] PCP - ACO Reach 10/30/22 Ciera Mares MD [address] [place] [address] PCP - General Family Medicine 11/10/22 documented as of this encounter
--- OUTSIDE RECORDS SUMMARY | 2025-03-26 17:03 | XMS_ITS | Encounter Summary ---
Author Organization [facility] Address [address] [place] [address] Care Team Providers Care Broke Beater Operator Name Role Phone Ciera Mares MD Unavailable Ciera Mares MD Primary Care Provider [phone] Encounter Details Date Type Department Care Team (Late Contact Info) Description 01/14/2024 Abstract [facility] [address] [place] [address] Ciera Mares MD [address] [place] [address] Social History Tobacco Use Types Packs/Day Years [...] Office Visit [facility] [address] [place] [address] Madiha Damian, DPM [address] [place], [place] [address] 05/24/2025 8:00 AM EST Office Visit [facility] [address] [place] [address] Jr. Tres Archer, DO [address] [place] [address] documented as of this encounter Visit Diagnoses Not on filedocumented in this encounter Additional Health Concerns Assessment Noted Time PHQ-9 Depression Total Score: 4 11/25/19 23 8:00 AM EDT documented as of this encounter Care Teams Broke Beater Operator Relationship Specialty Start Date End Date Ciera Mares MD [address] [facility] [address] [place] [address] PCP - ACO Reach 10/30/22 Ciear Mares MD [address] [place] 110 [place] [address] PCP - General Family Medicine 11/10/22 documented as of this encounter
--- OUTSIDE RECORDS SUMMARY | 2025-03-26 17:03 | XMS_ITS | Encounter Summary ---
Author Organization [facility] Address [address] [place] [address] Care Team Providers Care International Account Representative Name Role Phone Ciera Mares MD Unavailable Ciera Mares MD Primary Care Provider [phone] Encounter Details Date Type Department Care Team (Late Contact Info) Description 04/13/2023 Abstract [facility] [address] [place] [address] Ciera Mares MD [address] [place] [address] Social History Tobacco Use Types Packs/Day Years [...] Office Visit [facility] [address] [place] [address] Madiha Damian, DPM [address] [place], [place] [address] 05/24/2025 8:00 AM EST Office Visit [facility] [address] [place] [address] Jr. Tres Archer, DO [address] [place] [address] documented as of this encounter Visit Diagnoses Not on filedocumented in this encounter Additional Health Concerns Assessment Noted Time PHQ-9 Depression Total Score: 4 11/25/19 23 8:00 AM EDT documented as of this encounter Care Teams International Account Representative Relationship Specialty Start Date End Date Ciera Mares MD [address] [facility] [address] [place] [address] PCP - ACO Reach 10/30/22 Ciera Mares MD [address] 110 [place] [address] PCP - General Family Medicine 11/10/22 documented as of this encounter
--- OUTSIDE RECORDS SUMMARY | 2025-03-26 17:03 | XMS_ITS | Encounter Summary ---
Author Organization [facility] Address [address] [place] [address] Care Team Providers Care Personal Injury Litigation Paralegal Name Role Phone Ciera Mares MD Unavailable Ciera Mares MD Primary Care Provider [phone] Reason for Visit * Reason Comments Med Refill Encounter Details Date Type Department Care Team (Late st Contact Info) Description 03/23/2025 Refill [facility] [address] [facility] 110 [place] [address] Ciera Mares MD [address] [facility] 110 [place] [address] Primary osteoarthritis involving multiple joints Social History Tobacco Use Types Packs/Day Years [...] PM EDT Office Visit [facility] [address] [place] [address] Madiha Damian, DPM [address] [place] [address] 05/24/2025 8:00 AM EST Office Visit [facility] [address] [facility] [address] Jr. Tres Archer, DO [address] [facility] 150 [place] [address] documented as of this encounter Visit Diagnoses Diagnosis Primary osteoarthritis involving multiple joints documented in this encounter Additional Health Concerns Assessment Noted Time PHQ-9 Depression Total Score: 0 03/08/20 25 10:00 AM EDT documented as of this encounter Care Teams Personal Injury Litigation Paralegal Relationship Specialty Start Date End Date Ciera Mares MD [address] [facility] 110 [place] [address] PCP - ACO Reach 10/30/22 Ciera Mares MD [address] [facility] 110 [place] [address] PCP - General Family Medicine 11/10/22 documented as of this encounter
--- OUTSIDE RECORDS SUMMARY | 2025-03-26 17:03 | XMS_ITS | Encounter Summary ---
Author Organization [facility] Address [address] [place] [address] Care Team Providers Care Marketing Research Analyst Name Role Phone Ciera Chamorro MD Unavailable Ciera Chamorro MD Primary Care Provider [phone] Encounter Details Date Type Department Care Team (Late st Contact Info) Description 01/28/2024 Clinisync Result Encounter [facility] External Department Unsolicited Ciera Chamorro MD [address] [place] [address] Social History Tobacco Use Types Packs/Day Years [...] Office Visit [facility] [address] [place] [address] Madiha Damian, DPM [address] [place], [place] [address] 05/24/2025 8:00 AM EST Office Visit [facility] [address] [place] [address] Jr. Tres Archer, DO [address] [address] documented as of this encounter Procedures Procedure Name Priority Date/Time Associated Diagnosis Comments MM TOMOSYNTHESIS SCREENING BI 01/28/2024 4:23 PM EDT documented in this encounter Results * MM TOMOSYNTHESIS SCREENING BI (01/28/2024 4:23 PM EDT) Anatomical Region Laterality Modality Other 01/28/2024 4:23 PM EDT Narrative 01/28/2024 4:24 PM EDT The [address] [address] Mammography Report Signed Patient: MITALI CRONIN MR#: [id number] : 1955 Acct:[id number] Age/Sex: 68 / F ADM Date: 01/28/24 Loc: MAMMO Attending Dr: CIERA CHAMORRO Ordering Physician: CIERA CHAMORRO Results: Date of Service: 01/28/24 Follow Up: Procedure(s): MM tomosynthesis screening BI Accession Number(s): [id number] cc: CIERA CHAMORRO Patient Name: MITALI CRONIN MR#: [id number] : 1955 Exam Date: 01/28/2024 Ordering Doctor: DR CIERA CHAMORRO M.D. RADIOLOGY REPORT PROCEDURE: MM TOMOSYNTHESIS SCREENING BI COMPARISON: MM TOMOSYNTHESIS SCREENING BI, 12/23/2022. MG MAMM SCREEN 3D AMOL CAD, 2021. MG MAMM SCREEN AMOL W CAD, 01/04/2020. MG MAMM AMOL SCRN W CAD DIG, 02/14/2016. INDICATIONS: Screening Calculator Name NCI Breast Cancer Risk Assessment Tool 5 Year Breast Cancer Risk 1.50% Lifetime Breast Cancer Risk 4.30% Personal Breast Cancer No Personal Ovarian Cancer No Treatments None Family Cancers None LOCATION: The [facility] BREAST COMPOSITION: The breasts are heterogeneously dense,which may obscure small masses. FINDINGS: DIAGNOSTIC CATEGORY 2--BENIGN FINDING: RIGHT BREAST: No significant suspicious finding. Scattered benign-appearing calcifications are present. Chronically dilated subareolar ducts. No significant change has occurred. LEFT BREAST: No significant suspicious finding. Scattered benign-appearing nodules are present. Chronically dilated subareolar ducts. No significant change has occurred. RECOMMENDATIONS: ROUTINE MAMMOGRAM AND CLINICAL EVALUATION IN 12 MONTHS. PLEASE NOTE: A NORMAL MAMMOGRAM DOES NOT EXCLUDE THE POSSIBILITY OF BREAST CANCER. A CLINICALLY SUSPICIOUS PALPABLE LUMP SHOULD BE BIOPSIED. Dictated by: Miguel Glover M.D. on 01/28/2024 at 16:19 Approved by: Miguel Glover M.D. on 01/28/2024 at 16:22 Dictated By: Miguel Glover M.D. Signed By: 01/28/244 DD/ 22 TD/TT: Natural Sciences Manager: Procedure Note Radiology, Radiologist, MD - 01/28/2024 [place] [address] Mammography Report Signed Patient: MITALI CRONIN LMR#: [id number] : 1955cct:[id number] Age/Sex: 68 / FADM Date: 01/28/24 Loc: MAMMO Attending Dr: CIERA CHAMORRO Ordering Physician: CIERA CHAMORROResults: Date of Service: 01/28/24Follow Up: Procedure(s): MM tomosynthesis screening BI Accession Number(s): [id number] cc: CIERA CHAMORRO Patient Name: MITALI CRONIN MR#: [id number] : 1955 Exam Date: 01/28/2024 Ordering Doctor: DR CIERA CHAMORRO M.D. RADIOLOGY REPORT PROCEDURE: MM TOMOSYNTHESIS SCREENING BI COMPARISON: MM TOMOSYNTHESIS SCREENING BI, 12/23/2022. MG MAMM [id number] AMOL CAD, 2021. MG MAMM SCREEN AMOL W CAD, 01/04/2020. MG MAMM BILSCRN W CAD DIG, 02/14/2016. INDICATIONS: Screening Calculator Name NCI Breast Cancer Risk Assessment Tool 5 Year Breast Cancer Risk 1.50% Lifetime Breast Cancer Risk 4.30% Personal Breast Cancer No Personal Ovarian Cancer No Treatments None Family Cancers None LOCATION: The [facility] BREAST COMPOSITION: The breasts are heterogeneously dense,which may obscure small masses. FINDINGS: DIAGNOSTIC CATEGORY 2--BENIGN FINDING: RIGHT BREAST: No significant suspicious finding. Scatteredbenign-appearing calcifications are present. Chronically dilated subareolar ducts. No significant change has occurred. LEFT BREAST: No significant suspicious finding. Scatteredbenign-appearing nodules are present. Chronically dilated subareolar ducts. Nosignificant change has occurred. RECOMMENDATIONS: ROUTINE MAMMOGRAM AND CLINICAL EVALUATION IN 12 MONTHS. PLEASE NOTE: A NORMAL MAMMOGRAM DOES NOT EXCLUDE THE POSSIBILITY OFBREAST CANCER. A CLINICALLY SUSPICIOUS PALPABLE LUMP SHOULD BE BIOPSIED. Dictated by: Miguel Glover M.D. on 01/28/2024 at 16:19 Approved by: Miguel Glover M.D. on 01/28/2024 at 16:22 Dictated By: Miguel Glover M.D. Signed By:01/28/24 1624 DD/ 1623 TD/TT: Natural Sciences Manager: Ciera Chamorro MD [facility] Final Result documented in this encounter Visit Diagnoses Not on filedocumented in this encounter Additional Health Concerns Assessment Noted Time PHQ-9 Depression Total Score: 4 11/25/19 23 8:00 AM EDT documented as of this encounter Care Teams Marketing Research Analyst Relationship Specialty Start Date End Date Ciera Chamorro MD [address] [facility] 110 [place] [address] PCP - ACO Reach 10/30/22 Ciera Chamorro MD [address] [facility] 110 [place] [address] PCP - General Family Medicine 11/10/22 documented as of this encounter
--- OUTSIDE RECORDS SUMMARY | 2025-03-26 17:03 | XMS_ITS | Encounter Summary ---
Author Organization [facility] Address [address] [place] [address] Care Team Providers Care Glass Designer Name Role Phone Ciera Mares MD Unavailable Ciera Mares MD Primary Care Provider [phone] Encounter Details Date Type Department Care Team (Late st Contact Info) Description 11/24/2022 Abstract [facility] [address] [place] [address] Ciera Mares MD [address] [place] [address] Social History Tobacco Use Types Packs/Day Years [...] Little interest or pleasure in doing things Several days 11/24/2022 8:00 AM EDT Lilly Mcfarlane LP N Feeling down, depressed, or hopeless Several days 11/24/2022 8:00 AM EDT Lilly Mcfarlane LP N Patient Health Questionnaire -2 Score 2 11/24/2022 8:00 AM EDT Lilly Mcfarlane LP N * Question Answer Date of Assessment Author Trouble falling or staying asleep, or sleeping too much Several days 11/24/2022 8:00 AM EDT Cristy Mcfarlane LPN Feeling tired or having raymond le energy Not at all 11/24/2022 8:00 AM EDT Lilly Mcfarlane LP N Poor appetite or overeating Not at all 11/24/2022 8: 00 AM EDT Lilly Mcfarlane LPN Feeling bad about yourself - or that you are a failure or have let yourself or your family down Several days 11/24/2022 8:00 AM EDT Lilly Mcfarlane LP N Trouble concentrating on things, such as reading the newspaper or watching television Not at all 11/24/2022 8:00 AM EDT Lilly Mcfarlane LP N Moving or speaking so slowly that other people could have noticed? Or the opposite - being so fidgety or restless that you have been moving around a lot more than usual. Not at all 11/24/2022 8:00 AM EDT Radha Mcfarlane LPN Thoughts that you would be better off or hurting yourself in some way Not at all 11/24/2022 8:00 AM EDT Lilly Mcfarlane L PN Patient Health Questionnaire -9 Score 4 11/24/2022 8:00 AM EDT Lilly Mcfarlane LP N * How difficult have these problems made it for you to do your work, take care of things at home, or get along with other people? Answer Date of Assessment Author Not difficult at all 11/24/2022 8:00 AM EDT Lilly Mcfarlane LPN documented as of this encounter Plan of Treatment Upcoming Encounters Date Type Department Care Team (Late st Contact Info) Description 03/28/2025 1:45 PM EDT Office Visit [facility] [address] [place] [address] Madiha Damian, DPM [address] [place] [address] 05/24/2025 8:00 AM EST Office Visit [facility] [address] [place] [address] Jr. Tres Archer DO [address] [place] [address] documented as of this encounter Visit Diagnoses Not on filedocumented in this encounter Additional Health Concerns Assessment Noted Time PHQ-9 Depression Total Score: 4 11/25/19 23 8:00 AM EDT documented as of this encounter Care Teams Glass Designer Relationship Specialty Start Date End Date Ciera Mares MD [address] [facility] [address] [place] [address] PCP - ACO Reach 10/30/22 Ciera Mares MD [address] [facility] [address] [place] [address] PCP - General Family Medicine 11/10/22 documented as of this encounter
--- OUTSIDE RECORDS SUMMARY | 2025-03-26 17:03 | XMS_ITS | Encounter Summary ---
Author Organization [facility] Address [address] [place] [address] Care Team Providers Care Auriculotherapist Name Role Phone Ciera Mares MD Unavailable Ciera Mares MD Primary Care Provider [phone] Encounter Details Date Type Department Care Team (Late Contact Info) Description 10/13/2024 Results Follow-Up [facility] [address] [place] [address] [place] [phone] Ciera Mares MD [address] [facility] [address] [place] [address] URINARY TRACT INFECTION (HTRX) Social History Tobacco Use Types Packs/Day Years [...] Office Visit [facility] [address] [place] [id number] Madiha Damian, DPM [address] [place] [address] 05/24/2025 8:00 AM EST Office Visit [facility] [address] [place] [phone] Jr. Tres Archer DO [address] [facility] [address] [place] [address] documented as of this encounter Visit Diagnoses Not on filedocumented in this encounter Additional Health Concerns Assessment Noted Time PHQ-9 Depression Total Score: 4 11/25/19 23 8:00 AM EDT documented as of this encounter Care Teams Auriculotherapist Relationship Specialty Start Date End Date Ciera Mares MD [address] [facility] [address] [place] [address] PCP - ACO Reach 10/30/22 Ciera Mares MD [address] [facility] [address] [place] [address] PCP - General Family Medicine 11/10/22 documented as of this encounter
--- OUTSIDE RECORDS SUMMARY | 2025-03-26 17:03 | XMS_ITS | Encounter Summary ---
Author Organization [facility] Address [address] [place] [address] Care Team Providers Care Linseed Oil Order Filler Name Role Phone Ciera Mares MD Unavailable Ciera Mares MD Primary Care Provider [phone] Encounter Details Date Type Department Care Team (Late Contact Info) Description 02/10/2024 Abstract [facility] [address] [place] [address] [place] [phone] Ciera Mares MD [address] [place] [address] [place] [address] Social History Tobacco Use Types Packs/Day Years [...] Office Visit [facility] [address] [place] [phone] Madiha Damian, DPM [address] [place] [phone] 05/24/2025 8:00 AM EST Office Visit [facility] [address] [place] [address] Jr. Tres Archer, DO [address] [place] [address] [place] [address] documented as of this encounter Visit Diagnoses Not on filedocumented in this encounter Additional Health Concerns Assessment Noted Time PHQ-9 Depression Total Score: 4 11/25/19 23 8:00 AM EDT documented as of this encounter Care Teams Linseed Oil Order Filler Relationship Specialty Start Date End Date Ciera Mares MD [address] [facility] [address] [place] [address] PCP - ACO Reach 10/30/22 Ciera Mares MD [address] [place] [address] [place] [address] PCP - General Family Medicine 11/10/22 documented as of this encounter
--- NOTE | 2025-03-26 17:06 | ED.FALL1 ---
HPI HPI - Fall General Chief Complaint: Fall Stated Complaint: FALL Time Seen by Provider: 03/26/25 16:55 Source: patient Mode of arrival: ambulance Limitations: no limitations History of Present Illness HPI Narrative: Patient is a 69-year-old female presents to the ER via EMS for evaluation of head laceration. Patient states she was at her kitchen utilizing the sink when she turned tripping losing her balance and during fall trying to catch herself struck her head on the countertop. She denies any loss of consciousness but noted significant bleeding. She also struck her left knee and left lower back. She has had bilateral knee replacements previously and low back surgery but states her shoes and the investment representative on them is what caused her to fall. She denies any loss of consciousness. Denies any visual disturbance nausea vomiting or headache. Prominent laceration transverse to the forehead noted and patient notes soreness to the occiput of her scalp. Patient denies any other injuries. She denies feeling faint or lightheaded and denies any chest pain or shortness of breath. She is unsure of her last tetanus shot MD complaint: Reports fall Onset (ago): minute(s) Fall from: Reports standing Fall witnessed: Reports no Place fall occurred: Reports home Loss of consciousness: none Prolonged down time: Reports no Symptoms prior to fall: Reports none Context: Reports tripped/slipped Location of injury: Reports head Location of injury - extremities: Left: knee Severity: mild Associated symptoms (after fall): Reports denies Related Data Home Medications ?Medication ?Instructions ?Recorded ?Confirmed hydrochlorothiazide 25 mg tablet 25 mg DAILY 01/24/23 levothyroxine 75 mcg tablet 75 mcg PO DAILY 01/24/23 01/25/25 meloxicam 15 mg tablet 15 mg PO DAILY 01/24/23 01/25/25 Held on 01/25/25. Instructions: Resume on 02/01/25. hold while using the Voltaren metoprolol tartrate 50 mg tablet 50 mg PO DAILY 01/24/23 01/25/25 carbamazepine 200 mg tablet mg 01/25/25 Previous Rx's ?Medication ?Instructions ?Recorded diclofenac sodium 50 mg 50 mg PO Q12H PRN pain #20 tabs 01/25/25 tablet,delayed release Allergies Allergy/AdvReac Type Severity Reaction Status Date / Time hydromorphone (From Dilaudid) Allergy Severe Anaphylaxis Verified 03/26/25 16:52 morphine Allergy Severe Anaphylaxis Verified 03/26/25 16:52 sumatriptan (From Imitrex) Allergy Intermediate Muscle Pain Verified 03/26/25 16:52 Opioid HPI Opioid Management Most Recent Pain and Opioid Data: Last Pain Scale 10 Today, 16:52 Review of Systems ROS Constitutional Denies: fever or chills Eyes Denies: change in vision or blurry vision Ears, nose, mouth, and throat Denies: throat pain, neck pain or throat swelling Cardiovascular Denies: chest pain, palpitations or edema Respiratory Denies: shortness of breath Gastrointestinal Denies: abdominal pain, nausea or vomiting Genitourinary Denies: painful urination Musculoskeletal Reports: extremity pain (left knee) and joint pain; Denies: back pain, neck pain or extremity swelling Integumentary/Breast Denies: rash or itching Neurological Denies: headache or numbness in extremities Psychiatric Denies: anxiety [facility] Medical History (Updated 03/26/25 @ 17:15 by UZMA Bolden) Arthritis ?M19.90 - Unspecified osteoarthritis, unspecified site (ICD-10) Hypertension ?I10 - Essential (primary) hypertension (ICD-10) Hypothyroidism ?E03.9 - Hypothyroidism, unspecified (ICD-10) Social History Smoking status: Never smoker Little interest or pleasure in doing things: not at all Feeling down, depressed, or hopeless: not at all Exam Narrative Exam Narrative: Nurses note and vital signs reviewed and patient is not hypoxic. General: The patient appears well and in no apparent distress. Patient is resting comfortably on cart. GCS = 15. Skin: Warm, dry, no pallor noted. Head: Normocephalic, 3 cm transverse laceration to the left upper forehead. Tenderness to the occiput without palpable hematoma. Neck: Supple, trachea mid-line, no tenderness, no lymphadenopathy. Full ROM and no cervical spinal tenderness. The patient has no step-offs or crepitus noted Eyes: PERRLA, EOMI ENT: TM's clear, no hemotympanum detected, no blood in posterior oropharynx Cardiovascular: Regular Rate and Rhythm Respiratory: Patient is in no distress, no accessory muscle use, lungs are clear to auscultation, no wheezing, rales or rhonchi Chest Wall: no tenderness, no flail chest, contusion, abrasion, or signs of trauma. Back: Back has no evidence of trauma, remote lower midline scar is noted. no bruising over the midline. possible early contusion left lateral lower back, no bony tenderness. The patient had no evidence of step-offs or creptitace noted. No tenderness to palpation. Negative straight leg raise bilaterally. Musculoskeletal: normal ROM, no tenderness, no swelling. Well-healing scars from bilateral knee replacements. No pain with gentle valgus varus force no appreciable laxity tenderness to the prepatellar region without obvious hematoma. Right knee is nontender. Pulses at femoral, DP, PT, and popiteal were 2+ bilaterally. Moves all four extremities in all modalities with 5/5 strength. GI: Normal bowel sounds, no tenderness to palpation, no masses appreciated. No rebound, guarding, or rigidity noted. Neurological: Alert and oriented x4, normal equal crown blocker strength, normal speech, normal coordination, normal motor, normal sensory. Psychiatric: Cooperative Constitutional Vital Signs, click to edit/add: Last Vital Signs Temp 98.5 F 03/26/25 16:52 Pulse 78 03/26/25 17:44 Resp 18 03/26/25 17:44 BP 175/90 H 03/26/25 17:44 Pulse Ox 100 03/26/25 17:44 O2 Del Method Room Air 03/26/25 16:52 Course Vital Signs Vital signs: Vital Signs Temperature 98.5 F 03/26/25 16:52 Pulse Rate 78 03/26/25 16:52 Respiratory Rate 16 03/26/25 16:52 Blood Pressure 185/89 H 03/26/25 16:52 Pulse Oximetry 98 03/26/25 16:52 Oxygen Delivery Method Room Air 03/26/25 16:52 Temperature 98.5 F 03/26/25 16:52 Pulse Rate 78 03/26/25 17:44 Respiratory Rate 18 03/26/25 17:44 Blood Pressure 175/90 H 03/26/25 17:44 Pulse Oximetry 100 03/26/25 17:44 Oxygen Delivery Method Room Air 03/26/25 16:52 MDM - Fall MDM Narrative Medical decision making narrative: Patient denies any anticoagulant use. She reports striking her head with significant force but no loss of consciousness. Patient's laceration to the forehead requiring suture repair. Given scalp laceration and mechanism of injury with patient's age and tenderness to the occiput a CT of the head and neck was performed. Pt lives with her , whom has dementia and doesn't drive...Ct Perfromed with discussing head injury observation. X-ray of the left knee performed given history of replacement and striking her left knee during the fall. Ice pack was applied on arrival. She denies feeling faint near syncopal or dizzy she denies any chest pain or shortness of breath. She reports a mechanical fall tripping over her shoes that are grippy on her karl. Patient's tetanus was updated. The degenerative changes of her cervical spine, alignment and arthrosclerotic disease age-related changes. were discussed in laymens terms. Verbal and written close head injury instructions were discussed. Suture removal recommended in the next 7 to 10 days. Expected bruising discussed. The patient is to followup with primary care physician in next 7-10 days or to return to the emergency department should any of the signs or symptoms worsen or new symptoms develop. Patient had questions answered. The patient agrees with the following Diagnosis and Treatment plan and the patient will be discharged home. Imaging Data CT scan - head: Radiologist's impression: ITS Impressions Cervical Spine CT 03/26/25 17:02 IMPRESSION: No acute bony injury. There is 3 mm of anterolisthesis of C7 upon T1. Degenerative changes are noted throughout the cervical spine as above. Impression dictated by: Gallo Tompkins M.D. 03/26/2025 5:56 PM Dictation Location: [employer] Electronically authenticated by: [id number] Y Date: 03/26/2025 17:[address] 03/26/25 17:02 IMPRESSION: No acute intracranial pathology. There is mild left frontal soft tissue swelling with an accompanying laceration. Chronic age-related neurodegenerative changes are noted as above. Impression dictated by: Gallo Tompkins M.D. 03/26/2025 5:51 PM Dictation Location: [employer] Electronically authenticated by: [id number] Y Date: 03/26/2025 17:51 Knee X-Ray 03/26/25 17:02 IMPRESSION: There is total left knee arthroplasty hardware. No hardware complication. There is no fracture or dislocation. Impression dictated by: Gallo Tompkins M.D. 03/26/2025 5:48 PM Dictation Location: [place] [address] Electronically authenticated by: [id number] Y Date: 03/26/2025 17:48 Discharge Plan Discharge Chief Complaint: Fall Clinical Impression: Closed head injury, Contusion of knee, left, Forehead laceration, Fall Patient Disposition: Home, Self-Care Time of Disposition Decision: 18:06 Condition: Good Prescriptions / Home Meds: No Action hydrochlorothiazide 25 mg tablet 25 mg DAILY levothyroxine 75 mcg tablet 75 mcg PO DAILY metoprolol tartrate 50 mg tablet 50 mg PO DAILY meloxicam 15 mg tablet 15 mg PO DAILY carbamazepine 200 mg tablet diclofenac sodium 50 mg tablet,delayed release (DR/EC) 50 mg PO Q12H PRN (Reason: pain) Qty: 20 0RF Print Language: Burmese Instructions: Laceration (ED), Head Injury (ED) Referrals: JUSTINE GRANT [Primary Care Provider, Unknown] - 1 week Procedures ED Laceration Laceration Laceration 1: Additional comments: Laceration repair: Done under sterile conditions. The use of Betadine was used to prep and clean the area. Local injection with lidocaine 1% with epi was used, approximately 2 mL. The wound was irrigated copiously with normal saline. The wound was explored there was no evidence of foreign material. The laceration was approximated with 6-0 ethilon. 7 simple interrupted sutures were placed. Patient tolerated the procedure well. The patient was neurovascularly intact post. the patient had bacitracin applied to the laceration and a dry sterile dressing was place. The patient will need to follow-up in the next 7-10 days for removal.
[2025-03-26] MEDS: LIDOCAINE HCL 1%-EPINEPHRINE 1:100,000 20 ML MDV 5 ML INJ (17:37)
[2025-03-26] MEDS: BACITRACIN 0.9 GM PACKET 1 PACKET TOPICAL (17:37)
[2025-03-26] MEDS: DIPHTH,PERTUSS(ACELL),TET VAC 0.5 ML SYRINGE IM (17:37)
[2025-03-26 17:44] VITALS: BP 175/90; PULSE 78; O2SAT 100
--- NOTE | 2025-03-26 18:39 | PC.NURSE ---
lac to forehead cleansed at bedside by UZMA MADDOX prior to sutures. [address] and band aid applied prior to d/c
== END 2025-03-26 18:40 | disposition home or self-care (01) ==
PROVIDERS: Emergency Provider Emergency Medicine; PCP Nurse Practitioner Family
DX: S01.81XA Laceration without foreign body of other part of head, initial encounter (principal); S80.02XA Contusion of left knee, initial encounter; Z96.653 Presence of artificial knee joint, bilateral; Z23 Encounter for immunization; W01.198A Fall on same level from slipping, tripping and stumbling with subsequent striking against other object, initial encounter; Y93.9 Activity, unspecified; Y92.000 Kitchen of unspecified non-institutional (private) residence as the place of occurrence of the external cause; S09.8XXA Other specified injuries of head, initial encounter
CPT/HCPCS: 12013; 70450; 72125; 73562; 76376; 90471; 90715; 99284